=== PATIENT | female | born 1930 | race African-American/Black ===

== ENCOUNTER 2017-07-07 10:29 | Outpatient (RCR) | payer MEDICARE, BC ==
[~2017-07-07] VITALS: Ht 170.2 cm; Wt 70.3 kg
[2017-07-25] MEDS ORDERED: TOUJEO SOL300 UNIT/1 SQ (15:28)
[2017-07-25] MEDS ORDERED: FUROSEMIDE40 MG/5 ML ORAL (15:28)
[2017-07-25] MEDS ORDERED: TRADJENTA5 MG PO (15:28)
[2017-07-25] MEDS ORDERED: AMLODIPINE-BEN1 EACH ORAL (15:28)
[2017-07-25] MEDS ORDERED: MONTELUKAST SODI4 M1 ORAL (15:28)
[2017-07-25] MEDS ORDERED: ZESTRIL30 MG ORAL (15:28)
[2017-07-25] MEDS ORDERED: KLOR-CON20 MEQ ORAL (15:28)
[2017-07-25] MEDS ORDERED: LIPITOR80 MG ORAL (15:28)
[2017-07-25] MEDS ORDERED: LETROZOLE2.5 MG ORAL (15:28)
== END 2017-07-28 | disposition home or self-care (01) ==
LOC: WCC 10:29
DX: L89.154 Pressure ulcer of sacral region, stage 4 (principal); L97.412 Non-pressure chronic ulcer of right heel and midfoot with fat layer exposed; E11.621 Type 2 diabetes mellitus with foot ulcer; I10 Essential (primary) hypertension; Z90.710 Acquired absence of both cervix and uterus
CPT/HCPCS: 11042; 11043; 87070; 87181; 87205

== ENCOUNTER 2017-07-07 12:03 | Outpatient (CLI) | payer MEDICARE, BC | END 2017-07-07 14:03 | disposition home or self-care (01) | LOC: LAB 12:03 | DX: E11.9 Type 2 diabetes mellitus without complications (principal); E46 Unspecified protein-calorie malnutrition; M86.9 Osteomyelitis, unspecified; L98.499 Non-pressure chronic ulcer of skin of other sites with unspecified severity | CPT/HCPCS: 36415; 83036; 84134; 87070; 87181; 87205 ==

== ENCOUNTER 2017-07-10 08:40 | Outpatient (CLI) | payer MEDICARE, BC ==
--- NOTE | 2017-07-10 10:38 | Diagnostic Imaging Report ---
Indication: Sacrococcygeal region pain Technique: MRI examination of the sacrum was performed in a 1.5 Darling magnet. Sequences obtained include multiplanar T1 and T2 fast spin echo, and STIR. Comparison: none Findings: There is a T1 hypointense/T2 hyperintense edema of the postsurgical subcutaneous fat and suggestion of the skin ulceration consistent with a decubitus ulcer. Image 8 of series 5 probably best demonstrates presence of ulceration and fluid signal extending to the lower sacrum at about S5. This likely indicates a stage IV ulceration. Bone marrow signal is reasonably well maintained on both T1 and T2-weighted images. There is no compelling evidence here for acute osteoarthritis. In addition, there is evidence of fecal impaction at the distended rectum and stool. There is suggestion of thickening of the wall the rectum. There is presacral edema present. Degenerative changes of the lower lumbar spine are noted characterized by desiccation and narrowing of intervertebral disc, mild anterolisthesis at L4-5 and hypertrophied facets at L4-5 and L5-S1. 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 IMPRESSION: Stage IV decubitus ulcer posterior to the lower sacrum. Bone marrow signal is preserved with no evidence of acute osteomyelitis by this examination. Fecal impaction with evidence of proctocolitis and moderate perirectal/presacral inflammation. Moderate degenerative disease at L4-5 and L5-S1 as described above
== END 2017-07-10 10:40 | disposition home or self-care (01) ==
LOC: MRI 08:40
DX: M86.9 Osteomyelitis, unspecified (principal); L98.499 Non-pressure chronic ulcer of skin of other sites with unspecified severity; L89.154 Pressure ulcer of sacral region, stage 4; K52.9 Noninfective gastroenteritis and colitis, unspecified; M51.37 Other intervertebral disc degeneration, lumbosacral region
CPT/HCPCS: 72195; 93922; 93925

== ENCOUNTER 2017-07-25 12:59 | Inpatient (IN) | payer MEDICARE, BC ==
[~2017-07-25] VITALS: Ht 170.2 cm; Wt 51.3 kg
[2017-07-25] MEDS ORDERED: Vancomycin 1 GM in NS 275 ML IV ONE (13:45)
[2017-07-25 13:49] VITALS: BP 135/35
[2017-07-25 14:40] LABS: BASOPHILS % (AUTO) 1.8 % (0.0-2.0); EOSINOPHILS % (AUTO) 3.1 % (0.0-3.0); HEMATOCRIT 29.5 % (37.0-47.0); HEMOGLOBIN 9.3 G/DL (12.0-16.0); LYMPHOCYTES % (AUTO) 10.2 % (20.0-45.0); MEAN CORPUSCULAR VOLUME 84 FL (80-99); MONOCYTES % (AUTO) 11.2 % (1.0-10.0); NEUTROPHILS % (AUTO) 73.7 % (45.0-75.0); PLATELET COUNT 379 K/UL (150-450); RED BLOOD COUNT 3.52 M/UL (4.20-5.40); RED CELL DISTRIBUTION WIDTH 13.6 % (11.6-14.8); WHITE BLOOD COUNT 7.4 K/UL (4.8-10.8)
--- NOTE | 2017-07-25 14:42 | Emergency Room Report ---
History of Present Illness General Chief Complaint: Wound Recheck/Suture Removal Source: Patient, Caregiver Present Illness HPI 87-year-old female presents ED for evaluation. Patient brought in by niece and gripper attacher. Patient complaining of an ulcer to her lower back. Has been there for many months. Currently being treated with home wound care but is not getting better. Niece says wound is getting worse. Patient denies any pain. Denies any fevers chills. Physical Plant Manager states that patient is scheduled to start at wound care clinic here at [facility] next week. Has currently not received any treatment yet from the wound care clinic. No other aggravating or relieving factors. Denies any other associated symptoms Allergies: Coded Allergies: NO KNOWN DRUG ALLERGIES (Verified Allergy, Unknown, 07/10/17) Patient History Past Medical History: HTN Past Surgical History: other - lumpectomy Pertinent Family History: none Social History: Denies: smoking, alcohol use, drug use Now: No Immunizations: UTD Reviewed Nursing Documentation: PMH: Agreed; PSxH: Agreed Nursing Documentation-PMH Hx Hypertension: Yes Hx Diabetes: Yes Hx Cancer: Yes - breast 2014 lumpectomy Review of Systems All Other Systems: negative except mentioned in HPI Physical Exam Vital Signs Date Time Temp Pulse Resp B/P (MAP) Pulse Ox O2 Delivery O2 Flow Rate FiO2 07/25/17 13:15 97.8 70 17 135/35 100 Room Air 97.9 Sp02 EP Interpretation: reviewed, normal General Appearance: no apparent distress, alert, GCS 15, non-toxic Head: normocephalic, atraumatic Eyes: bilateral eye normal inspection, bilateral eye PERRL ENT: hearing grossly normal, normal pharynx, no angioedema, normal voice Neck: full range of motion, supple/symm/no masses Respiratory: chest non-tender, lungs clear, normal breath sounds, speaking full sentences Cardiovascular #1: regular rate, rhythm, no edema Cardiovascular #2: 2+ carotid (R), 2+ carotid (L), 2+ radial (R), 2+ radial (L) , 2+ dorsalis pedis (R), 2+ dorsalis pedis (L) Gastrointestinal: normal bowel sounds, non tender, soft, non-distended, no guarding, no rebound Rectal: deferred Genitourinary: normal inspection, no CVA tenderness Musculoskeletal: back normal, gait/station normal, normal range of motion, non- tender Neurologic: alert, oriented x3, responsive, motor strength/tone normal, sensory intact, speech normal Psychiatric: judgement/insight normal, memory normal, mood/affect normal, no suicidal/homicidal ideation Reflexes: 3+ bicep (R), 3+ bicep (L), 3+ tricep (R), 3+ tricep (L), 3+ knee (R) , 3+ knee (L) Skin: other - 3x3cm sacral decutibus ulcer noted Lymphatic: no adenopathy Medical Decision Making Diagnostic Impression: Primary Impression: Sacral ulcer Qualified Codes: L98.429 - Non-pressure chronic ulcer of back with unspecified severity ER Course Hospital Course 87-year-old female presents to ED with wound to lower back Differential diagnoses include: Cellulitis, abscess, rash. Clinical course Patient placed on stretcher. After initial history, physical exam reveals an elderly female in no acute distress. On exam there is a large sacral decubitus ulcer which is fairly deep I spoke to gripper attacher and family. The ulcer has been there for many months now and has received home treatment without relief or improvement. I believe patient will require inpatient admission at this time and further evaluation labs reviewed - no leukocytosis, Hb/Hct stable, no electrolyte abnormalities. Wound culture obtained antibiotics given. Case discussed with Dr Pimentel and he agreed to accept the patient to his service for further care and support Diagnosis - sacral ulcer Patient admitted to floor in serious condition Labs Test 07/25/17 14:15 07/25/17 14:20 07/26/17 05:00 White Blood Count 7.4 K/UL (4.8-10.8) 7.2 K/UL (4.8-10.8) Red Blood Count 3.52 M/UL (4.20-5.40) 3.08 M/UL (4.20-5.40) Hemoglobin 9.3 G/DL (12.0-16.0) 8.5 G/DL (12.0-16.0) Hematocrit 29.5 % (37.0-47.0) 25.5 % (37.0-47.0) Mean Corpuscular Volume 84 FL (80-99) 83 FL (80-99) Mean Corpuscular Hemoglobin 26.4 PG (27.0-31.0) 27.8 PG (27.0-31.0) Mean Corpuscular Hemoglobin Concent 31.6 G/DL (32.0-36.0) 33.5 G/DL (32.0-36.0) Red Cell Distribution Width 13.6 % (11.6-14.8) 13.7 % (11.6-14.8) Platelet Count 379 K/UL (150-450) 382 K/UL (150-450) Mean Platelet Volume 6.2 FL (6.5-10.1) 6.3 FL (6.5-10.1) Neutrophils (%) (Auto) 73.7 % (45.0-75.0) 66.3 % (45.0-75.0) Lymphocytes (%) (Auto) 10.2 % (20.0-45.0) 14.1 % (20.0-45.0) Monocytes (%) (Auto) 11.2 % (1.0-10.0) 12.8 % (1.0-10.0) Eosinophils (%) (Auto) 3.1 % (0.0-3.0) 5.3 % (0.0-3.0) Basophils (%) (Auto) 1.8 % (0.0-2.0) 1.5 % (0.0-2.0) Erythrocyte Sedimentation Rate 101 MM/HR (0-30) Sodium Level 132 MMOL/L (136-145) 138 MMOL/L (136-145) Potassium Level 4.3 MMOL/L (3.5-5.1) 4.2 MMOL/L (3.5-5.1) Chloride Level 99 MMOL/L (98-107) 103 MMOL/L (98-107) Carbon Dioxide Level 27 MMOL/L (21-32) 26 MMOL/L (21-32) Anion Gap 6 mmol/L (5-15) 9 mmol/L (5-15) Blood Urea Nitrogen 26 mg/dL (7-18) 20 mg/dL (7-18) Creatinine 1.4 MG/DL (0.55-1.30) 0.9 MG/DL (0.55-1.30) Estimat Glomerular Filtration Rate mL/min (>60) mL/min (>60) Glucose Level 359 MG/DL (74-106) 156 MG/DL (74-106) Hemoglobin A1c 10.2 % (4.3-6.0) Lactic Acid Level 1.30 mmol/L (0.66-2.22) Calcium Level 9.1 MG/DL (8.5-10.1) 8.7 MG/DL (8.5-10.1) Total Bilirubin 0.4 MG/DL (0.2-1.0) 0.5 MG/DL (0.2-1.0) Aspartate Amino Transf (AST/SGOT) 14 U/L (15-37) 14 U/L (15-37) Alanine Aminotransferase (ALT/SGPT) 15 U/L (12-78) 20 U/L (12-78) Alkaline Phosphatase 75 U/L (46-116) 58 U/L (46-116) Pro-B-Type Natriuretic Peptide 1037 pg/mL (0-125) Total Protein 7.5 G/DL (6.4-8.2) 6.2 G/DL (6.4-8.2) Albumin 2.3 G/DL (3.4-5.0) 2.0 G/DL (3.4-5.0) Globulin 5.2 g/dL 4.2 g/dL Albumin/Globulin Ratio 0.4 (1.0-2.7) 0.5 (1.0-2.7) Thyroid Stimulating Hormone (TSH) 2.602 uiU/mL (0.358-3.740) Free Thyroxine 1.56 NG/DL (0.76-1.46) Urine Color Pale yellow Urine Appearance Clear Urine pH 5 (4.5-8.0) Urine Specific [place] 1.010 (1.005-1.035) Urine Protein Negative (NEGATIVE) Urine Glucose (UA) 2+ (NEGATIVE) Urine Ketones Negative (NEGATIVE) Urine Occult Blood Negative (NEGATIVE) Urine Nitrite Negative (NEGATIVE) Urine Bilirubin Negative (NEGATIVE) Urine Urobilinogen Normal MG/DL (0.0-1.0) Urine Leukocyte Esterase Negative (NEGATIVE) Last Vital Signs Date Time Temp Pulse Resp B/P (MAP) Pulse Ox O2 Delivery O2 Flow Rate FiO2 07/25/17 13:49 97.9 17 135/35 100 Room Air 97.9 07/25/17 13:15 70 Status: improved Disposition: ADMITTED INPATIENT Condition: Serious Referrals: NON PHYSICIAN (PCP) Antonio Osorio MD Jul 25, 2017 14:42
[2017-07-25 14:50] LABS: ANION GAP 6 mmol/L (5-15); BLOOD UREA NITROGEN 26 mg/dL (7-18); CALCIUM 9.1 MG/DL (8.5-10.1); CARBON DIOXIDE 27 MMOL/L (21-32); CHLORIDE 99 MMOL/L (98-107); CREATININE 1.4 MG/DL (0.55-1.30); POTASSIUM 4.3 MMOL/L (3.5-5.1); SODIUM 132 MMOL/L (136-145)
[2017-07-25 15:02] LABS: ALANINE AMINOTRANSFERASE 15 U/L (12-78); ALBUMIN 2.3 G/DL (3.4-5.0); ALBUMIN/GLOBULIN RATIO 0.4 (1.0-2.7); ALKALINE PHOSPHATASE 75 U/L (46-116); ASPARTATE AMINO TRANSFERASE 14 U/L (15-37); BILIRUBIN,TOTAL 0.4 MG/DL (0.2-1.0)
[2017-07-25 15:11] VITALS: BP 132/65
[2017-07-25] MEDS ORDERED: TRADJENTA5 MG PO (15:28)
[2017-07-25] MEDS ORDERED: MONTELUKAST SODI4 M1 ORAL (15:28)
[2017-07-25] MEDS ORDERED: AMLODIPINE-BEN1 EACH ORAL (15:28)
[2017-07-25] MEDS ORDERED: LIPITOR80 MG ORAL (15:28)
[2017-07-25] MEDS ORDERED: FUROSEMIDE40 MG/5 ML ORAL (15:28)
[2017-07-25] MEDS ORDERED: KLOR-CON20 MEQ ORAL (15:28)
[2017-07-25] MEDS ORDERED: LETROZOLE2.5 MG ORAL (15:28)
[2017-07-25] MEDS ORDERED: TOUJEO SOL300 UNIT/1 SQ (15:28)
[2017-07-25] MEDS ORDERED: ZESTRIL30 MG ORAL (15:28)
--- NOTE | 2017-07-25 15:37 | History & Physical ---
History and Physical History & Physicial seen and examined. HP Dilatated Erin Pimentel MD Jul 25, 2017 15:37
[2017-07-25 16:00] LABS: APPEARANCE,URINE CLEAR; BILIRUBIN, URINE NEGATIVE (NEGATIVE); COLOR,URINE PALE YELLOW; GLUCOSE, URINE (UA) 2+ (NEGATIVE); KETONES,URINE NEGATIVE (NEGATIVE); LEUKOCYTE ESTERASE ,URINE NEGATIVE (NEGATIVE); NITRITE,URINE NEGATIVE (NEGATIVE); PH,URINE 5 (4.5-8.0); PROTEIN,URINE NEGATIVE (NEGATIVE); UROBILINOGEN,URINE NORMAL MG/DL (0.0-1.0)
--- NOTE | 2017-07-25 16:53 | Diagnostic Imaging Report ---
. Indication: Chest pain Technique: One view of the chest Comparison: none Findings: The lungs and pleural spaces are clear. The heart is borderline enlarged. There are left axillary surgical clips. The patient is slightly rotated to the left. Impression: No acute process
[2017-07-25 17:41] VITALS: BP 135/65
[2017-07-25 19:16] VITALS: BP 143/62
[2017-07-25] MEDS: NovoLOG Insulin Flexpen SUBQ SCH (19:24)
--- NOTE | 2017-07-25 19:45 | History and Physical Report ---
DATE OF ADMISSION: 07/25/2017 SOURCE OF INFORMATION: The patient and EMR. HISTORY OF PRESENT ILLNESS: The patient is a pleasant 87-year-old, female, recently post hospitalization Hospital, presented with increasing amount of pain, bloating in the abdomen. The patient was visited in the emergency room and I used a variety lathe operator for communication with this patient. The patient denies any chest pain or shortness of breath. The patient reported because of diarrhea has been transferred to the hospital. Initial evaluation in the emergency room shows the temperature of 97.8 degrees, respiratory rate of 17, and pulse oximetry 100% on room air. The patient is following the commands. The patient is on nasal oxygen. The patient denies any fever or chills. The patient denies any abnormal bleeding. PAST MEDICAL HISTORY: Sacral ulcer, anemia, deconditioning, and diabetes. MEDICATIONS: Current hospital medications, not available, unobtainable. ALLERGIES: NKDA. SOCIAL HISTORY: The patient reported that she lives in an apartment with her daughter. Denies history of illicit drug abuse, smoking or alcohol abuse. FAMILY HISTORY: Reviewed, noncontributory. REVIEW OF SYSTEMS: All 12 elements of review of systems reviewed with the patient. Pertinent positive and negative as above. PHYSICAL EXAMINATION: VITAL SIGNS: Blood pressure 130/80, temperature 98.2 degrees, pulse oximetry 98% on room air and respiratory rate 18. HEAD AND NECK: Atraumatic and normocephalic. CHEST: Clear to auscultation. No wheezing. No crackles. HEART: S1 and S2. Regular rate and rhythm. No S3. No S4. ABDOMEN: Soft, mild tenderness on deep palpation. Bowel sounds are noted. MUSCULOSKELETAL: Atrophied musculature, positive for decubitus ulcer in the sacral region. NEUROLOGY: The patient is awake, alert and oriented x3. PSYCHIATRIC: Mood and affect is appropriate and normal. LABORATORY AND DIAGNOSTIC DATA: Labs dated 07/25/2017 shows sodium 132, potassium 4.3, BUN 26, and creatinine 1.4. AST 14. Albumin 2.3. WBC 7.4, hemoglobin 9.3, and platelet of 375,000. Imaging pending. ASSESSMENT AND PLAN: 1. Gastroenteritis. 2. Chronic decubitus sacral ulcer. 3. Renal failure - age indeterminate. 4. Diabetes type 2, uncontrolled. 5. Hyponatremia. 6. Abnormal BNP, possibility of heart failure cannot be excluded. 7. Hypotension. 8. Differential diagnosis are shock versus hypovolemia. 9. Gastrointestinal and deep venous thrombosis prophylaxis. PLAN OF CARE: We will initiate empiric antibiotic regimen. Crystalloid with volume expanders. I agree with ICU admission. Gastrointestinal, Cardiology and Nephrology services have been consulted. Erin Pimentel M.D. DR: WALE JOB#: [id number] CC:
[2017-07-25] MEDS: D5NS 1,000 ML IV SCH (20:37)
[2017-07-26 00:13] VITALS: BP 129/46
[2017-07-26 04:00] VITALS: BP 144/52
[2017-07-26] MEDS: NovoLOG Insulin Flexpen SUBQ SCH ×3 (05:50→17:07)
[2017-07-26 07:36] LABS: BASOPHILS % (AUTO) 1.5 % (0.0-2.0); EOSINOPHILS % (AUTO) 5.3 % (0.0-3.0); HEMATOCRIT 25.5 % (37.0-47.0); HEMOGLOBIN 8.5 G/DL (12.0-16.0); LYMPHOCYTES % (AUTO) 14.1 % (20.0-45.0); MEAN CORPUSCULAR VOLUME 83 FL (80-99); MONOCYTES % (AUTO) 12.8 % (1.0-10.0); NEUTROPHILS % (AUTO) 66.3 % (45.0-75.0); PLATELET COUNT 382 K/UL (150-450); RED BLOOD COUNT 3.08 M/UL (4.20-5.40); RED CELL DISTRIBUTION WIDTH 13.7 % (11.6-14.8); WHITE BLOOD COUNT 7.2 K/UL (4.8-10.8)
[2017-07-26 07:44] LABS: ALANINE AMINOTRANSFERASE 20 U/L (12-78); ALBUMIN/GLOBULIN RATIO 0.5 (1.0-2.7); ALKALINE PHOSPHATASE 58 U/L (46-116); ANION GAP 9 mmol/L (5-15); ASPARTATE AMINO TRANSFERASE 14 U/L (15-37); BILIRUBIN,TOTAL 0.5 MG/DL (0.2-1.0); BLOOD UREA NITROGEN 20 mg/dL (7-18); CALCIUM 8.7 MG/DL (8.5-10.1); CARBON DIOXIDE 26 MMOL/L (21-32); CHLORIDE 103 MMOL/L (98-107); CREATININE 0.9 MG/DL (0.55-1.30); POTASSIUM 4.2 MMOL/L (3.5-5.1); SODIUM 138 MMOL/L (136-145)
[2017-07-26 08:00] VITALS: BP 148/70
--- NOTE | 2017-07-26 09:23 | History & Physical ---
History and Physical History & Physicial NEW HP Dictated today. Please Disregard the Prior HP Erin Pimentel MD Jul 26, 2017 09:23
--- NOTE | 2017-07-26 09:25 | General Progress Note ---
Assessment/Plan Status: stable Assessment/Plan 1- Deconditioning/ malnuritionment 2- Sacral Decubitus wound, multiple 3- DM 4- HTN 5- HLP Plan: Will optimise DM medications PT /OT consult Subjective Allergies: Coded Allergies: NO KNOWN DRUG ALLERGIES (Verified Allergy, Unknown, 07/10/17) Objective Last 24 Hour Vital Signs Date Time Temp Pulse Resp B/P (MAP) Pulse Ox O2 Delivery O2 Flow Rate FiO2 07/26/17 08:00 97.9 63 19 148/70 99 97.9 07/26/17 04:00 99.1 67 20 144/52 100 Room Air 99.1 07/26/17 00:13 98.4 69 20 129/46 97 Room Air 98.4 07/25/17 19:16 99.0 69 20 143/62 99 Room Air 99.0 07/25/17 17:41 97.9 68 16 135/65 100 Room Air 97.9 07/25/17 15:11 97.9 69 16 132/65 100 Room Air 97.9 07/25/17 13:49 97.9 17 135/35 100 Room Air 97.9 07/25/17 13:15 97.8 70 17 135/35 100 Room Air 97.9 Intake and Output 07/25/17 07/26/17 19:00 07:00 Intake Total 675 ml Balance 675 ml Intake IV Total 675 ml # Voids 4 # Bowel Movements 2 Laboratory Tests 07/25/17 14:15: White Blood Count 7.4, Red Blood Count 3.52L, Hemoglobin 9.3L, Hematocrit 29.5L , Mean Corpuscular Volume 84, Mean Corpuscular Hemoglobin 26.4L, Mean Corpuscular Hemoglobin Concent 31.6L, Red Cell Distribution Width 13.6, Platelet Count 379, Mean Platelet Volume 6.2L, Neutrophils (%) (Auto) 73.7, Lymphocytes (%) (Auto) 10.2L, Monocytes (%) (Auto) 11.2H, Eosinophils (%) (Auto ) 3.1H, Basophils (%) (Auto) 1.8, Erythrocyte Sedimentation Rate 101H, Sodium Level 132L, Potassium Level 4.3, Chloride Level 99, Carbon Dioxide Level 27, Anion Gap 6, Blood Urea Nitrogen 26H, Creatinine 1.4H, Estimat Glomerular Filtration Rate , Glucose Level 359H, Hemoglobin A1c 10.2H, Lactic Acid Level 1.30, Calcium Level 9.1, Total Bilirubin 0.4, Aspartate Amino Transf (AST/SGOT) 14L, Alanine Aminotransferase (ALT/SGPT) 15, Alkaline Phosphatase 75, Pro-B- Type Natriuretic Peptide 1037H, Total Protein 7.5, Albumin 2.3L, Globulin 5.2, Albumin/Globulin Ratio 0.4L, Thyroid Stimulating Hormone (TSH) 2.602, Free Thyroxine 1.56H 07/25/17 14:20: Urine Color Pale yellow, Urine Appearance Clear, Urine pH 5, Urine Specific [place] 1.010, Urine Protein Negative, Urine Glucose (UA) 2+H, Urine Ketones Negative, Urine Occult Blood Negative, Urine Nitrite Negative, Urine Bilirubin Negative, Urine Urobilinogen Normal, Urine Leukocyte Esterase Negative 07/26/17 05:00: White Blood Count 7.2, Red Blood Count 3.08L, Hemoglobin 8.5L, Hematocrit 25.5L , Mean Corpuscular Volume 83, Mean Corpuscular Hemoglobin 27.8, Mean Corpuscular Hemoglobin Concent 33.5, Red Cell Distribution Width 13.7, Platelet Count 382, Mean Platelet Volume 6.3L, Neutrophils (%) (Auto) 66.3, Lymphocytes ( %) (Auto) 14.1L, Monocytes (%) (Auto) 12.8H, Eosinophils (%) (Auto) 5.3H, Basophils (%) (Auto) 1.5, Sodium Level 138, Potassium Level 4.2, Chloride Level 103, Carbon Dioxide Level 26, Anion Gap 9, Blood Urea Nitrogen 20H, Creatinine 0.9, Estimat Glomerular Filtration Rate , Glucose Level 156#H, Calcium Level 8.7 , Total Bilirubin 0.5, Aspartate Amino Transf (AST/SGOT) 14L, Alanine Aminotransferase (ALT/SGPT) 20, Alkaline Phosphatase 58, Total Protein 6.2L, Albumin 2.0L, Globulin 4.2, Albumin/Globulin Ratio 0.5L Height (Feet): 5 Height (Inches): 7.00 Weight (Pounds): 113 Erin Pimentel MD Jul 26, 2017 09:25
[2017-07-26] MEDS: D5NS 1,000 ML IV SCH ×2 (09:44→16:09)
[2017-07-26] MEDS: Heparin 5000 units/ml inj SUBQ SCH ×2 (09:44→20:13)
[2017-07-26] MEDS ORDERED: Levemir Flexpen SUBQ SCH (11:00)
[2017-07-26 11:56] VITALS: BP 150/63
--- NOTE | 2017-07-26 12:15 | Consultation ---
Consult Note Consult Note ID DIC # [id number] Yong Kennedy MD Jul 26, 2017 12:15
[2017-07-26 16:02] VITALS: BP 148/55
[2017-07-26] MEDS: AMPICILLIN IVPB SCH ×2 (16:08→23:30)
[2017-07-26] MEDS: D5W IVPB SCH ×2 (16:08→23:30)
[2017-07-26] MEDS: SULBACTAM SOD IVPB SCH ×2 (16:08→23:30)
--- NOTE | 2017-07-26 17:12 | Consultation ---
History of Present Illness General Date patient seen: Jul 26, 2017 Time patient seen: 17:04 Chief Complaint: Sacral pressure ulcer Present Illness HPI Patient is an 87 yof who presents for evaluation of sacral and right heel ulcers. She has had the sacral ulcer since 03/16 which occurred during an inpatient hospitalization. She is ambulatory. 2 months ago she developed a right heel ulcer which began as a blister. She is diabetic as well. 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 Allergies: Coded Allergies: NO KNOWN DRUG ALLERGIES (Verified Allergy, Unknown, 07/10/17) Medication History Scheduled Amlodipine Besylate/Benazepril* (Amlodipine-Benazepril 10-20 Mg*), 1 CAP ORAL DAILY, (Reported) Atorvastatin (Lipitor), 80 MG ORAL BEDTIME, (Reported) Furosemide (Furosemide), 20 MG ORAL DAILY, (Reported) Letrozole (Letrozole), 2.5 MG ORAL DAILY, (Reported) Lisinopril (Zestril), 30 MG ORAL DAILY, (Reported) Montelukast Sodium (Montelukast Sodium), 4 MG ORAL DAILY, (Reported) Potassium Chloride (Klor-Con), 20 MEQ ORAL DAILY, (Reported) Miscellaneous Medications Insulin Glargine,Hum.rec.anlog (Toujeo Solostar), 300 UNIT SQ, (Reported) Linagliptin (Tradjenta), 5 MG PO, (Reported) Patient History History Provided By: Patient Healthcare decision maker BRYON GOMEZ Resuscitation status Full Code Advanced Directive on File No Review of Systems Constitutional: Reports: no symptoms Eye: Reports: no symptoms ENT: Reports: no symptoms Cardiovascular: Reports: no symptoms Genitourinary: Reports: incontinence Skin: Reports: see HPI Psychiatric: Reports: no symptoms Neurological: Reports: no symptoms Endocrine: Reports: no symptoms Hematologic/Lymphatic: Reports: anemia Physical Exam General Appearance: WD/WN, no apparent distress, alert Lines, tubes and drains: peripheral Respiratory/Chest: no respiratory distress Abdomen: non tender, soft Extremities: no edema Skin Exam: other - Sacrum: Stage 4 pressure ulcer with areas of slough and loose eschar. Positive odor. No purulent drainage and no fluctuance. Right heel ulcer with some fibrotic debris but granular base is present. No erythema or warmth. No swelling in foot. Left lateral foot with skin bruise but skin is intact. Musculoskeletal: normal muscle bulk Last 24 Hour Vital Signs Date Time Temp Pulse Resp B/P (MAP) Pulse Ox O2 Delivery O2 Flow Rate FiO2 07/26/17 16:02 Room Air 07/26/17 16:02 97.9 62 18 148/55 99 97.9 07/26/17 11:56 98.5 65 20 150/63 97 Room Air 98.5 07/26/17 08:00 97.9 63 19 148/70 99 97.9 07/26/17 08:00 Room Air 07/26/17 04:00 99.1 67 20 144/52 100 Room Air 99.1 07/26/17 00:13 98.4 69 20 129/46 97 Room Air 98.4 07/25/17 19:16 99.0 69 20 143/62 99 Room Air 99.0 07/25/17 17:41 97.9 68 16 135/65 100 Room Air 97.9 Intake and Output 07/25/17 07/26/17 19:00 07:00 Intake Total 750 ml Balance 750 ml Intake IV Total 750 ml # Voids 4 # Bowel Movements 2 Laboratory Tests Test 07/26/17 05:00 White Blood Count 7.2 K/UL (4.8-10.8) Red Blood Count 3.08 M/UL (4.20-5.40) L Hemoglobin 8.5 G/DL (12.0-16.0) L Hematocrit 25.5 % (37.0-47.0) L Mean Corpuscular Volume 83 FL (80-99) Mean Corpuscular Hemoglobin 27.8 PG (27.0-31.0) Mean Corpuscular Hemoglobin Concent 33.5 G/DL (32.0-36.0) Red Cell Distribution Width 13.7 % (11.6-14.8) Platelet Count 382 K/UL (150-450) Mean Platelet Volume 6.3 FL (6.5-10.1) L Neutrophils (%) (Auto) 66.3 % (45.0-75.0) Lymphocytes (%) (Auto) 14.1 % (20.0-45.0) L Monocytes (%) (Auto) 12.8 % (1.0-10.0) H Eosinophils (%) (Auto) 5.3 % (0.0-3.0) H Basophils (%) (Auto) 1.5 % (0.0-2.0) Sodium Level 138 MMOL/L (136-145) Potassium Level 4.2 MMOL/L (3.5-5.1) Chloride Level 103 MMOL/L (98-107) Carbon Dioxide Level 26 MMOL/L (21-32) Anion Gap 9 mmol/L (5-15) Blood Urea Nitrogen 20 mg/dL (7-18) H Creatinine 0.9 MG/DL (0.55-1.30) Estimat Glomerular Filtration Rate mL/min (>60) Glucose Level 156 MG/DL (74-106) #H Calcium Level 8.7 MG/DL (8.5-10.1) Total Bilirubin 0.5 MG/DL (0.2-1.0) Aspartate Amino Transf (AST/SGOT) 14 U/L (15-37) L Alanine Aminotransferase (ALT/SGPT) 20 U/L (12-78) Alkaline Phosphatase 58 U/L (46-116) Total Protein 6.2 G/DL (6.4-8.2) L Albumin 2.0 G/DL (3.4-5.0) L Globulin 4.2 g/dL Albumin/Globulin Ratio 0.5 (1.0-2.7) L Height (Feet): 5 Height (Inches): 7.00 Weight (Pounds): 113 Medications Current Medications Medications (Trade) Dose Ordered Sig/Julius Route PRN Reason Start Time Stop Time Status Last Admin Dose Admin Acetaminophen (Tylenol) 650 mg Q6H PRN ORAL Mild Pain/Temp > 100.5 07/25/17 23:45 08/24/17 23:44 Ampicillin Sodium/ Sulbactam Sodium 1.5 gm/Dextrose 55 ml @ 110 mls/hr Q12HR IVPB 07/26/17 14:00 08/02/17 13:59 07/26/17 16:08 Dextrose/Sodium Chloride 1,000 ml @ 75 mls/hr [id number] IV 07/25/17 20:00 08/24/17 19:59 07/26/17 16:09 Heparin Sodium (Porcine) (Heparin 5000 units/ml) 5,000 units EVERY 12 HOURS SUBQ 07/26/17 09:00 08/25/17 08:59 07/26/17 09:44 Insulin Aspart (NovoLOG) 2 units NOVOTIAC SUBQ 07/25/17 16:50 08/24/17 16:49 07/26/17 12:23 Insulin Detemir (Levemir) 5 units DAILY SUBQ 07/26/17 11:00 08/25/17 10:59 07/26/17 12:23 Morphine Sulfate (Morphine Sulfate) 2 mg Q4H PRN IVP Severe Pain (Pain Scale 7-10) 07/25/17 23:45 08/01/17 23:44 Pantoprazole (Protonix) 40 mg DAILY ORAL 07/26/17 09:00 08/25/17 08:59 07/26/17 09:43 Assessment/Plan Status: stable Assessment/Plan Patient with stage 4 sacral pressure ulcer and stage 3 right heel ulcer. She will need surgical debridement of the ulcers, particularly the sacral ulcer as there is an odor and loose eschar. This cannot be done at the bedside given the inability to obtain proper anesthesia and control of bleeding. Discussed this with the patient and R/B/A explained. Will obtain informed consent. For now will start wet to dry with half strength .25% Dakins solution to the sacrum and hydrogel to the right heel ulcer. Thank you. MANA LINARES Jul 26, 2017 17:12
[2017-07-26 20:00] VITALS: BP 135/51
[2017-07-26] MEDS: Morphine Sulfate 4mg/ml Inj IVP PRN (20:11)
--- NOTE | 2017-07-26 20:15 | History and Physical Report ---
DATE OF ADMISSION: 07/25/2017 SOURCE OF INFORMATION: The patient and EMR. HISTORY OF PRESENT ILLNESS: The patient is a pleasant 87-year-old, female. She is living in her home with home health care. She is fully dependent for both basic and advanced like settings. She presented secondary to abdominal pain, diffuse weakness, tiredness, and worsening of the painful lesions on her back. The patient was transferred by the niece and hospitalist medical director regarding these concerns. At the time of evaluation, the patient denies any severe pain. However, complains of lacking the capacity for moving around and activity. Most of the time is bedbound. PAST MEDICAL HISTORY: Including, but not limited to diabetes, hypertension, and hyperlipidemia. PAST SURGICAL HISTORY: Hysterectomy. ALLERGIES: NKDA. SOCIAL HISTORY: The patient denies history of illicit drug abuse, smoking, or alcohol abuse. The patient is living by herself in her home being helped by caregiver. FAMILY HISTORY: Reviewed. Noncontributory. REVIEW OF SYSTEMS: All 12 elements of review of systems reviewed with the patient. Pertinent positive and negative as above. PHYSICAL EXAMINATION: VITAL SIGNS: Blood pressure 130/40, temperature 98.2 degrees, pulse oximetry 98% on room air, respiratory rate 18, temperature 98.2 degrees, and pulse rate is 69. HEAD AND NECK: Atraumatic and normocephalic. CHEST: Clear to auscultation. No wheezing. No crackles. HEART: S1 and S2. Regular rate and rhythm. Negative for S3. Negative for S4. ABDOMEN: Soft, obese. Bowel sounds are normal. MUSCULOSKELETAL: Positive for multiple skin lesions and wounds in the sacral areas in various stages. There is positive for intact spontaneous movements of all four extremities. NEUROLOGIC: The patient is awake, alert, and oriented x3. LABORATORY AND DIAGNOSTIC DATA: Labs dated 07/25/2017 shows leukocytes 7.4, hemoglobin 9.3, and platelets of 379,000. Sodium 132, potassium 4.3, BUN 26, and creatinine 1.4. A1c 10.2. TSH of 2.6. UA unremarkable. ASSESSMENT: 1. Acute on chronic debility/deconditioning manifested by appearing of new decubitus wound ulcers in sacral regions. 2. Anemia. 3. Hyponatremia. 4. Acute renal failure. 5. Diabetes type 2, uncontrolled. 6. Hypertension. 7. Gastrointestinal and deep vein thrombosis prophylaxis. PLAN OF CARE: Consult the wound management. We will continue and resume the home medications. We will check the A1c lipid panel. We will check the iron panels. We will optimize the diabetic antiglycemic medications. Erin Pimentel M.D. DR: Devora JOB#: [id number] CC:
--- NOTE | 2017-07-26 23:00 | Consultation ---
DATE OF CONSULTATION: 07/26/2017 INFECTIOUS DISEASES CONSULTATION CONSULTING PHYSICIAN: Yong Kennedy M.D. REFERRING PHYSICIAN: Erin Pimentel M.D. REASON FOR CONSULTATION: Evaluation of the patient for wound infection, possible osteomyelitis, and antibiotic management. HISTORY OF PRESENT ILLNESS: The patient is an 87-year-old female with multiple medical problems as listed below, who was admitted from home to this medical center for worsening of sacral decubitus. Infectious Diseases consultation has been requested for further evaluation of the patient and antibiotic management. PAST MEDICAL HISTORY: Significant for: 1. Chronic sacral ulcer. 2. History of anemia. 3. History of bedridden/deconditioning. 4. Hypertension. 5. Hyperlipidemia. 6. History of breast cancer. MEDICATIONS: Currently off of antibiotics. She received one dose of vancomycin in the emergency room. ALLERGIES: No known drug allergies. SOCIAL HISTORY: The patient lives at home. FAMILY HISTORY: Unavailable. REVIEW OF SYSTEMS: A 10-point review was done except what was mentioned above has been negative. PHYSICAL EXAMINATION: VITAL SIGNS: Temperature 98.5 degrees, pulse 65, respiratory rate 18, and blood pressure 150/63. HEENT: No pale conjunctivae. No icterus. NECK: No lymphadenopathy. CHEST: Coarse breathing sounds. HEART: S1 and S2. ABDOMEN: Soft and nontender. EXTREMITIES: No cyanosis at this time. SKIN: The patient has unstageable sacral decubitus. LABORATORY AND DIAGNOSTIC DATA: Laboratory data, white blood cells 7, hemoglobin 8, and platelets 380,000. UA unremarkable. BUN 20 and creatinine 0.9. ALT, AST, and alkaline phosphatase unremarkable. Wound culture from 07/07/2017 is growing cortes susceptible E. coli, Proteus, and Enterococcus faecalis. workup, 1. Chest x-ray, no acute process. 2. MRI of sacral coccygeal, no evidence of osteomyelitis (07/10/2017). ASSESSMENT: The patient is an 87-year-old female with multiple medical problems as listed below, who has: 1. Infected sacral decubitus requiring debridement. 2. No evidence of osteomyelitis based on MRI on (07/10/2017). 3. Normal white blood cells. 4. Afebrile. PLAN: 1. We will start the patient on IV Unasyn day #1 (no need for MRSA coverage at this point in view of positive wound culture for this organism). 2. Monitor CBC. 3. Monitor BMP. 4. Surgical evaluation for possible debridement of the wound. 5. Recommend deep tissue wound cultures for further better identification of bacterial etiology. 6. Based on the patient's clinical course and labs, we will do further recommendations. Thank you, Dr. Pimentel, for allowing me to participate in the care of this patient. I will follow the patient with you during this hospitalization. Yong Kennedy M.D. DR: Krystal JOB#: [id number] CC:
[2017-07-27] VITALS: BP 138/55
[2017-07-27 04:00] VITALS: BP 148/59
[2017-07-27] MEDS: Morphine Sulfate 4mg/ml Inj IVP PRN ×3 (05:00→21:33)
[2017-07-27 05:38] LABS: BASOPHILS % (AUTO) 1.4 % (0.0-2.0); EOSINOPHILS % (AUTO) 4.4 % (0.0-3.0); HEMATOCRIT 32.2 % (37.0-47.0); HEMOGLOBIN 10.5 G/DL (12.0-16.0); LYMPHOCYTES % (AUTO) 16.7 % (20.0-45.0); MEAN CORPUSCULAR VOLUME 83 FL (80-99); MONOCYTES % (AUTO) 7.2 % (1.0-10.0); NEUTROPHILS % (AUTO) 70.3 % (45.0-75.0); PLATELET COUNT 468 K/UL (150-450); RED BLOOD COUNT 3.87 M/UL (4.20-5.40); RED CELL DISTRIBUTION WIDTH 13.8 % (11.6-14.8); WHITE BLOOD COUNT 8.3 K/UL (4.8-10.8)
[2017-07-27 05:56] LABS: ALANINE AMINOTRANSFERASE 15 U/L (12-78); ALBUMIN/GLOBULIN RATIO 0.4 (1.0-2.7); ALKALINE PHOSPHATASE 59 U/L (46-116); ANION GAP 7 mmol/L (5-15); ASPARTATE AMINO TRANSFERASE 32 U/L (15-37); BILIRUBIN,TOTAL 0.7 MG/DL (0.2-1.0); BLOOD UREA NITROGEN 14 mg/dL (7-18); CALCIUM 8.6 MG/DL (8.5-10.1); CARBON DIOXIDE 27 MMOL/L (21-32); CHLORIDE 102 MMOL/L (98-107); CREATININE 0.9 MG/DL (0.55-1.30); SODIUM 136 MMOL/L (136-145)
[2017-07-27] MEDS: NovoLOG Insulin Flexpen SUBQ SCH ×3 (06:26→16:52)
--- NOTE | 2017-07-27 07:59 | General Progress Note ---
Assessment/Plan Status: stable Assessment/Plan 1. Acute on chronic debility/deconditioning manifested by appearing/ progression of decubitus wound ulcers in sacral and heel regions. 2. Anemia. 3. Hyponatremia. 4. Acute renal failure. 5. Diabetes type 2, uncontrolled. 6. Hypertension. 7. Gastrointestinal and deep vein thrombosis prophylaxis. Plan: Will optimise DM medications PT /OT consult Discussed and agreed the care with Dr Connell will proceed with Surgical debridment Current ABX regiment per Dr Kennedy will increase Levemir Subjective ROS Limited/Unobtainable: No Constitutional: Reports: malaise HEENT: Reports: no symptoms Cardiovascular: Reports: no symptoms Respiratory: Reports: no symptoms Allergies: Coded Allergies: NO KNOWN DRUG ALLERGIES (Verified Allergy, Unknown, 07/10/17) Objective Last 24 Hour Vital Signs Date Time Temp Pulse Resp B/P (MAP) Pulse Ox O2 Delivery O2 Flow Rate FiO2 07/27/17 04:00 98.2 72 20 148/59 97 Room Air 98.2 07/27/17 00:00 99.0 71 19 138/55 96 Room Air 99.0 07/26/17 20:00 98.4 60 18 135/51 96 Room Air 98.4 07/26/17 16:02 Room Air 07/26/17 16:02 97.9 62 18 148/55 99 97.9 07/26/17 11:56 98.5 65 20 150/63 97 Room Air 98.5 07/26/17 08:00 97.9 63 19 148/70 99 97.9 07/26/17 08:00 Room Air Intake and Output 07/26/17 07/27/17 19:00 07:00 Intake Total 935 ml 880 ml Balance 935 ml 880 ml Intake IV Total 935 ml 880 ml # Voids 4 2 # Bowel Movements 1 Laboratory Tests 07/27/17 04:30: White Blood Count 8.3, Red Blood Count 3.87L, Hemoglobin 10.5L, Hematocrit 32.2L , Mean Corpuscular Volume 83, Mean Corpuscular Hemoglobin 27.1, Mean Corpuscular Hemoglobin Concent 32.5, Red Cell Distribution Width 13.8, Platelet Count 468H, Mean Platelet Volume 5.8L, Neutrophils (%) (Auto) 70.3, Lymphocytes (%) (Auto) 16.7L, Monocytes (%) (Auto) 7.2, Eosinophils (%) (Auto) 4.4H, Basophils (%) (Auto) 1.4, Sodium Level 136, Potassium Level 5.0, Chloride Level 102, Carbon Dioxide Level 27, Anion Gap 7, Blood Urea Nitrogen 14, Creatinine 0.9, Estimat Glomerular Filtration Rate , Glucose Level 207H, Calcium Level 8.6 , Total Bilirubin 0.7, Aspartate Amino Transf (AST/SGOT) 32, Alanine Aminotransferase (ALT/SGPT) 15, Alkaline Phosphatase 59, Total Protein 7.4, Albumin 2.0L, Globulin 5.4, Albumin/Globulin Ratio 0.4L Height (Feet): 5 Height (Inches): 7.00 Weight (Pounds): 113 General Appearance: no apparent distress EENT: PERRL/EOMI Neck: supple Cardiovascular: normal rate Respiratory/Chest: lungs clear Abdomen: soft Extremities: non-tender, other - stage 4 decubitus in sacral, and another in right heel Neurologic: bobbin handler II-XII grossly normal Erin Pimentel MD Jul 27, 2017 07:59
[2017-07-27 08:00] VITALS: BP 150/64
[2017-07-27] MEDS: AMPICILLIN IVPB SCH ×2 (08:32→20:19)
[2017-07-27] MEDS: SULBACTAM SOD IVPB SCH ×2 (08:32→20:19)
[2017-07-27] MEDS: D5W IVPB SCH ×2 (08:32→20:19)
[2017-07-27] MEDS: Heparin 5000 units/ml inj SUBQ SCH ×2 (08:33→20:23)
[2017-07-27] MEDS ORDERED: D5NS 1000ml IV ONE (09:33)
[2017-07-27] MEDS ORDERED: Tubing IV Secondary IV ONE (09:33)
[2017-07-27] MEDS: D5NS 1,000 ML IV SCH (10:37)
[2017-07-27] MEDS: Levemir Flexpen SUBQ SCH (10:39)
--- NOTE | 2017-07-27 10:41 | Diagnostic Imaging Report ---
Indication:Abdominal pain Technique: Grayscale and duplex Doppler imaging of the abdomen performed. Comparison: None Findings: There are multiple cysts of varying size within the left kidney. There is also a 1.8 cm cyst in the hilum of the spleen. Spleen is normal in size. Aorta is moderately calcified. The liver is unremarkable. There is no biliary ductal dilatation or gallstones identified. Main portal vein is patent by Doppler examination. There is no hydronephrosis or ascites. CBD measures approximately 4 mm. Pancreas is not well seen. IMPRESSION: No acute findings appreciated. Splenic hilar cyst. Multiple cysts within the left kidney.
[2017-07-27 12:00] VITALS: BP 141/61
[2017-07-27 16:00] VITALS: BP 144/58
[2017-07-27 20:00] VITALS: BP 137/51
[2017-07-27] MEDS: Dakin's 0.25% (Half Strength) 16oz TOPIC SCH (21:21)
[2017-07-28] VITALS (11 sets, daily range): BP systolic 134–158; BP diastolic 51–76
[2017-07-28] MEDS: D5NS 1,000 ML IV SCH ×2 (01:19→14:40)
[2017-07-28] MEDS: NovoLOG Insulin Flexpen SUBQ SCH ×3 (05:44→16:50)
[2017-07-28 07:17] LABS: BASOPHILS % (AUTO) 1.1 % (0.0-2.0); EOSINOPHILS % (AUTO) 4.7 % (0.0-3.0); HEMATOCRIT 28.6 % (37.0-47.0); HEMOGLOBIN 9.4 G/DL (12.0-16.0); LYMPHOCYTES % (AUTO) 11.5 % (20.0-45.0); MEAN CORPUSCULAR VOLUME 83 FL (80-99); NEUTROPHILS % (AUTO) 73.7 % (45.0-75.0); PLATELET COUNT 422 K/UL (150-450); RED BLOOD COUNT 3.43 M/UL (4.20-5.40); RED CELL DISTRIBUTION WIDTH 13.8 % (11.6-14.8)
[2017-07-28 07:24] LABS: ALANINE AMINOTRANSFERASE 18 U/L (12-78); ALBUMIN 1.8 G/DL (3.4-5.0); ALBUMIN/GLOBULIN RATIO 0.4 (1.0-2.7); ALKALINE PHOSPHATASE 57 U/L (46-116); ANION GAP 8 mmol/L (5-15); ASPARTATE AMINO TRANSFERASE 12 U/L (15-37); BILIRUBIN,TOTAL 0.4 MG/DL (0.2-1.0); BLOOD UREA NITROGEN 9 mg/dL (7-18); CALCIUM 8.3 MG/DL (8.5-10.1); CARBON DIOXIDE 27 MMOL/L (21-32); CHLORIDE 105 MMOL/L (98-107); CREATININE 0.9 MG/DL (0.55-1.30); POTASSIUM 3.3 MMOL/L (3.5-5.1); SODIUM 140 MMOL/L (136-145)
[2017-07-28] MEDS: D5W IVPB SCH ×2 (08:05→20:53)
[2017-07-28] MEDS: SULBACTAM SOD IVPB SCH ×2 (08:05→20:53)
[2017-07-28] MEDS: AMPICILLIN IVPB SCH ×2 (08:05→20:53)
[2017-07-28] MEDS: Morphine Sulfate 4mg/ml Inj IVP PRN ×2 (08:06→20:23)
[2017-07-28] MEDS: Heparin 5000 units/ml inj SUBQ SCH ×2 (08:07→20:24)
[2017-07-28] MEDS: Levemir Flexpen SUBQ SCH (08:07)
[2017-07-28 10:24] LABS: INR 1.1 (0.9-1.1)
[2017-07-28] MEDS ORDERED: Potassium Chloride 40 MEQ in Sodium Chloride 500ML 550 ML IVPB SCH (10:30)
--- NOTE | 2017-07-28 10:58 | Cardiology Report ---
APPROVED REPORT EXAM: Two-dimensional and M-mode echocardiogram with Doppler and color Doppler. INDICATION BRADYCARDIA M-Mode DIMENSIONS IVSd1.9 (0.7-1.1cm)Left Atrium (MM)4.2 (1.6-4.0cm) LVDd4.1 (3.5-5.6cm)Aortic Root3.5 (2.0-3.7cm) PWd1.8 (0.7-1.1cm)Aortic Cusp Exc.1.3 (1.5-2.0cm) IVSs2.8 cm LVDs1.8 (2.5-4.0cm) PWs2.2 cm Normal left ventricular chamber size, systolic function and wall motion . Left ventricular ejection fraction estimated to be 65%. Moderate left ventricular hypertrophy by 2-D. Trace posterior pericardial effusion. All other cardiac chamber sizes are within normal limits. Moderately Focal aortic valve sclerosis with reduced cusp excursion. moderatly Thickened mitral valve leaflets with normal excursion. Mitral annulus and aortic root calcification. pulmonic valve not well visualized . Normal tricuspid valve structure. IVC at normal size with physiologic collapse . A color flow and spectral Doppler study was performed and revealed: No aortic regurgitation. Peak aortic valve gradient of 8 mm Hg and a mean of 4 mmHg. Aortic valve area 1.3 cm2 calculated by continuity equation. Trace mitral regurgitation. Mitral diastolic velocities suggest reduced left ventricular relaxation c/w mild LV diastolic dysfunction (Grade I ). Mild tricuspid regurgitation. Tricuspid systolic velocities suggests peak right ventricular systolic pressure of 30mmHg. No pulmonic regurgitation present .
[2017-07-28] MEDS ORDERED: Loperamide 2mg cap ORAL PRN (11:15)
[2017-07-28] MEDS ORDERED: Lidocaine 1% MPF 10mg/ml 5ml ONE ×2 (13:28→14:00)
[2017-07-28] MEDS ORDERED: Midazolam 2mg/2ml Inj ONE (13:28)
[2017-07-28] MEDS ORDERED: Sodium Chloride 10ml vial INJ ONE (13:28)
[2017-07-28] MEDS ORDERED: LR 1000ml 1,000 ML IVLG SCH (13:37)
--- NOTE | 2017-07-28 13:37 | Anethesia Preoperative Eval ---
Anesthesia Pre-op PMH/ROS General Date of Evaluation: Jul 28, 2017 Time of Evaluation: 14:01 Anesthesiologist: Anmol ASA Score: ASA 3 Mallampati Score Class I : Soft palate, uvula, fauces, pillars visible Class II: Soft palate, uvula, fauces visible Class III: Soft palate, base of uvula visible Class IV: Only hard plate visible Mallampati Classification: Class II Surgeon: Ko Diagnosis: Sacral Pressure Ulcer and Right Heal Pressure Ulcer Surgical Procedure: Excise Sacral Pressure Ulcer and Right Heal Pressure Ulcer Anesthesia History: none Family History: no anesthesia problems Allergies: Coded Allergies: NO KNOWN DRUG ALLERGIES (Verified Allergy, Unknown, 07/10/17) Medications: see eMAR Past Medical History Cardiovascular: Reports: HTN, other - HL Endocrine: Reports: DM Hematology/Immune: Reports: anemia, other - Left Breast Cancer PSxH Narrative: DAVIE, Left Breast Lumpectomy Anesthesia Pre-op Phys. Exam Physician Exam Last Vital Signs Date Time Temp Pulse Resp B/P (MAP) Pulse Ox O2 Delivery O2 Flow Rate FiO2 07/28/17 11:50 97.7 63 18 146/51 98 97.7 07/28/17 00:00 Room Air Constitutional: NAD Neurologic: CN 2-12 intact Cardiovascular: RRR Respiratory: CTA Gastrointestinal: S/NT/ND Airway Exam Mallampati Score: Class II MO: limited ROM: limited Teeth: missing, intact Anesthesia Pre-op A/P Labs Hematology Test 07/28/17 05:20 White Blood Count 8.0 K/UL (4.8-10.8) Red Blood Count 3.43 M/UL (4.20-5.40) L Hemoglobin 9.4 G/DL (12.0-16.0) L Hematocrit 28.6 % (37.0-47.0) L Mean Corpuscular Volume 83 FL (80-99) Mean Corpuscular Hemoglobin 27.5 PG (27.0-31.0) Mean Corpuscular Hemoglobin Concent 32.9 G/DL (32.0-36.0) Red Cell Distribution Width 13.8 % (11.6-14.8) Platelet Count 422 K/UL (150-450) Mean Platelet Volume 6.3 FL (6.5-10.1) L Neutrophils (%) (Auto) 73.7 % (45.0-75.0) Lymphocytes (%) (Auto) 11.5 % (20.0-45.0) L Monocytes (%) (Auto) 9.0 % (1.0-10.0) Eosinophils (%) (Auto) 4.7 % (0.0-3.0) H Basophils (%) (Auto) 1.1 % (0.0-2.0) Coagulation Test 07/28/17 09:25 Prothrombin Time 11.1 SEC (9.30-11.50) Prothromb Time International Ratio 1.1 (0.9-1.1) Activated Partial Thromboplast Time 30 SEC (23-33) Chemistry Test 07/28/17 05:20 Sodium Level 140 MMOL/L (136-145) Potassium Level 3.3 MMOL/L (3.5-5.1) L Chloride Level 105 MMOL/L (98-107) Carbon Dioxide Level 27 MMOL/L (21-32) Anion Gap 8 mmol/L (5-15) Blood Urea Nitrogen 9 mg/dL (7-18) Creatinine 0.9 MG/DL (0.55-1.30) Estimat Glomerular Filtration Rate mL/min (>60) Glucose Level 276 MG/DL (74-106) H Calcium Level 8.3 MG/DL (8.5-10.1) L Total Bilirubin 0.4 MG/DL (0.2-1.0) Aspartate Amino Transf (AST/SGOT) 12 U/L (15-37) L Alanine Aminotransferase (ALT/SGPT) 18 U/L (12-78) Alkaline Phosphatase 57 U/L (46-116) Total Protein 6.6 G/DL (6.4-8.2) Albumin 1.8 G/DL (3.4-5.0) L Globulin 4.8 g/dL Albumin/Globulin Ratio 0.4 (1.0-2.7) L Risk Assessment & Plan Assessment: ASA 3 Plan: GA, BIS Status Change Before Surgery: No Pre-Antibiotics DruGram Ancef IV Given Within 1 Hr of Incision: Yes Time Given: 14:21 [place] Corea MD Jul 28, 2017 13:37
--- NOTE | 2017-07-28 13:39 | Immediate Post-Op Evaluation ---
Immediate Post-Op Evalulation Immediate Post-Op Evalulation Procedure: Excise Sacral Pressure Ulcer and Right Heal Pressure Ulcer Date of Evaluation: Jul 28, 2017 Time of Evaluation: 15:44 IV Fluids: 500 LR Blood Products: 0 Estimated Blood Loss: 25 Urinary Output: 0 Blood Pressure Systolic: 149 Blood Pressure Diastolic: 63 Pulse Rate: 74 Respiratory Rate: 16 O2 Sat by Pulse Oximetry: 100 Temperature (Fahrenheit): 98.8 Pain Score (1-10): 2 Nausea: No Vomiting: No Complications 0 Patient Status: awake, reacts, patent, extubated, none Hydration Status: adequate Dru Gram Ancef IV Given Within 1 Hr of Incision: Yes Time Given: 14:21 [place] Corea MD Jul 28, 2017 13:39
[2017-07-28] MEDS ORDERED: Ketamine 500mg Inj ONE (13:43)
[2017-07-28] MEDS ORDERED: LORazepam Inj 2mg/ml 1ml IV PRN (13:45)
[2017-07-28] MEDS ORDERED: Midazolam 2mg/2ml Inj IVP PRN (13:45)
[2017-07-28] MEDS ORDERED: Norco 5mg/325mg tab ORAL PRN (13:45)
[2017-07-28] MEDS ORDERED: Atropine Inj 1mg/10ml Syr IV PRN (13:45)
[2017-07-28] MEDS ORDERED: Metoclopramide 10mg/2ml Inj IVP PRN (13:45)
[2017-07-28] MEDS ORDERED: Ketorolac 30mg Inj IV PRN ×2 (13:45)
[2017-07-28] MEDS ORDERED: Labetalol 5mg/ml 20ml vial IV PRN (13:45)
[2017-07-28] MEDS ORDERED: HYDROcodone/Acetamin 7.5/325 tab ORAL PRN (13:45)
[2017-07-28] MEDS ORDERED: oxyCODONE HCL/Acetaminophen 5/325mg ORAL PRN (13:45)
[2017-07-28] MEDS ORDERED: fentaNYL 100 mcg/2 mL IV PRN (13:45)
[2017-07-28] MEDS ORDERED: DiphenhydrAMINE 50mg/ml Inj IVP PRN (13:45)
[2017-07-28] MEDS ORDERED: Hydromorphone 0.5mg/0.5ml inj IVP PRN (13:45)
[2017-07-28] MEDS ORDERED: Bacitracin 50000 Units Vial ONE (13:53)
[2017-07-28] MEDS ORDERED: NeoSporin Gu Irrig 1ml Amp IRRIG ONE ×2 (13:54→15:48)
[2017-07-28] MEDS ORDERED: Sterile Water Irrig 1000ml IRRIG ONE (14:00)
[2017-07-28] MEDS ORDERED: Propofol 200mg/20ml IV ONE (14:00)
[2017-07-28] MEDS ORDERED: LR 1000ml ONE (14:00)
[2017-07-28] MEDS ORDERED: NS Irrig 1000ml ONE (14:00)
--- NOTE | 2017-07-28 14:00 | Pre-Procedure Note/Attestation ---
Pre-Procedure Note/Attestation Complete Prior to Procedure Planned Procedure: not applicable Procedure Narrative: Excsional debridement of necrotic tissue, possible bone biopsy of sacrum. Right heel ulcer debridement. Indications for Procedure Pre-Operative Diagnosis: sacral ulcer and right heel ulcer Attestation I attest that I discussed the nature of the procedure; its benefits; risks and complications; and alternatives (and the risks and benefits of such alternatives ), prior to the procedure, with the patient (or the patient's legal airport representative). I attest that, if there was a reasonable possibility of needing a blood transfusion, the patient (or the patient's legal airport representative) was given the [place] [employer] standardized written summary, pursuant to the [place] Blood Safety Act ([place] Health and Safety Code # 1645, as amended). I attest that I re-evaluated the patient just prior to the surgery and that there has been no change in the patient's H&P, except as documented below: MANA LINARES Jul 28, 2017 14:00
[2017-07-28] MEDS ORDERED: Lidocaine 1% 10mg/ml/Epi 0.005mg/ml 30ml vial INJ ONE (14:52)
--- NOTE | 2017-07-28 15:31 | Infectious Diseases Prog Note ---
Assessment/Plan Assessment/Plan ASSESSMENT: The patient is an 87-year-old female with multiple medical problems as listed below, who has: 1. Infected sacral decubitus requiring debridement. 2. No evidence of osteomyelitis based on MRI on (07/10/2017). 3. Normal white blood cells. 4. Afebrile. Chest x-ray, no acute process. -. Chronic sacral ulcer. -. History of anemia. -. History of bedridden/deconditioning. -. Hypertension. -. Hyperlipidemia. -. History of breast cancer. PLAN: 1. Continue IV Unasyn day #3-14 (no need for MRSA coverage at this point in view of absent positive wound culture for this organism). 2. Monitor CBC. 3. Monitor BMP. 4. Surgical evaluation for possible debridement of the wound. 5. Recommend deep tissue wound cultures for further better identification of bacterial etiology. 6. Based on the patient's clinical course and labs, we will do further recommendations. Thank you, Dr. Pimentel, for allowing me to participate in the care of this patient. I will follow the patient with you during this hospitalization. Subjective Allergies: Coded Allergies: NO KNOWN DRUG ALLERGIES (Verified Allergy, Unknown, 07/10/17) Subjective afebrile bcx NTD no leukocytosis Objective Vital Signs Last 24 Hour Vital Signs Date Time Temp Pulse Resp B/P (MAP) Pulse Ox O2 Delivery O2 Flow Rate FiO2 07/28/17 11:50 97.7 63 18 146/51 98 97.7 07/28/17 09:02 98.2 07/28/17 08:31 98.2 65 18 153/59 100 98.2 07/28/17 08:06 97.9 07/28/17 04:05 97.9 80 16 148/76 98 97.9 07/28/17 00:00 Room Air 07/28/17 00:00 98.0 68 15 141/67 96 98.0 07/27/17 20:00 98.2 61 15 137/51 97 98.2 07/27/17 20:00 Room Air 07/27/17 16:00 97.3 62 18 144/58 97 97.3 Height (Feet): 5 Height (Inches): 7.00 Weight (Pounds): 113 Objective HEENT: No pale conjunctivae. No icterus. NECK: No lymphadenopathy. CHEST: Coarse breathing sounds. HEART: S1 and S2. ABDOMEN: Soft and nontender. EXTREMITIES: No cyanosis at this time. SKIN: The patient has unstageable sacral decubitus. Microbiology Date/Time Source Procedure Growth Status 07/25/17 22:00 Sacral Wound Gram Stain Pending Resulted 07/25/17 22:00 Wound Culture - Preliminary Gram Negative Bacillus 1 Resulted Laboratory Tests Test 07/28/17 05:20 07/28/17 09:25 White Blood Count 8.0 K/UL (4.8-10.8) Red Blood Count 3.43 M/UL (4.20-5.40) L Hemoglobin 9.4 G/DL (12.0-16.0) L Hematocrit 28.6 % (37.0-47.0) L Mean Corpuscular Volume 83 FL (80-99) Mean Corpuscular Hemoglobin 27.5 PG (27.0-31.0) Mean Corpuscular Hemoglobin Concent 32.9 G/DL (32.0-36.0) Red Cell Distribution Width 13.8 % (11.6-14.8) Platelet Count 422 K/UL (150-450) Mean Platelet Volume 6.3 FL (6.5-10.1) L Neutrophils (%) (Auto) 73.7 % (45.0-75.0) Lymphocytes (%) (Auto) 11.5 % (20.0-45.0) L Monocytes (%) (Auto) 9.0 % (1.0-10.0) Eosinophils (%) (Auto) 4.7 % (0.0-3.0) H Basophils (%) (Auto) 1.1 % (0.0-2.0) Sodium Level 140 MMOL/L (136-145) Potassium Level 3.3 MMOL/L (3.5-5.1) L Chloride Level 105 MMOL/L (98-107) Carbon Dioxide Level 27 MMOL/L (21-32) Anion Gap 8 mmol/L (5-15) Blood Urea Nitrogen 9 mg/dL (7-18) Creatinine 0.9 MG/DL (0.55-1.30) Estimat Glomerular Filtration Rate mL/min (>60) Glucose Level 276 MG/DL (74-106) H Calcium Level 8.3 MG/DL (8.5-10.1) L Total Bilirubin 0.4 MG/DL (0.2-1.0) Aspartate Amino Transf (AST/SGOT) 12 U/L (15-37) L Alanine Aminotransferase (ALT/SGPT) 18 U/L (12-78) Alkaline Phosphatase 57 U/L (46-116) Total Protein 6.6 G/DL (6.4-8.2) Albumin 1.8 G/DL (3.4-5.0) L Globulin 4.8 g/dL Albumin/Globulin Ratio 0.4 (1.0-2.7) L Prothrombin Time 11.1 SEC (9.30-11.50) Prothromb Time International Ratio 1.1 (0.9-1.1) Activated Partial Thromboplast Time 30 SEC (23-33) Current Medications Medications (Trade) Dose Ordered Sig/Julius Route PRN Reason Start Time Stop Time Status Last Admin Dose Admin Acetaminophen (Tylenol) 650 mg Q6H PRN ORAL Mild Pain/Temp > 100.5 07/25/17 23:45 08/24/17 23:44 Acetaminophen/ Hydrocodone Bitart ([place]assell 5/325) 1 tab Q1H PRN ORAL Mild Pain (Pain Scale 1-3) 07/28/17 13:45 07/28/17 20:00 Acetaminophen/ Hydrocodone Bitart ([place]assell 7.5/325) 1 tab Q1H PRN ORAL Moderate Pain (Pain Scale 4-6) 07/28/17 13:45 07/28/17 20:00 Al Hydroxide/Mg Hydroxide (Mylanta) 15 ml Q1H PRN ORAL gi upset 07/28/17 13:45 07/28/17 20:00 Ampicillin Sodium/ Sulbactam Sodium 1.5 gm/Dextrose 55 ml @ 110 mls/hr Q12HR IVPB 07/26/17 14:00 08/02/17 13:59 07/28/17 08:05 Atropine Sulfate (Atropine) 0.5 mg Q5M PRN IV HR <40 07/28/17 13:45 07/28/17 20:00 Dextrose/Sodium Chloride 1,000 ml @ 75 mls/hr [id number] IV 07/25/17 20:00 08/24/17 19:59 07/28/17 01:19 Diphenhydramine HCl (Benadryl) 25 mg Q15M PRN IVP Itching 07/28/17 13:45 07/28/17 20:00 Fentanyl Citrate (Sublimaze 100 mcg/2 mL) 25 mcg Q10M PRN IV Moderate Pain (Pain Scale 4-6) 07/28/17 13:45 07/28/17 20:00 Heparin Sodium (Porcine) (Heparin 5000 units/ml) 5,000 units EVERY 12 HOURS SUBQ 07/26/17 09:00 08/25/17 08:59 07/27/17 20:23 Hydralazine HCl (Apresoline) 5 mg Q30M PRN IV SBP>160 / DBP>90 07/28/17 13:45 07/28/17 20:00 Hydromorphone HCl (Dilaudid) 0.5 mg Q15M PRN IVP Severe Pain (Pain Scale 7-10) 07/28/17 13:45 07/28/17 20:00 Insulin Aspart (NovoLOG) 2 units NOVOTIAC SUBQ 07/25/17 16:50 08/24/17 16:49 07/28/17 11:35 Insulin Detemir (Levemir) 10 units DAILY SUBQ 07/27/17 09:00 08/25/17 10:59 07/28/17 08:07 Ketorolac Tromethamine (Toradol 30mg) 15 mg Q1H PRN IV Moderate Breakthru Pain (5-7) 07/28/17 13:45 07/28/17 20:00 Ketorolac Tromethamine (Toradol 30mg) 30 mg Q1H PRN IV Severe Breakthru Pain (>7) 07/28/17 13:45 07/28/17 20:00 Labetalol HCl (Normodyne) 5 mg Q10M PRN IV SBP>160 / DBP>90 07/28/17 13:45 07/28/17 20:00 Lactated Ringer's 1,000 ml @ 10 mls/hr Q24H IVLG 07/28/17 13:37 07/28/17 15:36 Loperamide HCl (Imodium) 2 mg Q4H PRN ORAL Diarrhea 07/28/17 11:15 08/27/17 11:14 07/28/17 11:27 Lorazepam (Ativan 2mg/ml 1ml) 1 mg Q15M PRN IV For Anxiety 07/28/17 13:45 07/28/17 20:00 Metoclopramide HCl (Reglan) 10 mg Q1H PRN IVP Nausea & Vomiting 07/28/17 13:45 07/28/17 20:00 Midazolam HCl (Versed 2mg/2ml vial) 1 mg Q15M PRN IVP For Anxiety 07/28/17 13:45 07/28/17 20:00 Morphine Sulfate (Morphine Sulfate) 2 mg Q4H PRN IVP Severe Pain (Pain Scale 7-10) 07/25/17 23:45 08/01/17 23:44 07/28/17 08:06 Ondansetron HCl (Zofran) 4 mg Q1H PRN IVP Nausea & Vomiting 07/28/17 13:45 07/28/17 20:00 Oxycodone/ Acetaminophen (Percocet 5-325) 1 tab Q1H PRN ORAL Severe Pain (Pain Scale 7-10) 07/28/17 13:45 07/28/17 20:00 Pantoprazole (Protonix) 40 mg DAILY ORAL 07/26/17 09:00 08/25/17 08:59 07/28/17 08:04 Sodium Hypochlorite (Dakin's Half Strength) 1 applic Q24H TOPIC 07/28/17 20:00 08/27/17 19:59 07/27/17 21:21 Katina Torrez M.D. Jul 28, 2017 15:31
[2017-07-28] MEDS ORDERED: Bacitracin 50000 Units Vial IRRIG ONE (15:46)
[2017-07-28] MEDS ORDERED: NS Irrig 2000ml IRRIG ONE (15:48)
--- NOTE | 2017-07-28 16:00 | Progress Note ---
DATE: 07/28/2017 SUBJECTIVE: The patient is presenting with failure to thrive and complaining of decreased appetite. In hospital, she eating, has anxiety which is mild, also episodes of forgetfulness, compliant with medication, pleasant. MENTAL STATUS EXAMINATION: The patient is alert and oriented times self, place, and situation she is in. Mood is neutral. Affect is constricted. Congruent with mood. Thought process is concrete. Thought content, no suicidal or homicidal ideations. ASSESSMENT: 1. Anxiety disorder. 2. Cognitive impairment. PLAN: We will continue current medication. Provide the patient with supportive therapy and reality orientation. Sandy Blunt M.D. DR: Devi JOB#: [id number] CC:
--- NOTE | 2017-07-28 16:00 | Consultation ---
DATE OF CONSULTATION: 07/27/2017 HISTORY OF PRESENT ILLNESS: This is a 87-year-old female with a history of anxiety disorder, diabetes, hypertension, hyperlipidemia who has been admitted to the hospital. The patient has been calm and pleasant since she has been on the unit, has not been any episodes of agitation. The patient is uncooperative and has episodes of forgetfulness PAST PSYCHIATRIC HISTORY: Has a history of anxiety disorder. PAST MEDICAL HISTORY: Significant for sacral ulcer, gastroenteritis, anxiety disorder. ALLERGIES: No known drug allergies. SUBSTANCE ABUSE HISTORY: No known history of illicit drug use or alcohol. MENTAL STATUS EXAMINATION: The patient is alert and oriented times self, place, and situation. Mood is anxious. Affect is constricted. Congruent with mood. Thought process is concrete. Thought content, no suicidal or homicidal ideations. ASSESSMENT: AXIS I: 1. Anxiety disorder. 2. Cognitive impairment, mild. AXIS II: Deferred. AXIS III: As above. AXIS IV: Low. AXIS V: 50. PLAN: 1. The patient will be continued on lorazepam for anxiety and agitation. 2. Provide her with reality orientation and supportive therapy. Sandy Blunt M.D. DR: Devi JOB#: [id number] CC:
--- NOTE | 2017-07-28 16:18 | Brief Operative Note ---
Immediate Post Operative Note Operative Note Pre-op Diagnosis: sacral ulcer and right heel ulcer Procedure: Excisional debridement of sacral pressure ulcer down through muscle, deep open bone biopsy of sacrum, excisional debridement of right heel ulcer through subcutaneous tissue. Post-op Diagnosis: same as pre-op Surgeon: Ko Anesthesiologist: Anmol Anesthesia: general Specimen: yes Complications: none Condition: stable Fluids: IVF Estimated Blood Loss: minimal Drains: none Implant(s) used?: No MANA LINARES Jul 28, 2017 16:18
[2017-07-28] MEDS: Dakin's 0.25% (Half Strength) 16oz TOPIC SCH (20:22)
--- NOTE | 2017-07-28 21:30 | Operative Note - Dictated ---
DATE OF OPERATION: 07/28/2017 SURGEON: Albert Connell M.D. ANESTHESIOLOGIST: Chico Corea M.D. PREOPERATIVE DIAGNOSES: 1. Right heel ulcer. 2. Necrotic sacrococcyx ulcer. POSTOPERATIVE DIAGNOSES: 1. Right heel ulcer. 2. Necrotic sacrococcyx ulcer. OPERATION: 1. Excisional debridement of right heel ulcer down through subcutaneous tissue. 2. Excisional debridement of sacrococcyx ulcer down through muscle, deep open bone biopsy of the sacrum. ANESTHESIA: General anesthesia. OPERATIVE INDICATIONS: This is an 87-year-old female who was admitted to the hospital with worsening of the sacral pressure ulcer. She was evaluated and noted to have foul odor as well as some loose, softened eschar and necrotic tissue. Decision was made to take to the operating room for excision and possible bone biopsy to rule out osteomyelitis. At the same time, she would have debridement of her right heel ulcer, which was not clinically infected, but had fibrotic debris at the base. An operative plan was devised and agreed upon and photographs and informed consent were obtained and once she was cleared, she was scheduled for the surgery. OPERATIVE PROCEDURE: The patient was brought to the operating room and placed on the operating table in supine position. Once general anesthesia was induced, she was placed in the left lateral decubitus position and all pressure points were padded and a beanbag was filled to keep her in that position. Dressings were taken down and the right heel was debrided sharply with a #15 scalpel blade down through the level of subcutaneous tissue. Final measurements were 1.2 x 1.6 x 0.3 cm. A dressing was applied consisting of Adaptic, gauze, and Kerlix. Attention was turned to the sacral coccyx ulcer and this was injected with 15 mL of 1% lidocaine with 1:200,000 epinephrine. The area to be excised was marked with a marking pen and then a #10 blade was used to incise the markings down to the left. Dissection proceeded down through the level of muscle and the specimen was removed on block. The sacral bone was identified in the superior aspect of the ulcer and the rongeur was used to remove several segments of this for both pathology for osteomyelitis as well as culture. In addition to this, deep wound cultures, aerobic and anaerobic were obtained at the wound bed. Following this, triple antibiotic pulse lavage was used with Ancef, gentamicin, and bacitracin 2 liters total and then hemostasis obtained and the dressings were applied, which was consisted of wet-to-dry to the sacrum and followed by gauze, ABD, and a foam tape. The patient was then placed supine and awoken and taken to the recovery room in stable condition. There were no complications. EBL was minimal. Total wound dimensions of the sacral coccyx ulcer was Albert Connell M.D. DR: Chandana JOB#: [id number] CC:
--- NOTE | 2017-07-28 21:41 | Wound Care Consultation ---
Wound Assessment Wound Assessment #1: Wound Number: 1 Wound Present on Admission: Yes New Wound: No Status Change of Wound: No Wound Location Body Site Modif: right Wound Location Body Site: heel Wound Type: pressure ulcer Valarie Test: Does not Valarie Pressure Ulcer Stage: Deep Tissue Injury Wound Thickness: Full Thickness Wound Length: 3.0 Wound Width: 3.0 Wound Depth: utd Percent of Wound Bed Yellow/Wh: 100 Wound Drainage Description: Foul Purulent Wound Drainage Amount: None Wound Drainage Odor: None/Absent Tissue Surrounding Wound: Intact Wound General Appearance: Reddened - yellow dry Wound Assessment #2: Wound Number: 2 Wound Present on Admission: Yes New Wound: No Status Change of Wound: No Wound Location Body Site Modif: left, mid, lateral Wound Location Body Site: foot Wound Type: pressure ulcer Valarie Test: Does not Valarie Pressure Ulcer Stage: Deep Tissue Injury Wound Thickness: Full Thickness Wound Length: 1.5 Wound Width: 1.8 Wound Depth: utd Percent of Wound Bed Yellow/Wh: 100 - yellow dry Wound Drainage Amount: None Wound Drainage Odor: None/Absent Tissue Surrounding Wound: Intact Wound General Appearance: Reddened - yellow dry Wound Assessment #3: Wound Number: 3 Wound Present on Admission: Yes New Wound: No Status Change of Wound: No Wound Location Body Site Modif: mid Wound Location Body Site: other - sacrococcygeal Wound Type: pressure ulcer Valarie Test: Does not Valarie Pressure Ulcer Stage: Unstageable Wound Thickness: Full Thickness Wound Length: 6.5 Wound Width: 6.5 Wound Depth: utd Percent of Wound Black/Brown: 100 Wound Drainage Description: Serosanguineous Wound Drainage Amount: Scant Wound Drainage Odor: None/Absent Tissue Surrounding Wound: Macerated Wound General Appearance: Blackened - yellow, Draining, Necrotic Wound Comment #1 Right heel resolving DTI pressure ulcer #2 Left mid foot DTI pressure ulcer #3 Sacrococcygeal unstageable pressure ulcer Recommendation -Local wound care per protocol -Keep clean and dry -Optimize nutrition -Turn and reposition -Low air loss mattress -Heel protector on both heels -Offload both heels -Assess and f/u accordingly for any changes SOSA PULIDO RN Jul 28, 2017 21:41
[2017-07-29 04:35] VITALS: BP 148/65
[2017-07-29] MEDS: NovoLOG Insulin Flexpen SUBQ SCH ×3 (07:09→16:42)
[2017-07-29] MEDS: Levemir Flexpen SUBQ SCH (09:11)
[2017-07-29] MEDS: Heparin 5000 units/ml inj SUBQ SCH ×2 (09:11→20:53)
[2017-07-29] MEDS: SULBACTAM SOD IVPB SCH ×2 (09:12→20:52)
[2017-07-29] MEDS: D5W IVPB SCH ×2 (09:12→20:52)
[2017-07-29] MEDS: AMPICILLIN IVPB SCH ×2 (09:12→20:52)
--- NOTE | 2017-07-29 09:37 | 48 Hour Post Anesthesia Eval ---
Post Anesthesia Evaluation Procedure: Excise Sacral Pressure Ulcer and Right Heal Pressure Ulcer Date of Evaluation: July 29, 2017 Time of Evaluation: 10:55 Blood Pressure Systolic: 148 0: 65 Pulse Rate: 73 Respiratory Rate: 20 Temperature (Fahrenheit): 98.4 O2 Sat by Pulse Oximetry: 94 Airway: patent Nausea: No Vomiting: No If pain is > 6 Comment: 2 Hydration Status: adequate Cardiopulmonary Status: Stable Mental Status/LOC: patient returned to baseline Follow-up Care/Observations: As per surgery Post-Anesthesia Complications: No anesthetic complication Follow-up care needed: N/A Pedro Luis Bobby MD July 29, 2017 09:37
[2017-07-29] MEDS: Morphine Sulfate 4mg/ml Inj IVP PRN ×3 (09:40→18:36)
[2017-07-29] MEDS ORDERED: D5NS 1000ml IV ONE (10:57)
--- NOTE | 2017-07-29 12:23 | Infectious Diseases Prog Note ---
Assessment/Plan Assessment/Plan ASSESSMENT: The patient is an 87-year-old female with multiple medical problems as listed below, who has: 1. Infected sacral decubitus -s/p Excisional debridement of right heel ulcer down through subcutaneous tissue an Excisional debridement of sacrococcyx ulcer down through muscle, deep open bone biopsy of the sacrum 07/28 -OR findings: skin defect 1.2 x 1.6 x 0.3 cm.; cx and path pending -superficial wound cx 07/25 polymicrobial: strep sp, GNR #1,2,3,4 2. No evidence of osteomyelitis based on MRI on (07/10/2017). 3. Normal white blood cells. 4. Afebrile. Chest x-ray, no acute process. -. Chronic sacral ulcer. -. History of anemia. -. History of bedridden/deconditioning. -. Hypertension. -. Hyperlipidemia. -. History of breast cancer. PLAN: 1. Continue IV Unasyn day #4 (no need for MRSA coverage at this point in view of absent positive wound culture for this organism). -f/u OR Cultures and path - many need OM duration if path consistent with OM -final duration and abx regimen pending 2. Monitor CBC. 3. Monitor BMP. 4. Surgery follow up 5. woundc are 6. Based on the patient's clinical course and labs, we will do further recommendations. Thank you, Dr. Pimentel, for allowing me to participate in the care of this patient. I will follow the patient with you during this hospitalization. Subjective Allergies: Coded Allergies: NO KNOWN DRUG ALLERGIES (Verified Allergy, Unknown, 07/10/17) Subjective afebrile bcx NTD no leukocytosis s/p I+D sacral wound yesterday Objective Vital Signs Last 24 Hour Vital Signs Date Time Temp Pulse Resp B/P (MAP) Pulse Ox O2 Delivery O2 Flow Rate FiO2 07/29/17 09:37 209.1 73 20 94 07/29/17 04:35 98.4 75 20 148/65 94 Room Air 98.4 73 07/28/17 20:53 98.1 07/28/17 20:23 98.1 07/28/17 19:13 98.1 70 20 134/63 96 Room Air 98.1 70 07/28/17 17:42 98.2 18 141/68 98 Nasal Cannula 2.0 98.2 07/28/17 16:20 98.8 71 19 154/64 98 Nasal Cannula 2.0 98.8 07/28/17 16:05 71 19 158/65 98 Nasal Cannula 2.0 07/28/17 15:43 71 19 155/64 95 Nasal Cannula 2.0 07/28/17 15:38 72 19 158/61 95 Nasal Cannula 2.0 07/28/17 15:33 98.8 74 19 148/64 95 Nasal Cannula 2.0 98.8 07/28/17 15:32 209.8 74 16 100 Height (Feet): 5 Height (Inches): 7.00 Weight (Pounds): 113 Objective HEENT: No pale conjunctivae. No icterus. NECK: No lymphadenopathy. CHEST: Coarse breathing sounds. HEART: S1 and S2. ABDOMEN: Soft and nontender. EXTREMITIES: No cyanosis at this time. SKIN: The patient has unstageable sacral decubitus. Laboratory Tests Test 07/29/17 05:15 C-Reactive Protein, Quantitative 5.9 mg/dL (0.00-0.90) H Current Medications Medications (Trade) Dose Ordered Sig/Julius Route PRN Reason Start Time Stop Time Status Last Admin Dose Admin Acetaminophen (Tylenol) 650 mg Q6H PRN ORAL Mild Pain/Temp > 100.5 07/25/17 23:45 08/24/17 23:44 Ampicillin Sodium/ Sulbactam Sodium 1.5 gm/Dextrose 55 ml @ 110 mls/hr Q12HR IVPB 07/26/17 14:00 08/02/17 13:59 07/29/17 09:12 Heparin Sodium (Porcine) (Heparin 5000 units/ml) 5,000 units EVERY 12 HOURS SUBQ 07/26/17 09:00 08/25/17 08:59 07/29/17 09:11 Insulin Aspart (NovoLOG) 2 units NOVOTIAC SUBQ 07/25/17 16:50 08/24/17 16:49 07/29/17 11:56 Insulin Detemir (Levemir) 10 units DAILY SUBQ 07/27/17 09:00 08/25/17 10:59 07/29/17 09:11 Loperamide HCl (Imodium) 2 mg Q4H PRN ORAL Diarrhea 07/28/17 11:15 08/27/17 11:14 07/28/17 11:27 Morphine Sulfate (Morphine Sulfate) 2 mg Q4H PRN IVP Severe Pain (Pain Scale 7-10) 07/25/17 23:45 08/01/17 23:44 07/29/17 09:40 Pantoprazole (Protonix) 40 mg DAILY ORAL 07/26/17 09:00 08/25/17 08:59 07/29/17 09:10 Sodium Hypochlorite (Dakin's Half Strength) 1 applic Q24H TOPIC 07/28/17 20:00 08/27/17 19:59 07/28/17 20:22 Katina Torrez M.D. July 29, 2017 12:23
[2017-07-29 15:52] VITALS: BP 144/56
[2017-07-29 17:05] LABS: EOSINOPHILS % (AUTO) 4.9 % (0.0-3.0); HEMATOCRIT 28.4 % (37.0-47.0); HEMOGLOBIN 9.2 G/DL (12.0-16.0); LYMPHOCYTES % (AUTO) 11.9 % (20.0-45.0); MEAN CORPUSCULAR VOLUME 83 FL (80-99); MONOCYTES % (AUTO) 8.8 % (1.0-10.0); NEUTROPHILS % (AUTO) 73.3 % (45.0-75.0); PLATELET COUNT 408 K/UL (150-450); RED BLOOD COUNT 3.42 M/UL (4.20-5.40); RED CELL DISTRIBUTION WIDTH 13.7 % (11.6-14.8); WHITE BLOOD COUNT 8.2 K/UL (4.8-10.8)
[2017-07-29 17:16] LABS: ALANINE AMINOTRANSFERASE 15 U/L (12-78); ALBUMIN 1.8 G/DL (3.4-5.0); ALBUMIN/GLOBULIN RATIO 0.4 (1.0-2.7); ALKALINE PHOSPHATASE 55 U/L (46-116); ANION GAP 6 mmol/L (5-15); ASPARTATE AMINO TRANSFERASE 19 U/L (15-37); BILIRUBIN,TOTAL 0.3 MG/DL (0.2-1.0); BLOOD UREA NITROGEN 8 mg/dL (7-18); CALCIUM 8.3 MG/DL (8.5-10.1); CARBON DIOXIDE 28 MMOL/L (21-32); CHLORIDE 105 MMOL/L (98-107); CREATININE 0.9 MG/DL (0.55-1.30); POTASSIUM 4.4 MMOL/L (3.5-5.1); SODIUM 139 MMOL/L (136-145)
--- NOTE | 2017-07-29 17:49 | General Progress Note ---
Assessment/Plan Status: stable Assessment/Plan 1. Acute on chronic debility/deconditioning manifested by appearing/ progression of decubitus wound ulcers in sacral and heel regions. 2. Anemia. 3. Hyponatremia. 4. Acute renal failure. 5. Diabetes type 2, uncontrolled. 6. Hypertension. 7. Gastrointestinal and deep vein thrombosis prophylaxis. Plan: Will optimise DM medications PT /OT consult Discussed and agreed the care with Dr Connell Status post Surgical debridment Current ABX regiment per ID SNIF placement Subjective ROS Limited/Unobtainable: No Constitutional: Reports: malaise HEENT: Reports: no symptoms Cardiovascular: Reports: no symptoms Allergies: Coded Allergies: NO KNOWN DRUG ALLERGIES (Verified Allergy, Unknown, 07/10/17) Objective Last 24 Hour Vital Signs Date Time Temp Pulse Resp B/P (MAP) Pulse Ox O2 Delivery O2 Flow Rate FiO2 07/29/17 15:52 97.5 66 20 144/56 96 97.5 07/29/17 09:37 209.1 73 20 94 07/29/17 04:35 98.4 75 20 148/65 94 Room Air 98.4 73 07/28/17 20:53 98.1 07/28/17 20:23 98.1 07/28/17 19:13 98.1 70 20 134/63 96 Room Air 98.1 70 Intake and Output 07/28/17 07/29/17 19:00 07:00 Intake Total 500 ml Output Total 25 ml Balance 475 ml IV Total 500 ml Output Estimated Blood Loss 25 ml # Voids 1 3 # Bowel Movements 3 3 Laboratory Tests 07/29/17 05:15: C-Reactive Protein, Quantitative 5.9H 07/29/17 16:00: White Blood Count 8.2, Red Blood Count 3.42L, Hemoglobin 9.2L, Hematocrit 28.4L , Mean Corpuscular Volume 83, Mean Corpuscular Hemoglobin 27.0, Mean Corpuscular Hemoglobin Concent 32.5, Red Cell Distribution Width 13.7, Platelet Count 408, Mean Platelet Volume 5.4L, Neutrophils (%) (Auto) 73.3, Lymphocytes ( %) (Auto) 11.9L, Monocytes (%) (Auto) 8.8, Eosinophils (%) (Auto) 4.9H, Basophils (%) (Auto) 1.0, Sodium Level 139, Potassium Level 4.4, Chloride Level 105, Carbon Dioxide Level 28, Anion Gap 6, Blood Urea Nitrogen 8, Creatinine 0.9 , Estimat Glomerular Filtration Rate , Glucose Level 123#H, Calcium Level 8.3L, Total Bilirubin 0.3, Aspartate Amino Transf (AST/SGOT) 19, Alanine Aminotransferase (ALT/SGPT) 15, Alkaline Phosphatase 55, Total Protein 6.0L, Albumin 1.8L, Globulin 4.2, Albumin/Globulin Ratio 0.4L Height (Feet): 5 Height (Inches): 7.00 Weight (Pounds): 113 General Appearance: no apparent distress EENT: PERRL/EOMI Neck: supple Cardiovascular: normal rate Respiratory/Chest: lungs clear Abdomen: soft Extremities: non-tender, other - sacral wound , appropraitedly dressed. atrophied muscles. 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
[2017-07-29 20:00] VITALS: BP 139/68
[2017-07-29] MEDS: Dakin's 0.25% (Half Strength) 16oz TOPIC SCH (20:52)
--- NOTE | 2017-07-29 22:50 | General Progress Note ---
Assessment/Plan Status: stable, progressing Subjective Date patient seen: July 29, 2017 Neurologic/Psychiatric: Reports: anxiety, emotional problems Allergies: Coded Allergies: NO KNOWN DRUG ALLERGIES (Verified Allergy, Unknown, 07/10/17) Objective Last 24 Hour Vital Signs Date Time Temp Pulse Resp B/P (MAP) Pulse Ox O2 Delivery O2 Flow Rate FiO2 07/29/17 20:00 98.4 69 17 139/68 95 98.4 07/29/17 19:06 97.5 07/29/17 15:52 97.5 66 20 144/56 96 97.5 07/29/17 09:37 209.1 73 20 94 07/29/17 04:35 98.4 75 20 148/65 94 Room Air 98.4 73 Intake and Output 07/28/17 07/29/17 19:00 07:00 Intake Total 500 ml Output Total 25 ml Balance 475 ml IV Total 500 ml Output Estimated Blood Loss 25 ml # Voids 1 3 # Bowel Movements 3 3 Laboratory Tests 07/29/17 05:15: C-Reactive Protein, Quantitative 5.9H 07/29/17 16:00: White Blood Count 8.2, Red Blood Count 3.42L, Hemoglobin 9.2L, Hematocrit 28.4L , Mean Corpuscular Volume 83, Mean Corpuscular Hemoglobin 27.0, Mean Corpuscular Hemoglobin Concent 32.5, Red Cell Distribution Width 13.7, Platelet Count 408, Mean Platelet Volume 5.4L, Neutrophils (%) (Auto) 73.3, Lymphocytes ( %) (Auto) 11.9L, Monocytes (%) (Auto) 8.8, Eosinophils (%) (Auto) 4.9H, Basophils (%) (Auto) 1.0, Sodium Level 139, Potassium Level 4.4, Chloride Level 105, Carbon Dioxide Level 28, Anion Gap 6, Blood Urea Nitrogen 8, Creatinine 0.9 , Estimat Glomerular Filtration Rate , Glucose Level 123#H, Calcium Level 8.3L, Total Bilirubin 0.3, Aspartate Amino Transf (AST/SGOT) 19, Alanine Aminotransferase (ALT/SGPT) 15, Alkaline Phosphatase 55, Total Protein 6.0L, Albumin 1.8L, Globulin 4.2, Albumin/Globulin Ratio 0.4L Height (Feet): 5 Height (Inches): 7.00 Weight (Pounds): 113 General Appearance: no apparent distress, alert Neurologic: oriented x 3, responsive, depressed affect Sandy Blunt M.D. July 29, 2017 22:50
[2017-07-30] VITALS (7 sets, daily range): BP systolic 124–149; BP diastolic 57–67
[2017-07-30] MEDS: Morphine Sulfate 4mg/ml Inj IVP PRN ×2 (00:56→17:09)
[2017-07-30 05:36] LABS: BASOPHILS % (AUTO) 0.7 % (0.0-2.0); EOSINOPHILS % (AUTO) 4.2 % (0.0-3.0); HEMATOCRIT 25.2 % (37.0-47.0); HEMOGLOBIN 8.6 G/DL (12.0-16.0); LYMPHOCYTES % (AUTO) 12.7 % (20.0-45.0); MEAN CORPUSCULAR VOLUME 82 FL (80-99); MONOCYTES % (AUTO) 8.3 % (1.0-10.0); NEUTROPHILS % (AUTO) 74.1 % (45.0-75.0); PLATELET COUNT 394 K/UL (150-450); RED BLOOD COUNT 3.08 M/UL (4.20-5.40); RED CELL DISTRIBUTION WIDTH 13.2 % (11.6-14.8); WHITE BLOOD COUNT 8.8 K/UL (4.8-10.8)
[2017-07-30 05:54] LABS: ALANINE AMINOTRANSFERASE 13 U/L (12-78); ALBUMIN 1.6 G/DL (3.4-5.0); ALBUMIN/GLOBULIN RATIO 0.4 (1.0-2.7); ALKALINE PHOSPHATASE 52 U/L (46-116); ANION GAP 5 mmol/L (5-15); ASPARTATE AMINO TRANSFERASE 15 U/L (15-37); BILIRUBIN,TOTAL 0.4 MG/DL (0.2-1.0); BLOOD UREA NITROGEN 16 mg/dL (7-18); CALCIUM 8.3 MG/DL (8.5-10.1); CARBON DIOXIDE 28 MMOL/L (21-32); CHLORIDE 104 MMOL/L (98-107); POTASSIUM 3.5 MMOL/L (3.5-5.1); SODIUM 137 MMOL/L (136-145)
[2017-07-30] MEDS: NovoLOG Insulin Flexpen SUBQ SCH ×3 (06:01→16:57)
[2017-07-30] MEDS: SULBACTAM SOD IVPB SCH ×2 (08:59→21:10)
[2017-07-30] MEDS: D5W IVPB SCH ×2 (08:59→21:10)
[2017-07-30] MEDS: AMPICILLIN IVPB SCH ×2 (08:59→21:10)
[2017-07-30] MEDS: Heparin 5000 units/ml inj SUBQ SCH ×2 (09:28→21:11)
[2017-07-30] MEDS: Levemir Flexpen SUBQ SCH (09:29)
--- NOTE | 2017-07-30 12:09 | General Progress Note ---
Assessment/Plan Status: stable, progressing Assessment/Plan 1. Anxiety disorder. 2. Cognitive impairment. PLAN: We will continue current medication. Provide the patient with supportive therapy and reality orientation. Subjective Date patient seen: July 30, 2017 Neurologic/Psychiatric: Reports: anxiety, depressed, emotional problems Allergies: Coded Allergies: NO KNOWN DRUG ALLERGIES (Verified Allergy, Unknown, 07/10/17) Objective Last 24 Hour Vital Signs Date Time Temp Pulse Resp B/P (MAP) Pulse Ox O2 Delivery O2 Flow Rate FiO2 07/30/17 08:00 98 Room Air 07/30/17 08:00 98.2 84 18 149/66 98.2 07/30/17 04:00 97.9 68 18 124/57 94 97.9 07/30/17 01:26 98.2 07/30/17 00:56 98.2 07/30/17 00:22 98.2 66 18 133/67 95 98.2 07/29/17 20:00 98.4 69 17 139/68 95 98.4 07/29/17 15:52 97.5 66 20 144/56 96 97.5 Intake and Output 07/29/17 07/30/17 19:00 07:00 Intake Total 240 ml 240 ml Balance 240 ml 240 ml Intake Oral 240 ml 240 ml # Voids 4 # Bowel Movements 2 4 Laboratory Tests 07/29/17 16:00: White Blood Count 8.2, Red Blood Count 3.42L, Hemoglobin 9.2L, Hematocrit 28.4L , Mean Corpuscular Volume 83, Mean Corpuscular Hemoglobin 27.0, Mean Corpuscular Hemoglobin Concent 32.5, Red Cell Distribution Width 13.7, Platelet Count 408, Mean Platelet Volume 5.4L, Neutrophils (%) (Auto) 73.3, Lymphocytes ( %) (Auto) 11.9L, Monocytes (%) (Auto) 8.8, Eosinophils (%) (Auto) 4.9H, Basophils (%) (Auto) 1.0, Sodium Level 139, Potassium Level 4.4, Chloride Level 105, Carbon Dioxide Level 28, Anion Gap 6, Blood Urea Nitrogen 8, Creatinine 0.9 , Estimat Glomerular Filtration Rate , Glucose Level 123#H, Calcium Level 8.3L, Total Bilirubin 0.3, Aspartate Amino Transf (AST/SGOT) 19, Alanine Aminotransferase (ALT/SGPT) 15, Alkaline Phosphatase 55, Total Protein 6.0L, Albumin 1.8L, Globulin 4.2, Albumin/Globulin Ratio 0.4L 07/30/17 05:05: White Blood Count 8.8, Red Blood Count 3.08L, Hemoglobin 8.6L, Hematocrit 25.2L , Mean Corpuscular Volume 82, Mean Corpuscular Hemoglobin 27.8, Mean Corpuscular Hemoglobin Concent 34.0, Red Cell Distribution Width 13.2, Platelet Count 394, Mean Platelet Volume 5.8L, Neutrophils (%) (Auto) 74.1, Lymphocytes ( %) (Auto) 12.7L, Monocytes (%) (Auto) 8.3, Eosinophils (%) (Auto) 4.2H, Basophils (%) (Auto) 0.7, Sodium Level 137, Potassium Level 3.5, Chloride Level 104, Carbon Dioxide Level 28, Anion Gap 5, Blood Urea Nitrogen 16, Creatinine 1.0, Estimat Glomerular Filtration Rate , Glucose Level 117H, Calcium Level 8.3L , Total Bilirubin 0.4, Aspartate Amino Transf (AST/SGOT) 15, Alanine Aminotransferase (ALT/SGPT) 13, Alkaline Phosphatase 52, Total Protein 5.9L, Albumin 1.6L, Globulin 4.3, Albumin/Globulin Ratio 0.4L Height (Feet): 5 Height (Inches): 7.00 Weight (Pounds): 113 General Appearance: WD/WN, no apparent distress, alert Neurologic: alert, oriented x 3, responsive, depressed affect Sandy Blunt M.D. July 30, 2017 12:09
[2017-07-30] MEDS: Vancomycin oral 125mg/2.5ml ORAL SCH ×4 (12:38→21:10)
[2017-07-30] MEDS ORDERED: Lidocaine 1% Plain 30 ml INJ PRN (15:15)
--- NOTE | 2017-07-30 15:16 | Infectious Diseases Prog Note ---
Assessment/Plan Assessment/Plan ASSESSMENT: The patient is an 87-year-old female with multiple medical problems as listed below, who has: -. Infected sacral decubitus w/ acute sacrum OM per pathology findings -s/p Excisional debridement of right heel ulcer down through subcutaneous tissue an Excisional debridement of sacrococcyx ulcer down through muscle, deep open bone biopsy of the sacrum 07/28 -OR findings: skin defect 1.2 x 1.6 x 0.3 cm.; OR cx (Tissue and bone) NTD path acute sacrum OM. Necrotic tissue with Missed inflammation -superficial wound cx 07/25 polymicrobial: E. fecalis (cortes S), E.coli (cortes S ), P. mirabilis (cortes S), S/ aureus (sensi pending) -No evidence of osteomyelitis based on MRI on (07/10/2017). -Diarrhea- 2ry to Cdiff colitis -. Normal white blood cells. -. Afebrile. Chest x-ray, no acute process. -. Chronic sacral ulcer. -. History of anemia. -. History of bedridden/deconditioning. -. Hypertension. -. Hyperlipidemia. -. History of breast cancer. PLAN: -. Continue IV Unasyn day # for acute sacrum OM and add IV Vancomycin pending S. aureus sensi --upon discharge can transition to IV Ceftriaxone 2g daily for easier regimen -f/u final OR Cultures -Start PO Vancomycin 125mg PO qid #1 for Cdiff; after 14 days will switch to PO vancomycin 125mg qd while on duration of IV abx -. Monitor CBC. -. Monitor BMP. -. Surgery follow up -. woundc are -. Based on the patient's clinical course and labs, we will do further recommendations. Thank you, Dr. Pimentel, for allowing me to participate in the care of this patient. I will follow the patient with you during this hospitalization. Subjective Allergies: Coded Allergies: NO KNOWN DRUG ALLERGIES (Verified Allergy, Unknown, 07/10/17) Subjective afebrile no leukocytosis Cdiff+, +diarrhea Objective Vital Signs Last 24 Hour Vital Signs Date Time Temp Pulse Resp B/P (MAP) Pulse Ox O2 Delivery O2 Flow Rate FiO2 07/30/17 12:09 97.9 72 18 149/59 97.9 07/30/17 12:00 97.9 72 18 149/59 96 Room Air 97.9 07/30/17 08:00 98 Room Air 07/30/17 08:00 98.2 84 18 149/66 98.2 07/30/17 04:00 97.9 68 18 124/57 94 97.9 07/30/17 01:26 98.2 07/30/17 00:56 98.2 07/30/17 00:22 98.2 66 18 133/67 95 98.2 07/29/17 20:00 98.4 69 17 139/68 95 98.4 07/29/17 15:52 97.5 66 20 144/56 96 97.5 Height (Feet): 5 Height (Inches): 7.00 Weight (Pounds): 113 Objective HEENT: No pale conjunctivae. No icterus. NECK: No lymphadenopathy. CHEST: Coarse breathing sounds. HEART: S1 and S2. ABDOMEN: Soft and nontender. EXTREMITIES: No cyanosis at this time. SKIN: The patient has unstageable sacral decubitus. Microbiology Date/Time Source Procedure Growth Status 07/29/17 10:30 Stool Clostridium difficile Toxin Assay - Final Complete 07/28/17 16:00 Sacral Other Gram Stain - Final Resulted 07/28/17 16:00 Sacral Other Aerobic Culture - Preliminary NO GROWTH AFTER 24 HOURS Resulted 07/28/17 16:00 Sacral Wound Gram Stain - Final Resulted 07/28/17 16:00 Sacral Wound Aerobic Culture Pending Resulted 07/28/17 16:00 Sacral Wound Anaerobic Culture Pending Resulted Laboratory Tests Test 07/29/17 16:00 07/30/17 05:05 White Blood Count 8.2 K/UL (4.8-10.8) 8.8 K/UL (4.8-10.8) Red Blood Count 3.42 M/UL (4.20-5.40) L 3.08 M/UL (4.20-5.40) L Hemoglobin 9.2 G/DL (12.0-16.0) L 8.6 G/DL (12.0-16.0) L Hematocrit 28.4 % (37.0-47.0) L 25.2 % (37.0-47.0) L Mean Corpuscular Volume 83 FL (80-99) 82 FL (80-99) Mean Corpuscular Hemoglobin 27.0 PG (27.0-31.0) 27.8 PG (27.0-31.0) Mean Corpuscular Hemoglobin Concent 32.5 G/DL (32.0-36.0) 34.0 G/DL (32.0-36.0) Red Cell Distribution Width 13.7 % (11.6-14.8) 13.2 % (11.6-14.8) Platelet Count 408 K/UL (150-450) 394 K/UL (150-450) Mean Platelet Volume 5.4 FL (6.5-10.1) L 5.8 FL (6.5-10.1) L Neutrophils (%) (Auto) 73.3 % (45.0-75.0) 74.1 % (45.0-75.0) Lymphocytes (%) (Auto) 11.9 % (20.0-45.0) L 12.7 % (20.0-45.0) L Monocytes (%) (Auto) 8.8 % (1.0-10.0) 8.3 % (1.0-10.0) Eosinophils (%) (Auto) 4.9 % (0.0-3.0) H 4.2 % (0.0-3.0) H Basophils (%) (Auto) 1.0 % (0.0-2.0) 0.7 % (0.0-2.0) Sodium Level 139 MMOL/L (136-145) 137 MMOL/L (136-145) Potassium Level 4.4 MMOL/L (3.5-5.1) 3.5 MMOL/L (3.5-5.1) Chloride Level 105 MMOL/L (98-107) 104 MMOL/L (98-107) Carbon Dioxide Level 28 MMOL/L (21-32) 28 MMOL/L (21-32) Anion Gap 6 mmol/L (5-15) 5 mmol/L (5-15) Blood Urea Nitrogen 8 mg/dL (7-18) 16 mg/dL (7-18) Creatinine 0.9 MG/DL (0.55-1.30) 1.0 MG/DL (0.55-1.30) Estimat Glomerular Filtration Rate mL/min (>60) mL/min (>60) Glucose Level 123 MG/DL (74-106) #H 117 MG/DL (74-106) H Calcium Level 8.3 MG/DL (8.5-10.1) L 8.3 MG/DL (8.5-10.1) L Total Bilirubin 0.3 MG/DL (0.2-1.0) 0.4 MG/DL (0.2-1.0) Aspartate Amino Transf (AST/SGOT) 19 U/L (15-37) 15 U/L (15-37) Alanine Aminotransferase (ALT/SGPT) 15 U/L (12-78) 13 U/L (12-78) Alkaline Phosphatase 55 U/L (46-116) 52 U/L (46-116) Total Protein 6.0 G/DL (6.4-8.2) L 5.9 G/DL (6.4-8.2) L Albumin 1.8 G/DL (3.4-5.0) L 1.6 G/DL (3.4-5.0) L Globulin 4.2 g/dL 4.3 g/dL Albumin/Globulin Ratio 0.4 (1.0-2.7) L 0.4 (1.0-2.7) L Current Medications Medications (Trade) Dose Ordered Sig/Julius Route PRN Reason Start Time Stop Time Status Last Admin Dose Admin Acetaminophen (Tylenol) 650 mg Q6H PRN ORAL Mild Pain/Temp > 100.5 07/25/17 23:45 08/24/17 23:44 Ampicillin Sodium/ Sulbactam Sodium 1.5 gm/Dextrose 55 ml @ 110 mls/hr Q12HR IVPB 07/26/17 14:00 08/02/17 13:59 07/30/17 08:59 Heparin Sodium (Porcine) (Heparin 5000 units/ml) 5,000 units EVERY 12 HOURS SUBQ 07/26/17 09:00 08/25/17 08:59 07/30/17 09:28 Insulin Aspart (NovoLOG) 2 units NOVOTIAC SUBQ 07/25/17 16:50 08/24/17 16:49 07/30/17 11:23 Insulin Detemir (Levemir) 10 units DAILY SUBQ 07/27/17 09:00 08/25/17 10:59 5/2/18 09:29 Loperamide HCl (Imodium) 2 mg Q4H PRN ORAL Diarrhea 07/28/17 11:15 08/27/17 11:14 07/28/17 11:27 Morphine Sulfate (Morphine Sulfate) 2 mg Q4H PRN IVP Severe Pain (Pain Scale 7-10) 07/25/17 23:45 08/01/17 23:44 07/30/17 00:56 Pantoprazole (Protonix) 40 mg DAILY ORAL 07/26/17 09:00 08/25/17 08:59 07/30/17 09:26 Sodium Hypochlorite (Dakin's Half Strength) 1 applic Q24H TOPIC 07/28/17 20:00 08/27/17 19:59 07/29/17 20:52 Vancomycin HCl (Vancomycin) 125 mg FOUR TIMES A DAY ORAL 07/30/17 10:00 08/06/17 09:59 07/30/17 12:38 Katina Torrez M.D. July 30, 2017 15:16
--- NOTE | 2017-07-30 16:34 | General Progress Note ---
Assessment/Plan Status: stable Assessment/Plan 1. Acute on chronic debility/deconditioning manifested by appearing/ progression of decubitus wound ulcers in sacral and heel regions. 2. Anemia. 3. Hyponatremia. 4. Acute renal failure. 5. Diabetes type 2, uncontrolled. 6. Hypertension. 7. Gastrointestinal and deep vein thrombosis prophylaxis. 8 C-Diff colitis Plan: Will optimize DM medications PT /OT consult Discussed and agreed the care with Dr Connell Status post Surgical debridment Current ABX regiment per ID SNIF placement Subjective ROS Limited/Unobtainable: No Constitutional: Reports: no symptoms HEENT: Reports: no symptoms Allergies: Coded Allergies: NO KNOWN DRUG ALLERGIES (Verified Allergy, Unknown, 07/10/17) Objective Last 24 Hour Vital Signs Date Time Temp Pulse Resp B/P (MAP) Pulse Ox O2 Delivery O2 Flow Rate FiO2 07/30/17 15:54 98 Room Air 07/30/17 15:39 98.4 65 18 146/64 98.4 07/30/17 12:09 97.9 72 18 149/59 97.9 07/30/17 12:00 97.9 72 18 149/59 96 Room Air 97.9 07/30/17 08:00 98 Room Air 07/30/17 08:00 98.2 84 18 149/66 98.2 07/30/17 04:00 97.9 68 18 124/57 94 97.9 07/30/17 01:26 98.2 07/30/17 00:56 98.2 07/30/17 00:22 98.2 66 18 133/67 95 98.2 07/29/17 20:00 98.4 69 17 139/68 95 98.4 Intake and Output 07/29/17 07/30/17 19:00 07:00 Intake Total 240 ml 240 ml Balance 240 ml 240 ml Intake Oral 240 ml 240 ml # Voids 4 # Bowel Movements 2 4 Laboratory Tests 07/30/17 05:05: White Blood Count 8.8, Red Blood Count 3.08L, Hemoglobin 8.6L, Hematocrit 25.2L , Mean Corpuscular Volume 82, Mean Corpuscular Hemoglobin 27.8, Mean Corpuscular Hemoglobin Concent 34.0, Red Cell Distribution Width 13.2, Platelet Count 394, Mean Platelet Volume 5.8L, Neutrophils (%) (Auto) 74.1, Lymphocytes ( %) (Auto) 12.7L, Monocytes (%) (Auto) 8.3, Eosinophils (%) (Auto) 4.2H, Basophils (%) (Auto) 0.7, Sodium Level 137, Potassium Level 3.5, Chloride Level 104, Carbon Dioxide Level 28, Anion Gap 5, Blood Urea Nitrogen 16, Creatinine 1.0, Estimat Glomerular Filtration Rate , Glucose Level 117H, Calcium Level 8.3L , Total Bilirubin 0.4, Aspartate Amino Transf (AST/SGOT) 15, Alanine Aminotransferase (ALT/SGPT) 13, Alkaline Phosphatase 52, Total Protein 5.9L, Albumin 1.6L, Globulin 4.3, Albumin/Globulin Ratio 0.4L Height (Feet): 5 Height (Inches): 7.00 Weight (Pounds): 113 General Appearance: no apparent distress EENT: PERRL/EOMI Neck: supple Cardiovascular: normal rate Respiratory/Chest: lungs clear Abdomen: soft Extremities: non-tender, other - sacral wound dressed Neurologic: oracle analyst II-XII grossly normal Erin Pimentel MD July 30, 2017 16:34
[2017-07-30] MEDS ORDERED: Vancomycin 1gm/D5W 275ml IVPB ONE ×2 (17:00)
[2017-07-30] MEDS: Dyna-Hex 2% Top Sol 2oz TOPIC SCH (20:00)
[2017-07-30] MEDS: Dakin's 0.25% (Half Strength) 16oz TOPIC SCH (21:10)
[2017-07-31] MEDS: Morphine Sulfate 4mg/ml Inj IVP PRN ×2 (00:05→15:46)
[2017-07-31 00:31] VITALS: BP 151/58
[2017-07-31 04:00] VITALS: BP 150/58
[2017-07-31] MEDS: NovoLOG Insulin Flexpen SUBQ SCH ×3 (06:28→17:12)
[2017-07-31 08:00] VITALS: BP 139/51
[2017-07-31] MEDS: AMPICILLIN IVPB SCH (08:55)
[2017-07-31] MEDS: D5W IVPB SCH (08:55)
[2017-07-31] MEDS: SULBACTAM SOD IVPB SCH (08:55)
[2017-07-31] MEDS: Heparin 5000 units/ml inj SUBQ SCH ×2 (08:57→21:20)
[2017-07-31] MEDS: Levemir Flexpen SUBQ SCH (08:58)
[2017-07-31] MEDS: Vancomycin oral 125mg/2.5ml ORAL SCH ×4 (09:00→21:19)
--- NOTE | 2017-07-31 10:23 | General Progress Note ---
Assessment/Plan Status: stable Assessment/Plan 1. Acute on chronic debility/deconditioning manifested by appearing/ progression of decubitus wound ulcers in sacral and heel regions. 2. Anemia. 3. Hyponatremia. 4. Acute renal failure. 5. Diabetes type 2, uncontrolled. 6. Hypertension. 7. Gastrointestinal and deep vein thrombosis prophylaxis. 8 C-Diff colitis Plan: Will optimize DM medications PT /OT consult Discussed and agreed the care with Dr Connell Status post Surgical debridment Current ABX regiment per ID SNIF placement Subjective Allergies: Coded Allergies: NO KNOWN DRUG ALLERGIES (Verified Allergy, Unknown, 07/10/17) Objective Last 24 Hour Vital Signs Date Time Temp Pulse Resp B/P (MAP) Pulse Ox O2 Delivery O2 Flow Rate FiO2 07/31/17 08:00 98.1 71 19 139/51 97 98.1 07/31/17 04:00 97.6 60 18 150/58 98 Room Air 97.6 07/31/17 00:35 98.4 07/31/17 00:31 98.4 63 18 151/58 95 Room Air 98.4 07/31/17 00:05 97.4 07/30/17 20:00 97.4 68 18 148/63 97 Room Air 97.4 07/30/17 17:09 98.4 07/30/17 15:54 98 Room Air 07/30/17 15:39 98.4 65 18 146/64 98.4 07/30/17 12:09 97.9 72 18 149/59 97.9 07/30/17 12:00 97.9 72 18 149/59 96 Room Air 97.9 Intake and Output 07/30/17 07/31/17 19:00 07:00 Intake Total 830 ml 55 ml Balance 830 ml 55 ml Intake Oral 720 ml IV Total 110 ml 55 ml # Voids 5 2 # Bowel Movements 5 4 Laboratory Tests 07/31/17 04:50: Erythrocyte Sedimentation Rate 67H, C-Reactive Protein, Quantitative 3.3H Height (Feet): 5 Height (Inches): 7.00 Weight (Pounds): 113 Erin Pimentel MD July 31, 2017 10:23
[2017-07-31 12:00] VITALS: BP 113/69
--- NOTE | 2017-07-31 12:05 | General Progress Note ---
Assessment/Plan Assessment/Plan 1. Anxiety disorder. 2. Cognitive impairment. PLAN: We will continue current medication. Provide the patient with supportive therapy and reality orientation. Subjective Date patient seen: July 31, 2017 Neurologic/Psychiatric: Reports: anxiety, depressed, emotional problems Allergies: Coded Allergies: NO KNOWN DRUG ALLERGIES (Verified Allergy, Unknown, 07/10/17) Objective Last 24 Hour Vital Signs Date Time Temp Pulse Resp B/P (MAP) Pulse Ox O2 Delivery O2 Flow Rate FiO2 07/31/17 08:00 98.1 71 19 139/51 97 98.1 07/31/17 04:00 97.6 60 18 150/58 98 Room Air 97.6 07/31/17 00:35 98.4 07/31/17 00:31 98.4 63 18 151/58 95 Room Air 98.4 07/31/17 00:05 97.4 07/30/17 20:00 97.4 68 18 148/63 97 Room Air 97.4 07/30/17 17:09 98.4 07/30/17 15:54 98 Room Air 07/30/17 15:39 98.4 65 18 146/64 98.4 07/30/17 12:09 97.9 72 18 149/59 97.9 Intake and Output 07/30/17 07/31/17 19:00 07:00 Intake Total 830 ml 55 ml Balance 830 ml 55 ml Intake Oral 720 ml IV Total 110 ml 55 ml # Voids 5 2 # Bowel Movements 5 4 Laboratory Tests 07/31/17 04:50: Erythrocyte Sedimentation Rate 67H, C-Reactive Protein, Quantitative 3.3H Height (Feet): 5 Height (Inches): 7.00 Weight (Pounds): 113 General Appearance: WD/WN, no apparent distress, alert, confused Sandy Blunt M.D. July 31, 2017 12:05
[2017-07-31] MEDS ORDERED: Heparin 2000 units/Ns 1000ml INJ PRN (14:45)
--- NOTE | 2017-07-31 15:42 | Infectious Diseases Prog Note ---
Assessment/Plan Assessment/Plan ASSESSMENT: The patient is an 87-year-old female with multiple medical problems as listed below, who has: -. Infected sacral decubitus w/ acute sacrum OM per pathology findings -s/p Excisional debridement of right heel ulcer down through subcutaneous tissue an Excisional debridement of sacrococcyx ulcer down through muscle, deep open bone biopsy of the sacrum 07/28 -OR findings: skin defect 1.2 x 1.6 x 0.3 cm.; OR cx Tissue GNR ;bone NTD path acute sacrum OM. Necrotic tissue with Missed inflammation -superficial wound cx 07/25 polymicrobial: E. fecalis (cortes S), E.coli (cortes S ), P. mirabilis (cortes S), MSSA, K. pna (R amp, otherwise S) -No evidence of osteomyelitis based on MRI on (07/10/2017). -ESR 107>67 5/3; CRP 5.9>3.3 5/ -Diarrhea- 2ry to Cdiff colitis -. Normal white blood cells. -. Afebrile. Chest x-ray, no acute process. -. Chronic sacral ulcer. -. History of anemia. -. History of bedridden/deconditioning. -. Hypertension. -. Hyperlipidemia. -. History of breast cancer. PLAN: -. Switch IV Unasyn day # to IV Ceftriaxone 2g daily for acute sacrum OM and d/c IV Vancomycin #2 --upon discharge can transition to IV Ceftriaxone 2g daily to complete regimen --weekly CBC, CMP -f/u final OR Cultures -Continue PO Vancomycin 125mg PO qid #/ for Cdiff; after 14 days will switch to PO vancomycin 125mg qd while on duration of IV abx -. Monitor CBC. -. Monitor BMP. -. Surgery follow up -. wound care/prevention per hosp protocol -. PICC line Thank you, Dr. Pimentel, for allowing me to participate in the care of this patient. I will follow the patient with you during this hospitalization. Discussed with Dr Pimentel. Subjective Allergies: Coded Allergies: NO KNOWN DRUG ALLERGIES (Verified Allergy, Unknown, 07/10/17) Subjective afebrile no leukocytosis Objective Vital Signs Last 24 Hour Vital Signs Date Time Temp Pulse Resp B/P (MAP) Pulse Ox O2 Delivery O2 Flow Rate FiO2 07/31/17 12:00 98.2 92 20 113/69 99 98.2 07/31/17 08:00 98.1 71 19 139/51 97 98.1 07/31/17 04:00 97.6 60 18 150/58 98 Room Air 97.6 07/31/17 00:35 98.4 07/31/17 00:31 98.4 63 18 151/58 95 Room Air 98.4 07/31/17 00:05 97.4 07/30/17 20:00 97.4 68 18 148/63 97 Room Air 97.4 07/30/17 17:09 98.4 07/30/17 15:54 98 Room Air 07/30/17 15:39 98.4 65 18 146/64 98.4 Height (Feet): 5 Height (Inches): 7.00 Weight (Pounds): 113 Objective HEENT: No pale conjunctivae. No icterus. NECK: No lymphadenopathy. CHEST: Coarse breathing sounds. HEART: S1 and S2. ABDOMEN: Soft and nontender. EXTREMITIES: No cyanosis at this time. SKIN: The patient has unstageable sacral decubitus. Microbiology Date/Time Source Procedure Growth Status 07/29/17 10:30 Stool Clostridium difficile Toxin Assay - Final Complete 07/28/17 16:00 Sacral Other Gram Stain - Final Resulted 07/28/17 16:00 Sacral Other Aerobic Culture - Preliminary NO GROWTH AFTER 48 HOURS Resulted 07/28/17 16:00 Sacral Wound Gram Stain - Final Resulted 07/28/17 16:00 Aerobic Culture - Preliminary Gram Negative Bacillus 1 Resulted 07/28/17 16:00 Sacral Wound Anaerobic Culture Pending Resulted Laboratory Tests Test 07/31/17 04:50 Erythrocyte Sedimentation Rate 67 MM/HR (0-30) H C-Reactive Protein, Quantitative 3.3 mg/dL (0.00-0.90) H Current Medications Medications (Trade) Dose Ordered Sig/Julius Route PRN Reason Start Time Stop Time Status Last Admin Dose Admin Acetaminophen (Tylenol) 650 mg Q6H PRN ORAL Mild Pain/Temp > 100.5 07/25/17 23:45 08/24/17 23:44 Ampicillin Sodium/ Sulbactam Sodium 1.5 gm/Dextrose 55 ml @ 110 mls/hr Q12HR IVPB 07/26/17 14:00 08/02/17 13:59 07/31/17 08:55 Chlorhexidine Gluconate (Cesia-Hex 2%) 1 applic DAILY@2000 TOPIC 07/30/17 20:00 08/29/17 19:59 Heparin Sodium (Porcine) (Heparin 5000 units/ml) 5,000 units EVERY 12 HOURS SUBQ 07/26/17 09:00 08/25/17 08:59 07/31/17 08:57 Heparin Sodium/ Sodium Chloride (Heparin 2000 units/Ns 1000ml premix) 2,000 unit ONCE PRN INJ for radiology use only 07/31/17 14:45 07/31/17 23:59 Insulin Aspart (NovoLOG) 2 units NOVOTIAC SUBQ 07/25/17 16:50 08/24/17 16:49 07/31/17 12:17 Insulin Detemir (Levemir) 10 units DAILY SUBQ 07/27/17 09:00 08/25/17 10:59 07/31/17 08:58 Lidocaine HCl (Xylocaine 1% 30ml) 30 ml ONCE PRN INJ PICC PLACEMENT 07/30/17 15:15 07/31/17 23:59 Loperamide HCl (Imodium) 2 mg Q4H PRN ORAL Diarrhea 07/28/17 11:15 08/27/17 11:14 07/28/17 11:27 Morphine Sulfate (Morphine Sulfate) 2 mg Q4H PRN IVP Severe Pain (Pain Scale 7-10) 07/25/17 23:45 08/01/17 23:44 07/31/17 00:05 Pantoprazole (Protonix) 40 mg DAILY ORAL 07/26/17 09:00 08/25/17 08:59 07/31/17 08:55 Sodium Hypochlorite (Dakin's Half Strength) 1 applic Q24H TOPIC 07/28/17 20:00 08/27/17 19:59 07/30/17 21:10 Vancomycin HCl (Vanco rx to dose) 1 ea DAILY PRN MISC Per rx protocol 07/30/17 15:15 08/29/17 15:14 Vancomycin HCl (Vancomycin) 125 mg FOUR TIMES A DAY ORAL 07/30/17 10:00 08/06/17 09:59 07/31/17 12:14 Vancomycin/Sodium Chloride 250 ml @ 166.667 mls/hr Q24H IVPB 07/31/17 17:00 08/05/17 16:59 Katina Torrez M.D. July 31, 2017 15:42
[2017-07-31 16:00] VITALS: BP 138/65
--- NOTE | 2017-07-31 16:35 | Diagnostic Imaging Report ---
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 The right upper extremity was prepped with alcohol. All elements of maximal sterile barrier technique were followed including usage of a cap, mask, sterile gown, sterile gloves, hand hygiene and a large sterile sheet. Sonographic evaluation of the upper extremity was performed demonstrating a patent and compressible brachial vein. Access was obtained under real-time ultrasound guidance (with utilization of sterile gel and sterile probe cover) and digital image was saved and archived. An .018 wire was introduced. Needle exchanged for a 5 Czech peel-away sheath. Measurements were obtained. A 5 Czech dual-lumen Power PICC line catheter was cut to 40 cm and introduced over the wire. Peel-away sheath and wire were removed.Catheter was secured to the skin using 2-0 Prolene suture. Both ports aspirate and flush easily. Fluoroscopic images show distal tip in the superior vena cava. Total fluoroscopic time 0.2 minutes. Impression: Successful placement of an upper extremity PICC line catheter
[2017-07-31] MEDS ORDERED: D5NS 1000ml IV ONE (16:43)
[2017-07-31] MEDS ORDERED: Vancomycin 750mg/NS 250ml IVPB SCH (17:00)
[2017-07-31] MEDS ORDERED: cefTRIAXone 2 GM in D5W 110 ML IVPB SCH (18:00)
[2017-07-31 20:00] VITALS: BP 143/64
[2017-07-31] MEDS: Dyna-Hex 2% Top Sol 2oz TOPIC SCH (21:18)
[2017-07-31] MEDS: Dakin's 0.25% (Half Strength) 16oz TOPIC SCH (21:21)
[2017-08-01] VITALS: BP 143/59
[2017-08-01 04:00] VITALS: BP 142/64
[2017-08-01] MEDS: NovoLOG Insulin Flexpen SUBQ SCH ×2 (06:24→11:34)
[2017-08-01 08:38] VITALS: BP 153/66
[2017-08-01] MEDS: Vancomycin oral 125mg/2.5ml ORAL SCH ×2 (08:47→13:00)
[2017-08-01] MEDS: Heparin 5000 units/ml inj SUBQ SCH (08:51)
[2017-08-01] MEDS: Levemir Flexpen SUBQ SCH (08:52)
[2017-08-01] MEDS: Morphine Sulfate 4mg/ml Inj IVP PRN (09:19)
--- NOTE | 2017-08-01 11:15 | General Progress Note ---
Assessment/Plan Status: stable, progressing Assessment/Plan 1. Anxiety disorder. 2. Cognitive impairment. PLAN: We will continue current medication. Provide the patient with supportive therapy and reality orientation. Subjective Date patient seen: August 01, 2017 Neurologic/Psychiatric: Reports: anxiety, emotional problems Allergies: Coded Allergies: NO KNOWN DRUG ALLERGIES (Verified Allergy, Unknown, 07/10/17) Subjective the pt was interactive and was able to answer the questions Objective Last 24 Hour Vital Signs Date Time Temp Pulse Resp B/P (MAP) Pulse Ox O2 Delivery O2 Flow Rate FiO2 08/01/17 09:49 98.2 08/01/17 09:19 98.2 08/01/17 08:38 98.2 88 20 153/66 95 98.2 08/01/17 04:00 98.1 64 18 142/64 97 98.1 08/01/17 00:00 98.3 64 18 143/59 96 98.3 07/31/17 20:00 98.8 69 18 143/64 98 98.8 07/31/17 16:00 99.1 67 20 138/65 98 99.1 07/31/17 15:46 98.2 07/31/17 12:00 98.2 92 20 113/69 99 98.2 Intake and Output 07/31/17 08/01/17 19:00 07:00 Intake Total 450 ml Balance 450 ml Intake Oral 450 ml # Voids 4 4 # Bowel Movements 4 4 Height (Feet): 5 Height (Inches): 7.00 Weight (Pounds): 113 General Appearance: WD/WN, no apparent distress, alert Neurologic: oriented x 3, responsive, depressed affect Sandy Blunt M.D. August 01, 2017 11:15
[2017-08-01 11:53] VITALS: BP 138/74
--- NOTE | 2017-08-01 12:29 | General Progress Note ---
Assessment/Plan Status: stable Assessment/Plan 1. Acute on chronic debility/deconditioning manifested by appearing/ progression of decubitus wound ulcers in sacral and heel regions. 2. Anemia. 3. Hyponatremia. 4. Acute renal failure. 5. Diabetes type 2, uncontrolled. 6. Hypertension. 7. Gastrointestinal and deep vein thrombosis prophylaxis. 8 C-Diff colitis Plan: Will optimize DM medications PT /OT consult Discussed and agreed the care with Dr Connell Status post Surgical debridment Current ABX regiment per ID SNIF placement Subjective ROS Limited/Unobtainable: No Constitutional: Reports: weakness HEENT: Reports: no symptoms Cardiovascular: Reports: no symptoms Allergies: Coded Allergies: NO KNOWN DRUG ALLERGIES (Verified Allergy, Unknown, 07/10/17) Objective Last 24 Hour Vital Signs Date Time Temp Pulse Resp B/P (MAP) Pulse Ox O2 Delivery O2 Flow Rate FiO2 08/01/17 11:53 97.9 90 20 138/74 96 97.9 08/01/17 09:49 98.2 08/01/17 09:19 98.2 08/01/17 08:38 98.2 88 20 153/66 95 98.2 08/01/17 04:00 98.1 64 18 142/64 97 98.1 08/01/17 00:00 98.3 64 18 143/59 96 98.3 07/31/17 20:00 98.8 69 18 143/64 98 98.8 07/31/17 16:00 99.1 67 20 138/65 98 99.1 07/31/17 15:46 98.2 Intake and Output 07/31/17 08/01/17 19:00 07:00 Intake Total 450 ml Balance 450 ml Intake Oral 450 ml # Voids 4 4 # Bowel Movements 4 4 Height (Feet): 5 Height (Inches): 7.00 Weight (Pounds): 113 General Appearance: no apparent distress EENT: PERRL/EOMI Neck: supple Cardiovascular: normal rate Respiratory/Chest: lungs clear Abdomen: soft Extremities: other - weakness in lower extremities, wounds appropriatedly dressed Neurologic: pediatric anesthesiologist II-XII grossly normal Erin Pimentel MD August 01, 2017 12:29
[2017-08-01] MEDS ORDERED: ACETAMINOPHEN325 M1 ORAL (13:02)
[2017-08-01] MEDS ORDERED: DAKIN'S1 APPLI1 TOPIC (13:03)
[2017-08-01] MEDS ORDERED: HEPARIN SO5000 UNIT2 SUBQ (13:04)
[2017-08-01] MEDS ORDERED: NOVOLOG100 UNITS1 SUBQ (13:06)
[2017-08-01] MEDS ORDERED: LEVEMIR FL100 UNIT/1 SUBQ (13:08)
[2017-08-01] MEDS ORDERED: PANTOPRAZOLE SO40 MG ORAL (13:09)
[2017-08-01] MEDS ORDERED: LOPERAMIDE2 MG PO (13:09)
[2017-08-01] MEDS ORDERED: VANCOMYCIN HCL125 MG PO (13:10)
[2017-08-01] MEDS ORDERED: CEFTRIAXONE2 G2 IV (14:31)
--- NOTE | 2017-08-01 14:32 | Infectious Diseases Prog Note ---
Assessment/Plan Assessment/Plan ASSESSMENT: The patient is an 87-year-old female with multiple medical problems as listed below, who has: -. Infected sacral decubitus w/ acute sacrum OM per pathology findings -s/p Excisional debridement of right heel ulcer down through subcutaneous tissue an Excisional debridement of sacrococcyx ulcer down through muscle, deep open bone biopsy of the sacrum 07/28 -OR findings: skin defect 1.2 x 1.6 x 0.3 cm.; OR cx Tissue P. mirabilis ( cortes S) ;bone NTD path acute sacrum OM. Necrotic tissue with Missed inflammation -superficial wound cx 07/25 polymicrobial: E. fecalis (cortes S), E.coli (cortes S ), P. mirabilis (cortes S), MSSA, K. pna (R amp, otherwise S). MRSA (S tetracycline ,b actrim) -No evidence of osteomyelitis based on MRI on (07/10/2017). -ESR 107>67 5/3; CRP 5.9>3.3 / -Diarrhea- 2ry to Cdiff colitis -. Normal white blood cells. -. Afebrile. Chest x-ray, no acute process. -. Chronic sacral ulcer. -. History of anemia. -. History of bedridden/deconditioning. -. Hypertension. -. Hyperlipidemia. -. History of breast cancer. PLAN: -. Continue IV Ceftriaxone 2g daily abx d # for acute sacrum OM --weekly CBC, CMP -f/u final OR Cultures -will not treat MRSA in superficial wound cx as was not isolated on deep cultures (Tissue/OR cultures) -Continue PO Vancomycin 125mg PO qid #06/11 for Cdiff; after 14 days will switch to PO vancomycin 125mg qd while on duration of IV abx -/ SP IV Unasyn #6, IV Vancomycin #2 -. Monitor CBC. -. Monitor BMP. -. Surgery follow up -. wound care/prevention per hosp protocol -. PICC line care Thank you, Dr. Pimentel, for allowing me to participate in the care of this patient. I will follow the patient with you during this hospitalization. Discussed with Dr Pimentel. Subjective Allergies: Coded Allergies: NO KNOWN DRUG ALLERGIES (Verified Allergy, Unknown, 07/10/17) Subjective afebrile no leukocytosis for dsicahrge Objective Vital Signs Last 24 Hour Vital Signs Date Time Temp Pulse Resp B/P (MAP) Pulse Ox O2 Delivery O2 Flow Rate FiO2 08/01/17 11:53 97.9 90 20 138/74 96 97.9 08/01/17 09:49 98.2 08/01/17 09:19 98.2 08/01/17 08:38 98.2 88 20 153/66 95 98.2 08/01/17 04:00 98.1 64 18 142/64 97 98.1 08/01/17 00:00 98.3 64 18 143/59 96 98.3 07/31/17 20:00 98.8 69 18 143/64 98 98.8 07/31/17 16:00 99.1 67 20 138/65 98 99.1 07/31/17 15:46 98.2 Height (Feet): 5 Height (Inches): 7.00 Weight (Pounds): 113 Objective HEENT: No pale conjunctivae. No icterus. NECK: No lymphadenopathy. CHEST: Coarse breathing sounds. HEART: S1 and S2. ABDOMEN: Soft and nontender. EXTREMITIES: No cyanosis at this time. SKIN: The patient has unstageable sacral decubitus. Current Medications Medications (Trade) Dose Ordered Sig/Julius Route PRN Reason Start Time Stop Time Status Last Admin Dose Admin Acetaminophen (Tylenol) 650 mg Q6H PRN ORAL Mild Pain/Temp > 100.5 07/25/17 23:45 08/24/17 23:44 Ceftriaxone Sodium 2 gm/ Dextrose 110 ml @ 220 mls/hr Q24H IVPB 07/31/17 18:00 08/07/17 17:59 07/31/17 17:13 Chlorhexidine Gluconate (Cesia-Hex 2%) 1 applic DAILY@2000 TOPIC 07/30/17 20:00 08/29/17 19:59 07/31/17 21:18 Heparin Sodium (Porcine) (Heparin 5000 units/ml) 5,000 units EVERY 12 HOURS SUBQ 07/26/17 09:00 08/25/17 08:59 08/01/17 08:51 Insulin Aspart (NovoLOG) 2 units NOVOTIAC SUBQ 07/25/17 16:50 08/24/17 16:49 08/01/17 11:34 Insulin Detemir (Levemir) 10 units DAILY SUBQ 07/27/17 09:00 08/25/17 10:59 08/01/17 08:52 Loperamide HCl (Imodium) 2 mg Q4H PRN ORAL Diarrhea 07/28/17 11:15 08/27/17 11:14 07/28/17 11:27 Morphine Sulfate (Morphine Sulfate) 2 mg Q4H PRN IVP Severe Pain (Pain Scale 7-10) 07/25/17 23:45 08/01/17 23:44 08/01/17 09:19 Pantoprazole (Protonix) 40 mg DAILY ORAL 07/26/17 09:00 08/25/17 08:59 08/01/17 08:47 Sodium Hypochlorite (Dakin's Half Strength) 1 applic Q24H TOPIC 07/28/17 20:00 08/27/17 19:59 07/31/17 21:21 Vancomycin HCl (Vancomycin) 125 mg FOUR TIMES A DAY ORAL 07/30/17 10:00 08/06/17 09:59 08/01/17 08:47 Katina Torrez M.D. August 01, 2017 14:32
--- NOTE | 2017-08-04 13:47 | Discharge Summary ---
Discharge Summary Discharge Summary Discharge Summary DATE OF ADMISSION: 07/25/2017 DATE OF DISCHARGE: 08/01/2017 REASON FOR ADMISSION: 87 years old female with past medical history significant for hypertension, hyperlipidemia, anemia, diabetes, breast CA, was brought to emergency department for evaluation by jared and act english tutor. Patient had lower back pressure ulcer for many months. Patient was treated with home wound care , but according to jared wound was getting worse. There was no fever or chills; patient denied any pain. Framing Mill Operator Helper stated that the patient was scheduled to start treatment in wound care clinic at [facility] next week. Patient did not receive any treatment prior in the wound care clinic. Upon evaluation vital signs were stable. No leukocytosis, hemoglobin 9.3 hematocrit 29.5. ESR 101. BUN 26 creatinine 1.4, glucose 359. [id number]. Chest x-ray revealed no acute cardiopulmonary pathology. Patient was admitted with diagnosis of infected sacral decub, acute renal failure, anemia, diabetes mellitus type 2 out of control, hypertension. CONSULTANTS: ID specialist Dr. Kennedy psychiatrist Dr Blunt Plastic surgeon Dr. Connell [facility] COURSE: Patient was admitted and started on empiric antibiotic. Wound care nurse seen and evaluated the patient. Wound care provided as per wound nurse recommendations for sacral decubitus ulcer ,. right heel decubitus ulcer and left midfoot decubitus ulcer, all present on admission. Plastic surgery was consulted. Infectious disease specialist followed patient closely and directed antibiotic regimen. Patient subsequently undergone on July 28 excisional debridement of the sacrococcyx ulcer down to muscle, deep open bone biopsy of the sacrum and excisional debridement of right heel ulcer down to subcutaneous tissue. Sacral bone pathology revealed acute osteomyelitis and sacral debridement tissue revealed necrotic tissue with the mixed inflammation. Per infectious disease specialist , patient will need total of 6 weeks of antibiotics. PICC line was placed prior to discharge. No fever, no leukocytosis. Chest x-ray negative. Urinalysis negative. Stool was positive for C. difficile . Patient was on oral vancomycin. As per ID specialist, patient needs total 14 days of treatment. ESR trending down from initial 101 down to 67 ,CRP from initial 5.9 down to 3.3. Abdominal ultrasound revealed no evidence of acute findings. Echocardiogram revealed preserved ejection fraction 65%, moderate left ventricular hypertrophy and trace pericardial effusion. Dietary recommendations implemented in plan of care regarding nutritional supplements to improve nutritional status. In and therefore improvement of wound healing. On ESF. Acute renal failure resolved with the IV hydration. Renal parameters and electrolytes were closely monitored, electrolytes were corrected as needed nephrotoxins were avoided. Hemoglobin A1c -10.2, clearly not at goal. Blood sugar was managed with long-acting Levemir and short-acting pre-meal insulin. Blood sugar was stabilized while in the hospital, continue current regimen as outpatient. Blood pressure was closely monitored and remained stable, continue current treatment. Dietary recommendations implemented in plan of care to improve nutritional status and therefore aid in wound healing. Hemoglobin and hematocrit were closely monitored and remain at the baseline, no need for transfusion, with goal to keep hemoglobin above 8. DVT and GI prophylaxis provided. Pain management was addressed. Psychiatrist seen and evaluated the patient and diagnosed patient with anxiety disorder and cognitive impairment. Reality orientation and supportive therapy was provided ; psychiatric medication regimen was optimized. Patient clinically improved and was stable for discharge to residential facility for wound care and IV antibiotics. Patient and family agree with SNF placement for continuation of care. FINAL DIAGNOSES: Infected sacrococcygeal pressure ulcer ( -present on admission) with necrotic tissue with acute sacral osteomyelitis ( per pathology) Right heel deep tissue injury pressure ulcer, present on admission Status post excisional debridement of right heel ulcer down through subcutaneous tissue on 07/28/2017 Status post excisional debridement of sacrococcygeal ulcer down through muscle, deep open wound biopsy of the sacrum on 07/28/2017 C. difficile colitis Acute renal failure, present on admission, resolved Hypertension Hyperlipidemia Diabetes mellitus out of control Anemia Anxiety disorder Cognitive impairment Protein calorie malnutrition DISCHARGE MEDICATIONS: See Medication Reconciliation list. DISCHARGE INSTRUCTIONS: Patient was discharge to residential facility, follow-up with medical doctor at the facility I have been assigned to dictate discharge summary for this account. I was not involved in the patient's management. Catherine Ross NP ([place]) August 04, 2017 13:47
== END 2017-08-01 15:57 | DRG 570 ==
LOC: EMR 13:44 → 4W 13:55 → EDBEDREQ 14:09 → 4W 07-27 08:28
PROC: 0JBQ0ZZ Excision of Right Foot Subcutaneous Tissue and Fascia, Open Approach (ICD-10-PCS; principal; 2017-07-28 13:30)
PROC: 0KBN0ZZ Excision of Right Hip Muscle, Open Approach (ICD-10-PCS; principal; 2017-07-28 13:30)
PROC: 0KBP0ZZ Excision of Left Hip Muscle, Open Approach (ICD-10-PCS; principal; 2017-07-28 13:30)
PROC: 0QBS0ZX Excision of Coccyx, Open Approach, Diagnostic (ICD-10-PCS; principal; 2017-07-28 13:30)
PROC: 02HV33Z Insertion of Infusion Device into Superior Vena Cava, Percutaneous Approach (ICD-10-PCS; 2017-07-31)
DX: L89.154 Pressure ulcer of sacral region, stage 4 (principal); M46.28 Osteomyelitis of vertebra, sacral and sacrococcygeal region; A04.72 Enterocolitis due to Clostridium difficile, not specified as recurrent; N17.9 Acute kidney failure, unspecified; E46 Unspecified protein-calorie malnutrition; I96 Gangrene, not elsewhere classified; Z68.1 Body mass index [BMI] 19.9 or less, adult; L89.610 Pressure ulcer of right heel, unstageable; I10 Essential (primary) hypertension; E78.5 Hyperlipidemia, unspecified; E11.65 Type 2 diabetes mellitus with hyperglycemia; D64.9 Anemia, unspecified; G31.84 Mild cognitive impairment of uncertain or unknown etiology; L89.899 Pressure ulcer of other site, unspecified stage; F41.9 Anxiety disorder, unspecified; Z85.3 Personal history of malignant neoplasm of breast; R53.81 Other malaise; R62.7 Adult failure to thrive; B95.61 Methicillin susceptible Staphylococcus aureus infection as the cause of diseases classified elsewhere
CPT/HCPCS: 36415; 36569; 71045; 76700; 76937; 80053; 81003; 82962; 83036; 83605; 83880; 84439; 84443; 85025; 85610; 85651; 85730; 86140; 87040; 87070; 87075; 87181; 87205; 87324; 93306; 94003; 94150; 99285; J1815; J2250; J2405; S5561

== ENCOUNTER 2017-08-20 13:05 | Inpatient (IN) | payer MEDICARE, BC ==
[~2017-08-20] VITALS: Ht 167.6 cm; Wt 54.5 kg
[~2017-08-20 13:05] MED LIST: ACETAMINOPHEN325 M1 ORAL; AMLODIPINE-BEN1 EACH ORAL; CEFTRIAXONE2 G2 IV; DAKIN'S1 APPLI1 TOPIC; FUROSEMIDE40 MG/5 ML ORAL; HEPARIN SO5000 UNIT2 SUBQ; KLOR-CON20 MEQ ORAL; LETROZOLE2.5 MG ORAL; LEVEMIR FL100 UNIT/1 SUBQ; LIPITOR80 MG ORAL; LOPERAMIDE2 MG PO; MONTELUKAST SODI4 M1 ORAL; NOVOLOG100 UNITS1 SUBQ; PANTOPRAZOLE SO40 MG ORAL; TOUJEO SOL300 UNIT/1 SQ; TRADJENTA5 MG PO; VANCOMYCIN HCL125 MG PO; ZESTRIL30 MG ORAL
[2017-08-20] MEDS ORDERED: ZINC SULFATE220 M1 ORAL (13:16)
[2017-08-20] MEDS ORDERED: MULTIVITAMINS1 EAC8 ORAL (13:16)
[2017-08-20] MEDS ORDERED: VITAMIN C500 M1 ORAL (13:16)
[2017-08-20 13:51] LABS: BASOPHILS % (AUTO) 1.5 % (0.0-2.0); EOSINOPHILS % (AUTO) 3.2 % (0.0-3.0); HEMATOCRIT 29.5 % (37.0-47.0); HEMOGLOBIN 9.3 G/DL (12.0-16.0); LYMPHOCYTES % (AUTO) 16.6 % (20.0-45.0); MEAN CORPUSCULAR VOLUME 86 FL (80-99); NEUTROPHILS % (AUTO) 70.7 % (45.0-75.0); PLATELET COUNT 385 K/UL (150-450); RED BLOOD COUNT 3.43 M/UL (4.20-5.40); RED CELL DISTRIBUTION WIDTH 17.3 % (11.6-14.8); WHITE BLOOD COUNT 5.9 K/UL (4.8-10.8)
[2017-08-20 14:00] VITALS: BP 177/76
[2017-08-20 14:03] LABS: ANION GAP 4 mmol/L (5-15); BLOOD UREA NITROGEN 6 mg/dL (7-18); CALCIUM 8.6 MG/DL (8.5-10.1); CARBON DIOXIDE 31 MMOL/L (21-32); CHLORIDE 105 MMOL/L (98-107); CREATININE 0.7 MG/DL (0.55-1.30); SODIUM 139 MMOL/L (136-145)
[2017-08-20 14:10] LABS: APPEARANCE,URINE CLEAR; BILIRUBIN, URINE NEGATIVE (NEGATIVE); GLUCOSE, URINE (UA) NEGATIVE (NEGATIVE); KETONES,URINE NEGATIVE (NEGATIVE); LEUKOCYTE ESTERASE ,URINE NEGATIVE (NEGATIVE); NITRITE,URINE NEGATIVE (NEGATIVE); PH,URINE 6 (4.5-8.0); PROTEIN,URINE 2+ (NEGATIVE); UROBILINOGEN,URINE NORMAL MG/DL (0.0-1.0)
[2017-08-20 14:16] LABS: ALANINE AMINOTRANSFERASE 8 U/L (12-78); ALBUMIN/GLOBULIN RATIO 0.5 (1.0-2.7); ALKALINE PHOSPHATASE 63 U/L (46-116); ASPARTATE AMINO TRANSFERASE 12 U/L (15-37); BILIRUBIN,TOTAL 0.2 MG/DL (0.2-1.0); CKMB 0.7 NG/ML (0.0-3.6); CREATINE KINASE 21 U/L (26-308)
[2017-08-20 14:23] LABS: COLOR,URINE YELLOW
--- NOTE | 2017-08-20 15:34 | Emergency Room Report ---
History of Present Illness General Chief Complaint: Abnormal Labs Source: Patient, EMS, PMD Present Illness HPI Patient presents with alleged of low potassium. The patient denies any symptoms at this time. She has severe deformity of arthritis and is minimal exertion. She is taking Lasix. There is no evidence of any replacement potassium ordered. She's not on digoxin at this time. The patient denies any fevers, chills, nausea, vomiting, diarrhea, dysuria. She does complain about decreased appetite and doesn't eat well. She denies depression. Patient denies pain at this time. She has a history of anemia, diabetes, hypertension and deforming arthritis. Allergies: Coded Allergies: NO KNOWN DRUG ALLERGIES (Verified Allergy, Unknown, 07/10/17) Patient History Past Medical History: see triage record Past Surgical History: hysterectomy, other - L lumpectomy Social History: Denies: smoking Social History Narrative SNF - born [place] - to [place] age 16 Reviewed Nursing Documentation: PMH: Agreed; PSxH: Agreed Nursing Documentation-PMH Hx Hypertension: Yes Hx Diabetes: Yes Hx Cancer: Yes - breast 2014 lumpectomy Hx Neurological Problems: No Review of Systems All Other Systems: negative except mentioned in HPI Physical Exam Vital Signs Date Time Temp Pulse Resp B/P (MAP) Pulse Ox O2 Delivery O2 Flow Rate FiO2 08/20/17 12:51 98.5 70 16 174/70 94 Room Air 98.4 Sp02 EP Interpretation: reviewed, normal General Appearance: GCS 15, thin, Chronically Ill Head: normocephalic Eyes: bilateral eye PERRL, bilateral eye conjunctivae pale ENT: moist mucus membranes Neck: supple Respiratory: lungs clear, normal breath sounds Cardiovascular #1: regular rate, rhythm Cardiovascular #2: 2+ radial (R) Gastrointestinal: normal inspection, normal bowel sounds, non tender, no mass, non-distended Genitourinary: no CVA tenderness Musculoskeletal: no calf tenderness, decreased range of motion, other - 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 Neurologic: alert, sensory intact, motor weakness - LE -- UE with good strength , oriented - X2 Psychiatric: mood/affect normal Skin: pallor, other - stage 4 sacral decubitus, stage 2 R heel decub Medical Decision Making Diagnostic Impression: Primary Impression: Hypoglycemia Additional Impressions: Hypokalemia Hypertension Qualified Codes: I10 - Essential (primary) hypertension Stage 4 skin ulcer of sacral region Stage II pressure ulcer of right heel Osteoarthritis deformans ER Course Patient presents with alleged hypokalemia. She has chronic debility. Differential includes Lasix use, contraction alkalosis amongst others. Clinically she appears stable. She states her appetite spelled poor. Evaluation will will be with EKG and labs. Labs are significant for potassium 3.0. Renal function is normal. 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 The patient was given by mouth potassium here. She needs to have a potassium replacement if she is on Lasix. In discussion with Dr. Pimentel. He gives additional history that the patient was hypoglycemic in the correction facility and wants her admitted to the hospital. He states glucose control has been difficult at the SNF. The patient is admitted to medical floor. Laboratory Tests Test 08/20/17 13:30 White Blood Count 5.9 K/UL (4.8-10.8) Red Blood Count 3.43 M/UL (4.20-5.40) L Hemoglobin 9.3 G/DL (12.0-16.0) L Hematocrit 29.5 % (37.0-47.0) L Mean Corpuscular Volume 86 FL (80-99) Mean Corpuscular Hemoglobin 27.2 PG (27.0-31.0) Mean Corpuscular Hemoglobin Concent 31.6 G/DL (32.0-36.0) L Red Cell Distribution Width 17.3 % (11.6-14.8) H Platelet Count 385 K/UL (150-450) Mean Platelet Volume 6.4 FL (6.5-10.1) L Neutrophils (%) (Auto) 70.7 % (45.0-75.0) Lymphocytes (%) (Auto) 16.6 % (20.0-45.0) L Monocytes (%) (Auto) 8.0 % (1.0-10.0) Eosinophils (%) (Auto) 3.2 % (0.0-3.0) H Basophils (%) (Auto) 1.5 % (0.0-2.0) Prothrombin Time 10.6 SEC (9.30-11.50) Prothrombin Time INR 1.0 (0.9-1.1) PTT 32 SEC (23-33) Urine Color Yellow Urine Appearance Clear Urine pH 6 (4.5-8.0) Urine Specific [place] 1.020 (1.005-1.035) Urine Protein 2+ (NEGATIVE) H Urine Glucose (UA) Negative (NEGATIVE) Urine Ketones Negative (NEGATIVE) Urine Occult Blood 1+ (NEGATIVE) H Urine Nitrite Negative (NEGATIVE) Urine Bilirubin Negative (NEGATIVE) Urine Urobilinogen Normal MG/DL (0.0-1.0) Urine Leukocyte Esterase Negative (NEGATIVE) Urine RBC 2-4 /HPF (0 - 2) H Urine WBC 0-2 /HPF (0 - 2) Urine Squamous Epithelial Cells Few /LPF (NONE/OCC) Urine Bacteria Occasional /HPF (NONE) Sodium Level 139 MMOL/L (136-145) Potassium Level 3.0 MMOL/L (3.5-5.1) L Chloride Level 105 MMOL/L (98-107) Carbon Dioxide Level 31 MMOL/L (21-32) Anion Gap 4 mmol/L (5-15) L Blood Urea Nitrogen 6 mg/dL (7-18) L Creatinine 0.7 MG/DL (0.55-1.30) Estimate Glomerular Filtration Rate mL/min (>60) Glucose Level 192 MG/DL (74-106) H Calcium Level 8.6 MG/DL (8.5-10.1) Total Bilirubin 0.2 MG/DL (0.2-1.0) Aspartate Amino Transferase (AST) 12 U/L (15-37) L Alanine Aminotransferase (ALT) 8 U/L (12-78) L Alkaline Phosphatase 63 U/L (46-116) Total Creatine Kinase 21 U/L (26-308) L Creatine Kinase MB 0.7 NG/ML (0.0-3.6) Creatine Kinase MB Relative Index 3.3 Troponin I 0.018 ng/mL (0.000-0.056) Pro-B-Type Natriuretic Peptide 1441 pg/mL (0-125) H Total Protein 6.3 G/DL (6.4-8.2) L Albumin 2.0 G/DL (3.4-5.0) L Globulin 4.3 g/dL Albumin/Globulin Ratio 0.5 (1.0-2.7) L EKG Diagnostic Results Rate: normal Rhythm: NSR ST Segments: no acute changes Rhythm Strip Diag. Results EP Interpretation: yes Rhythm: NSR, no PVC's, no ectopy Chest X-Ray Diagnostic Results Chest X-Ray Diagnostic Results : Chest X-Ray Ordered: Yes # of Views/Limited/Complete: 1 View Indication: Other EP Interpretation: Yes Interpretation: no consolidation, no effusion, no pneumothorax, other - rotation Impression: Other Electronically Signed by: Manolo Avalos MD HTN treated with hydralazine in ED with good response. Status: improved Disposition: ADMITTED INPATIENT Condition: Serious Referrals: Erin Pimentel MD (PCP) Manolo Avalos M.D. August 20, 2017 15:34
[2017-08-20] MEDS ORDERED: POTASSIUM 25 M25 ME1 PO (15:36)
[2017-08-20 16:00] VITALS: BP 185/78
[2017-08-20 17:00] VITALS: BP 156/64
--- NOTE | 2017-08-20 17:00 | Diagnostic Imaging Report ---
Indication: Dyspnea Comparison: 07/25/2017 A single view chest radiograph was obtained. Findings: There is a right-sided PICC line present. The tip projects over the SVC. Evaluation limited by rotation. Heart is probably enlarged slightly. There may be small bilateral pleural effusions. Bones are slightly osteopenic. IMPRESSION: Suspected small bilateral pleural effusions. Limited evaluation due to rotation
[2017-08-20 20:00] VITALS: BP 125/63
[2017-08-20] MEDS ORDERED: Loperamide 2mg cap ORAL PRN (20:30)
[2017-08-20] MEDS: Atorvastatin 80mg tab ORAL SCH (21:36)
[2017-08-20] MEDS: Dyna-Hex 2% Top Sol 2oz TOPIC SCH (21:36)
[2017-08-20] MEDS: Heparin 5000 units/ml inj SUBQ SCH (21:37)
[2017-08-20] MEDS: NovoLOG Insulin Flexpen SUBQ SCH (21:40)
[2017-08-21] VITALS: BP 158/70
[2017-08-21 04:00] VITALS: BP 167/73
[2017-08-21] MEDS: NovoLOG Insulin Flexpen SUBQ SCH ×4 (06:37→21:43)
[2017-08-21 06:54] LABS: BASOPHILS % (AUTO) 1.2 % (0.0-2.0); EOSINOPHILS % (AUTO) 3.3 % (0.0-3.0); HEMATOCRIT 29.4 % (37.0-47.0); HEMOGLOBIN 9.4 G/DL (12.0-16.0); LYMPHOCYTES % (AUTO) 14.3 % (20.0-45.0); MEAN CORPUSCULAR VOLUME 86 FL (80-99); MONOCYTES % (AUTO) 8.1 % (1.0-10.0); NEUTROPHILS % (AUTO) 73.1 % (45.0-75.0); PLATELET COUNT 369 K/UL (150-450); RED BLOOD COUNT 3.41 M/UL (4.20-5.40); RED CELL DISTRIBUTION WIDTH 17.5 % (11.6-14.8); WHITE BLOOD COUNT 5.8 K/UL (4.8-10.8)
[2017-08-21 07:14] LABS: ANION GAP 7 mmol/L (5-15); BLOOD UREA NITROGEN 7 mg/dL (7-18); CALCIUM 8.7 MG/DL (8.5-10.1); CARBON DIOXIDE 30 MMOL/L (21-32); CHLORIDE 104 MMOL/L (98-107); CREATININE 0.8 MG/DL (0.55-1.30); POTASSIUM 3.3 MMOL/L (3.5-5.1); SODIUM 141 MMOL/L (136-145)
[2017-08-21 08:43] VITALS: BP 176/78
[2017-08-21] MEDS: Multivitamin w/Minerals tab ORAL SCH (08:47)
[2017-08-21] MEDS: Lisinopril 10mg tab ORAL SCH (08:47)
[2017-08-21] MEDS: Zinc Sulfate 220mg cap ORAL SCH (08:47)
[2017-08-21] MEDS: Ascorbic Acid 500mg tab ORAL SCH (08:48)
[2017-08-21] MEDS: Heparin 5000 units/ml inj SUBQ SCH ×2 (08:49→21:41)
[2017-08-21] MEDS: cefTRIAXone 2 GM in D5W 110 ML IVPB SCH (11:50)
[2017-08-21 12:00] VITALS: BP 157/72
--- NOTE | 2017-08-21 14:45 | History and Physical Report ---
DATE OF ADMISSION: 08/20/2017 SOURCE OF INFORMATION: The patient and EMR. HISTORY OF PRESENT ILLNESS: The patient is a pleasant 87-year-old female with a history of decubitus wounds and osteomyelitis, status post currently on IV antibiotics. The patient has been on insulin in the outpatient and was reported to have challenges with the blood sugar including 2018, around 49. The patient has symptoms of feeling nausea in the upper abdomen. Otherwise, the patient does not complain of chest pain and shortness of breath. No nausea. No vomiting. No diarrhea. No constipation. ALLERGIES: NKDA. FAMILY HISTORY: Reviewed and noncontributory. SOCIAL HISTORY: The patient is currently residing in a [place] [facility] facility. Her son is visiting on a regular basis. Denies history of illicit drug abuse, smoking, or alcohol abuse. PAST MEDICAL HISTORY: Including, but not limited to, osteomyelitis of the sacral bone, hypertension, hyperlipidemia, diabetes, and hypokalemia. MEDICATIONS: Current hospital medications including, but not limited to atorvastatin, lisinopril, potassium chloride, and K-Dur. PAST SURGICAL HISTORY: Status post I and D and debridement of the sacral decubitus wounds, stage IV. PHYSICAL EXAMINATION: VITAL SIGNS: Blood pressure 180/70, temperature 98.2, pulse oximetry 98% on room air, pulse 60, and respiratory rate 18. HEAD AND NECK: Atraumatic and normocephalic. CHEST: Clear to auscultation. No wheezing. No crackles. HEART: S1 and S2. Regular rate and rhythm. Negative S3. Negative S4. ABDOMEN: Soft. No organomegaly. Bowel sounds are normal. MUSCULOSKELETAL: Atrophied musculatures. Positive for decubitus sores on the S3, S4 on the sacral area NEUROLOGIC: Awake, alert, and oriented x3. LABORATORY AND DIAGNOSTIC DATA: Labs dated August 20, 2017, show WBC 5.9, hemoglobin of 9.3, and platelets of 385. Sodium 135, potassium 3, BUN 6, creatinine 0.7. AST 12 and ALT 8. BNP 1400. Urine is unremarkable. Blood sugar of 192. Chest x-ray, dated August 20, 2017, shows small tiny bilateral pleural effusion, otherwise unremarkable. ASSESSMENT AND PLAN: 1. Diabetes type 2, uncontrolled. 2. Hypoglycemia - multiple incidents - needs adjustment/optimizations of various medications. 3. Sacral osteomyelitis. Continue with the IV antibiotic. We will continue ceftriaxone 2 g. We will consult the wound management and Dr. Connell for the re-assessment of the wound. We will continue with the potassium supplementation. Apparatus Lineman, Dr. Wang, is consulted. Erin Pimentel M.D. DR: JEAN JOB#: [id number] CC:
[2017-08-21 16:00] VITALS: BP 145/73
--- NOTE | 2017-08-21 16:16 | Consultation ---
History of Present Illness General Date patient seen: August 21, 2017 Time patient seen: 16:09 Chief Complaint: Abnormal Labs Referring physician: Dr. Pimentel Reason for Consultation: Sacral pressure ulcer Present Illness HPI Asked to evaluate this 87 yof with a sacral pressure ulcer. Patient is known to me through prior admission where she underwent debridement of necrotic sacral ulcer by me. She has a stage 4 ulcer with osteomyelitis dx'd by bone culture. She is currently on IV antibiotics. She was found to have low blood glucose and altered mentation. She has been at a SNF since her discharge. She has a h/o DM. Allergies: Coded Allergies: NO KNOWN DRUG ALLERGIES (Verified Allergy, Unknown, 07/10/17) Medication History Scheduled Amlodipine Besylate/Benazepril* (Amlodipine-Benazepril 10-20 Mg*), 1 CAP ORAL DAILY, (Reported) Ascorbic Acid* (Vitamin C*), 500 MG ORAL DAILY, (Reported) Atorvastatin (Lipitor), 80 MG ORAL BEDTIME, (Reported) Ceftriaxone Sodium (Ceftriaxone), 2 GM IV DAILY, (Reported) Furosemide (Furosemide), 20 MG ORAL DAILY, (Reported) Heparin Sod (Porcine) (Heparin Sodium*), 5,000 UNITS SUBQ EVERY 12 HOURS, ( Reported) Insulin Aspart (Novolog Flexpen), 2 UNITS SUBQ BEFORE MEALS, (Reported) Insulin Detemir (Levemir Flexpen), 10 UNITS SUBQ DAILY, (Reported) Letrozole (Letrozole), 2.5 MG ORAL DAILY, (Reported) Lisinopril (Zestril), 30 MG ORAL DAILY, (Reported) Montelukast Sodium (Montelukast Sodium), 4 MG ORAL DAILY, (Reported) Multivitamin With Minerals (Multivitamins With Minerals*), 1 TAB ORAL DAILY, ( Reported) Pantoprazole* (Pantoprazole*), 40 MG ORAL DAILY, (Reported) Potassium Bicarbonate/Cit Ac (Potassium 25 Meq Tablet Eff), 25 MEQ PO DAILY Potassium Chloride (Klor-Con), 20 MEQ ORAL DAILY, (Reported) Sodium Hypochlorite (Dakin's), 1 APPLIC TOPIC DAILY, (Reported) Vancomycin Hcl (Vancomycin Hcl), 125 MG PO FOUR TIMES A DAY, (Reported) Zinc Sulfate (Zinc Sulfate*), 220 MG ORAL DAILY, (Reported) Scheduled PRN Acetaminophen* (Acetaminophen 325MG Tablet*), 650 MG ORAL Q6H PRN for Prn Headache/Temp > 101, (Reported) Loperamide Hcl (Loperamide), 2 MG PO Q4HR PRN for Diarrhea, (Reported) Miscellaneous Medications Insulin Glargine,Hum.rec.anlog (Nichole Solomonostar), 300 UNIT SQ, (Reported) Linagliptin (Tradjenta), 5 MG PO, (Reported) Patient History History Provided By: Patient, Medical Record Healthcare decision maker SUSAN KIM Resuscitation status Full Code Advanced Directive on File Yes Review of Systems Constitutional: Reports: no symptoms Eye: Reports: no symptoms ENT: Reports: no symptoms Respiratory: Reports: no symptoms Gastrointestinal: Reports: diarrhea Genitourinary: Reports: incontinence Skin: Reports: see HPI Psychiatric: Reports: no symptoms Physical Exam General Appearance: no apparent distress, alert Respiratory/Chest: no respiratory distress Abdomen: soft Skin Exam: other - Stage 4 sacral pressure ulcer with clean granular base. No bone exposed. Minimal undermining at 5 oclock. Periskin is in good condition. No erythema or warmth. Neurologic: alert, oriented x 3 Musculoskeletal: atrophy Last 24 Hour Vital Signs Date Time Temp Pulse Resp B/P (MAP) Pulse Ox O2 Delivery O2 Flow Rate FiO2 08/21/17 12:00 98.1 62 18 157/72 98 98.1 08/21/17 08:47 176/78 08/21/17 08:43 97.6 75 18 176/78 98 97.6 08/21/17 04:00 98.1 57 18 167/73 98 98.1 08/21/17 00:00 99.2 61 18 158/70 98 99.2 08/20/17 20:00 99.3 85 18 125/63 95 99.3 08/20/17 18:20 98.5 89 18 156/64 98 Room Air 98.4 08/20/17 17:00 89 18 156/64 98 Room Air Intake and Output 08/20/17 08/21/17 19:00 07:00 Output Total 200 ml Balance -200 ml Output Urine Total 200 ml # Voids 2 # Bowel Movements 1 Laboratory Tests Test 08/21/17 06:20 White Blood Count 5.8 K/UL (4.8-10.8) Red Blood Count 3.41 M/UL (4.20-5.40) L Hemoglobin 9.4 G/DL (12.0-16.0) L Hematocrit 29.4 % (37.0-47.0) L Mean Corpuscular Volume 86 FL (80-99) Mean Corpuscular Hemoglobin 27.7 PG (27.0-31.0) Mean Corpuscular Hemoglobin Concent 32.1 G/DL (32.0-36.0) Red Cell Distribution Width 17.5 % (11.6-14.8) H Platelet Count 369 K/UL (150-450) Mean Platelet Volume 6.1 FL (6.5-10.1) L Neutrophils (%) (Auto) 73.1 % (45.0-75.0) Lymphocytes (%) (Auto) 14.3 % (20.0-45.0) L Monocytes (%) (Auto) 8.1 % (1.0-10.0) Eosinophils (%) (Auto) 3.3 % (0.0-3.0) H Basophils (%) (Auto) 1.2 % (0.0-2.0) Sodium Level 141 MMOL/L (136-145) Potassium Level 3.3 MMOL/L (3.5-5.1) L Chloride Level 104 MMOL/L (98-107) Carbon Dioxide Level 30 MMOL/L (21-32) Anion Gap 7 mmol/L (5-15) Blood Urea Nitrogen 7 mg/dL (7-18) Creatinine 0.8 MG/DL (0.55-1.30) Estimat Glomerular Filtration Rate mL/min (>60) Glucose Level 195 MG/DL (74-106) H Hemoglobin A1c 8.4 % (4.3-6.0) H Calcium Level 8.7 MG/DL (8.5-10.1) Height (Feet): 5 Height (Inches): 6.00 Weight (Pounds): 110 Medications Current Medications Medications (Trade) Dose Ordered Sig/Julius Route PRN Reason Start Time Stop Time Status Last Admin Dose Admin Acetaminophen (Tylenol) 650 mg Q6H PRN ORAL Prn Headache/Temp > 101 08/20/17 20:30 09/19/17 20:29 08/21/17 00:27 Ascorbic Acid (Vitamin C) 500 mg DAILY ORAL 08/21/17 09:00 09/20/17 08:59 08/21/17 08:48 Atorvastatin Calcium (Lipitor) 80 mg BEDTIME ORAL 08/20/17 21:00 09/19/17 20:59 08/20/17 21:36 Ceftriaxone Sodium 2 gm/ Dextrose 110 ml @ 220 mls/hr Q24H IVPB 08/21/17 11:00 08/28/17 10:59 08/21/17 11:50 Chlorhexidine Gluconate (Cesia-Hex 2%) 1 applic DAILY@2100 TOPIC 08/20/17 21:00 09/19/17 20:59 08/20/17 21:36 Dextrose (Dextrose 50%) 25 ml STAT PRN IV Hypoglycemia 08/20/17 20:30 09/19/17 20:29 Dextrose (Dextrose 50%) 50 ml STAT PRN IV Hypoglycemia 08/20/17 20:30 09/19/17 20:29 Heparin Sodium (Porcine) (Heparin 5000 units/ml) 5,000 units EVERY 12 HOURS SUBQ 08/20/17 21:00 09/19/17 20:59 08/21/17 08:49 Insulin Aspart (NovoLOG) BEFORE MEALS AND HS SUBQ 08/20/17 21:00 09/19/17 20:59 08/21/17 11:52 Lisinopril (Zestril) 30 mg DAILY ORAL 08/21/17 09:00 09/20/17 08:59 08/21/17 08:47 Loperamide HCl (Imodium) 2 mg Q4H PRN ORAL Diarrhea 08/20/17 20:30 09/19/17 20:29 Multivitamins Therapeutic (Therapeutic Multivitamin) 1 ea DAILY ORAL 08/21/17 09:00 09/20/17 08:59 08/21/17 08:47 Pantoprazole (Protonix) 40 mg DAILY ORAL 08/21/17 09:00 09/20/17 08:59 08/21/17 08:47 Zinc Sulfate (Zinc Sulfate) 220 mg DAILY ORAL 08/21/17 09:00 09/20/17 08:59 08/21/17 08:47 Assessment/Plan Status: stable Assessment/Plan Patient's ulcer is in good condition. She continues iv abx for the osteomyelitis. Recommend that negative pressure therapy be started on the wound given that she has been on iv abx for weeks for the osteomyelitis and the wound bed is clean but still deep. This can also be continued in the SNF. Need to continue offloading and po intake. All questions answered. Thank you for allowing me to participate in her care. Albert Connell MD August 21, 2017 16:16
[2017-08-21 20:00] VITALS: BP 168/72
[2017-08-21] MEDS: Atorvastatin 80mg tab ORAL SCH (21:40)
[2017-08-21] MEDS: Dyna-Hex 2% Top Sol 2oz TOPIC SCH (21:40)
[2017-08-21] MEDS: Levemir Flexpen SUBQ SCH (21:42)
--- NOTE | 2017-08-21 23:30 | Consultation ---
DATE OF CONSULTATION: 08/21/2017 ENDOCRINOLOGY CONSULTATION CONSULTING PHYSICIAN: Nick Wang M.D. REFERRING PHYSICIAN: Erin Pimentel M.D. REASON FOR CONSULTATION: Diabetes management. HISTORY OF PRESENT ILLNESS: The patient is an 87-year-old female, with long standing history of diabetes insulin-dependent, who presented to [facility]. She has history of decubitus ulcer and osteomyelitis, who had an episode of hyperglycemia and had hypoglycemia, presented to the emergency room, and admitted for observation and treatment. I was called to manage diabetes. PAST MEDICAL HISTORY: 1. Diabetes. 2. Hyperlipidemia. 3. Hypertension. 4. Osteomyelitis of the sacral bone. 5. Hypokalemia. PAST SURGICAL HISTORY: I and D of the sacral decubitus stage IV. MEDICATIONS: 1. Levemir 10 units daily. 2. NovoLog sliding scale. 3. Tradjenta. 4. Atorvastatin. 5. Lisinopril. 6. Potassium chloride. ALLERGIES TO MEDICATION: None. FAMILY HISTORY: Noncontributory. SOCIAL HISTORY: No smoking, alcohol, or drug use. PHYSICAL EXAMINATION: GENERAL: The patient's blood pressure is 170/70, pulse of 80, temperature 98.2, and respiratory rate 18. HEENT: Pupils are reactive to light and accommodation. Sclerae anicteric. NECK: No JVD. No thyromegaly. LUNGS: Clear. HEART: Regular rate and rhythm. ABDOMEN: Positive bowel sounds. Soft. EXTREMITIES: No clubbing, cyanosis, or edema. LABORATORY DATA: WBC 5.8, hemoglobin 9.4, hematocrit 29.4, and platelets of 369,000. Sodium 141, potassium 3.3, chloride 104, bicarbonate 30, BUN 7, creatinine 0.8, and glucose of 195. Hemoglobin A1C of 8.4. DIAGNOSES: 1. Sacral decubitus ulcer. 2. Diabetes, out of control. 3. Hypoglycemia. PLAN: 1. Start Levemir 5 units nightly. 2. Novolog sliding-scale insulin at bedtime. 3. Further adjustment according to Dr. Pimentel. Thank you, Dr. iPmentel, for the courtesy of this consultation. Nick Wang M.D. DR: ARTURO JOB#: [id number] CC: J CARLOS
[2017-08-22] VITALS (7 sets, daily range): BP systolic 136–182; BP diastolic 62–82
[2017-08-22] MEDS: NovoLOG Insulin Flexpen SUBQ SCH ×4 (06:20→20:22)
--- NOTE | 2017-08-22 06:41 | General Progress Note ---
Assessment/Plan Problem List: (1) Diabetes mellitus out of control ICD Codes: E11.65 - Type 2 diabetes mellitus with hyperglycemia SNOMED: 24783618, 551614861 (2) Hypoglycemia ICD Codes: E16.2 - Hypoglycemia, unspecified SNOMED: 219205610 (3) Sacral ulcer ICD Codes: L98.429 - Non-pressure chronic ulcer of back with unspecified severity SNOMED: 72015414, 140317041 (4) Hypertension ICD Codes: I10 - Essential (primary) hypertension SNOMED: 58760743 Assessment/Plan continue Levemir 5 units qhs continue NISS ac / hs Subjective Allergies: Coded Allergies: NO KNOWN DRUG ALLERGIES (Verified Allergy, Unknown, 07/10/17) All Systems: reviewed and negative except above Subjective events noted Objective Last 24 Hour Vital Signs Date Time Temp Pulse Resp B/P (MAP) Pulse Ox O2 Delivery O2 Flow Rate FiO2 08/22/17 04:00 98.7 64 19 136/62 96 Room Air 98.7 08/22/17 00:00 98.3 67 19 170/70 98 Room Air 98.3 08/21/17 20:00 98.6 65 19 168/72 99 Room Air 98.6 08/21/17 16:00 98.3 67 18 145/73 98 98.3 08/21/17 12:00 98.1 62 18 157/72 98 98.1 08/21/17 08:47 176/78 08/21/17 08:43 97.6 75 18 176/78 98 97.6 Intake and Output 08/21/17 08/22/17 19:00 07:00 Intake Total 720 ml Balance 720 ml Intake Oral 720 ml # Voids 3 # Bowel Movements 1 1 Height (Feet): 5 Height (Inches): 6.00 Weight (Pounds): 110 General Appearance: no apparent distress Neck: normal alignment Cardiovascular: normal rate Respiratory/Chest: decreased breath sounds Abdomen: normal bowel sounds Pelvis: normal external exam Objective Current Medications Medications (Trade) Dose Ordered Sig/Julius Route PRN Reason Start Time Stop Time Status Last Admin Dose Admin Acetaminophen (Tylenol) 650 mg Q6H PRN ORAL Prn Headache/Temp > 101 08/20/17 20:30 09/19/17 20:29 08/21/17 00:27 Ascorbic Acid (Vitamin C) 500 mg DAILY ORAL 08/21/17 09:00 09/20/17 08:59 08/21/17 08:48 Atorvastatin Calcium (Lipitor) 80 mg BEDTIME ORAL 08/20/17 21:00 09/19/17 20:59 08/21/17 21:40 Ceftriaxone Sodium 2 gm/ Dextrose 110 ml @ 220 mls/hr Q24H IVPB 08/21/17 11:00 08/28/17 10:59 08/21/17 11:50 Chlorhexidine Gluconate (Cesia-Hex 2%) 1 applic DAILY@2100 TOPIC 08/20/17 21:00 09/19/17 20:59 08/21/17 21:40 Dextrose (Dextrose 50%) 25 ml STAT PRN IV Hypoglycemia 08/20/17 20:30 09/19/17 20:29 Dextrose (Dextrose 50%) 25 ml STAT PRN IV Hypoglycemia 08/21/17 18:30 09/20/17 18:29 Dextrose (Dextrose 50%) 50 ml STAT PRN IV Hypoglycemia 08/20/17 20:30 09/19/17 20:29 Dextrose (Dextrose 50%) 50 ml STAT PRN IV Hypoglycemia 08/21/17 18:30 09/20/17 18:29 Heparin Sodium (Porcine) (Heparin 5000 units/ml) 5,000 units EVERY 12 HOURS SUBQ 08/20/17 21:00 09/19/17 20:59 08/21/17 21:41 Insulin Aspart (NovoLOG) BEFORE MEALS AND HS SUBQ 08/20/17 21:00 09/19/17 20:59 08/21/17 21:43 Insulin Detemir (Levemir) 5 units BEDTIME SUBQ 08/21/17 21:00 09/20/17 20:59 08/21/17 21:42 Lisinopril (Zestril) 30 mg DAILY ORAL 08/21/17 09:00 09/20/17 08:59 08/21/17 08:47 Loperamide HCl (Imodium) 2 mg Q4H PRN ORAL Diarrhea 08/20/17 20:30 09/19/17 20:29 Multivitamins Therapeutic (Therapeutic Multivitamin) 1 ea DAILY ORAL 08/21/17 09:00 09/20/17 08:59 08/21/17 08:47 Pantoprazole (Protonix) 40 mg DAILY ORAL 08/21/17 09:00 09/20/17 08:59 08/21/17 08:47 Zinc Sulfate (Zinc Sulfate) 220 mg DAILY ORAL 08/21/17 09:00 09/20/17 08:59 08/21/17 08:47 Item Value Date Time Bedside Blood Glucose 78 mg/dl 08/22/17 0630 Bedside Blood Glucose 207 mg/dl H 08/21/17 2143 Bedside Blood Glucose 241 mg/dl H 08/21/17 1659 Bedside Blood Glucose 274 mg/dl H 08/21/17 1152 Bedside Blood Glucose 207 mg/dl H 08/21/17 0637 JOHN ANGEL August 22, 2017 06:41
[2017-08-22] MEDS: Ascorbic Acid 500mg tab ORAL SCH (08:26)
[2017-08-22] MEDS: Zinc Sulfate 220mg cap ORAL SCH (08:27)
[2017-08-22] MEDS: Multivitamin w/Minerals tab ORAL SCH (08:27)
[2017-08-22] MEDS: Lisinopril 10mg tab ORAL SCH (08:29)
[2017-08-22] MEDS: Heparin 5000 units/ml inj SUBQ SCH ×2 (08:32→20:20)
[2017-08-22 09:05] LABS: BASOPHILS % (AUTO) 0.6 % (0.0-2.0); EOSINOPHILS % (AUTO) 4.4 % (0.0-3.0); HEMATOCRIT 28.9 % (37.0-47.0); HEMOGLOBIN 8.9 G/DL (12.0-16.0); LYMPHOCYTES % (AUTO) 16.1 % (20.0-45.0); MEAN CORPUSCULAR VOLUME 87 FL (80-99); MONOCYTES % (AUTO) 9.3 % (1.0-10.0); NEUTROPHILS % (AUTO) 69.6 % (45.0-75.0); PLATELET COUNT 364 K/UL (150-450); RED BLOOD COUNT 3.33 M/UL (4.20-5.40); RED CELL DISTRIBUTION WIDTH 17.5 % (11.6-14.8); WHITE BLOOD COUNT 6.6 K/UL (4.8-10.8)
[2017-08-22 09:27] LABS: ANION GAP 6 mmol/L (5-15); BLOOD UREA NITROGEN 11 mg/dL (7-18); CALCIUM 8.2 MG/DL (8.5-10.1); CARBON DIOXIDE 29 MMOL/L (21-32); CHLORIDE 109 MMOL/L (98-107); CREATININE 0.7 MG/DL (0.55-1.30); SODIUM 143 MMOL/L (136-145)
--- NOTE | 2017-08-22 10:55 | General Progress Note ---
Assessment/Plan Status: stable Assessment/Plan S: I am doing ok O: appears comfortable. denies any pain. HYSICAL EXAMINATION: VITAL SIGNS: HEAD AND NECK: Atraumatic and normocephalic. CHEST: Clear to auscultation. No wheezing. No crackles. HEART: S1 and S2. Regular rate and rhythm. Negative S3. Negative S4. ABDOMEN: Soft. No organomegaly. Bowel sounds are normal. MUSCULOSKELETAL: Atrophied musculatures. Positive for decubitus sores on the S3, S4 on the sacral area , NEUROLOGIC: Awake, alert, and oriented x3. Meds: reviewed and reconciled including Ceftriaxon Chest x-ray, dated August 20, 2017, shows small tiny bilateral pleural effusion, otherwise unremarkable. ASSESSMENT AND PLAN: 1. Diabetes type 2, uncontrolled. 2. Hypoglycemia - multiple incidents - needs adjustment/optimizations of various medications. 3. Sacral osteomyelitis. Continue with the IV antibiotic. We will continue ceftriaxone 2 g. Plan: Optimse and monitor Blood sugar notes from Endo and surgeon reviewed Subjective Allergies: Coded Allergies: NO KNOWN DRUG ALLERGIES (Verified Allergy, Unknown, 07/10/17) Objective Last 24 Hour Vital Signs Date Time Temp Pulse Resp B/P (MAP) Pulse Ox O2 Delivery O2 Flow Rate FiO2 08/22/17 08:29 145/82 08/22/17 08:00 97.7 76 22 145/82 98 Room Air 97.7 08/22/17 04:00 98.7 64 19 136/62 96 Room Air 98.7 08/22/17 00:00 98.3 67 19 170/70 98 Room Air 98.3 08/21/17 20:00 98.6 65 19 168/72 99 Room Air 98.6 08/21/17 16:00 98.3 67 18 145/73 98 98.3 08/21/17 12:00 98.1 62 18 157/72 98 98.1 Intake and Output 08/21/17 08/22/17 19:00 07:00 Intake Total 720 ml 60 ml Balance 720 ml 60 ml Intake Oral 720 ml 60 ml # Voids 3 3 # Bowel Movements 1 4 Laboratory Tests 08/22/17 06:00: White Blood Count 6.6, Red Blood Count 3.33L, Hemoglobin 8.9L, Hematocrit 28.9L , Mean Corpuscular Volume 87, Mean Corpuscular Hemoglobin 26.8L, Mean Corpuscular Hemoglobin Concent 30.8L, Red Cell Distribution Width 17.5H, Platelet Count 364, Mean Platelet Volume 5.8L, Neutrophils (%) (Auto) 69.6, Lymphocytes (%) (Auto) 16.1L, Monocytes (%) (Auto) 9.3, Eosinophils (%) (Auto) 4.4H, Basophils (%) (Auto) 0.6, Sodium Level 143, Potassium Level 3.0L, Chloride Level 109H, Carbon Dioxide Level 29, Anion Gap 6, Blood Urea Nitrogen 11, Creatinine 0.7, Estimat Glomerular Filtration Rate , Glucose Level 68#L, Calcium Level 8.2L Height (Feet): 5 Height (Inches): 6.00 Weight (Pounds): 110 Erin Pimentel MD August 22, 2017 10:55
[2017-08-22] MEDS: cefTRIAXone 2 GM in D5W 110 ML IVPB SCH (11:11)
[2017-08-22] MEDS ORDERED: LORazepam 1mg tab ORAL PRN (13:30)
[2017-08-22] MEDS ORDERED: Tubing IV Secondary IV ONE (17:43)
[2017-08-22] MEDS: Atorvastatin 80mg tab ORAL SCH (20:19)
[2017-08-22] MEDS: Levemir Flexpen SUBQ SCH (20:23)
[2017-08-22] MEDS: Dyna-Hex 2% Top Sol 2oz TOPIC SCH (20:23)
--- NOTE | 2017-08-22 21:45 | Consultation ---
DATE OF CONSULTATION: 08/22/2017 HISTORY OF PRESENT ILLNESS: This is an 87-year-old female with a history of multiple medical problems including osteomyelitis, the patient is currently on antibiotics, decubitus wound, history of hypertension, diabetes, and anxiety disorder, who has been admitted for medical stabilization. The patient presents with anxiety, low energy, and mild cognitive impairment. No suicidal or homicidal ideation. No psychotic symptoms. PAST PSYCHIATRIC HISTORY: History of anxiety disorder. PAST MEDICAL HISTORY: As above. ALLERGIES: No known drug allergies. SUBSTANCE ABUSE HISTORY: No known history of illicit drug use or alcohol. SOCIAL HISTORY: The patient resides in a senior care. She has a family member, who are involved. MENTAL STATUS EXAMINATION: The patient is alert and oriented times self, place, and situation. Mood is neutral during the evaluation, however, she has been having episodes of anxiety. Affect is full range. Thought process is concrete. Thought content, no suicidal or homicidal ideation. ASSESSMENT: Anxiety disorder. Cognitive impairment. PLAN: 1. We will start the patient on Ativan p.r.n. 2. Provide supportive therapy and reality orientation. Sandy Blunt M.D. DR: LAMBERT JOB#: [id number] CC:
--- NOTE | 2017-08-22 22:30 | Cardiology Report ---
APPROVED REPORT EKG Measurement Heart [id number] Normal sinus rhythm Right bundle branch block Left anterior fascicular block Bifascicular block Abnormal ECG
[2017-08-23] VITALS (7 sets, daily range): BP systolic 148–183; BP diastolic 61–81
[2017-08-23] MEDS: NovoLOG Insulin Flexpen SUBQ SCH ×4 (06:04→21:05)
[2017-08-23] MEDS: Lisinopril 10mg tab ORAL SCH (08:08)
[2017-08-23] MEDS: Multivitamin w/Minerals tab ORAL SCH (08:09)
[2017-08-23] MEDS: Zinc Sulfate 220mg cap ORAL SCH (08:09)
[2017-08-23] MEDS: Ascorbic Acid 500mg tab ORAL SCH (08:09)
[2017-08-23] MEDS: Heparin 5000 units/ml inj SUBQ SCH ×2 (08:12→21:03)
--- NOTE | 2017-08-23 08:24 | General Progress Note ---
Assessment/Plan Status: stable Assessment/Plan Patient with stage 4 sacral pressure ulcer now on the wound vac. Recommend continuing wound vac dressing changes qMWF and prn soilage. Continue nutritional support as well as offloading. Thank you. Subjective Date patient seen: August 23, 2017 Time patient seen: 08:21 Constitutional: Reports: no symptoms HEENT: Reports: no symptoms Gastrointestinal/Abdominal: Reports: diarrhea Allergies: Coded Allergies: NO KNOWN DRUG ALLERGIES (Verified Allergy, Unknown, 07/10/17) All Systems: reviewed and negative except above Subjective F/u evaluation on patient with stage 4 sacral pressure ulcer. She had the negative pressure wound vac dressing applied yesterday. She has no new complaints. Objective Last 24 Hour Vital Signs Date Time Temp Pulse Resp B/P (MAP) Pulse Ox O2 Delivery O2 Flow Rate FiO2 08/23/17 08:08 183/81 08/23/17 04:00 98.6 75 20 155/67 96 Room Air 98.6 08/23/17 00:00 98.2 66 18 159/61 99 Room Air 98.2 08/22/17 20:00 98.4 65 18 172/68 97 Room Air 98.4 08/22/17 16:00 98.4 69 21 145/80 98 Room Air 98.4 08/22/17 14:07 165/72 08/22/17 12:00 98.2 76 18 182/81 98 Room Air 98.2 08/22/17 08:29 145/82 Intake and Output 08/22/17 08/23/17 19:00 07:00 Intake Total 700 ml 120 ml Balance 700 ml 120 ml Intake Oral 700 ml 120 ml # Voids 4 3 # Bowel Movements 4 2 Height (Feet): 5 Height (Inches): 6.00 Weight (Pounds): 110 General Appearance: no apparent distress, alert Abdomen: soft Skin: other - Wound vac dressing in place and seal check with no leaks. Albert Connell MD August 23, 2017 08:24
[2017-08-23 08:30] LABS: BASOPHILS % (AUTO) 1.2 % (0.0-2.0); HEMATOCRIT 30.4 % (37.0-47.0); HEMOGLOBIN 9.5 G/DL (12.0-16.0); LYMPHOCYTES % (AUTO) 13.6 % (20.0-45.0); MEAN CORPUSCULAR VOLUME 86 FL (80-99); MONOCYTES % (AUTO) 8.8 % (1.0-10.0); NEUTROPHILS % (AUTO) 70.4 % (45.0-75.0); PLATELET COUNT 366 K/UL (150-450); RED BLOOD COUNT 3.53 M/UL (4.20-5.40); RED CELL DISTRIBUTION WIDTH 17.2 % (11.6-14.8); WHITE BLOOD COUNT 6.7 K/UL (4.8-10.8)
[2017-08-23 09:02] LABS: ANION GAP 6 mmol/L (5-15); BLOOD UREA NITROGEN 11 mg/dL (7-18); CALCIUM 8.7 MG/DL (8.5-10.1); CARBON DIOXIDE 27 MMOL/L (21-32); CHLORIDE 106 MMOL/L (98-107); CREATININE 0.8 MG/DL (0.55-1.30); POTASSIUM 4.2 MMOL/L (3.5-5.1); SODIUM 139 MMOL/L (136-145)
--- NOTE | 2017-08-23 09:16 | General Progress Note ---
Assessment/Plan Assessment/Plan S: I am doing ok O: appears comfortable. denies any pain. HYSICAL EXAMINATION: HEAD AND NECK: Atraumatic and normocephalic. CHEST: Clear to auscultation. No wheezing. No crackles. HEART: S1 and S2. Regular rate and rhythm. Negative S3. Negative S4. ABDOMEN: Soft. No organomegaly. Bowel sounds are normal. MUSCULOSKELETAL: Atrophied musculatures. Positive for decubitus sores on the S3, S4 on the sacral area , NEUROLOGIC: Awake, alert, and oriented x3. Meds: reviewed and reconciled including Ceftriaxon Chest x-ray, dated August 20, 2017, shows small tiny bilateral pleural effusion, otherwise unremarkable. ASSESSMENT AND PLAN: 1. Diabetes type 2, uncontrolled. 2. Hypoglycemia - multiple incidents - needs adjustment/optimizations of various medications. 3. Sacral osteomyelitis. Continue with the IV antibiotic. We will continue ceftriaxone 2 g. 4. Hypokalemia 5. HTN 6. GI-DVT prophylaxia Plan: Optimse and monitor Blood sugar notes from Endo and surgeon reviewed Medicaly clear to followup op, with Wound Vac Add Metoprolol Subjective Allergies: Coded Allergies: NO KNOWN DRUG ALLERGIES (Verified Allergy, Unknown, 07/10/17) Objective Last 24 Hour Vital Signs Date Time Temp Pulse Resp B/P (MAP) Pulse Ox O2 Delivery O2 Flow Rate FiO2 08/23/17 09:11 161/74 08/23/17 08:08 183/81 08/23/17 08:00 98.6 80 17 183/81 98 Room Air 98.6 08/23/17 04:00 98.6 75 20 155/67 96 Room Air 98.6 08/23/17 00:00 98.2 66 18 159/61 99 Room Air 98.2 08/22/17 20:00 98.4 65 18 172/68 97 Room Air 98.4 08/22/17 16:00 98.4 69 21 145/80 98 Room Air 98.4 08/22/17 14:07 165/72 08/22/17 12:00 98.2 76 18 182/81 98 Room Air 98.2 Intake and Output 08/22/17 08/23/17 19:00 07:00 Intake Total 700 ml 120 ml Balance 700 ml 120 ml Intake Oral 700 ml 120 ml # Voids 4 3 # Bowel Movements 4 2 Laboratory Tests 08/23/17 06:10: White Blood Count 6.7, Red Blood Count 3.53L, Hemoglobin 9.5L, Hematocrit 30.4L , Mean Corpuscular Volume 86, Mean Corpuscular Hemoglobin 26.9L, Mean Corpuscular Hemoglobin Concent 31.3L, Red Cell Distribution Width 17.2H, Platelet Count 366, Mean Platelet Volume 5.7L, Neutrophils (%) (Auto) 70.4, Lymphocytes (%) (Auto) 13.6L, Monocytes (%) (Auto) 8.8, Eosinophils (%) (Auto) 6.0H, Basophils (%) (Auto) 1.2, Sodium Level 139, Potassium Level 4.2, Chloride Level 106, Carbon Dioxide Level 27, Anion Gap 6, Blood Urea Nitrogen 11, Creatinine 0.8, Estimat Glomerular Filtration Rate , Glucose Level 134H, Calcium Level 8.7 Height (Feet): 5 Height (Inches): 6.00 Weight (Pounds): 110 Erin Pimenetl MD August 23, 2017 09:16
[2017-08-23] MEDS: Metoprolol 25mg tab ORAL SCH ×2 (10:31→21:01)
[2017-08-23] MEDS: cefTRIAXone 2 GM in D5W 110 ML IVPB SCH (10:58)
[2017-08-23] MEDS: Dyna-Hex 2% Top Sol 2oz TOPIC SCH (21:01)
[2017-08-23] MEDS: Atorvastatin 80mg tab ORAL SCH (21:01)
[2017-08-23] MEDS: Levemir Flexpen SUBQ SCH (21:04)
[2017-08-24] VITALS: BP 165/70
[2017-08-24 04:00] VITALS: BP 163/55
[2017-08-24] MEDS: NovoLOG Insulin Flexpen SUBQ SCH ×4 (06:06→20:45)
[2017-08-24 08:00] VITALS: BP 151/62
[2017-08-24] MEDS: Metoprolol 25mg tab ORAL SCH ×3 (09:00→20:42)
[2017-08-24] MEDS: Lisinopril 10mg tab ORAL SCH (09:29)
[2017-08-24] MEDS: Multivitamin w/Minerals tab ORAL SCH (09:29)
[2017-08-24] MEDS: Zinc Sulfate 220mg cap ORAL SCH (09:29)
[2017-08-24] MEDS: Ascorbic Acid 500mg tab ORAL SCH (09:29)
[2017-08-24] MEDS: Heparin 5000 units/ml inj SUBQ SCH ×2 (09:32→20:44)
[2017-08-24] MEDS: cefTRIAXone 2 GM in D5W 110 ML IVPB SCH (11:54)
[2017-08-24 12:00] VITALS: BP 171/68
[2017-08-24 16:00] VITALS: BP 168/70
[2017-08-24 20:00] VITALS: BP 154/64
[2017-08-24] MEDS: Dyna-Hex 2% Top Sol 2oz TOPIC SCH (20:40)
[2017-08-24] MEDS: Atorvastatin 80mg tab ORAL SCH (20:40)
[2017-08-24] MEDS: Levemir Flexpen SUBQ SCH (20:45)
[2017-08-25] VITALS (8 sets, daily range): BP systolic 144–170; BP diastolic 60–83
[2017-08-25] MEDS: NovoLOG Insulin Flexpen SUBQ SCH ×6 (06:03→21:57)
--- NOTE | 2017-08-25 07:43 | General Progress Note ---
Assessment/Plan Problem List: (1) Diabetes mellitus out of control ICD Codes: E11.65 - Type 2 diabetes mellitus with hyperglycemia SNOMED: 53633952, 584835709 (2) Hypoglycemia ICD Codes: E16.2 - Hypoglycemia, unspecified SNOMED: 579408778 (3) Sacral ulcer ICD Codes: L98.429 - Non-pressure chronic ulcer of back with unspecified severity SNOMED: 22979176, 777284730 (4) Hypertension ICD Codes: I10 - Essential (primary) hypertension SNOMED: 70577707 Qualifiers: Qualified Codes: I10 - Essential (primary) hypertension Assessment/Plan continue Levemir 5 units bid add Novolog 3 units ac tid continue NISS ac / hs Subjective Allergies: Coded Allergies: NO KNOWN DRUG ALLERGIES (Verified Allergy, Unknown, 07/10/17) All Systems: reviewed and negative except above Subjective events noted doing fine having breakfast BG 103 Objective Last 24 Hour Vital Signs Date Time Temp Pulse Resp B/P (MAP) Pulse Ox O2 Delivery O2 Flow Rate FiO2 08/25/17 04:00 98.4 60 20 153/71 98 98.4 08/25/17 00:00 98.5 61 20 150/60 96 98.5 08/24/17 20:42 65 159/64 08/24/17 20:00 98.8 65 20 154/64 97 98.8 08/24/17 16:00 97.6 58 18 168/70 100 Room Air 97.6 08/24/17 12:15 66 171/68 08/24/17 12:00 98.1 66 18 171/68 98 Room Air 98.1 08/24/17 10:29 98.6 08/24/17 09:30 98.6 08/24/17 09:29 151/62 08/24/17 08:00 98.6 58 18 151/62 98 Room Air 98.6 Intake and Output 08/24/17 08/25/17 19:00 07:00 Intake Total 950 ml 200 ml Balance 950 ml 200 ml Intake Oral 840 ml 200 ml IV Total 110 ml # Voids 5 3 # Bowel Movements 2 2 Height (Feet): 5 Height (Inches): 6.00 Weight (Pounds): 110 General Appearance: no apparent distress Neck: normal alignment Cardiovascular: normal rate Respiratory/Chest: lungs clear Abdomen: normal bowel sounds Objective Current Medications Medications (Trade) Dose Ordered Sig/Julius Route PRN Reason Start Time Stop Time Status Last Admin Dose Admin Acetaminophen (Tylenol) 650 mg Q6H PRN ORAL Prn Headache/Temp > 101 08/20/17 20:30 09/19/17 20:29 08/24/17 20:43 Ascorbic Acid (Vitamin C) 500 mg DAILY ORAL 08/21/17 09:00 09/20/17 08:59 08/24/17 09:29 Atorvastatin Calcium (Lipitor) 80 mg BEDTIME ORAL 08/20/17 21:00 09/19/17 20:59 08/24/17 20:40 Ceftriaxone Sodium 2 gm/ Dextrose 110 ml @ 220 mls/hr Q24H IVPB 08/21/17 11:00 08/28/17 10:59 08/24/17 11:54 Chlorhexidine Gluconate (Cesia-Hex 2%) 1 applic DAILY@2100 TOPIC 08/20/17 21:00 09/19/17 20:59 08/24/17 20:40 Dextrose (Dextrose 50%) 25 ml STAT PRN IV Hypoglycemia 08/21/17 18:30 09/20/17 18:29 Dextrose (Dextrose 50%) 50 ml STAT PRN IV Hypoglycemia 08/21/17 18:30 09/20/17 18:29 Heparin Sodium (Porcine) (Heparin 5000 units/ml) 5,000 units EVERY 12 HOURS SUBQ 08/20/17 21:00 09/19/17 20:59 08/24/17 20:44 Insulin Aspart (NovoLOG) BEFORE MEALS AND HS SUBQ 08/20/17 21:00 09/19/17 20:59 08/24/17 20:45 Insulin Detemir (Levemir) 5 units Q12HR SUBQ 08/25/17 09:00 09/24/17 08:59 Lisinopril (Zestril) 30 mg DAILY ORAL 08/21/17 09:00 09/20/17 08:59 08/24/17 09:29 Loperamide HCl (Imodium) 2 mg Q4H PRN ORAL Diarrhea 08/20/17 20:30 09/19/17 20:29 Lorazepam (Ativan) 1 mg Q6H PRN ORAL For Anxiety 08/22/17 13:30 08/29/17 13:29 Metoprolol Tartrate (Lopressor) 25 mg Q12HR ORAL 08/23/17 10:00 09/22/17 09:59 08/24/17 20:42 Multivitamins Therapeutic (Therapeutic Multivitamin) 1 ea DAILY ORAL 08/21/17 09:00 09/20/17 08:59 08/24/17 09:29 Pantoprazole (Protonix) 40 mg DAILY ORAL 08/21/17 09:00 09/20/17 08:59 08/24/17 09:29 Zinc Sulfate (Zinc Sulfate) 220 mg DAILY ORAL 08/21/17 09:00 09/20/17 08:59 08/24/17 09:29 Item Value Date Time Bedside Blood Glucose 102 mg/dl 08/25/17 0630 Bedside Blood Glucose 264 mg/dl H 08/24/17 2100 Bedside Blood Glucose 243 mg/dl H 08/24/17 1746 Bedside Blood Glucose 237 mg/dl H 08/24/17 1212 JOHN ANGEL August 25, 2017 07:43
[2017-08-25] MEDS: Heparin 5000 units/ml inj SUBQ SCH ×2 (08:38→21:55)
[2017-08-25] MEDS: Ascorbic Acid 500mg tab ORAL SCH (08:39)
[2017-08-25] MEDS: Multivitamin w/Minerals tab ORAL SCH (08:39)
[2017-08-25] MEDS: Zinc Sulfate 220mg cap ORAL SCH (08:39)
[2017-08-25] MEDS: Lisinopril 10mg tab ORAL SCH (08:40)
[2017-08-25] MEDS: Metoprolol 25mg tab ORAL SCH (08:40)
[2017-08-25] MEDS ORDERED: Levemir Flexpen SUBQ SCH (09:00)
[2017-08-25] MEDS: Levemir Flexpen SUBQ SCH ×2 (09:42→21:56)
--- NOTE | 2017-08-25 09:42 | General Progress Note ---
Assessment/Plan Assessment/Plan S: I am doing ok O: appears comfortable. denies any pain. HYSICAL EXAMINATION: HEAD AND NECK: Atraumatic and normocephalic. CHEST: Clear to auscultation. No wheezing. No crackles. HEART: S1 and S2. Regular rate and rhythm. Negative S3. Negative S4. ABDOMEN: Soft. No organomegaly. Bowel sounds are normal. MUSCULOSKELETAL: Atrophied musculatures. Positive for decubitus sores on the S3, S4 on the sacral area , NEUROLOGIC: Awake, alert, and oriented x3. Meds: reviewed and reconciled including Ceftriaxon Chest x-ray, dated August 20, 2017, shows small tiny bilateral pleural effusion, otherwise unremarkable. ASSESSMENT AND PLAN: 1. Diabetes type 2, uncontrolled. 2. Hypoglycemia - multiple incidents - needs adjustment/optimizations of various medications. 3. Sacral osteomyelitis. Continue with the IV antibiotic. We will continue ceftriaxone 2 g. 4. Hypokalemia 5. HTN 6. GI-DVT prophylaxia Plan: Optimse and monitor Blood sugar notes from Endo and surgeon reviewed Medicaly clear to followup op, with Wound Vac continue Metoprolol comment: time of this dictation, doesn't reflect actual time of the encounter on August 24 Subjective Allergies: Coded Allergies: NO KNOWN DRUG ALLERGIES (Verified Allergy, Unknown, 07/10/17) Objective Last 24 Hour Vital Signs Date Time Temp Pulse Resp B/P (MAP) Pulse Ox O2 Delivery O2 Flow Rate FiO2 08/25/17 08:40 84 170/83 08/25/17 08:40 170/83 08/25/17 08:00 97.7 84 20 170/83 95 Room Air 97.7 08/25/17 04:00 98.4 60 20 153/71 98 98.4 08/25/17 00:00 98.5 61 20 150/60 96 98.5 08/24/17 20:42 65 159/64 08/24/17 20:00 98.8 65 20 154/64 97 98.8 08/24/17 16:00 97.6 58 18 168/70 100 Room Air 97.6 08/24/17 12:15 66 171/68 08/24/17 12:00 98.1 66 18 171/68 98 Room Air 98.1 08/24/17 10:29 98.6 Intake and Output 08/24/17 08/25/17 19:00 07:00 Intake Total 950 ml 200 ml Balance 950 ml 200 ml Intake Oral 840 ml 200 ml IV Total 110 ml # Voids 5 3 # Bowel Movements 2 2 Height (Feet): 5 Height (Inches): 6.00 Weight (Pounds): 110 Erin Pimentel MD August 25, 2017 09:42
--- NOTE | 2017-08-25 09:43 | General Progress Note ---
Assessment/Plan Assessment/Plan S: I am doing ok O: appears comfortable. denies any pain. son at the bed side HYSICAL EXAMINATION: HEAD AND NECK: Atraumatic and normocephalic. CHEST: Clear to auscultation. No wheezing. No crackles. HEART: S1 and S2. Regular rate and rhythm. Negative S3. Negative S4. ABDOMEN: Soft. No organomegaly. Bowel sounds are normal. MUSCULOSKELETAL: Atrophied musculatures. Positive for decubitus sores on the S3, S4 on the sacral area , NEUROLOGIC: Awake, alert, and oriented x3. Meds: reviewed and reconciled including Ceftriaxone Chest x-ray, dated August 20, 2017, shows small tiny bilateral pleural effusion, otherwise unremarkable. ASSESSMENT AND PLAN: 1. Diabetes type 2, uncontrolled. 2. Hypoglycemia - multiple incidents - needs adjustment/optimizations of various medications. 3. Sacral osteomyelitis. Continue with the IV antibiotic. We will continue ceftriaxone 2 g. 4. Hypokalemia 5. HTN 6. GI-DVT prophylaxia Plan: Optimse and monitor Blood sugar notes from Endo and surgeon reviewed Medicaly clear to followup op, with Wound Vac Increase Metoprolol from 25 to 50 mg Bid will order labs Subjective Allergies: Coded Allergies: NO KNOWN DRUG ALLERGIES (Verified Allergy, Unknown, 07/10/17) Objective Last 24 Hour Vital Signs Date Time Temp Pulse Resp B/P (MAP) Pulse Ox O2 Delivery O2 Flow Rate FiO2 08/25/17 08:40 84 170/83 08/25/17 08:40 170/83 08/25/17 08:00 97.7 84 20 170/83 95 Room Air 97.7 08/25/17 04:00 98.4 60 20 153/71 98 98.4 08/25/17 00:00 98.5 61 20 150/60 96 98.5 08/24/17 20:42 65 159/64 08/24/17 20:00 98.8 65 20 154/64 97 98.8 08/24/17 16:00 97.6 58 18 168/70 100 Room Air 97.6 08/24/17 12:15 66 171/68 08/24/17 12:00 98.1 66 18 171/68 98 Room Air 98.1 08/24/17 10:29 98.6 Intake and Output 08/24/17 08/25/17 19:00 07:00 Intake Total 950 ml 200 ml Balance 950 ml 200 ml Intake Oral 840 ml 200 ml IV Total 110 ml # Voids 5 3 # Bowel Movements 2 2 Height (Feet): 5 Height (Inches): 6.00 Weight (Pounds): 110 Erin Pimentel MD August 25, 2017 09:43
[2017-08-25] MEDS: cefTRIAXone 2 GM in D5W 110 ML IVPB SCH (10:38)
[2017-08-25] MEDS: Metoprolol Tartrate 50mg tab ORAL SCH ×2 (21:00→21:54)
[2017-08-25] MEDS: Atorvastatin 80mg tab ORAL SCH (21:54)
[2017-08-25] MEDS: Dyna-Hex 2% Top Sol 2oz TOPIC SCH (21:55)
[2017-08-26 00:15] VITALS: BP 138/61
[2017-08-26 04:11] VITALS: BP 155/65
[2017-08-26] MEDS: NovoLOG Insulin Flexpen SUBQ SCH ×7 (05:57→21:00)
[2017-08-26 06:00] LABS: BASOPHILS % (AUTO) 1.8 % (0.0-2.0); EOSINOPHILS % (AUTO) 3.8 % (0.0-3.0); HEMATOCRIT 30.1 % (37.0-47.0); HEMOGLOBIN 9.4 G/DL (12.0-16.0); LYMPHOCYTES % (AUTO) 13.5 % (20.0-45.0); MEAN CORPUSCULAR VOLUME 86 FL (80-99); MONOCYTES % (AUTO) 8.7 % (1.0-10.0); NEUTROPHILS % (AUTO) 72.2 % (45.0-75.0); PLATELET COUNT 339 K/UL (150-450); RED CELL DISTRIBUTION WIDTH 17.3 % (11.6-14.8); WHITE BLOOD COUNT 7.9 K/UL (4.8-10.8)
[2017-08-26 06:07] LABS: ALANINE AMINOTRANSFERASE 9 U/L (12-78); ALBUMIN 1.9 G/DL (3.4-5.0); ALBUMIN/GLOBULIN RATIO 0.5 (1.0-2.7); ALKALINE PHOSPHATASE 60 U/L (46-116); ANION GAP 6 mmol/L (5-15); ASPARTATE AMINO TRANSFERASE 10 U/L (15-37); BILIRUBIN,TOTAL 0.3 MG/DL (0.2-1.0); BLOOD UREA NITROGEN 19 mg/dL (7-18); CALCIUM 8.7 MG/DL (8.5-10.1); CARBON DIOXIDE 27 MMOL/L (21-32); CHLORIDE 107 MMOL/L (98-107); CREATININE 0.9 MG/DL (0.55-1.30); POTASSIUM 3.5 MMOL/L (3.5-5.1); SODIUM 140 MMOL/L (136-145)
--- NOTE | 2017-08-26 07:34 | General Progress Note ---
Assessment/Plan Problem List: (1) Diabetes mellitus out of control ICD Codes: E11.65 - Type 2 diabetes mellitus with hyperglycemia SNOMED: 16291972, 726618972 (2) Hypoglycemia ICD Codes: E16.2 - Hypoglycemia, unspecified SNOMED: 855265080 (3) Sacral ulcer ICD Codes: L98.429 - Non-pressure chronic ulcer of back with unspecified severity SNOMED: 62309465, 552529871 (4) Hypertension ICD Codes: I10 - Essential (primary) hypertension SNOMED: 01262304 Qualifiers: Qualified Codes: I10 - Essential (primary) hypertension Assessment/Plan change Levemir to 6 units qhs continue Novolog 3 units ac tid continue NISS ac / hs Subjective Allergies: Coded Allergies: NO KNOWN DRUG ALLERGIES (Verified Allergy, Unknown, 07/10/17) All Systems: reviewed and negative except above Subjective events noted Objective Last 24 Hour Vital Signs Date Time Temp Pulse Resp B/P (MAP) Pulse Ox O2 Delivery O2 Flow Rate FiO2 08/26/17 04:11 98.8 67 17 155/65 98 98.8 08/26/17 00:15 99.4 61 18 138/61 97 99.4 08/25/17 21:00 64 144/60 08/25/17 20:31 99.3 64 17 144/60 97 99.3 08/25/17 18:37 66 145/61 08/25/17 16:00 97.3 60 20 164/62 95 Room Air 97.3 08/25/17 12:00 97.3 67 20 152/63 99 Room Air 97.3 08/25/17 09:49 167/80 08/25/17 08:40 84 170/83 08/25/17 08:40 170/83 08/25/17 08:00 97.7 84 20 170/83 95 Room Air 97.7 Intake and Output 08/25/17 08/26/17 19:00 07:00 Intake Total 160 ml 360 ml Output Total 25 ml Balance 135 ml 360 ml Intake Oral 160 ml 360 ml Drainage Total 25 ml # Voids 4 4 # Bowel Movements 2 Laboratory Tests 08/26/17 05:25: White Blood Count 7.9, Red Blood Count 3.50L, Hemoglobin 9.4L, Hematocrit 30.1L , Mean Corpuscular Volume 86, Mean Corpuscular Hemoglobin 26.9L, Mean Corpuscular Hemoglobin Concent 31.3L, Red Cell Distribution Width 17.3H, Platelet Count 339, Mean Platelet Volume 5.8L, Neutrophils (%) (Auto) 72.2, Lymphocytes (%) (Auto) 13.5L, Monocytes (%) (Auto) 8.7, Eosinophils (%) (Auto) 3.8H, Basophils (%) (Auto) 1.8, Sodium Level 140, Potassium Level 3.5, Chloride Level 107, Carbon Dioxide Level 27, Anion Gap 6, Blood Urea Nitrogen 19H, Creatinine 0.9, Estimat Glomerular Filtration Rate , Glucose Level 62L, Calcium Level 8.7, Total Bilirubin 0.3, Aspartate Amino Transf (AST/SGOT) 10L, Alanine Aminotransferase (ALT/SGPT) 9L, Alkaline Phosphatase 60, Total Protein 6.1L, Albumin 1.9L, Globulin 4.2, Albumin/Globulin Ratio 0.5L Height (Feet): 5 Height (Inches): 6.00 Weight (Pounds): 110 Neck: normal alignment Cardiovascular: normal rate Respiratory/Chest: lungs clear Abdomen: normal bowel sounds Pelvis: normal external exam Objective Current Medications Medications (Trade) Dose Ordered Sig/Julius Route PRN Reason Start Time Stop Time Status Last Admin Dose Admin Acetaminophen (Tylenol) 650 mg Q6H PRN ORAL Prn Headache/Temp > 101 08/20/17 20:30 09/19/17 20:29 08/25/17 15:30 Ascorbic Acid (Vitamin C) 500 mg DAILY ORAL 08/21/17 09:00 09/20/17 08:59 08/25/17 08:39 Atorvastatin Calcium (Lipitor) 80 mg BEDTIME ORAL 08/20/17 21:00 09/19/17 20:59 08/25/17 21:54 Ceftriaxone Sodium 2 gm/ Dextrose 110 ml @ 220 mls/hr Q24H IVPB 08/21/17 11:00 08/28/17 10:59 08/25/17 10:38 Chlorhexidine Gluconate (Cesia-Hex 2%) 1 applic DAILY@2100 TOPIC 08/20/17 21:00 09/19/17 20:59 08/25/17 21:55 Dextrose (Dextrose 50%) 25 ml STAT PRN IV Hypoglycemia 08/21/17 18:30 09/20/17 18:29 Dextrose (Dextrose 50%) 50 ml STAT PRN IV Hypoglycemia 08/21/17 18:30 09/20/17 18:29 Heparin Sodium (Porcine) (Heparin 5000 units/ml) 5,000 units EVERY 12 HOURS SUBQ 08/20/17 21:00 09/19/17 20:59 08/25/17 21:55 Insulin Aspart (NovoLOG) BEFORE MEALS AND HS SUBQ 08/20/17 21:00 09/19/17 20:59 08/25/17 21:57 Insulin Aspart (NovoLOG) 3 units NOVOTIAC SUBQ 08/25/17 11:50 09/24/17 11:49 08/25/17 17:12 Insulin Detemir (Levemir) 5 units Q12HR SUBQ 08/25/17 09:00 09/24/17 08:59 08/25/17 21:56 Lisinopril (Zestril) 30 mg DAILY ORAL 08/21/17 09:00 09/20/17 08:59 08/25/17 08:40 Loperamide HCl (Imodium) 2 mg Q4H PRN ORAL Diarrhea 08/20/17 20:30 09/19/17 20:29 Lorazepam (Ativan) 1 mg Q6H PRN ORAL For Anxiety 08/22/17 13:30 08/29/17 13:29 Metoprolol Tartrate (Lopressor) 50 mg Q12HR ORAL 08/25/17 21:00 09/22/17 09:59 Multivitamins Therapeutic (Therapeutic Multivitamin) 1 ea DAILY ORAL 08/21/17 09:00 09/20/17 08:59 08/25/17 08:39 Pantoprazole (Protonix) 40 mg DAILY ORAL 08/21/17 09:00 09/20/17 08:59 08/25/17 08:39 Zinc Sulfate (Zinc Sulfate) 220 mg DAILY ORAL 08/21/17 09:00 09/20/17 08:59 08/25/17 08:39 Item Value Date Time Bedside Blood Glucose 64 mg/dl L 08/26/17 0558 Bedside Blood Glucose 169 mg/dl H 08/25/17 2157 Bedside Blood Glucose 151 mg/dl H 08/25/17 1713 Bedside Blood Glucose 252 mg/dl H 08/25/17 1229 Bedside Blood Glucose 102 mg/dl 08/25/17 0942 Bedside Blood Glucose 102 mg/dl 08/25/17 0630 JOHN ANGEL August 26, 2017 07:34
[2017-08-26 08:00] VITALS: BP 165/60
[2017-08-26] MEDS: Heparin 5000 units/ml inj SUBQ SCH ×2 (08:26→20:58)
[2017-08-26] MEDS: Metoprolol Tartrate 50mg tab ORAL SCH ×2 (08:27→20:56)
[2017-08-26] MEDS: Zinc Sulfate 220mg cap ORAL SCH (08:27)
[2017-08-26] MEDS: Multivitamin w/Minerals tab ORAL SCH (08:27)
[2017-08-26] MEDS: Ascorbic Acid 500mg tab ORAL SCH (08:28)
[2017-08-26] MEDS: Lisinopril 10mg tab ORAL SCH (08:28)
--- NOTE | 2017-08-26 09:02 | General Progress Note ---
Assessment/Plan Assessment/Plan S: I am doing ok O: appears comfortable. denies any pain. HYSICAL EXAMINATION: HEAD AND NECK: Atraumatic and normocephalic. CHEST: Clear to auscultation. No wheezing. No crackles. HEART: S1 and S2. Regular rate and rhythm. Negative S3. Negative S4. ABDOMEN: Soft. No organomegaly. Bowel sounds are normal. MUSCULOSKELETAL: Atrophied musculatures. Positive for decubitus sores on the sacral area , Wound Vac off the Sarcarl wound NEUROLOGIC: , Awake, alert, and oriented x3. Meds: reviewed and reconciled including Ceftriaxone Chest x-ray, dated August 20, 2017, shows small tiny bilateral pleural effusion, otherwise unremarkable. ASSESSMENT AND PLAN: 1. Diabetes type 2, uncontrolled. 2. Hypoglycemia - multiple incidents - needs adjustment/optimizations of various medications. 3. Sacral osteomyelitis. Continue with the IV antibiotic. We will continue ceftriaxone 2 g. 4. Hypokalemia 5. HTN 6. GI-DVT prophylaxia Plan: Optimse and monitor Blood sugar notes from Endo reviewed Medicaly clear to followup op, with Wound Vac Increase Metoprolol from 25 to 50 mg Bid will decrease of Lantus from 6 to 4 u. daily Subjective Allergies: Coded Allergies: NO KNOWN DRUG ALLERGIES (Verified Allergy, Unknown, 07/10/17) Objective Last 24 Hour Vital Signs Date Time Temp Pulse Resp B/P (MAP) Pulse Ox O2 Delivery O2 Flow Rate FiO2 08/26/17 08:28 165/60 08/26/17 08:27 68 165/60 08/26/17 04:11 98.8 67 17 155/65 98 98.8 08/26/17 00:15 99.4 61 18 138/61 97 99.4 08/25/17 21:00 64 144/60 08/25/17 20:31 99.3 64 17 144/60 97 99.3 08/25/17 18:37 66 145/61 08/25/17 16:00 97.3 60 20 164/62 95 Room Air 97.3 08/25/17 12:00 97.3 67 20 152/63 99 Room Air 97.3 08/25/17 09:49 167/80 Intake and Output 08/25/17 08/26/17 19:00 07:00 Intake Total 160 ml 360 ml Output Total 25 ml Balance 135 ml 360 ml Intake Oral 160 ml 360 ml Drainage Total 25 ml # Voids 4 4 # Bowel Movements 2 Laboratory Tests 08/26/17 05:25: White Blood Count 7.9, Red Blood Count 3.50L, Hemoglobin 9.4L, Hematocrit 30.1L , Mean Corpuscular Volume 86, Mean Corpuscular Hemoglobin 26.9L, Mean Corpuscular Hemoglobin Concent 31.3L, Red Cell Distribution Width 17.3H, Platelet Count 339, Mean Platelet Volume 5.8L, Neutrophils (%) (Auto) 72.2, Lymphocytes (%) (Auto) 13.5L, Monocytes (%) (Auto) 8.7, Eosinophils (%) (Auto) 3.8H, Basophils (%) (Auto) 1.8, Sodium Level 140, Potassium Level 3.5, Chloride Level 107, Carbon Dioxide Level 27, Anion Gap 6, Blood Urea Nitrogen 19H, Creatinine 0.9, Estimat Glomerular Filtration Rate , Glucose Level 62L, Calcium Level 8.7, Total Bilirubin 0.3, Aspartate Amino Transf (AST/SGOT) 10L, Alanine Aminotransferase (ALT/SGPT) 9L, Alkaline Phosphatase 60, Total Protein 6.1L, Albumin 1.9L, Globulin 4.2, Albumin/Globulin Ratio 0.5L Height (Feet): 5 Height (Inches): 6.00 Weight (Pounds): 110 Erin Pimentel MD August 26, 2017 09:02
--- NOTE | 2017-08-26 09:15 | Geriatric Medicine Prog Note ---
DATE: 08/24/2017 SUBJECTIVE: The patient's diabetes is controlled, is more comfortable. OBJECTIVE: VITAL SIGNS: Blood pressure 150/60, pulse 61, respirations 20, and temperature 98.5 degrees. RESPIRATORY: Clear. CVS: Regular. LABORATORY DATA: Glucose 264 00:33 PLAN: 00:35 NovoLog q.i.d. before meals and at bedtime. Mohamud Ceron M.D. DR: SIA JOB#: [id number] CC:
[2017-08-26] MEDS: cefTRIAXone 2 GM in D5W 110 ML IVPB SCH (10:51)
[2017-08-26 12:00] VITALS: BP 161/66
[2017-08-26 16:00] VITALS: BP 150/58
--- NOTE | 2017-08-26 16:00 | General Progress Note ---
Assessment/Plan Assessment/Plan Anxiety disorder. Cognitive impairment. PLAN: 1. We will start the patient on Ativan p.r.n. 2. Provide supportive therapy and reality orientation. Subjective Date patient seen: August 26, 2017 Neurologic/Psychiatric: Reports: anxiety, depressed, emotional problems Allergies: Coded Allergies: NO KNOWN DRUG ALLERGIES (Verified Allergy, Unknown, 07/10/17) Objective Last 24 Hour Vital Signs Date Time Temp Pulse Resp B/P (MAP) Pulse Ox O2 Delivery O2 Flow Rate FiO2 08/26/17 12:00 97.7 58 20 161/66 98 Room Air 97.7 08/26/17 08:28 165/60 08/26/17 08:27 68 165/60 08/26/17 08:00 98.7 68 20 165/60 97 Room Air 98.7 08/26/17 04:11 98.8 67 17 155/65 98 98.8 08/26/17 00:15 99.4 61 18 138/61 97 99.4 08/25/17 21:00 64 144/60 08/25/17 20:31 99.3 64 17 144/60 97 99.3 08/25/17 18:37 66 145/61 Intake and Output 08/25/17 08/26/17 19:00 07:00 Intake Total 160 ml 360 ml Output Total 25 ml Balance 135 ml 360 ml Intake Oral 160 ml 360 ml Drainage Total 25 ml # Voids 4 4 # Bowel Movements 2 Laboratory Tests 08/26/17 05:25: White Blood Count 7.9, Red Blood Count 3.50L, Hemoglobin 9.4L, Hematocrit 30.1L , Mean Corpuscular Volume 86, Mean Corpuscular Hemoglobin 26.9L, Mean Corpuscular Hemoglobin Concent 31.3L, Red Cell Distribution Width 17.3H, Platelet Count 339, Mean Platelet Volume 5.8L, Neutrophils (%) (Auto) 72.2, Lymphocytes (%) (Auto) 13.5L, Monocytes (%) (Auto) 8.7, Eosinophils (%) (Auto) 3.8H, Basophils (%) (Auto) 1.8, Sodium Level 140, Potassium Level 3.5, Chloride Level 107, Carbon Dioxide Level 27, Anion Gap 6, Blood Urea Nitrogen 19H, Creatinine 0.9, Estimat Glomerular Filtration Rate , Glucose Level 62L, Calcium Level 8.7, Total Bilirubin 0.3, Aspartate Amino Transf (AST/SGOT) 10L, Alanine Aminotransferase (ALT/SGPT) 9L, Alkaline Phosphatase 60, Total Protein 6.1L, Albumin 1.9L, Globulin 4.2, Albumin/Globulin Ratio 0.5L Height (Feet): 5 Height (Inches): 6.00 Weight (Pounds): 110 General Appearance: no apparent distress, alert Neurologic: oriented x 3, responsive, depressed affect Sandy Blunt M.D. August 26, 2017 16:00
[2017-08-26 20:00] VITALS: BP 156/63
[2017-08-26] MEDS: Atorvastatin 80mg tab ORAL SCH (20:56)
[2017-08-26] MEDS: Dyna-Hex 2% Top Sol 2oz TOPIC SCH (20:56)
[2017-08-26] MEDS ORDERED: Levemir Flexpen SUBQ SCH ×2 (21:00)
[2017-08-27] VITALS: BP_SYST 100; BP_SYST 145; BP_DIAS 58; BP_DIAS 69
[2017-08-27 04:00] VITALS: BP 157/63
[2017-08-27] MEDS: NovoLOG Insulin Flexpen SUBQ SCH ×4 (06:18→12:33)
[2017-08-27 07:17] LABS: BASOPHILS % (AUTO) 1.7 % (0.0-2.0); EOSINOPHILS % (AUTO) 4.8 % (0.0-3.0); HEMATOCRIT 29.3 % (37.0-47.0); HEMOGLOBIN 9.1 G/DL (12.0-16.0); LYMPHOCYTES % (AUTO) 16.2 % (20.0-45.0); MEAN CORPUSCULAR VOLUME 87 FL (80-99); MONOCYTES % (AUTO) 8.9 % (1.0-10.0); NEUTROPHILS % (AUTO) 68.5 % (45.0-75.0); PLATELET COUNT 339 K/UL (150-450); RED BLOOD COUNT 3.38 M/UL (4.20-5.40); RED CELL DISTRIBUTION WIDTH 17.2 % (11.6-14.8); WHITE BLOOD COUNT 7.4 K/UL (4.8-10.8)
[2017-08-27 08:00] VITALS: BP 149/60
[2017-08-27] MEDS: Zinc Sulfate 220mg cap ORAL SCH (08:52)
[2017-08-27] MEDS: Lisinopril 10mg tab ORAL SCH (08:52)
[2017-08-27] MEDS: Multivitamin w/Minerals tab ORAL SCH (08:52)
[2017-08-27] MEDS: Ascorbic Acid 500mg tab ORAL SCH (08:52)
[2017-08-27] MEDS: Metoprolol Tartrate 50mg tab ORAL SCH (08:53)
[2017-08-27] MEDS: Heparin 5000 units/ml inj SUBQ SCH (08:53)
--- NOTE | 2017-08-27 10:00 | General Progress Note ---
Assessment/Plan Status: stable Assessment/Plan S: I am doing ok O: appears comfortable. denies any pain. no new incidence for hypoglycemia reported HYSICAL EXAMINATION: HEAD AND NECK: Atraumatic and normocephalic. CHEST: Clear to auscultation. No wheezing. No crackles. HEART: S1 and S2. Regular rate and rhythm. Negative S3. Negative S4. ABDOMEN: Soft. No organomegaly. Bowel sounds are normal. MUSCULOSKELETAL: Atrophied musculatures. Positive for decubitus sores on the sacral area , Wound Vac off the Sarcarl wound NEUROLOGIC: , Awake, alert, and oriented x3. Meds: reviewed and reconciled including Ceftriaxone Chest x-ray, dated August 20, 2017, shows small tiny bilateral pleural effusion, otherwise unremarkable. ASSESSMENT AND PLAN: 1. Diabetes type 2, uncontrolled. 2. Hypoglycemia - multiple incidents - needs adjustment/optimizations of various medications. 3. Sacral osteomyelitis. Continue with the IV antibiotic. We will continue ceftriaxone 2 g. 4. Hypokalemia 5. HTN 6. GI-DVT prophylaxia Plan: Optimse and monitor Blood sugar notes from Endo reviewed Medicaly clear to followup op, with Wound Vac Increase Metoprolol from 25 to 50 mg Bid will decrease of Lantus from 6 to 4 u. daily Subjective Allergies: Coded Allergies: NO KNOWN DRUG ALLERGIES (Verified Allergy, Unknown, 07/10/17) Objective Last 24 Hour Vital Signs Date Time Temp Pulse Resp B/P (MAP) Pulse Ox O2 Delivery O2 Flow Rate FiO2 08/27/17 08:53 63 149/60 08/27/17 08:52 149/60 08/27/17 08:00 98.7 63 18 149/60 99 98.7 08/27/17 04:00 98.9 60 18 157/63 100 98.9 08/27/17 00:00 99.1 52 18 145/58 98 99.1 08/26/17 20:56 67 156/63 08/26/17 20:00 99.2 67 18 156/63 100 99.2 08/26/17 16:00 97.3 59 20 150/58 98 Room Air 97.3 08/26/17 12:00 97.7 58 20 161/66 98 Room Air 97.7 Intake and Output 08/26/17 08/27/17 19:00 07:00 Intake Total 240 ml Output Total 20 ml Balance 240 ml -20 ml Intake Oral 240 ml Drainage Total 20 ml # Voids 4 3 # Bowel Movements 4 2 Laboratory Tests 08/27/17 06:20: White Blood Count 7.4, Red Blood Count 3.38L, Hemoglobin 9.1L, Hematocrit 29.3L , Mean Corpuscular Volume 87, Mean Corpuscular Hemoglobin 26.8L, Mean Corpuscular Hemoglobin Concent 30.9L, Red Cell Distribution Width 17.2H, Platelet Count 339, Mean Platelet Volume 6.3L, Neutrophils (%) (Auto) 68.5, Lymphocytes (%) (Auto) 16.2L, Monocytes (%) (Auto) 8.9, Eosinophils (%) (Auto) 4.8H, Basophils (%) (Auto) 1.7 Height (Feet): 5 Height (Inches): 6.00 Weight (Pounds): 120 Erin Pimentel MD August 27, 2017 10:00
[2017-08-27] MEDS: cefTRIAXone 2 GM in D5W 110 ML IVPB SCH (11:28)
[2017-08-27] MEDS ORDERED: NOVOLOG100 UNIT/3 SUBQ ×2 (11:47→11:48)
[2017-08-27] MEDS ORDERED: LEVEMIR FL100 UNIT/1 SUBQ (11:49)
[2017-08-27] MEDS ORDERED: LORAZEPAM1 MG ORAL (11:54)
[2017-08-27] MEDS ORDERED: METOPROLOL TART50 M1 ORAL (11:55)
[2017-08-27 12:00] VITALS: BP 153/70
[2017-08-27 12:59] VITALS: BP 189/78
--- NOTE | 2017-08-27 22:34 | General Progress Note ---
Assessment/Plan Status: stable, progressing Assessment/Plan Anxiety disorder. Cognitive impairment. PLAN: 1. We will start the patient on Ativan p.r.n. 2. Provide supportive therapy and reality orientation. Subjective Date patient seen: August 27, 2017 Neurologic/Psychiatric: Reports: anxiety, emotional problems Allergies: Coded Allergies: NO KNOWN DRUG ALLERGIES (Verified Allergy, Unknown, 07/10/17) Objective Last 24 Hour Vital Signs Date Time Temp Pulse Resp B/P (MAP) Pulse Ox O2 Delivery O2 Flow Rate FiO2 08/27/17 12:59 189/78 08/27/17 12:00 98.3 60 18 153/70 98 98.3 08/27/17 08:53 63 149/60 08/27/17 08:52 149/60 08/27/17 08:00 98.7 63 18 149/60 99 98.7 08/27/17 04:00 98.9 60 18 157/63 100 98.9 08/27/17 00:00 99.1 52 18 145/58 98 99.1 Intake and Output 08/26/17 08/27/17 19:00 07:00 Intake Total 240 ml Output Total 20 ml Balance 240 ml -20 ml Intake Oral 240 ml Drainage Total 20 ml # Voids 4 3 # Bowel Movements 4 2 Laboratory Tests 08/27/17 06:20: White Blood Count 7.4, Red Blood Count 3.38L, Hemoglobin 9.1L, Hematocrit 29.3L , Mean Corpuscular Volume 87, Mean Corpuscular Hemoglobin 26.8L, Mean Corpuscular Hemoglobin Concent 30.9L, Red Cell Distribution Width 17.2H, Platelet Count 339, Mean Platelet Volume 6.3L, Neutrophils (%) (Auto) 68.5, Lymphocytes (%) (Auto) 16.2L, Monocytes (%) (Auto) 8.9, Eosinophils (%) (Auto) 4.8H, Basophils (%) (Auto) 1.7 Height (Feet): 5 Height (Inches): 6.00 Weight (Pounds): 120 General Appearance: no apparent distress, alert Neurologic: depressed affect Sandy Blunt M.D. August 27, 2017 22:34
--- NOTE | 2017-08-28 14:19 | Discharge Summary ---
Discharge Summary Discharge Summary _ DATE OF ADMISSION: 08/20/2017 DATE OF DISCHARGE: 08/27/2017 CONSULTANTS: Dr. Nick Blunt BRIEF HOSPITAL COURSE: Patient is an 87-year-old female, with history of decubitus ulcer and osteomyelitis, currently on IV antibiotics at the skilled nursing. She had been on insulin and was reportedly having challenges with blood sugar control, with episodes of hyperglycemia and hypoglycemia. She has medical history including, but not limited to, osteomyelitis of the sacral bone, hypertension, hyperlipidemia, diabetes and hypokalemia. She was then taken to ED, where she was noted to have hypokalemia, potassium level of 3.0, glucose was 192. She was given potassium replacement. EKG showed normal sinus rhythm with no acute changes. Chest x-ray showed no consolidation, no effusion, no pneumothorax. Her blood pressure was elevated to 174/70. She was given IV hydralazine. She was then admitted for further evaluation. She was seen by boat person and was started on NovoLog insulin sliding scale and Levemir 5 mg daily at bedtime. Blood glucose was monitored. Hemoglobin A1c was 8.4. Insulin was titrated. She was also seen by plastic surgeon. She came in with a stage IV sacral ulcer with osteomyelitis and was continued on IV ceftriaxone. She was given wound care and was continued on offloading. Wound VAC was placed; dressing changes q MWF and prn soilage. She had episodes of anxiety with low energy and mild cognitive impairment. She was diagnosed with anxiety disorder and was given Ativan prn. Blood pressure was monitored, she was given metoprolol, dosage was increased to 50 mg twice a day. She was given Lantus and at time of discharge was on 4 units daily. She appeared comfortable, denied any pain, there was no new incidence of hypoglycemia reported. She was eventually discharged to skilled nursing. FINAL DIAGNOSES: Diabetes mellitus type 2, out of control Hypoglycemia Sacral stage IV pressure ulcer with osteomyelitis, present on admission Hypokalemia Hypertension Anxiety disorder DISPOSITION: Patient was discharged to [facility]. DISCHARGE MEDICATIONS: Refer to Discharge Medication List. I have been assigned to dictate discharge summary on this account, and I was not involved in the patient's management. Darleen Dior NP August 28, 2017 14:19
== END 2017-08-27 13:30 | DRG 637 ==
LOC: EDBD 13:05 → EMR 13:20 → 4E 16:00 → EDBEDREQ 16:14
DX: E11.649 Type 2 diabetes mellitus with hypoglycemia without coma (principal); L89.154 Pressure ulcer of sacral region, stage 4; M46.28 Osteomyelitis of vertebra, sacral and sacrococcygeal region; Z79.4 Long term (current) use of insulin; I10 Essential (primary) hypertension; E78.5 Hyperlipidemia, unspecified; E87.6 Hypokalemia; F41.9 Anxiety disorder, unspecified; M19.90 Unspecified osteoarthritis, unspecified site; G31.84 Mild cognitive impairment of uncertain or unknown etiology
CPT/HCPCS: 36415; 71045; 80048; 80053; 81003; 82550; 82553; 82962; 83036; 83880; 84484; 85025; 85610; 85730; 87040; 87081; 87324; 93005; 99285; J1815; J8499; S5561

== ENCOUNTER 2017-10-20 17:29 | Inpatient (IN) | payer MEDICARE, BC ==
[~2017-10-20] VITALS: Ht 170.2 cm; Wt 59.0 kg
[~2017-10-20 17:29] MED LIST changes: +LORAZEPAM1 MG ORAL; +METOPROLOL TART50 M1 ORAL; +MULTIVITAMINS1 EAC8 ORAL; +NOVOLOG100 UNIT/3 SUBQ; +POTASSIUM 25 M25 ME1 PO; +VITAMIN C500 M1 ORAL; +ZINC SULFATE220 M1 ORAL
--- NOTE | 2017-10-20 18:13 | Emergency Room Report ---
History of Present Illness General Chief Complaint: General Complaint Source: Patient, Medical Record Present Illness HPI Patient is an 87-year-old female who presents from her care center secondary to left lower extremity discomfort per her half-way the patient's been complaining of bilateral lower extremity discomfort and left lower external swelling. She was being sent over to rule out a venous thrombus. Allergies: Coded Allergies: NO KNOWN DRUG ALLERGIES (Verified Allergy, Unknown, 07/10/17) Patient History Past Medical History: see triage record Past Surgical History: none Pertinent Family History: none Social History: Denies: smoking, alcohol use, drug use Last Menstrual Period: na Nursing Documentation-PMH Past Medical History: No History, Except For Hx Hypertension: Yes Hx Diabetes: Yes Hx Cancer: Yes - breast 2014 lumpectomy Hx Gastrointestinal Problems: Yes - GASTROENTERITIS, COLITIS, GERD Hx Neurological Problems: No Review of Systems Constitutional: Denies: no symptoms, see HPI, chills, sweats, fever, malaise, weakness, other Eye: Denies: no symptoms, see HPI, eye pain, blurred vision, tearing, double vision, nose pain, nose congestion, acuity changes, discharge, other ENT: Denies: no symptoms, see HPI, ear pain, ear discharge, nose pain, nose congestion, throat pain, throat swelling, mouth pain, hearing loss, nasal discharge, other Respiratory: Denies: no symptoms, see HPI, cough, orthopnea, shortness of breath, stridor, wheezing, HALLMAN, sputum, other Cardiovascular: Denies: no symptoms, see HPI, chest pain, edema, palpitations, syncope, PND, other Gastrointestinal: Denies: no symptoms, see HPI, abdominal pain, constipation, diarrhea, nausea, vomiting, melena, hematemesis, other Genitourinary: Denies: no symptoms, see HPI, discharge, dysuria, frequency, hematuria, pain, retention, incontinence, urgency, vag bleed/dc, other Musculoskeletal: Reports: joint pain, muscle pain Skin: Denies: no symptoms, see HPI, rash, change in color, change in hair/nails , dryness, lesions, other Neurological: Denies: no symptoms, see HPI, headache, numbness, paresthesia, seizure, tingling, tremors, focal weakness, syncope, dizziness, other Endocrine: Denies: no symptoms, see HPI, excessive sweating, flushing, intolerance to temperature, increased thirst, increased urine, unexplained weight loss, other Physical Exam Vital Signs Date Time Temp Pulse Resp B/P (MAP) Pulse Ox O2 Delivery O2 Flow Rate FiO2 10/20/17 17:23 98.3 59 18 212/72 93 Room Air 98.2 Sp02 EP Interpretation: reviewed, normal General Appearance: no apparent distress, alert, GCS 15, non-toxic Head: normocephalic, atraumatic Eyes: bilateral eye normal inspection, bilateral eye PERRL ENT: hearing grossly normal, normal pharynx, no angioedema, normal voice Neck: full range of motion, supple/symm/no masses Respiratory: chest non-tender, lungs clear, normal breath sounds, speaking full sentences Cardiovascular #1: regular rate, rhythm, no edema Cardiovascular #2: 2+ carotid (R), 2+ carotid (L), 2+ radial (R), 2+ radial (L) , 2+ dorsalis pedis (R), 2+ dorsalis pedis (L) Gastrointestinal: normal bowel sounds, non tender, soft, non-distended, no guarding, no rebound Rectal: deferred Genitourinary: normal inspection, no CVA tenderness Musculoskeletal: back normal, gait/station normal, normal range of motion, tender - Patient with tenderness to the left lateral area of the left calf where there is evidence of a small hematoma. Neurologic: alert, oriented x3, responsive, motor strength/tone normal, sensory intact, speech normal Psychiatric: judgement/insight normal, memory normal, mood/affect normal, no suicidal/homicidal ideation Reflexes: 3+ bicep (R), 3+ bicep (L), 3+ tricep (R), 3+ tricep (L), 3+ knee (R) , 3+ knee (L) Skin: normal color, no rash, warm/dry, well hydrated Lymphatic: no adenopathy Medical Decision Making Diagnostic Impression: Primary Impression: DVT (deep venous thrombosis) Qualified Codes: I82.4Y2 - Acute embolism and thrombosis of unspecified deep veins of left proximal lower extremity ER Course Patient is an 87-year-old female presenting from her care center with left lower extremity swelling and pain. Vascular ultrasound shows evidence of an acute non-occlusive thrombus in the proximal thigh. Patient will require admission to the hospital for evaluation and management. Per the patient's PCP , the patient's hemoglobin was noted to be 7.5 however repeat testing here shows a hemoglobin of 9.5. Therefore Lovenox has been written for. Patient will likely receive an IVC filter in the morning. Laboratory Tests Test 10/20/17 18:40 White Blood Count 8.9 K/UL (4.8-10.8) Red Blood Count 3.55 M/UL (4.20-5.40) L Hemoglobin 9.2 G/DL (12.0-16.0) L Hematocrit 29.5 % (37.0-47.0) L Mean Corpuscular Volume 83 FL (80-99) Mean Corpuscular Hemoglobin 26.0 PG (27.0-31.0) L Mean Corpuscular Hemoglobin Concent 31.3 G/DL (32.0-36.0) L Red Cell Distribution Width 14.8 % (11.6-14.8) Platelet Count 329 K/UL (150-450) Mean Platelet Volume 6.1 FL (6.5-10.1) L Neutrophils (%) (Auto) 75.3 % (45.0-75.0) H Lymphocytes (%) (Auto) 13.0 % (20.0-45.0) L Monocytes (%) (Auto) 8.8 % (1.0-10.0) Eosinophils (%) (Auto) 1.9 % (0.0-3.0) Basophils (%) (Auto) 1.1 % (0.0-2.0) Prothrombin Time 11.3 SEC (9.30-11.50) Prothrombin Time INR 1.1 (0.9-1.1) PTT 28 SEC (23-33) Sodium Level 137 MMOL/L (136-145) Potassium Level 3.4 MMOL/L (3.5-5.1) L Chloride Level 102 MMOL/L (98-107) Carbon Dioxide Level 29 MMOL/L (21-32) Anion Gap 6 mmol/L (5-15) Blood Urea Nitrogen 11 mg/dL (7-18) Creatinine 0.8 MG/DL (0.55-1.30) Estimate Glomerular Filtration Rate mL/min (>60) Glucose Level 208 MG/DL (74-106) H Calcium Level 8.2 MG/DL (8.5-10.1) L Total Bilirubin 0.3 MG/DL (0.2-1.0) Aspartate Amino Transferase (AST) 23 U/L (15-37) Alanine Aminotransferase (ALT) 23 U/L (12-78) Alkaline Phosphatase 111 U/L (46-116) Total Protein 6.6 G/DL (6.4-8.2) Albumin 2.0 G/DL (3.4-5.0) L Globulin 4.6 g/dL Albumin/Globulin Ratio 0.4 (1.0-2.7) L Last Vital Signs Date Time Temp Pulse Resp B/P (MAP) Pulse Ox O2 Delivery O2 Flow Rate FiO2 10/20/17 17:23 98.3 59 18 212/72 93 Room Air 98.2 Disposition: ADMITTED INPATIENT Condition: Stable Nigel Grier MD Oct 20, 2017 18:13
[2017-10-20 19:03] LABS: BASOPHILS % (AUTO) 1.1 % (0.0-2.0); EOSINOPHILS % (AUTO) 1.9 % (0.0-3.0); HEMATOCRIT 29.5 % (37.0-47.0); HEMOGLOBIN 9.2 G/DL (12.0-16.0); MEAN CORPUSCULAR VOLUME 83 FL (80-99); MONOCYTES % (AUTO) 8.8 % (1.0-10.0); NEUTROPHILS % (AUTO) 75.3 % (45.0-75.0); PLATELET COUNT 329 K/UL (150-450); RED BLOOD COUNT 3.55 M/UL (4.20-5.40); RED CELL DISTRIBUTION WIDTH 14.8 % (11.6-14.8); WHITE BLOOD COUNT 8.9 K/UL (4.8-10.8)
[2017-10-20 19:05] VITALS: BP 170/72
[2017-10-20 19:07] LABS: ANION GAP 6 mmol/L (5-15); BLOOD UREA NITROGEN 11 mg/dL (7-18); CALCIUM 8.2 MG/DL (8.5-10.1); CARBON DIOXIDE 29 MMOL/L (21-32); CHLORIDE 102 MMOL/L (98-107); CREATININE 0.8 MG/DL (0.55-1.30); POTASSIUM 3.4 MMOL/L (3.5-5.1); SODIUM 137 MMOL/L (136-145)
[2017-10-20 19:10] LABS: INR 1.1 (0.9-1.1)
[2017-10-20 19:12] LABS: ALANINE AMINOTRANSFERASE 23 U/L (12-78); ALBUMIN/GLOBULIN RATIO 0.4 (1.0-2.7); ALKALINE PHOSPHATASE 111 U/L (46-116); ASPARTATE AMINO TRANSFERASE 23 U/L (15-37); BILIRUBIN,TOTAL 0.3 MG/DL (0.2-1.0)
[2017-10-20] MEDS ORDERED: Enoxaparin 60mg Inj SUBQ ONE (19:30)
[2017-10-20] MEDS ORDERED: NORCO 5-325 TA1 EACH ORAL (19:50)
[2017-10-20] MEDS ORDERED: ACIDOPHILUS1 EAC6 PO (19:50)
[2017-10-20] MEDS ORDERED: COLLAGENASE1 EACH MC (19:51)
[2017-10-20] MEDS: Enoxaparin 60mg Inj SUBQ SCH (21:08)
[2017-10-20 21:28] VITALS: BP 163/77
--- NOTE | 2017-10-20 21:41 | Infectious Diseases Prog Note ---
Assessment/Plan Problems: (1) Cellulitis of left lower extremity Assessment & Plan: suspect due to DVT, will start cefazolin empirically (2) DVT of lower extremity (deep venous thrombosis) Assessment & Plan: continue anticoagulation as per hematology (3) Diabetes mellitus out of control Assessment & Plan: recommend tight glycemic control to keep blood glucose between 100-140 (4) Sacral ulcer Assessment & Plan: recommend local wound care as per hospital protocol , keep off loading Subjective Allergies: Coded Allergies: NO KNOWN DRUG ALLERGIES (Verified Allergy, Unknown, 07/10/17) Objective Vital Signs Last 24 Hour Vital Signs Date Time Temp Pulse Resp B/P (MAP) Pulse Ox O2 Delivery O2 Flow Rate FiO2 10/20/17 21:28 98.2 58 19 163/77 97 Room Air 98.2 10/20/17 19:05 58 19 170/72 97 Room Air 10/20/17 17:23 98.3 59 18 212/72 93 Room Air 98.2 Height (Feet): 5 Height (Inches): 7.00 Weight (Pounds): 114 Laboratory Tests Test 10/20/17 18:40 White Blood Count 8.9 K/UL (4.8-10.8) Red Blood Count 3.55 M/UL (4.20-5.40) L Hemoglobin 9.2 G/DL (12.0-16.0) L Hematocrit 29.5 % (37.0-47.0) L Mean Corpuscular Volume 83 FL (80-99) Mean Corpuscular Hemoglobin 26.0 PG (27.0-31.0) L Mean Corpuscular Hemoglobin Concent 31.3 G/DL (32.0-36.0) L Red Cell Distribution Width 14.8 % (11.6-14.8) Platelet Count 329 K/UL (150-450) Mean Platelet Volume 6.1 FL (6.5-10.1) L Neutrophils (%) (Auto) 75.3 % (45.0-75.0) H Lymphocytes (%) (Auto) 13.0 % (20.0-45.0) L Monocytes (%) (Auto) 8.8 % (1.0-10.0) Eosinophils (%) (Auto) 1.9 % (0.0-3.0) Basophils (%) (Auto) 1.1 % (0.0-2.0) Prothrombin Time 11.3 SEC (9.30-11.50) Prothromb Time International Ratio 1.1 (0.9-1.1) Activated Partial Thromboplast Time 28 SEC (23-33) Sodium Level 137 MMOL/L (136-145) Potassium Level 3.4 MMOL/L (3.5-5.1) L Chloride Level 102 MMOL/L (98-107) Carbon Dioxide Level 29 MMOL/L (21-32) Anion Gap 6 mmol/L (5-15) Blood Urea Nitrogen 11 mg/dL (7-18) Creatinine 0.8 MG/DL (0.55-1.30) Estimat Glomerular Filtration Rate mL/min (>60) Glucose Level 208 MG/DL (74-106) H Calcium Level 8.2 MG/DL (8.5-10.1) L Total Bilirubin 0.3 MG/DL (0.2-1.0) Aspartate Amino Transf (AST/SGOT) 23 U/L (15-37) Alanine Aminotransferase (ALT/SGPT) 23 U/L (12-78) Alkaline Phosphatase 111 U/L (46-116) Total Protein 6.6 G/DL (6.4-8.2) Albumin 2.0 G/DL (3.4-5.0) L Globulin 4.6 g/dL Albumin/Globulin Ratio 0.4 (1.0-2.7) L Current Medications Medications (Trade) Dose Ordered Sig/Julius Route PRN Reason Start Time Stop Time Status Last Admin Dose Admin Enoxaparin Sodium (Lovenox) 50 mg EVERY 12 HOURS SUBQ 10/20/17 21:00 11/19/17 20:59 10/20/17 21:08 Estefani Bruce M.D. Oct 20, 2017 21:41
[2017-10-20] MEDS ORDERED: ceFAZolin 2gm/50ml Premix 50 ML IVPB SCH (22:00)
[2017-10-20] MEDS ORDERED: Metoprolol Succinate XL 50mg tab ORAL SCH (22:45)
[2017-10-20 22:49] LABS: FERRITIN 252 NG/ML (8-388); LACTATE DEHYDROGENASE 339 U/L (81-234)
[2017-10-20] MEDS ORDERED: Lidocaine 1% Plain 30 ml INJ PRN (23:00)
[2017-10-20 23:06] LABS: % IRON SATURATION 17 % (15-50); IRON 30 ug/dL (50-175); TOTAL IRON BINDING CAPACITY 179 ug/dL (250-450)
[2017-10-20] MEDS: ceFAZolin sod 2 GM in D5W 110 ML IVP SCH (23:27)
[2017-10-20] MEDS: Norco 5mg/325mg tab ORAL PRN (23:42)
[2017-10-21] VITALS (16 sets, daily range): BP systolic 98–183; BP diastolic 3–75
[2017-10-21] MEDS ORDERED: ceFAZolin sod 2 GM in D5W 110 ML IVP SCH ×2
[2017-10-21] MEDS: NovoLOG Insulin Flexpen SUBQ SCH ×6 (05:58→21:17)
[2017-10-21 07:26] LABS: BASOPHILS % (AUTO) 1.6 % (0.0-2.0); EOSINOPHILS % (AUTO) 2.5 % (0.0-3.0); HEMATOCRIT 25.5 % (37.0-47.0); HEMOGLOBIN 8.1 G/DL (12.0-16.0); LYMPHOCYTES % (AUTO) 17.8 % (20.0-45.0); MEAN CORPUSCULAR VOLUME 82 FL (80-99); MONOCYTES % (AUTO) 9.1 % (1.0-10.0); PLATELET COUNT 315 K/UL (150-450); RED CELL DISTRIBUTION WIDTH 15.2 % (11.6-14.8); WHITE BLOOD COUNT 8.1 K/UL (4.8-10.8)
--- NOTE | 2017-10-21 07:31 | General Progress Note ---
Assessment/Plan Problem List: (1) DVT of lower extremity (deep venous thrombosis) ICD Codes: I82.409 - Acute embolism and thrombosis of unspecified deep veins of unspecified lower extremity SNOMED: 619879737 (2) Diabetes mellitus out of control ICD Codes: E11.65 - Type 2 diabetes mellitus with hyperglycemia SNOMED: 68234597, 418932132 Assessment/Plan change Levemir to 3 units bid add Novolog 3 units ac tid + NISS Subjective Allergies: Coded Allergies: NO KNOWN DRUG ALLERGIES (Verified Allergy, Unknown, 07/10/17) All Systems: reviewed and negative except above Subjective events noted Objective Last 24 Hour Vital Signs Date Time Temp Pulse Resp B/P (MAP) Pulse Ox O2 Delivery O2 Flow Rate FiO2 10/21/17 04:00 98.7 75 20 113/59 (77) 94 98.7 10/21/17 04:00 53 10/21/17 01:05 Room Air 10/21/17 00:00 68 10/21/17 00:00 98.9 73 18 108/62 (77) 93 98.9 10/20/17 21:54 77 10/20/17 21:50 98.9 22 164/77 Room Air 10/20/17 21:28 98.2 58 19 163/77 97 Room Air 98.2 10/20/17 19:05 58 19 170/72 97 Room Air 10/20/17 17:23 98.3 59 18 212/72 93 Room Air 98.2 Intake and Output 10/20/17 10/21/17 19:00 07:00 Intake Total 60 ml Output Total 400 ml Balance -340 ml Intake Oral 60 ml Output Urine Total 400 ml # Bowel Movements 3 Laboratory Tests 10/20/17 18:40: White Blood Count 8.9, Red Blood Count 3.55L, Hemoglobin 9.2L, Hematocrit 29.5L , Mean Corpuscular Volume 83, Mean Corpuscular Hemoglobin 26.0L, Mean Corpuscular Hemoglobin Concent 31.3L, Red Cell Distribution Width 14.8, Platelet Count 329, Mean Platelet Volume 6.1L, Neutrophils (%) (Auto) 75.3H, Lymphocytes (%) (Auto) 13.0L, Monocytes (%) (Auto) 8.8, Eosinophils (%) (Auto) 1.9, Basophils (%) (Auto) 1.1, Reticulocyte Count 2.0, Prothrombin Time 11.3, Prothromb Time International Ratio 1.1, Activated Partial Thromboplast Time 28, Sodium Level 137, Potassium Level 3.4L, Chloride Level 102, Carbon Dioxide Level 29, Anion Gap 6, Blood Urea Nitrogen 11, Creatinine 0.8, Estimat Glomerular Filtration Rate , Glucose Level 208H, Hemoglobin A1c 9.9H, Calcium Level 8.2L, Iron Level 30L, Total Iron Binding Capacity 179L, Percent Iron Saturation 17, Unsaturated Iron Binding 149, Ferritin 252, Total Bilirubin 0.3, Aspartate Amino Transf (AST/SGOT) 23, Alanine Aminotransferase (ALT/SGPT) 23, Alkaline Phosphatase 111, Lactate Dehydrogenase 339H, Total Protein 6.6, Albumin 2.0L, Globulin 4.6, Albumin/Globulin Ratio 0.4L, Vitamin B12 Level 306, Folate 15.5 10/21/17 00:02: Stool Occult Blood [Pending] 10/21/17 07:06: White Blood Count 8.1, Red Blood Count 3.10L, Hemoglobin 8.1L, Hematocrit 25.5L , Mean Corpuscular Volume 82, Mean Corpuscular Hemoglobin 26.3L, Mean Corpuscular Hemoglobin Concent 31.9L, Red Cell Distribution Width 15.2H, Platelet Count 315, Mean Platelet Volume 6.1L, Neutrophils (%) (Auto) 69.0, Lymphocytes (%) (Auto) 17.8L, Monocytes (%) (Auto) 9.1, Eosinophils (%) (Auto) 2.5, Basophils (%) (Auto) 1.6, Sodium Level [Pending], Potassium Level [Pending] , Chloride Level [Pending], Carbon Dioxide Level [Pending], Blood Urea Nitrogen [Pending], Creatinine [Pending], Estimat Glomerular Filtration Rate [Pending], Glucose Level [Pending], Calcium Level [Pending], Total Bilirubin [Pending], Aspartate Amino Transf (AST/SGOT) [Pending], Alanine Aminotransferase (ALT/SGPT ) [Pending], Alkaline Phosphatase [Pending], Total Protein [Pending], Albumin [ Pending], Globulin [Pending] Height (Feet): 5 Height (Inches): 7.00 Weight (Pounds): 114 General Appearance: no apparent distress Neck: normal alignment Cardiovascular: normal rate Respiratory/Chest: lungs clear Abdomen: normal bowel sounds Objective Current Medications Medications (Trade) Dose Ordered Sig/Julius Route PRN Reason Start Time Stop Time Status Last Admin Dose Admin Acetaminophen/ Hydrocodone Bitart ([place] 5/325) 1 tab Q6H PRN ORAL For Pain 10/20/17 22:15 10/27/17 22:14 10/20/17 23:42 Cefazolin Sodium 2 gm/Dextrose 110 ml @ 110 mls/hr Q12H IVP 10/20/17 23:00 10/27/17 22:59 10/20/17 23:27 Clonidine HCl (Catapres Tab) 0.1 mg Q8H PRN ORAL SBP > 175 10/20/17 22:15 11/19/17 22:14 Dextrose (Dextrose 50%) 25 ml STAT PRN IV Hypoglycemia 10/20/17 22:15 11/19/17 22:14 Dextrose (Dextrose 50%) 50 ml STAT PRN IV Hypoglycemia 10/20/17 22:15 11/19/17 22:14 Enoxaparin Sodium (Lovenox) 50 mg EVERY 12 HOURS SUBQ 10/20/17 21:00 11/19/17 20:59 10/20/17 21:08 Insulin Aspart (NovoLOG) BEFORE MEALS AND HS SUBQ 10/21/17 06:30 11/20/17 06:29 10/21/17 05:58 Insulin Detemir (Levemir) 4 units BID SUBQ 10/21/17 09:00 11/20/17 08:59 Lidocaine HCl (Xylocaine 1% 30ml) 30 ml NOW PRN INJ Radiology Procedure 10/20/17 23:00 10/23/17 22:47 Lisinopril (Prinivil) 30 mg DAILY ORAL 10/21/17 09:00 11/20/17 08:59 Metoprolol Succinate (Toprol XL) 50 mg Q12HR ORAL 10/21/17 09:00 11/20/17 08:59 Pantoprazole (Protonix) 40 mg DAILY ORAL 10/21/17 09:00 11/20/17 08:59 Item Value Date Time Bedside Blood Glucose 197 mg/dl H 10/21/17 0558 Nick Wang MD Oct 21, 2017 07:30
[2017-10-21 07:56] LABS: ALANINE AMINOTRANSFERASE 20 U/L (12-78); ALBUMIN 1.6 G/DL (3.4-5.0); ALBUMIN/GLOBULIN RATIO 0.4 (1.0-2.7); ALKALINE PHOSPHATASE 82 U/L (46-116); ANION GAP 6 mmol/L (5-15); ASPARTATE AMINO TRANSFERASE 17 U/L (15-37); BILIRUBIN,TOTAL 0.3 MG/DL (0.2-1.0); BLOOD UREA NITROGEN 12 mg/dL (7-18); CALCIUM 7.7 MG/DL (8.5-10.1); CARBON DIOXIDE 30 MMOL/L (21-32); CHLORIDE 103 MMOL/L (98-107); CREATININE 0.8 MG/DL (0.55-1.30); POTASSIUM 3.4 MMOL/L (3.5-5.1); SODIUM 139 MMOL/L (136-145)
[2017-10-21] MEDS: Lisinopril 20mg tab ORAL SCH (09:00)
[2017-10-21] MEDS: Levemir Flexpen SUBQ SCH ×2 (09:00→17:11)
[2017-10-21] MEDS: Metoprolol Succinate XL 50mg tab ORAL SCH ×2 (09:00→21:15)
[2017-10-21] MEDS: Enoxaparin 60mg Inj SUBQ SCH ×2 (09:00→21:17)
[2017-10-21] MEDS ORDERED: Levemir Flexpen SUBQ SCH (09:00)
--- NOTE | 2017-10-21 10:08 | Pre-Procedure Note/Attestation ---
Pre-Procedure Note/Attestation Complete Prior to Procedure Planned Procedure: not applicable Procedure Narrative: Inferior vena cava filter Indications for Procedure Pre-Operative Diagnosis: DVT, anemia contraindicating anticoagulation Attestation I attest that I discussed the nature of the procedure; its benefits; risks and complications; and alternatives (and the risks and benefits of such alternatives ), prior to the procedure, with the patient (or the patient's legal bottling equipment sales representative). I attest that, if there was a reasonable possibility of needing a blood transfusion, the patient (or the patient's legal bottling equipment sales representative) was given the [facility] standardized written summary, pursuant to the [place] Blood Safety Act ([place] Health and Safety Code # 1645, as amended). I attest that I re-evaluated the patient just prior to the surgery and that there has been no change in the patient's H&P, except as documented below: Pritesh Corea MD Oct 21, 2017 10:08
--- NOTE | 2017-10-21 10:45 | Consultation ---
Consult Note Assessment/Plan [id number] Job ID Rob Wiseman MD Oct 21, 2017 10:45
[2017-10-21] MEDS: ceFAZolin sod 2 GM in D5W 110 ML IVP SCH ×2 (11:00→22:57)
[2017-10-21] MEDS: Heparin 2000 units/Ns 1000ml INJ SCH (11:00)
[2017-10-21] MEDS: Lidocaine 1% Plain 30 ml INJ SCH (11:00)
--- NOTE | 2017-10-21 11:20 | Brief Operative Note ---
Immediate Post Operative Note Operative Note Pre-op Diagnosis: DVT, anemia contraindicating anticoagulation Procedure: IVC filter, permanent Post-op Diagnosis: same as pre-op Findings: consistent w/pre-op dx studies - nl IVC Surgeon: Hazel COREA Anesthesia: local Specimen: none Complications: none Condition: stable Fluids: none Implant(s) used?: Yes - Venatech IVC filter Pritesh Corea MD Oct 21, 2017 11:20
--- NOTE | 2017-10-21 11:45 | Consultation ---
DATE OF CONSULTATION: 10/20/2017 ENDOCRINOLOGY CONSULTATION CONSULTING PHYSICIAN: Nick Wang M.D. REFERRING PHYSICIAN: Erin Pimentel M.D. REASON FOR CONSULTATION: Diabetes management. HISTORY OF PRESENT ILLNESS: The patient is an 87-year-old female with a history of insulin-dependent diabetes and the patient is known to me from her previous admission to the hospital with hypoglycemia, which was in July. At that time, I treated her with Levemir 6 units daily and NovoLog 3 units before each meal. At this time, she presented to hospital from her care center due to left lower extremity discomfort and was found to have left lower extremity DVT. We did see the patient in the emergency room and she is going to be admitted to the floor. PAST MEDICAL HISTORY: 1. Colitis. 2. Diabetes insulin dependent. 3. Hypertension. PAST SURGICAL HISTORY: Unknown. ALLERGIES TO MEDICATION: None. MEDICATIONS: Reviewed and reconciled. REVIEW OF SYSTEMS: As per HPI. PHYSICAL EXAMINATION: VITAL SIGNS: Blood pressure is 212/72, respiratory rate 18, pulse 59, and temperature 98. LABORATORY VALUES: At the time of the visit, the laboratories are drawn, that are still pending. The patient is still in the emergency room. IMPRESSION: 1. DVT. 2. Hypertension, out of control. 3. Diabetes, out of control. PLAN: 1. Start Levemir 3 units b.i.d. 2. NovoLog 3 units before meals t.i.d. 3. NovoLog sliding scale before meals and at bedtime. 4. Further adjustment according to her glucose values. Thank you, Dr. Pimentel, for the courtesy of this consultation. Nick Wang M.D. DR: MICHELLE/ROBIN JOB#: [id number] CC: J CARLOS
--- NOTE | 2017-10-21 12:43 | Diagnostic Imaging Report ---
Indications: Deep venous thrombosis, contraindication to anticoagulation Technique: Case discussed with Dr. Wiseman, who indicated preference for permanent inferior vena cava filter. Informed consent obtained prior to commencement of the procedure. Total sterile technique, including sterile probe cover and sterile gel, sterile gloves, hand hygiene, hat, mask,, sterile gown, large sterile drape, and preparation with 2% chlorhexidine utilized. Local anesthesia with 1% lidocaine. Ultrasound reveals patent compressible right internal jugular vein. Under real-time ultrasound guidance, puncture right internal jugular vein, passage of a guidewire, into the inferior vena cava, , over which was passed a pigtail marker catheter. This was directed into the left common iliac vein, and a limited iliac venogram performed using hand injection of contrast. Catheter was then withdrawn to the level of the iliac venous confluence. An inferior venacavogram performed, using machine injection of contrast. The images were reviewed. The position of the renal veins was determined. The catheter was then exchanged for the introducer assembly of the Vena Tech LGM filter The introducer assembly was advanced further into the inferior vena cava over a guidewire, and the guidewire and dilator were removed. The filter was passed into the into the sheath. It was then positioned into the appropriate position. The filter was then deployed by unsheathing it. The filter introducer was removed, and a followup inferior venacavogram was performed using hand injection of contrast through the sheath. The filter position was deemed acceptable. The sheath was removed. Pressure held on the right neck until hemostasis was achieved. The patient tolerated procedure well, without immediate complication. Total fluoroscopy time 2.2 minutes Total dose area product 455 dGycm2 Total number of exposures 46 Comparison: none. Findings:Left iliac venogram demonstrates no evidence of caval anomaly. Inferior venacavogram demonstrates normal caliber inferior vena cava. Single left and dual right renal veins. No intracaval thrombus. Completion inferior venacavogram demonstrates satisfactory filter position, with no significant tilt. Impression: Successful placement of permanent infrarenal inferior vena cava filter, as above.
--- NOTE | 2017-10-21 14:36 | Infectious Diseases Prog Note ---
Assessment/Plan Problems: (1) Cellulitis of left lower extremity Assessment & Plan: suspect due to DVT, continue cefazolin empirically (2) DVT of lower extremity (deep venous thrombosis) Assessment & Plan: S/P IVC filter , continue anticoagulation as per hematology (3) Diabetes mellitus out of control Assessment & Plan: recommend tight glycemic control to keep blood glucose between 100-140 (4) Sacral ulcer Assessment & Plan: continue local wound care as per hospital protocol , keep off loading Subjective Constitutional: Reports: no symptoms HEENT: Reports: no symptoms Respiratory: Reports: no symptoms Breasts: Reports: no symptoms Cardiovascular: Reports: no symptoms Gastrointestinal/Abdominal: Reports: no symptoms Genitourinary: Reports: no symptoms Neurologic: Reports: no symptoms Psychiatric: Reports: no symptoms Skin: Reports: ulcer Endocrine: Reports: no symptoms Hematologic: Reports: no symptoms Musculoskeletal: Reports: pain, swelling Allergies: Coded Allergies: NO KNOWN DRUG ALLERGIES (Verified Allergy, Unknown, 07/10/17) Subjective she was up in bed comfortable, just had IVC filter placed Objective Vital Signs Last 24 Hour Vital Signs Date Time Temp Pulse Resp B/P (MAP) Pulse Ox O2 Delivery O2 Flow Rate FiO2 10/21/17 12:15 72 18 145/64 (91) 96 10/21/17 12:00 63 10/21/17 12:00 71 18 159/67 (97) 95 10/21/17 11:45 75 18 147/65 (92) 98 10/21/17 11:30 71 18 145/63 (90) 95 10/21/17 11:05 68 18 173/71 (105) 94 10/21/17 11:00 66 18 175/75 (108) 95 10/21/17 10:55 68 18 173/72 (105) 94 10/21/17 10:50 69 18 170/74 (106) 95 10/21/17 10:45 68 18 176/74 (108) 96 10/21/17 10:00 67 16 10/21/17 09:00 73 98/65 10/21/17 09:00 98/63 10/21/17 09:00 Room Air 10/21/17 08:01 98.9 73 18 98/63 (75) 93 98.9 10/21/17 08:00 53 10/21/17 08:00 98.9 73 18 98/3 (34) 93 98.9 7/24/18 04:00 98.7 75 20 113/59 (77) 94 98.7 10/21/17 04:00 53 10/21/17 01:05 Room Air 10/21/17 00:00 68 10/21/17 00:00 98.9 73 18 108/62 (77) 93 98.9 10/20/17 21:54 77 10/20/17 21:50 98.9 22 164/77 Room Air 10/20/17 21:28 98.2 58 19 163/77 97 Room Air 98.2 10/20/17 19:05 58 19 170/72 97 Room Air 10/20/17 17:23 98.3 59 18 212/72 93 Room Air 98.2 Height (Feet): 5 Height (Inches): 7.00 Weight (Pounds): 114 General Appearance: WD/WN, no acute distress HEENT: normocephalic, atraumatic, anicteric, mucous membranes moist, PERRL Respiratory/Chest: chest wall non-tender, lungs clear, normal breath sounds, no respiratory distress, no accessory muscle use Cardiovascular: normal peripheral pulses, normal rate, regular rhythm, no gallop/murmur, no JVD Abdomen: normal bowel sounds, soft, non tender, no organomegaly, non distended , no mass, no scars Genitourinary: normal external genitalia Extremities: no cyanosis, no clubbing Skin: no rash, no lesions, ulcers - sacral pressure wound with granulation tissue , no discharge or foul smell Neurologic/Psychiatric: alert, oriented x 3, responsive Lymphatic: no neck adenopathy, no groin adenopathy Musculoskeletal: normal muscle bulk, no effusion Microbiology Date/Time Source Procedure Growth Status 10/20/17 22:00 Rectum Received Laboratory Tests Test 10/20/17 18:40 10/21/17 00:02 10/21/17 07:06 White Blood Count 8.9 K/UL (4.8-10.8) 8.1 K/UL (4.8-10.8) Red Blood Count 3.55 M/UL (4.20-5.40) L 3.10 M/UL (4.20-5.40) L Hemoglobin 9.2 G/DL (12.0-16.0) L 8.1 G/DL (12.0-16.0) L Hematocrit 29.5 % (37.0-47.0) L 25.5 % (37.0-47.0) L Mean Corpuscular Volume 83 FL (80-99) 82 FL (80-99) Mean Corpuscular Hemoglobin 26.0 PG (27.0-31.0) L 26.3 PG (27.0-31.0) L Mean Corpuscular Hemoglobin Concent 31.3 G/DL (32.0-36.0) L 31.9 G/DL (32.0-36.0) L Red Cell Distribution Width 14.8 % (11.6-14.8) 15.2 % (11.6-14.8) H Platelet Count 329 K/UL (150-450) 315 K/UL (150-450) Mean Platelet Volume 6.1 FL (6.5-10.1) L 6.1 FL (6.5-10.1) L Neutrophils (%) (Auto) 75.3 % (45.0-75.0) H 69.0 % (45.0-75.0) Lymphocytes (%) (Auto) 13.0 % (20.0-45.0) L 17.8 % (20.0-45.0) L Monocytes (%) (Auto) 8.8 % (1.0-10.0) 9.1 % (1.0-10.0) Eosinophils (%) (Auto) 1.9 % (0.0-3.0) 2.5 % (0.0-3.0) Basophils (%) (Auto) 1.1 % (0.0-2.0) 1.6 % (0.0-2.0) Reticulocyte Count 2.0 % (0.0-2.0) Prothrombin Time 11.3 SEC (9.30-11.50) Prothromb Time International Ratio 1.1 (0.9-1.1) Activated Partial Thromboplast Time 28 SEC (23-33) Sodium Level 137 MMOL/L (136-145) 139 MMOL/L (136-145) Potassium Level 3.4 MMOL/L (3.5-5.1) L 3.4 MMOL/L (3.5-5.1) L Chloride Level 102 MMOL/L (98-107) 103 MMOL/L (98-107) Carbon Dioxide Level 29 MMOL/L (21-32) 30 MMOL/L (21-32) Anion Gap 6 mmol/L (5-15) 6 mmol/L (5-15) Blood Urea Nitrogen 11 mg/dL (7-18) 12 mg/dL (7-18) Creatinine 0.8 MG/DL (0.55-1.30) 0.8 MG/DL (0.55-1.30) Estimat Glomerular Filtration Rate mL/min (>60) mL/min (>60) Glucose Level 208 MG/DL (74-106) H 155 MG/DL (74-106) H Hemoglobin A1c 9.9 % (4.3-6.0) H Calcium Level 8.2 MG/DL (8.5-10.1) L 7.7 MG/DL (8.5-10.1) L Iron Level 30 ug/dL (50-175) L Total Iron Binding Capacity 179 ug/dL (250-450) L Percent Iron Saturation 17 % (15-50) Unsaturated Iron Binding 149 ug/dL (112-346) Ferritin 252 NG/ML (8-388) Total Bilirubin 0.3 MG/DL (0.2-1.0) 0.3 MG/DL (0.2-1.0) Aspartate Amino Transf (AST/SGOT) 23 U/L (15-37) 17 U/L (15-37) Alanine Aminotransferase (ALT/SGPT) 23 U/L (12-78) 20 U/L (12-78) Alkaline Phosphatase 111 U/L (46-116) 82 U/L (46-116) Lactate Dehydrogenase 339 U/L (81-234) H Total Protein 6.6 G/DL (6.4-8.2) 5.3 G/DL (6.4-8.2) L Albumin 2.0 G/DL (3.4-5.0) L 1.6 G/DL (3.4-5.0) L Globulin 4.6 g/dL 3.7 g/dL Albumin/Globulin Ratio 0.4 (1.0-2.7) L 0.4 (1.0-2.7) L Vitamin B12 Level 306 PG/ML (193-986) Folate 15.5 NG/ML (8.6-58.9) Stool Occult Blood Positive (NEGATIVE) Current Medications Medications (Trade) Dose Ordered Sig/Julius Route PRN Reason Start Time Stop Time Status Last Admin Dose Admin Acetaminophen/ Hydrocodone Bitart ([place] 5/325) 1 tab Q6H PRN ORAL For Pain 10/20/17 22:15 10/27/17 22:14 10/20/17 23:42 Cefazolin Sodium 2 gm/Dextrose 110 ml @ 110 mls/hr Q12H IVP 10/20/17 23:00 10/27/17 22:59 10/21/17 11:00 Clonidine HCl (Catapres Tab) 0.1 mg Q8H PRN ORAL SBP > 175 10/20/17 22:15 11/19/17 22:14 Dextrose (Dextrose 50%) 25 ml STAT PRN IV Hypoglycemia 10/21/17 08:00 11/20/17 07:59 Dextrose (Dextrose 50%) 50 ml STAT PRN IV Hypoglycemia 10/21/17 08:00 11/20/17 07:59 Enoxaparin Sodium (Lovenox) 50 mg EVERY 12 HOURS SUBQ 10/20/17 21:00 11/19/17 20:59 10/20/17 21:08 Heparin Sodium/ Sodium Chloride (Heparin 2000 units/Ns 1000ml premix) 2,000 unit ONCE INJ 10/21/17 11:00 10/23/17 10:59 Insulin Aspart (NovoLOG) BEFORE MEALS AND HS SUBQ 10/21/17 06:30 11/20/17 06:29 10/21/17 12:14 Insulin Aspart (NovoLOG) 3 units NOVOTIAC SUBQ 10/21/17 11:50 11/20/17 11:49 10/21/17 12:15 Insulin Detemir (Levemir) 3 units BID SUBQ 10/21/17 09:00 11/20/17 08:59 Lidocaine HCl (Xylocaine 1% 30ml) 30 ml NOW PRN INJ Radiology Procedure 10/20/17 23:00 10/23/17 22:47 Lidocaine HCl (Xylocaine 1% 30ml) 30 ml ONCE INJ 10/21/17 11:00 10/23/17 10:59 Lisinopril (Prinivil) 30 mg DAILY ORAL 10/21/17 09:00 11/20/17 08:59 Metoprolol Succinate (Toprol XL) 50 mg Q12HR ORAL 10/21/17 09:00 11/20/17 08:59 Pantoprazole (Protonix) 40 mg DAILY ORAL 10/21/17 09:00 11/20/17 08:59 10/21/17 09:44 Estefani Bruce M.D. Oct 21, 2017 14:36
--- NOTE | 2017-10-21 14:49 | History & Physical ---
History and Physical History & Physicial SOURCE OF INFORMATION: The patient and EMR. HISTORY OF PRESENT ILLNESS: The patient is a pleasant 87-year-old female with a history of decubitus wounds and osteomyelitis, status post incidence of hypoglycemia and hospital evaluation . The patient has been on insulin in the outpatient and was reported to have challenges with the blood sugar including 2018, around 49. The patient has symptoms of feeling pain and warmness in LE. LE Dupplex in facility was abnormal for Acute DVT. patient is transferred for treatment. Otherwise, the patient does not complain of chest pain and shortness of breath. No nausea. No vomiting. No diarrhea. No constipation. ALLERGIES: NKDA. FAMILY HISTORY: Reviewed and noncontributory. SOCIAL HISTORY: The patient is currently residing in a fpc facility. Her son is visiting on a regular basis. Denies history of illicit drug abuse, smoking, or alcohol abuse. PAST MEDICAL HISTORY: Including, but not limited to, osteomyelitis of the sacral bone, hypertension, hyperlipidemia, diabetes, and hypokalemia.Acute episodes of anemia MEDICATIONS: Current hospital medications including, but not limited to atorvastatin, lisinopril, potassium chloride, and K-Dur. PAST SURGICAL HISTORY: Status post I and D and debridement of the sacral decubitus wounds, stage IV. PHYSICAL EXAMINATION: VITAL SIGNS: Blood pressure 150/70, temperature 98.2, pulse oximetry 98% on room air, pulse 60, and respiratory rate 18. HEAD AND NECK: Atraumatic and normocephalic. CHEST: Clear to auscultation. No wheezing. No crackles. HEART: S1 and S2. Regular rate and rhythm. Negative S3. Negative S4. ABDOMEN: Soft. No organomegaly. Bowel sounds are normal. MUSCULOSKELETAL: Atrophied musculatures. Positive for decubitus sores on the Sacral regeion on the sacral area, NEUROLOGIC: Awake, alert, and oriented x3. LABORATORY AND DIAGNOSTIC DATA: revewied in chart , including HGB of 9.4 ASSESSMENT AND PLAN: 1. Acute Extensive LLE- DVT 2. Diabetes type 2, uncontrolled. 2. Hypoglycemia - multiple incidents - needs adjustment/optimizations of various medications. 4. Acute Anemia: History of multiple episodes 3. Sacral osteomyelitis. Stable 6. GI-DVT prophylaxia Plan: ID, Hemhay and Endo consulted Start ATC, per Hemhay, will monitor the HH We will consult the wound management and Erin Ni MD Oct 21, 2017 14:49
--- NOTE | 2017-10-21 14:51 | General Progress Note ---
Assessment/Plan Assessment/Plan S: I am ok O: appears comfortable, denies any sob or chest pain . Very weak PHYSICAL EXAMINATION:HEAD AND NECK: Atraumatic and normocephalic. CHEST: Clear to auscultation. No wheezing. No crackles. HEART: S1 and S2. Regular rate and rhythm. Negative S3. Negative S4. ABDOMEN: Soft. No organomegaly. Bowel sounds are normal. MUSCULOSKELETAL: Atrophied musculatures. Positive for decubitus sores on the Sacral regeion on the sacral area, diffuse erythma in LLENEUROLOGIC: Awake , alert, and oriented x3. LABORATORY AND DIAGNOSTIC DATA: revewied in chart , including HGB of 9.4 ASSESSMENT AND PLAN: 1. Acute Extensive LLE- DVT 2. Diabetes type 2, uncontrolled. 2. Hypoglycemia - multiple incidents - needs adjustment/optimizations of various medications. 4. Acute Anemia: History of multiple episodes 3. Sacral osteomyelitis. Stable 6. GI-DVT prophylaxia Plan: ID, Hemonch and Endo consulted Start ATC, per Hemonch, will monitor the HH Anticipating worsening Anemia, in light of current ATC, will proceed with IVC- filter, in case we need to stop ATC. Subjective Allergies: Coded Allergies: NO KNOWN DRUG ALLERGIES (Verified Allergy, Unknown, 07/10/17) Objective Last 24 Hour Vital Signs Date Time Temp Pulse Resp B/P (MAP) Pulse Ox O2 Delivery O2 Flow Rate FiO2 10/21/17 12:15 72 18 145/64 (91) 96 10/21/17 12:00 63 10/21/17 12:00 71 18 159/67 (97) 95 10/21/17 11:45 75 18 147/65 (92) 98 10/21/17 11:30 71 18 145/63 (90) 95 10/21/17 11:05 68 18 173/71 (105) 94 10/21/17 11:00 66 18 175/75 (108) 95 10/21/17 10:55 68 18 173/72 (105) 94 10/21/17 10:50 69 18 170/74 (106) 95 10/21/17 10:45 68 18 176/74 (108) 96 10/21/17 10:00 67 16 10/21/17 09:00 73 98/65 10/21/17 09:00 98/63 10/21/17 09:00 Room Air 10/21/17 08:01 98.9 73 18 98/63 (75) 93 98.9 10/21/17 08:00 53 10/21/17 08:00 98.9 73 18 98/3 (34) 93 98.9 10/21/17 04:00 98.7 75 20 113/59 (77) 94 98.7 10/21/17 04:00 53 10/21/17 01:05 Room Air 10/21/17 00:00 68 10/21/17 00:00 98.9 73 18 108/62 (77) 93 98.9 10/20/17 21:54 77 10/20/17 21:50 98.9 22 164/77 Room Air 10/20/17 21:28 98.2 58 19 163/77 97 Room Air 98.2 10/20/17 19:05 58 19 170/72 97 Room Air 10/20/17 17:23 98.3 59 18 212/72 93 Room Air 98.2 Intake and Output 10/20/17 10/21/17 19:00 07:00 Intake Total 60 ml Output Total 400 ml Balance -340 ml Intake Oral 60 ml Output Urine Total 400 ml # Bowel Movements 3 Laboratory Tests 10/20/17 18:40: White Blood Count 8.9, Red Blood Count 3.55L, Hemoglobin 9.2L, Hematocrit 29.5L , Mean Corpuscular Volume 83, Mean Corpuscular Hemoglobin 26.0L, Mean Corpuscular Hemoglobin Concent 31.3L, Red Cell Distribution Width 14.8, Platelet Count 329, Mean Platelet Volume 6.1L, Neutrophils (%) (Auto) 75.3H, Lymphocytes (%) (Auto) 13.0L, Monocytes (%) (Auto) 8.8, Eosinophils (%) (Auto) 1.9, Basophils (%) (Auto) 1.1, Reticulocyte Count 2.0, Prothrombin Time 11.3, Prothromb Time International Ratio 1.1, Activated Partial Thromboplast Time 28, Sodium Level 137, Potassium Level 3.4L, Chloride Level 102, Carbon Dioxide Level 29, Anion Gap 6, Blood Urea Nitrogen 11, Creatinine 0.8, Estimat Glomerular Filtration Rate , Glucose Level 208H, Hemoglobin A1c 9.9H, Calcium Level 8.2L, Iron Level 30L, Total Iron Binding Capacity 179L, Percent Iron Saturation 17, Unsaturated Iron Binding 149, Ferritin 252, Total Bilirubin 0.3, Aspartate Amino Transf (AST/SGOT) 23, Alanine Aminotransferase (ALT/SGPT) 23, Alkaline Phosphatase 111, Lactate Dehydrogenase 339H, Total Protein 6.6, Albumin 2.0L, Globulin 4.6, Albumin/Globulin Ratio 0.4L, Vitamin B12 Level 306, Folate 15.5 10/21/17 00:02: Stool Occult Blood Positive 10/21/17 07:06: White Blood Count 8.1, Red Blood Count 3.10L, Hemoglobin 8.1L, Hematocrit 25.5L , Mean Corpuscular Volume 82, Mean Corpuscular Hemoglobin 26.3L, Mean Corpuscular Hemoglobin Concent 31.9L, Red Cell Distribution Width 15.2H, Platelet Count 315, Mean Platelet Volume 6.1L, Neutrophils (%) (Auto) 69.0, Lymphocytes (%) (Auto) 17.8L, Monocytes (%) (Auto) 9.1, Eosinophils (%) (Auto) 2.5, Basophils (%) (Auto) 1.6, Sodium Level 139, Potassium Level 3.4L, Chloride Level 103, Carbon Dioxide Level 30, Anion Gap 6, Blood Urea Nitrogen 12, Creatinine 0.8, Estimat Glomerular Filtration Rate , Glucose Level 155H, Calcium Level 7.7L, Total Bilirubin 0.3, Aspartate Amino Transf (AST/SGOT) 17, Alanine Aminotransferase (ALT/SGPT) 20, Alkaline Phosphatase 82, Total Protein 5.3L, Albumin 1.6L, Globulin 3.7, Albumin/Globulin Ratio 0.4L Height (Feet): 5 Height (Inches): 7.00 Weight (Pounds): 114 Erin Pimentel MD Oct 21, 2017 14:51
--- NOTE | 2017-10-21 15:00 | Consultation ---
History of Present Illness General Date patient seen: Oct 21, 2017 Chief Complaint: General Complaint Present Illness HPI The patient is 87-year-old female with a history of decubitus wounds and osteomyelitis, status post incidence of hypoglycemia. The pt is cooperative however is forgetful and c/o insomnia due to anxiety. the pt stated that she has been up all night and she has no sleeping aid. In addition she has low appetite. Allergies: Coded Allergies: NO KNOWN DRUG ALLERGIES (Verified Allergy, Unknown, 07/10/17) Medication History Scheduled Ascorbic Acid* (Vitamin C*), 500 MG ORAL DAILY, (Reported) Atorvastatin (Lipitor), 80 MG ORAL BEDTIME, (Reported) Insulin Aspart (Novolog Flexpen), 5 UNITS SUBQ BEFORE MEALS, (Reported) Insulin Aspart* (Novolog*), 0 SUBQ AC+HS, (Reported) Insulin Detemir (Levemir Flexpen), 4 SUBQ BID, (Reported) Lisinopril (Zestril), 30 MG ORAL DAILY, (Reported) Metoprolol Tartrate* (Metoprolol Tartrate*), 50 MG ORAL EVERY 12 HOURS, ( Reported) Multivitamin With Minerals (Multivitamins With Minerals*), 1 TAB ORAL DAILY, ( Reported) Pantoprazole* (Pantoprazole*), 40 MG ORAL DAILY, (Reported) Scheduled PRN Acetaminophen* (Acetaminophen 325MG Tablet*), 650 MG ORAL Q6H PRN for Prn Headache/Temp > 101, (Reported) Hydrocodone Bit/Acetaminophen 5-325* (Toston 5-325*), 1 TAB ORAL Q6H PRN for For Pain, (Reported) Loperamide Hcl (Loperamide), 2 MG PO Q4HR PRN for Diarrhea, (Reported) Miscellaneous Medications Collagenase Clostridium Hist. (Collagenase), 1 EACH MC, (Reported) Lactobacillus Acidophilus (Acidophilus), 1 EACH PO, (Reported) Discontinued Medications Amlodipine Besylate/Benazepril* (Amlodipine-Benazepril 10-20 Mg*), 1 CAP ORAL DAILY, (Reported) Discontinued Reason: Pt stopped taking med Ceftriaxone Sodium (Ceftriaxone), 2 GM IV DAILY, (Reported) Discontinued Reason: Pt stopped taking med Furosemide (Furosemide), 20 MG ORAL DAILY, (Reported) Discontinued Reason: Pt stopped taking med Heparin Sod (Porcine) (Heparin Sodium*), 5,000 UNITS SUBQ EVERY 12 HOURS, ( Reported) Discontinued Reason: Pt stopped taking med Insulin Aspart* (Novolog*), 3 SUBQ AC, (Reported) Discontinued Reason: Pt stopped taking med Insulin Detemir (Levemir Flexpen), 10 UNITS SUBQ DAILY, (Reported) Discontinued Reason: Pt stopped taking med Insulin Glargine,Hum.rec.anlog (Toujeo Solostar), 300 UNIT SQ, (Reported) Discontinued Reason: Pt stopped taking med Letrozole (Letrozole), 2.5 MG ORAL DAILY, (Reported) Discontinued Reason: Pt stopped taking med Linagliptin (Tradjenta), 5 MG PO, (Reported) Discontinued Reason: Pt stopped taking med Lorazepam* (Lorazepam*), 1 MG ORAL Q6HR, (Reported) Discontinued Reason: Pt stopped taking med Montelukast Sodium (Montelukast Sodium), 4 MG ORAL DAILY, (Reported) Discontinued Reason: Pt stopped taking med Potassium Chloride (Klor-Con), 20 MEQ ORAL DAILY, (Reported) Discontinued Reason: Pt stopped taking med Sodium Hypochlorite (Dakin's), 1 APPLIC TOPIC DAILY, (Reported) Discontinued Reason: Pt stopped taking med Vancomycin Hcl (Vancomycin Hcl), 125 MG PO FOUR TIMES A DAY, (Reported) Discontinued Reason: Pt stopped taking med Zinc Sulfate (Zinc Sulfate*), 220 MG ORAL DAILY, (Reported) Discontinued Reason: Pt stopped taking med Patient History Limited by: medical condition History Provided By: Patient, Medical Record, PMD Healthcare decision maker SUSAN KIM Resuscitation status Full Code Advanced Directive on File Yes Past Medical/Surgical History Past Medical/Surgical History: (1) Gastroenteritis (2) DVT of lower extremity (deep venous thrombosis) (3) Diabetes mellitus out of control (4) Sacral ulcer (5) Cellulitis of left lower extremity (6) DVT (deep venous thrombosis) Review of Systems Psychiatric: Reports: prior hx, anxiety, depressed feelings, emotional problems Physical Exam General Appearance: WD/WN, no apparent distress, alert Neurologic: oriented x 3, responsive, depressed affect Last 24 Hour Vital Signs Date Time Temp Pulse Resp B/P (MAP) Pulse Ox O2 Delivery O2 Flow Rate FiO2 10/21/17 12:15 72 18 145/64 (91) 96 10/21/17 12:00 63 10/21/17 12:00 71 18 159/67 (97) 95 10/21/17 11:45 75 18 147/65 (92) 98 10/21/17 11:30 71 18 145/63 (90) 95 10/21/17 11:05 68 18 173/71 (105) 94 10/21/17 11:00 66 18 175/75 (108) 95 10/21/17 10:55 68 18 173/72 (105) 94 10/21/17 10:50 69 18 170/74 (106) 95 10/21/17 10:45 68 18 176/74 (108) 96 10/21/17 10:00 67 16 10/21/17 09:00 73 98/65 10/21/17 09:00 98/63 10/21/17 09:00 Room Air 10/21/17 08:01 98.9 73 18 98/63 (75) 93 98.9 10/21/17 08:00 53 10/21/17 08:00 98.9 73 18 98/3 (34) 93 98.9 10/21/17 04:00 98.7 75 20 113/59 (77) 94 98.7 10/21/17 04:00 53 10/21/17 01:05 Room Air 10/21/17 00:00 68 10/21/17 00:00 98.9 73 18 108/62 (77) 93 98.9 10/20/17 21:54 77 10/20/17 21:50 98.9 22 164/77 Room Air 10/20/17 21:28 98.2 58 19 163/77 97 Room Air 98.2 10/20/17 19:05 58 19 170/72 97 Room Air 10/20/17 17:23 98.3 59 18 212/72 93 Room Air 98.2 Intake and Output 10/20/17 10/21/17 19:00 07:00 Intake Total 60 ml Output Total 400 ml Balance -340 ml Intake Oral 60 ml Output Urine Total 400 ml # Bowel Movements 3 Laboratory Tests Test 10/20/17 18:40 10/21/17 00:02 10/21/17 07:06 White Blood Count 8.9 K/UL (4.8-10.8) 8.1 K/UL (4.8-10.8) Red Blood Count 3.55 M/UL (4.20-5.40) L 3.10 M/UL (4.20-5.40) L Hemoglobin 9.2 G/DL (12.0-16.0) L 8.1 G/DL (12.0-16.0) L Hematocrit 29.5 % (37.0-47.0) L 25.5 % (37.0-47.0) L Mean Corpuscular Volume 83 FL (80-99) 82 FL (80-99) Mean Corpuscular Hemoglobin 26.0 PG (27.0-31.0) L 26.3 PG (27.0-31.0) L Mean Corpuscular Hemoglobin Concent 31.3 G/DL (32.0-36.0) L 31.9 G/DL (32.0-36.0) L Red Cell Distribution Width 14.8 % (11.6-14.8) 15.2 % (11.6-14.8) H Platelet Count 329 K/UL (150-450) 315 K/UL (150-450) Mean Platelet Volume 6.1 FL (6.5-10.1) L 6.1 FL (6.5-10.1) L Neutrophils (%) (Auto) 75.3 % (45.0-75.0) H 69.0 % (45.0-75.0) Lymphocytes (%) (Auto) 13.0 % (20.0-45.0) L 17.8 % (20.0-45.0) L Monocytes (%) (Auto) 8.8 % (1.0-10.0) 9.1 % (1.0-10.0) Eosinophils (%) (Auto) 1.9 % (0.0-3.0) 2.5 % (0.0-3.0) Basophils (%) (Auto) 1.1 % (0.0-2.0) 1.6 % (0.0-2.0) Reticulocyte Count 2.0 % (0.0-2.0) Prothrombin Time 11.3 SEC (9.30-11.50) Prothromb Time International Ratio 1.1 (0.9-1.1) Activated Partial Thromboplast Time 28 SEC (23-33) Sodium Level 137 MMOL/L (136-145) 139 MMOL/L (136-145) Potassium Level 3.4 MMOL/L (3.5-5.1) L 3.4 MMOL/L (3.5-5.1) L Chloride Level 102 MMOL/L (98-107) 103 MMOL/L (98-107) Carbon Dioxide Level 29 MMOL/L (21-32) 30 MMOL/L (21-32) Anion Gap 6 mmol/L (5-15) 6 mmol/L (5-15) Blood Urea Nitrogen 11 mg/dL (7-18) 12 mg/dL (7-18) Creatinine 0.8 MG/DL (0.55-1.30) 0.8 MG/DL (0.55-1.30) Estimat Glomerular Filtration Rate mL/min (>60) mL/min (>60) Glucose Level 208 MG/DL (74-106) H 155 MG/DL (74-106) H Hemoglobin A1c 9.9 % (4.3-6.0) H Calcium Level 8.2 MG/DL (8.5-10.1) L 7.7 MG/DL (8.5-10.1) L Iron Level 30 ug/dL (50-175) L Total Iron Binding Capacity 179 ug/dL (250-450) L Percent Iron Saturation 17 % (15-50) Unsaturated Iron Binding 149 ug/dL (112-346) Ferritin 252 NG/ML (8-388) Total Bilirubin 0.3 MG/DL (0.2-1.0) 0.3 MG/DL (0.2-1.0) Aspartate Amino Transf (AST/SGOT) 23 U/L (15-37) 17 U/L (15-37) Alanine Aminotransferase (ALT/SGPT) 23 U/L (12-78) 20 U/L (12-78) Alkaline Phosphatase 111 U/L (46-116) 82 U/L (46-116) Lactate Dehydrogenase 339 U/L (81-234) H Total Protein 6.6 G/DL (6.4-8.2) 5.3 G/DL (6.4-8.2) L Albumin 2.0 G/DL (3.4-5.0) L 1.6 G/DL (3.4-5.0) L Globulin 4.6 g/dL 3.7 g/dL Albumin/Globulin Ratio 0.4 (1.0-2.7) L 0.4 (1.0-2.7) L Vitamin B12 Level 306 PG/ML (193-986) Folate 15.5 NG/ML (8.6-58.9) Stool Occult Blood Positive (NEGATIVE) Microbiology Date/Time Source Procedure Growth Status 10/20/17 22:00 Rectum Received Height (Feet): 5 Height (Inches): 7.00 Weight (Pounds): 114 Medications Current Medications Medications (Trade) Dose Ordered Sig/Julius Route PRN Reason Start Time Stop Time Status Last Admin Dose Admin Acetaminophen/ Hydrocodone Bitart (Toston 5/325) 1 tab Q6H PRN ORAL For Pain 10/20/17 22:15 10/27/17 22:14 10/20/17 23:42 Cefazolin Sodium 2 gm/Dextrose 110 ml @ 110 mls/hr Q12H IVP 10/20/17 23:00 10/27/17 22:59 10/21/17 11:00 Clonidine HCl (Catapres Tab) 0.1 mg Q8H PRN ORAL SBP > 175 10/20/17 22:15 11/19/17 22:14 Dextrose (Dextrose 50%) 25 ml STAT PRN IV Hypoglycemia 10/21/17 08:00 11/20/17 07:59 Dextrose (Dextrose 50%) 50 ml STAT PRN IV Hypoglycemia 10/21/17 08:00 11/20/17 07:59 Enoxaparin Sodium (Lovenox) 50 mg EVERY 12 HOURS SUBQ 10/20/17 21:00 11/19/17 20:59 10/20/17 21:08 Heparin Sodium/ Sodium Chloride (Heparin 2000 units/Ns 1000ml premix) 2,000 unit ONCE INJ 10/21/17 11:00 10/23/17 10:59 Insulin Aspart (NovoLOG) BEFORE MEALS AND HS SUBQ 10/21/17 06:30 11/20/17 06:29 10/21/17 12:14 Insulin Aspart (NovoLOG) 3 units NOVOTIAC SUBQ 10/21/17 11:50 11/20/17 11:49 10/21/17 12:15 Insulin Detemir (Levemir) 3 units BID SUBQ 10/21/17 09:00 11/20/17 08:59 Lidocaine HCl (Xylocaine 1% 30ml) 30 ml NOW PRN INJ Radiology Procedure 10/20/17 23:00 10/23/17 22:47 Lidocaine HCl (Xylocaine 1% 30ml) 30 ml ONCE INJ 10/21/17 11:00 10/23/17 10:59 Lisinopril (Prinivil) 30 mg DAILY ORAL 10/21/17 09:00 11/20/17 08:59 Metoprolol Succinate (Toprol XL) 50 mg Q12HR ORAL 10/21/17 09:00 11/20/17 08:59 Pantoprazole (Protonix) 40 mg DAILY ORAL 10/21/17 09:00 11/20/17 08:59 10/21/17 09:44 Assessment/Plan Status: stable Assessment/Plan Anxiety d/o Insomnia Remeron 7.5mg qhs provided dedrick/Sandy Lopez MD Oct 21, 2017 15:00
[2017-10-21] MEDS: Norco 5mg/325mg tab ORAL PRN (16:12)
--- NOTE | 2017-10-21 20:45 | Consultation ---
DATE OF CONSULTATION: 10/21/2017 INFECTIOUS DISEASE CONSULTATION CONSULTING PHYSICIAN: Estefani Bruce M.D. REQUESTING PHYSICIAN: Erin Pimentel M.D. REASON FOR CONSULTATION: Sacral wound and left leg cellulitis, recommendation for antibiotics treatment. HISTORY OF PRESENT ILLNESS: The patient is an 87-year-old female with past medical history significant for hypertension, diabetes, breast cancer, status post lobectomy, GERD, colitis, and chronic sacral pressure wound, presented to [facility] with swelling of both lower extremity, worse on the left and discomfort from her [facility]. The patient has been complaining of leg pain and swelling for the last couple of days. So, she was sent out to [facility] emergency room to be evaluated for clot. The patient had venous Doppler, which confirmed the presence of deep vein thrombosis in the left leg vein system. She also was found to have sacral pressure wound at least stage III and left leg redness and pain suspect due to cellulitis superimposed on the DVT and so Infectious Disease consultation was requested for further evaluation and treatment. PAST MEDICAL HISTORY: Significant for hypertension, diabetes, breast cancer in 2012, status post lobectomy, gastroenteritis, colitis, and GERD. PAST SURGICAL HISTORY: She had lobectomy of the left breast due to malignancy. ALLERGIES: She has no known drug allergy. MEDICATIONS: She is on insulin, lidocaine, heparin, Protonix, lisinopril, metoprolol, Levemir, clonidine, hydrocodone, and Lovenox. SOCIAL HISTORY: The patient lives at [facility]. No recent drugs, tobacco, or alcohol. FAMILY HISTORY: Not contributory. REVIEW OF SYSTEMS: A 14-point of system reviewed were all negative apart from the one I mentioned above in my History and Physical. PHYSICAL EXAMINATION: GENERAL: Elderly female, lying in bed, awake, alert, and oriented, not in acute distress. Hard of hearing. VITAL SIGNS: Temperature 98.2 degrees, pulse 58, respirations 19, blood pressure 163/77, and saturation 97% on room air. HEENT: Normocephalic and atraumatic. Pupils are reactive to light. Moist oral mucosa. No exudate. NECK: Supple. No lymphadenopathy. CARDIOVASCULAR: Regular rate and rhythm. No murmur or gallop. LUNGS: Clear bilaterally. Diminished breathing sounds at the bases. No wheezing or rhonchi. ABDOMEN: Soft, nontender, and nondistended. Normal bowel sounds. No hepatosplenomegaly. No ascites. EXTREMITIES: She had swelling in both lower extremity, worse on the left with redness and warmth. SKIN: She had sacral pressure wound at least stage III with color and mild exudate and good granulation tissues, does not look infected. LABORATORY AND DIAGNOSTIC DATA: White count 8.9, hemoglobin 9.2 and platelet count 329. BUN of 11 and creatinine of 0.8. AST of 23, ALT of 23, and alkaline phosphatase of 111. Imaging, left lower extremity venous Doppler positive for DVT. ASSESSMENT AND RECOMMENDATION: 1. Cellulitis of the left lower extremity, suspect due to DVT. We will start cefazolin empiric treatment. Keep leg elevated all the time. 2. DVT of the lower extremity. Continue anticoagulation as per Hematology. Keep leg elevated all the time while in bed. 3. Diabetes mellitus, poorly controlled. Recommend tight glycemic control to keep blood glucose between 100 to 140. 4. Sacral pressure wound, not infected. Continue local wound care as per hospital protocol and keep offloading. Thank you for the consult. ID will continue to follow. Estefani Bruce M.D. DR: KATARINA JOB#: [id number] CC:
[2017-10-21 22:09] LABS: BASOPHILS % (AUTO) 0.9 % (0.0-2.0); EOSINOPHILS % (AUTO) 3.5 % (0.0-3.0); HEMATOCRIT 25.1 % (37.0-47.0); LYMPHOCYTES % (AUTO) 15.3 % (20.0-45.0); MEAN CORPUSCULAR VOLUME 82 FL (80-99); MONOCYTES % (AUTO) 10.1 % (1.0-10.0); NEUTROPHILS % (AUTO) 70.1 % (45.0-75.0); PLATELET COUNT 287 K/UL (150-450); RED BLOOD COUNT 3.07 M/UL (4.20-5.40); RED CELL DISTRIBUTION WIDTH 15.2 % (11.6-14.8); WHITE BLOOD COUNT 8.4 K/UL (4.8-10.8)
[2017-10-22] VITALS: BP 146/84
[2017-10-22 04:00] VITALS: BP 122/74
--- NOTE | 2017-10-22 05:00 | History and Physical Report ---
DATE OF ADMISSION: 10/20/2017 NOTE: POOR AUDIO INTERNAL MEDICINE HISTORY AND PHYSICAL REASON FOR : Evaluation of lower extremity DVT. IDENTIFYING DATA: The patient is a pleasant 87-year-old female, admitted last night to [facility] with history of lower extremity DVT, which was noted as well as diabetes mellitus, was seen in the ER by Dr. Grier, was given a dose of Lovenox, and today will have an IVC filter placement given ongoing anemia. PAST MEDICAL HISTORY: As noted above, gastroenteritis, colitis, and breast cancer in 2013 with lumpectomy. PAST SURGICAL HISTORY: Lumpectomy in the past. ALLERGIES: No known drug allergies. SOCIAL HISTORY: No alcohol, tobacco, or illicit drug use. FAMILY HISTORY: Noncontributory. REVIEW OF SYSTEMS: CONSTITUTIONAL: No fevers, chills, or night sweats. SKIN: No rashes, bumps, or itching. HEENT: No headache, hearing or visual changes. BREASTS: . PULMONARY: No cough, sputum, or shortness of breath. GASTROINTESTINAL: No nausea, vomiting, or diarrhea. GENITOURINARY: No dysuria, frequency, or urgency. MUSCULOSKELETAL: No joint swelling, muscle pain, or trauma. PHYSICAL EXAMINATION: VITAL SIGNS: Reviewed. GENERAL: No acute distress. PULMONARY: Decreased breath sounds. Some crackles on the bases. CARDIOVASCULAR: Regular rate. No S3 or S4. ABDOMEN: Soft, nontender, and nondistended. EXTREMITIES: No cyanosis left lower extremity is somewhat swollen. There is 1-2 pitting edema. LABORATORY AND DIAGNOSTIC DATA: WBC 8.9, hemoglobin 9.3, hematocrit 29.5, and platelet count 229,000. ASSESSMENT AND RECOMMENDATIONS: 1. thrombosis of left lower extremity. The patient has received anticoagulation. At this time, consider IVC filter placement. I have consulted Dr. Corea today. The patient's hemoglobin decreased. 2. Anemia due to underlying chronic disease. Anemia workup has been reviewed. Does not require any further workup has anemia of chronic disease. 3. Anemia due to underlying gastrointestinal bleed. Occult blood is positive. Consider GI evaluation. 4. Diabetes mellitus out of control, on NovoLog and Levemir. I appreciate the consultation. Rob Wiseman M.D. DR: OTTONIEL JOB#: [id number] CC:
--- NOTE | 2017-10-22 06:49 | General Progress Note ---
Assessment/Plan Problem List: (1) DVT of lower extremity (deep venous thrombosis) ICD Codes: I82.409 - Acute embolism and thrombosis of unspecified deep veins of unspecified lower extremity SNOMED: 450714209 (2) Diabetes mellitus out of control ICD Codes: E11.65 - Type 2 diabetes mellitus with hyperglycemia SNOMED: 53708489, [id number] Assessment/Plan glucose elevated last night after he missed a dose of Levemir yesterday continue Levemir 3 units bid continue Novolog 3 units ac tid + NISS Subjective Allergies: Coded Allergies: NO KNOWN DRUG ALLERGIES (Verified Allergy, Unknown, 07/10/17) All Systems: reviewed and negative except above Subjective events noted Objective Last 24 Hour Vital Signs Date Time Temp Pulse Resp B/P (MAP) Pulse Ox O2 Delivery O2 Flow Rate FiO2 10/22/17 04:00 98.2 63 20 122/74 (90) 97 98.2 10/22/17 04:00 63 10/22/17 00:00 72 10/22/17 00:00 98.5 70 20 146/84 (104) 96 98.5 10/21/17 21:15 66 154/74 10/21/17 21:00 Room Air 10/21/17 20:00 66 10/21/17 20:00 98.3 66 20 154/74 (100) 96 98.3 10/21/17 17:11 98.4 10/21/17 16:12 98.4 10/21/17 16:00 66 10/21/17 16:00 98.4 68 18 161/68 (99) 95 98.4 10/21/17 12:15 72 18 145/64 (91) 96 10/21/17 12:00 63 10/21/17 12:00 71 18 159/67 (97) 95 10/21/17 11:45 75 18 147/65 (92) 98 10/21/17 11:30 71 18 145/63 (90) 95 10/21/17 11:05 68 18 173/71 (105) 94 10/21/17 11:00 66 18 175/75 (108) 95 10/21/17 10:55 68 18 173/72 (105) 94 10/21/17 10:50 69 18 170/74 (106) 95 10/21/17 10:45 68 18 176/74 (108) 96 10/21/17 10:00 67 16 10/21/17 09:00 73 98/65 10/21/17 09:00 98/63 10/21/17 09:00 Room Air 10/21/17 08:01 98.9 73 18 98/63 (75) 93 98.9 10/21/17 08:00 53 10/21/17 08:00 98.9 73 18 98/3 (34) 93 98.9 Intake and Output 10/21/17 10/22/17 19:00 07:00 Intake Total 200 ml Output Total 400 ml Balance -200 ml Intake Oral 200 ml Output Urine Total 400 ml # Bowel Movements 1 1 Laboratory Tests 10/21/17 07:06: White Blood Count 8.1, Red Blood Count 3.10L, Hemoglobin 8.1L, Hematocrit 25.5L , Mean Corpuscular Volume 82, Mean Corpuscular Hemoglobin 26.3L, Mean Corpuscular Hemoglobin Concent 31.9L, Red Cell Distribution Width 15.2H, Platelet Count 315, Mean Platelet Volume 6.1L, Neutrophils (%) (Auto) 69.0, Lymphocytes (%) (Auto) 17.8L, Monocytes (%) (Auto) 9.1, Eosinophils (%) (Auto) 2.5, Basophils (%) (Auto) 1.6, Sodium Level 139, Potassium Level 3.4L, Chloride Level 103, Carbon Dioxide Level 30, Anion Gap 6, Blood Urea Nitrogen 12, Creatinine 0.8, Estimat Glomerular Filtration Rate , Glucose Level 155H, Calcium Level 7.7L, Total Bilirubin 0.3, Aspartate Amino Transf (AST/SGOT) 17, Alanine Aminotransferase (ALT/SGPT) 20, Alkaline Phosphatase 82, Total Protein 5.3L, Albumin 1.6L, Globulin 3.7, Albumin/Globulin Ratio 0.4L 10/21/17 14:50: Stool Occult Blood [Pending] 10/21/17 20:00: White Blood Count 8.4, Red Blood Count 3.07L, Hemoglobin 8.0L, Hematocrit 25.1L , Mean Corpuscular Volume 82, Mean Corpuscular Hemoglobin 26.1L, Mean Corpuscular Hemoglobin Concent 32.0, Red Cell Distribution Width 15.2H, Platelet Count 287, Mean Platelet Volume 5.9L, Neutrophils (%) (Auto) 70.1, Lymphocytes (%) (Auto) 15.3L, Monocytes (%) (Auto) 10.1H, Eosinophils (%) (Auto ) 3.5H, Basophils (%) (Auto) 0.9 Height (Feet): 5 Height (Inches): 7.00 Weight (Pounds): 114 General Appearance: no apparent distress Neck: normal alignment Cardiovascular: normal rate Respiratory/Chest: lungs clear Abdomen: normal bowel sounds Pelvis: normal external exam Objective Current Medications Medications (Trade) Dose Ordered Sig/Julius Route PRN Reason Start Time Stop Time Status Last Admin Dose Admin Acetaminophen/ Hydrocodone Bitart (Bessie 5/325) 1 tab Q6H PRN ORAL For Pain 10/20/17 22:15 10/27/17 22:14 10/20/17 23:42 Cefazolin Sodium 2 gm/Dextrose 110 ml @ 110 mls/hr Q12H IVP 10/20/17 23:00 10/27/17 22:59 10/20/17 23:27 Clonidine HCl (Catapres Tab) 0.1 mg Q8H PRN ORAL SBP > 175 10/20/17 22:15 11/19/17 22:14 Dextrose (Dextrose 50%) 25 ml STAT PRN IV Hypoglycemia 10/20/17 22:15 11/19/17 22:14 Dextrose (Dextrose 50%) 50 ml STAT PRN IV Hypoglycemia 10/20/17 22:15 11/19/17 22:14 Enoxaparin Sodium (Lovenox) 50 mg EVERY 12 HOURS SUBQ 10/20/17 21:00 11/19/17 20:59 10/20/17 21:08 Insulin Aspart (NovoLOG) BEFORE MEALS AND HS SUBQ 10/21/17 06:30 11/20/17 06:29 10/21/17 05:58 Insulin Detemir (Levemir) 4 units BID SUBQ 10/21/17 09:00 11/20/17 08:59 Lidocaine HCl (Xylocaine 1% 30ml) 30 ml NOW PRN INJ Radiology Procedure 10/20/17 23:00 10/23/17 22:47 Lisinopril (Prinivil) 30 mg DAILY ORAL 10/21/17 09:00 11/20/17 08:59 Metoprolol Succinate (Toprol XL) 50 mg Q12HR ORAL 10/21/17 09:00 11/20/17 08:59 Pantoprazole (Protonix) 40 mg DAILY ORAL 10/21/17 09:00 11/20/17 08:59 Item Value Date Time Bedside Blood Glucose 197 mg/dl H 10/21/17 0558 Nick Wang MD Oct 22, 2017 06:49
[2017-10-22] MEDS: NovoLOG Insulin Flexpen SUBQ SCH ×7 (07:00→21:55)
[2017-10-22 08:00] VITALS: BP 149/48
[2017-10-22] MEDS: Enoxaparin 60mg Inj SUBQ SCH ×2 (08:47→21:56)
[2017-10-22] MEDS: Metoprolol Succinate XL 50mg tab ORAL SCH ×2 (08:58→21:54)
[2017-10-22] MEDS: Lisinopril 20mg tab ORAL SCH (08:58)
[2017-10-22] MEDS: Levemir Flexpen SUBQ SCH ×2 (08:59→17:42)
--- NOTE | 2017-10-22 09:55 | General Progress Note ---
Assessment/Plan Assessment/Plan 1. Deep thrombosis of left lower extremity. The patient has received anticoagulation with lovenox. --> given recurrent anemia, has had a ivc filter placed on 10/21/17 --> in future may consider anticoagulation if h/h stabilizes 2. Anemia due to underlying chronic disease. Anemia workup has been reviewed. --> w/u has been completed and reviewed --> hgb goal is >7 3. Anemia due to underlying gastrointestinal bleed. Occult blood is positive. --> Consider GI evaluation. 4. Diabetes mellitus out of control, on NovoLog and Levemir. 6. Hypokalemia replete with K as needed Subjective Date patient seen: Oct 22, 2017 ROS Limited/Unobtainable: Yes Hematologic/Lymphatic: Reports: anemia Allergies: Coded Allergies: NO KNOWN DRUG ALLERGIES (Verified Allergy, Unknown, 07/10/17) All Systems: reviewed and negative except above Subjective Pt awake and alert. No acute events. Objective Last 24 Hour Vital Signs Date Time Temp Pulse Resp B/P (MAP) Pulse Ox O2 Delivery O2 Flow Rate FiO2 10/22/17 08:58 61 149/48 10/22/17 08:58 149/48 10/22/17 08:00 98.2 61 20 149/48 (81) 94 98.2 10/22/17 04:00 98.2 63 20 122/74 (90) 97 98.2 10/22/17 04:00 63 10/22/17 00:00 72 10/22/17 00:00 98.5 70 20 146/84 (104) 96 98.5 10/21/17 21:15 66 154/74 10/21/17 21:00 Room Air 10/21/17 20:00 66 10/21/17 20:00 98.3 66 20 154/74 (100) 96 98.3 10/21/17 17:11 98.4 10/21/17 16:12 98.4 10/21/17 16:00 66 10/21/17 16:00 98.4 68 18 161/68 (99) 95 98.4 10/21/17 12:15 72 18 145/64 (91) 96 10/21/17 12:00 63 10/21/17 12:00 71 18 159/67 (97) 95 10/21/17 11:45 75 18 147/65 (92) 98 10/21/17 11:30 71 18 145/63 (90) 95 10/21/17 11:05 68 18 173/71 (105) 94 10/21/17 11:00 66 18 175/75 (108) 95 10/21/17 10:55 68 18 173/72 (105) 94 10/21/17 10:50 69 18 170/74 (106) 95 10/21/17 10:45 68 18 176/74 (108) 96 10/21/17 10:00 67 16 Intake and Output 10/21/17 10/22/17 19:00 07:00 Intake Total 200 ml Output Total 400 ml Balance -200 ml Intake Oral 200 ml Output Urine Total 400 ml # Bowel Movements 1 1 Laboratory Tests 10/21/17 14:50: Stool Occult Blood [Pending] 10/21/17 20:00: White Blood Count 8.4, Red Blood Count 3.07L, Hemoglobin 8.0L, Hematocrit 25.1L , Mean Corpuscular Volume 82, Mean Corpuscular Hemoglobin 26.1L, Mean Corpuscular Hemoglobin Concent 32.0, Red Cell Distribution Width 15.2H, Platelet Count 287, Mean Platelet Volume 5.9L, Neutrophils (%) (Auto) 70.1, Lymphocytes (%) (Auto) 15.3L, Monocytes (%) (Auto) 10.1H, Eosinophils (%) (Auto ) 3.5H, Basophils (%) (Auto) 0.9 Height (Feet): 5 Height (Inches): 7.00 Weight (Pounds): 130 General Appearance: alert EENT: TMs normal Neck: supple Cardiovascular: regular rhythm Respiratory/Chest: no respiratory distress Abdomen: no organomegaly Extremities: non-tender Edema: 1+ Leg (L), 1+ Leg (R) Neurologic: alert Skin: normal pigmentation Rob Wiseman MD Oct 22, 2017 09:55
--- NOTE | 2017-10-22 10:51 | General Progress Note ---
Subjective Date patient seen: Oct 22, 2017 Neurologic/Psychiatric: Reports: anxiety, depressed, emotional problems Allergies: Coded Allergies: NO KNOWN DRUG ALLERGIES (Verified Allergy, Unknown, 07/10/17) Objective Last 24 Hour Vital Signs Date Time Temp Pulse Resp B/P (MAP) Pulse Ox O2 Delivery O2 Flow Rate FiO2 10/22/17 09:00 Room Air 10/22/17 08:58 61 149/48 10/22/17 08:58 149/48 10/22/17 08:00 98.2 61 20 149/48 (81) 94 98.2 10/22/17 04:00 98.2 63 20 122/74 (90) 97 98.2 10/22/17 04:00 63 10/22/17 00:00 72 10/22/17 00:00 98.5 70 20 146/84 (104) 96 98.5 10/21/17 21:15 66 154/74 10/21/17 21:00 Room Air 10/21/17 20:00 66 10/21/17 20:00 98.3 66 20 154/74 (100) 96 98.3 10/21/17 17:11 98.4 10/21/17 16:12 98.4 10/21/17 16:00 66 10/21/17 16:00 98.4 68 18 161/68 (99) 95 98.4 10/21/17 12:15 72 18 145/64 (91) 96 10/21/17 12:00 63 10/21/17 12:00 71 18 159/67 (97) 95 10/21/17 11:45 75 18 147/65 (92) 98 10/21/17 11:30 71 18 145/63 (90) 95 10/21/17 11:05 68 18 173/71 (105) 94 10/21/17 11:00 66 18 175/75 (108) 95 10/21/17 10:55 68 18 173/72 (105) 94 Intake and Output 10/21/17 10/22/17 19:00 07:00 Intake Total 200 ml Output Total 400 ml Balance -200 ml Intake Oral 200 ml Output Urine Total 400 ml # Bowel Movements 1 1 Laboratory Tests 10/21/17 14:50: Stool Occult Blood Negative 10/21/17 20:00: White Blood Count 8.4, Red Blood Count 3.07L, Hemoglobin 8.0L, Hematocrit 25.1L , Mean Corpuscular Volume 82, Mean Corpuscular Hemoglobin 26.1L, Mean Corpuscular Hemoglobin Concent 32.0, Red Cell Distribution Width 15.2H, Platelet Count 287, Mean Platelet Volume 5.9L, Neutrophils (%) (Auto) 70.1, Lymphocytes (%) (Auto) 15.3L, Monocytes (%) (Auto) 10.1H, Eosinophils (%) (Auto ) 3.5H, Basophils (%) (Auto) 0.9 Height (Feet): 5 Height (Inches): 7.00 Weight (Pounds): 130 General Appearance: no apparent distress, alert Sandy Blunt MD Oct 22, 2017 10:51
[2017-10-22] MEDS: Lidocaine 1% Plain 30 ml INJ SCH (11:00)
[2017-10-22] MEDS: Heparin 2000 units/Ns 1000ml INJ SCH (11:00)
[2017-10-22] MEDS: ceFAZolin sod 2 GM in D5W 110 ML IVP SCH (11:28)
[2017-10-22 12:00] VITALS: BP 155/65
--- NOTE | 2017-10-22 14:15 | Infectious Diseases Prog Note ---
Assessment/Plan Problems: (1) Cellulitis of left lower extremity Assessment & Plan: suspect due to DVT, continue cefazolin empirically (2) DVT of lower extremity (deep venous thrombosis) Assessment & Plan: S/P IVC filter , continue anticoagulation as per hematology (3) Diabetes mellitus out of control Assessment & Plan: recommend tight glycemic control to keep blood glucose between 100-140 (4) Sacral ulcer Assessment & Plan: continue local wound care as per hospital protocol , keep off loading Subjective Constitutional: Reports: no symptoms HEENT: Reports: no symptoms Respiratory: Reports: no symptoms Breasts: Reports: no symptoms Cardiovascular: Reports: no symptoms Gastrointestinal/Abdominal: Reports: no symptoms Genitourinary: Reports: no symptoms Neurologic: Reports: no symptoms Psychiatric: Reports: no symptoms Skin: Reports: no symptoms Endocrine: Reports: no symptoms Hematologic: Reports: no symptoms Musculoskeletal: Reports: no symptoms Allergies: Coded Allergies: NO KNOWN DRUG ALLERGIES (Verified Allergy, Unknown, 07/10/17) Subjective she was up in bed comfortable, had IVC filter placed yesterday . Objective Vital Signs Last 24 Hour Vital Signs Date Time Temp Pulse Resp B/P (MAP) Pulse Ox O2 Delivery O2 Flow Rate FiO2 10/22/17 12:00 97.3 60 20 155/65 (95) 94 97.3 10/22/17 09:00 Room Air 10/22/17 08:58 61 149/48 10/22/17 08:58 149/48 10/22/17 08:00 98.2 61 20 149/48 (81) 94 98.2 10/22/17 04:00 98.2 63 20 122/74 (90) 97 98.2 10/22/17 04:00 63 10/22/17 00:00 72 10/22/17 00:00 98.5 70 20 146/84 (104) 96 98.5 10/21/17 21:15 66 154/74 10/21/17 21:00 Room Air 10/21/17 20:00 66 10/21/17 20:00 98.3 66 20 154/74 (100) 96 98.3 10/21/17 17:11 98.4 10/21/17 16:12 98.4 10/21/17 16:00 66 10/21/17 16:00 98.4 68 18 161/68 (99) 95 98.4 Height (Feet): 5 Height (Inches): 7.00 Weight (Pounds): 130 General Appearance: WD/WN, no acute distress HEENT: normocephalic, atraumatic, anicteric, mucous membranes moist, EOMI, pharynx normal, supple Respiratory/Chest: chest wall non-tender, lungs clear, normal breath sounds, no respiratory distress, no accessory muscle use Cardiovascular: normal peripheral pulses, normal rate, regular rhythm, no gallop/murmur, no JVD Abdomen: normal bowel sounds, soft, non tender, no organomegaly, non distended , no mass, no scars Extremities: no cyanosis, no clubbing Skin: no rash, no lesions, ulcers Neurologic/Psychiatric: alert, responsive Lymphatic: no neck adenopathy, no groin adenopathy Musculoskeletal: other - leg pain and swelling Microbiology Date/Time Source Procedure Growth Status 10/20/17 22:00 Rectum Received Laboratory Tests Test 10/21/17 14:50 10/21/17 20:00 Stool Occult Blood Negative (NEGATIVE) White Blood Count 8.4 K/UL (4.8-10.8) Red Blood Count 3.07 M/UL (4.20-5.40) L Hemoglobin 8.0 G/DL (12.0-16.0) L Hematocrit 25.1 % (37.0-47.0) L Mean Corpuscular Volume 82 FL (80-99) Mean Corpuscular Hemoglobin 26.1 PG (27.0-31.0) L Mean Corpuscular Hemoglobin Concent 32.0 G/DL (32.0-36.0) Red Cell Distribution Width 15.2 % (11.6-14.8) H Platelet Count 287 K/UL (150-450) Mean Platelet Volume 5.9 FL (6.5-10.1) L Neutrophils (%) (Auto) 70.1 % (45.0-75.0) Lymphocytes (%) (Auto) 15.3 % (20.0-45.0) L Monocytes (%) (Auto) 10.1 % (1.0-10.0) H Eosinophils (%) (Auto) 3.5 % (0.0-3.0) H Basophils (%) (Auto) 0.9 % (0.0-2.0) Current Medications Medications (Trade) Dose Ordered Sig/Julius Route PRN Reason Start Time Stop Time Status Last Admin Dose Admin Acetaminophen/ Hydrocodone Bitart ([place] 5/325) 1 tab Q6H PRN ORAL For Pain 10/20/17 22:15 10/27/17 22:14 10/21/17 16:12 Cefazolin Sodium 2 gm/Dextrose 110 ml @ 110 mls/hr Q12H IVP 10/20/17 23:00 10/27/17 22:59 10/22/17 11:28 Clonidine HCl (Catapres Tab) 0.1 mg Q8H PRN ORAL SBP > 175 10/20/17 22:15 11/19/17 22:14 Dextrose (Dextrose 50%) 25 ml STAT PRN IV Hypoglycemia 10/21/17 08:00 11/20/17 07:59 Dextrose (Dextrose 50%) 50 ml STAT PRN IV Hypoglycemia 10/21/17 08:00 11/20/17 07:59 Enoxaparin Sodium (Lovenox) 60 mg Q12HR SUBQ 10/22/17 21:00 11/21/17 20:59 Heparin Sodium/ Sodium Chloride (Heparin 2000 units/Ns 1000ml premix) 2,000 unit ONCE INJ 10/21/17 11:00 10/23/17 10:59 Insulin Aspart (NovoLOG) BEFORE MEALS AND HS SUBQ 10/21/17 06:30 11/20/17 06:29 10/22/17 07:01 Insulin Aspart (NovoLOG) 3 units NOVOTIAC SUBQ 10/21/17 11:50 11/20/17 11:49 10/22/17 07:00 Insulin Detemir (Levemir) 3 units BID SUBQ 10/21/17 09:00 11/20/17 08:59 10/22/17 08:59 Lidocaine HCl (Xylocaine 1% 30ml) 30 ml NOW PRN INJ Radiology Procedure 10/20/17 23:00 10/23/17 22:47 Lidocaine HCl (Xylocaine 1% 30ml) 30 ml ONCE INJ 10/21/17 11:00 10/23/17 10:59 Lisinopril (Prinivil) 30 mg DAILY ORAL 10/21/17 09:00 11/20/17 08:59 Metoprolol Succinate (Toprol XL) 50 mg Q12HR ORAL 10/21/17 09:00 11/20/17 08:59 10/21/17 21:15 Mirtazapine (Remeron) 7.5 mg BEDTIME ORAL 10/21/17 21:00 11/20/17 20:59 10/21/17 21:15 Pantoprazole (Protonix) 40 mg DAILY ORAL 10/21/17 09:00 11/20/17 08:59 10/22/17 08:46 Estefani Bruce M.D. Oct 22, 2017 14:14
[2017-10-22 16:00] VITALS: BP 154/61
[2017-10-22] MEDS: Norco 5mg/325mg tab ORAL PRN (17:25)
[2017-10-22 20:00] VITALS: BP 147/59
[2017-10-23] VITALS: BP 169/79
[2017-10-23] MEDS: ceFAZolin sod 2 GM in D5W 110 ML IVP SCH ×2 (00:48→11:22)
[2017-10-23] MEDS: Norco 5mg/325mg tab ORAL PRN (01:16)
[2017-10-23 01:51] VITALS: BP 168/88
[2017-10-23 04:00] VITALS: BP 148/58
[2017-10-23] MEDS: NovoLOG Insulin Flexpen SUBQ SCH ×3 (05:36→11:14)
--- NOTE | 2017-10-23 06:36 | General Progress Note ---
Assessment/Plan Problem List: (1) DVT of lower extremity (deep venous thrombosis) ICD Codes: I82.409 - Acute embolism and thrombosis of unspecified deep veins of unspecified lower extremity SNOMED: 366966311 (2) Diabetes mellitus out of control ICD Codes: E11.65 - Type 2 diabetes mellitus with hyperglycemia SNOMED: 61663971, [id number] Assessment/Plan fasting glucose on lower side brittle diabetes reduce Levemir to 2 units bid reduce Novolog to 2 units ac tid + NISS Subjective Allergies: Coded Allergies: NO KNOWN DRUG ALLERGIES (Verified Allergy, Unknown, 07/10/17) All Systems: reviewed and negative except above Subjective events noted Objective Last 24 Hour Vital Signs Date Time Temp Pulse Resp B/P (MAP) Pulse Ox O2 Delivery O2 Flow Rate FiO2 10/23/17 04:00 50 10/23/17 01:52 168/88 10/23/17 01:51 168/88 (114) 10/23/17 00:00 98.2 60 18 169/79 (109) 95 98.2 10/23/17 00:00 56 10/22/17 21:54 63 147/59 10/22/17 21:00 Room Air 10/22/17 20:00 98.6 63 18 147/59 (88) 95 98.6 10/22/17 20:00 64 10/22/17 16:00 65 10/22/17 16:00 97.3 63 20 154/61 (92) 95 97.3 10/22/17 12:00 97.3 60 20 155/65 (95) 94 97.3 10/22/17 12:00 69 10/22/17 09:00 Room Air 10/22/17 08:58 61 149/48 10/22/17 08:58 149/48 10/22/17 08:00 68 10/22/17 08:00 98.2 61 20 149/48 (81) 94 98.2 Intake and Output 10/22/17 10/23/17 19:00 07:00 Intake Total 160 ml Balance 160 ml Intake Oral 160 ml # Voids 7 # Bowel Movements 3 1 Laboratory Tests 10/22/17 21:00: Stool Occult Blood [Pending] Height (Feet): 5 Height (Inches): 7.00 Weight (Pounds): 130 General Appearance: no apparent distress Neck: normal alignment Cardiovascular: normal rate Respiratory/Chest: lungs clear Abdomen: normal bowel sounds Pelvis: normal external exam Objective Current Medications Medications (Trade) Dose Ordered Sig/Julius Route PRN Reason Start Time Stop Time Status Last Admin Dose Admin Acetaminophen/ Hydrocodone Bitart ([place] 5/325) 1 tab Q6H PRN ORAL For Pain 10/20/17 22:15 10/27/17 22:14 10/23/17 01:16 Cefazolin Sodium 2 gm/Dextrose 110 ml @ 110 mls/hr Q12H IVP 10/20/17 23:00 10/27/17 22:59 10/23/17 00:48 Clonidine HCl (Catapres Tab) 0.1 mg Q8H PRN ORAL SBP > 175 10/20/17 22:15 11/19/17 22:14 10/23/17 01:52 Dextrose (Dextrose 50%) 25 ml STAT PRN IV Hypoglycemia 10/21/17 08:00 11/20/17 07:59 Dextrose (Dextrose 50%) 50 ml STAT PRN IV Hypoglycemia 10/21/17 08:00 11/20/17 07:59 Enoxaparin Sodium (Lovenox) 60 mg Q12HR SUBQ 10/22/17 21:00 11/21/17 20:59 10/22/17 21:56 Heparin Sodium/ Sodium Chloride (Heparin 2000 units/Ns 1000ml premix) 2,000 unit ONCE INJ 10/21/17 11:00 10/23/17 10:59 Insulin Aspart (NovoLOG) BEFORE MEALS AND HS SUBQ 10/21/17 06:30 11/20/17 06:29 10/22/17 21:55 Insulin Aspart (NovoLOG) 3 units NOVOTIAC SUBQ 10/21/17 11:50 11/20/17 11:49 10/22/17 16:15 Insulin Detemir (Levemir) 3 units BID SUBQ 10/21/17 09:00 11/20/17 08:59 10/22/17 17:42 Lidocaine HCl (Xylocaine 1% 30ml) 30 ml NOW PRN INJ Radiology Procedure 10/20/17 23:00 10/23/17 22:47 Lidocaine HCl (Xylocaine 1% 30ml) 30 ml ONCE INJ 10/21/17 11:00 10/23/17 10:59 Lisinopril (Prinivil) 30 mg DAILY ORAL 10/21/17 09:00 11/20/17 08:59 Metoprolol Succinate (Toprol XL) 50 mg Q12HR ORAL 10/21/17 09:00 11/20/17 08:59 10/22/17 21:54 Mirtazapine (Remeron) 7.5 mg BEDTIME ORAL 10/21/17 21:00 11/20/17 20:59 10/22/17 21:53 Pantoprazole (Protonix) 40 mg DAILY ORAL 10/21/17 09:00 11/20/17 08:59 10/22/17 08:46 Item Value Date Time Bedside Blood Glucose 364 mg/dl H 10/21/17 2117 Bedside Blood Glucose 301 mg/dl H 10/21/17 1711 Bedside Blood Glucose 167 mg/dl H 10/21/17 1234 Bedside Blood Glucose 197 mg/dl H 10/21/17 0900 Bedside Blood Glucose 197 mg/dl H 10/21/17 0558 Bedside Blood Glucose 69 mg/dl L 10/23/17 0530 Bedside Blood Glucose 183 mg/dl H 10/22/17 2155 Bedside Blood Glucose 102 mg/dl 10/22/17 1742 Bedside Blood Glucose 82 mg/dl 10/22/17 1130 Bedside Blood Glucose 134 mg/dl H 10/22/17 0859 Bedside Blood Glucose 111 mg/dl 10/22/17 0630 Nick Wang MD Oct 23, 2017 06:36
--- NOTE | 2017-10-23 07:09 | Consultation ---
History of Present Illness General Date patient seen: Oct 23, 2017 Time patient seen: 07:04 Chief Complaint: General Complaint Referring physician: Dr. Pimentel Reason for Consultation: Sacral pressure ulcer Present Illness HPI Asked to evaluate this 87 yof known to me from previous admissions and outpatient wound center. 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 She is bedridden. She was admitted to [facility] several days ago for swelling of LLE and had an acute DVT. She underwent IVC filter. She has some mild pain ion her sacral area but no new complaints during this admission. Allergies: Coded Allergies: NO KNOWN DRUG ALLERGIES (Verified Allergy, Unknown, 07/10/17) Medication History Scheduled Ascorbic Acid* (Vitamin C*), 500 MG ORAL DAILY, (Reported) Atorvastatin (Lipitor), 80 MG ORAL BEDTIME, (Reported) Insulin Aspart (Novolog Flexpen), 5 UNITS SUBQ BEFORE MEALS, (Reported) Insulin Aspart* (Novolog*), 0 SUBQ AC+HS, (Reported) Insulin Detemir (Levemir Flexpen), 4 SUBQ BID, (Reported) Lisinopril (Zestril), 30 MG ORAL DAILY, (Reported) Metoprolol Tartrate* (Metoprolol Tartrate*), 50 MG ORAL EVERY 12 HOURS, ( Reported) Multivitamin With Minerals (Multivitamins With Minerals*), 1 TAB ORAL DAILY, ( Reported) Pantoprazole* (Pantoprazole*), 40 MG ORAL DAILY, (Reported) Scheduled PRN Acetaminophen* (Acetaminophen 325MG Tablet*), 650 MG ORAL Q6H PRN for Prn Headache/Temp > 101, (Reported) Hydrocodone Bit/Acetaminophen 5-325* ([place] 5-325*), 1 TAB ORAL Q6H PRN for For Pain, (Reported) Loperamide Hcl (Loperamide), 2 MG PO Q4HR PRN for Diarrhea, (Reported) Miscellaneous Medications Collagenase Clostridium Hist. (Collagenase), 1 EACH MC, (Reported) Lactobacillus Acidophilus (Acidophilus), 1 EACH PO, (Reported) Discontinued Medications Amlodipine Besylate/Benazepril* (Amlodipine-Benazepril 10-20 Mg*), 1 CAP ORAL DAILY, (Reported) Discontinued Reason: Pt stopped taking med Ceftriaxone Sodium (Ceftriaxone), 2 GM IV DAILY, (Reported) Discontinued Reason: Pt stopped taking med Furosemide (Furosemide), 20 MG ORAL DAILY, (Reported) Discontinued Reason: Pt stopped taking med Heparin Sod (Porcine) (Heparin Sodium*), 5,000 UNITS SUBQ EVERY 12 HOURS, ( Reported) Discontinued Reason: Pt stopped taking med Insulin Aspart* (Novolog*), 3 SUBQ AC, (Reported) Discontinued Reason: Pt stopped taking med Insulin Detemir (Levemir Flexpen), 10 UNITS SUBQ DAILY, (Reported) Discontinued Reason: Pt stopped taking med Insulin Glargine,Hum.rec.anlog (Toujeo Solostar), 300 UNIT SQ, (Reported) Discontinued Reason: Pt stopped taking med Letrozole (Letrozole), 2.5 MG ORAL DAILY, (Reported) Discontinued Reason: Pt stopped taking med Linagliptin (Tradjenta), 5 MG PO, (Reported) Discontinued Reason: Pt stopped taking med Lorazepam* (Lorazepam*), 1 MG ORAL Q6HR, (Reported) Discontinued Reason: Pt stopped taking med Montelukast Sodium (Montelukast Sodium), 4 MG ORAL DAILY, (Reported) Discontinued Reason: Pt stopped taking med Potassium Chloride (Klor-Con), 20 MEQ ORAL DAILY, (Reported) Discontinued Reason: Pt stopped taking med Sodium Hypochlorite (Dakin's), 1 APPLIC TOPIC DAILY, (Reported) Discontinued Reason: Pt stopped taking med Vancomycin Hcl (Vancomycin Hcl), 125 MG PO FOUR TIMES A DAY, (Reported) Discontinued Reason: Pt stopped taking med Zinc Sulfate (Zinc Sulfate*), 220 MG ORAL DAILY, (Reported) Discontinued Reason: Pt stopped taking med Patient History History Provided By: Patient, Medical Record Healthcare decision maker SUSAN KIM Resuscitation status Full Code Advanced Directive on File Yes Review of Systems Constitutional: Reports: no symptoms Respiratory: Reports: no symptoms Cardiovascular: Reports: no symptoms, see HPI Skin: Reports: see HPI Psychiatric: Reports: no symptoms Physical Exam General Appearance: no apparent distress, alert Lines, tubes and drains: peripheral Respiratory/Chest: no respiratory distress Abdomen: soft Skin Exam: other - Stage 4 sacral pressure ulcer with granulating base. No slough or necrotic tissue. Appears smaller than previous admission. Periskin in good condition with no maceration, erythema, warmth, or fluctuance. Last 24 Hour Vital Signs Date Time Temp Pulse Resp B/P (MAP) Pulse Ox O2 Delivery O2 Flow Rate FiO2 10/23/17 04:00 97.9 52 18 148/58 (88) 93 97.9 10/23/17 04:00 50 10/23/17 01:52 168/88 10/23/17 01:51 168/88 (114) 10/23/17 00:00 98.2 60 18 169/79 (109) 95 98.2 10/23/17 00:00 56 10/22/17 21:54 63 147/59 10/22/17 21:00 Room Air 10/22/17 20:00 98.6 63 18 147/59 (88) 95 98.6 10/22/17 20:00 64 10/22/17 16:00 65 10/22/17 16:00 97.3 63 20 154/61 (92) 95 97.3 10/22/17 12:00 97.3 60 20 155/65 (95) 94 97.3 10/22/17 12:00 69 10/22/17 09:00 Room Air 10/22/17 08:58 61 149/48 10/22/17 08:58 149/48 10/22/17 08:00 68 10/22/17 08:00 98.2 61 20 149/48 (81) 94 98.2 Intake and Output 10/22/17 10/23/17 19:00 07:00 Intake Total 160 ml Balance 160 ml Intake Oral 160 ml # Voids 7 2 # Bowel Movements 3 2 Laboratory Tests Test 10/22/17 21:00 Stool Occult Blood Pending Height (Feet): 5 Height (Inches): 7.00 Weight (Pounds): 130 Medications Current Medications Medications (Trade) Dose Ordered Sig/Julius Route PRN Reason Start Time Stop Time Status Last Admin Dose Admin Acetaminophen/ Hydrocodone Bitart ([place] 5/325) 1 tab Q6H PRN ORAL For Pain 10/20/17 22:15 10/27/17 22:14 10/23/17 01:16 Cefazolin Sodium 2 gm/Dextrose 110 ml @ 110 mls/hr Q12H IVP 10/20/17 23:00 10/27/17 22:59 10/23/17 00:48 Clonidine HCl (Catapres Tab) 0.1 mg Q8H PRN ORAL SBP > 175 10/20/17 22:15 11/19/17 22:14 10/23/17 01:52 Dextrose (Dextrose 50%) 25 ml STAT PRN IV Hypoglycemia 10/21/17 08:00 11/20/17 07:59 Dextrose (Dextrose 50%) 50 ml STAT PRN IV Hypoglycemia 10/21/17 08:00 11/20/17 07:59 Enoxaparin Sodium (Lovenox) 60 mg Q12HR SUBQ 10/22/17 21:00 11/21/17 20:59 10/22/17 21:56 Heparin Sodium/ Sodium Chloride (Heparin 2000 units/Ns 1000ml premix) 2,000 unit ONCE INJ 10/21/17 11:00 10/23/17 10:59 Insulin Aspart (NovoLOG) BEFORE MEALS AND HS SUBQ 10/21/17 06:30 11/20/17 06:29 10/22/17 21:55 Insulin Aspart (NovoLOG) 2 units NOVOTIAC SUBQ 10/23/17 11:50 11/20/17 11:49 Insulin Detemir (Levemir) 2 units BID SUBQ 10/23/17 09:00 11/20/17 08:59 Lidocaine HCl (Xylocaine 1% 30ml) 30 ml NOW PRN INJ Radiology Procedure 10/20/17 23:00 10/23/17 22:47 Lidocaine HCl (Xylocaine 1% 30ml) 30 ml ONCE INJ 10/21/17 11:00 10/23/17 10:59 Lisinopril (Prinivil) 30 mg DAILY ORAL 10/21/17 09:00 11/20/17 08:59 Metoprolol Succinate (Toprol XL) 50 mg Q12HR ORAL 10/21/17 09:00 11/20/17 08:59 10/22/17 21:54 Mirtazapine (Remeron) 7.5 mg BEDTIME ORAL 10/21/17 21:00 11/20/17 20:59 10/22/17 21:53 Pantoprazole (Protonix) 40 mg DAILY ORAL 10/21/17 09:00 11/20/17 08:59 10/22/17 08:46 Assessment/Plan Status: stable Assessment/Plan Patient with chronic stage 4 sacral pressure ulcer that is improving. Continue offloading. She needs nutritional support as her albumin is 1.6. Continue current wound care and control periwound moisture levels. No need for surgical intervention at this time. Thank you for allowing me to participate in this patient's care. Albert Connell MD Oct 23, 2017 07:09
[2017-10-23 08:00] VITALS: BP 168/69
[2017-10-23] MEDS: Lisinopril 20mg tab ORAL SCH (08:14)
[2017-10-23] MEDS: Metoprolol Succinate XL 50mg tab ORAL SCH ×2 (08:15→08:22)
[2017-10-23] MEDS: Enoxaparin 60mg Inj SUBQ SCH (08:26)
[2017-10-23] MEDS ORDERED: Levemir Flexpen SUBQ SCH (09:00)
--- NOTE | 2017-10-23 10:02 | General Progress Note ---
Assessment/Plan Assessment/Plan S: I am ok O: appears comfortable, denies any sob or chest pain . Very weak PHYSICAL EXAMINATION:HEAD AND NECK: Atraumatic and normocephalic. CHEST: Clear to auscultation. No wheezing. No crackles. HEART: S1 and S2. Regular rate and rhythm. Negative S3. Negative S4. ABDOMEN: Soft. No organomegaly. Bowel sounds are normal. MUSCULOSKELETAL: Atrophied musculatures. Positive for decubitus sores on the Sacral regeion on the sacral area, diffuse erythma in LLENEUROLOGIC: Awake , alert, and oriented x3. LABORATORY AND DIAGNOSTIC DATA: revewied in chart , including HGB of 9.4 ASSESSMENT AND PLAN: 1. Acute Extensive LLE- DVT 2. Diabetes type 2, uncontrolled. 2. Hypoglycemia - multiple incidents - needs adjustment/optimizations of various medications. 4. Acute Anemia: History of multiple episodes 3. Sacral osteomyelitis. Stable 6. GI-DVT prophylaxia Plan: ID, Hemonch and Endo consulted Start ATC, per Hemonch, will monitor the HH Anticipating worsening Anemia, in light of current ATC, will proceed with IVC- filter, in case we need to stop ATC. STAT CBC today. Change the facility per patient request. CM notified. Continuation vs Dis-continuation of ATC pending lab result from today Subjective Allergies: Coded Allergies: NO KNOWN DRUG ALLERGIES (Verified Allergy, Unknown, 07/10/17) Objective Last 24 Hour Vital Signs Date Time Temp Pulse Resp B/P (MAP) Pulse Ox O2 Delivery O2 Flow Rate FiO2 10/23/17 09:00 Room Air 10/23/17 08:22 52 168/69 10/23/17 08:14 168/69 10/23/17 08:00 98.3 52 18 168/69 (102) 95 98.3 10/23/17 04:00 97.9 52 18 148/58 (88) 93 97.9 10/23/17 04:00 50 10/23/17 01:52 168/88 10/23/17 01:51 168/88 (114) 10/23/17 00:00 98.2 60 18 169/79 (109) 95 98.2 10/23/17 00:00 56 10/22/17 21:54 63 147/59 10/22/17 21:00 Room Air 10/22/17 20:00 98.6 63 18 147/59 (88) 95 98.6 10/22/17 20:00 64 10/22/17 16:00 65 10/22/17 16:00 97.3 63 20 154/61 (92) 95 97.3 10/22/17 12:00 97.3 60 20 155/65 (95) 94 97.3 10/22/17 12:00 69 Intake and Output 10/22/17 10/23/17 19:00 07:00 Intake Total 160 ml Balance 160 ml Intake Oral 160 ml # Voids 7 2 # Bowel Movements 3 2 Laboratory Tests 10/22/17 21:00: Stool Occult Blood [Pending] Height (Feet): 5 Height (Inches): 7.00 Weight (Pounds): 130 Erin Pimentel MD Oct 23, 2017 10:02
[2017-10-23 10:47] LABS: BASOPHILS % (AUTO) 0.9 % (0.0-2.0); EOSINOPHILS % (AUTO) 4.1 % (0.0-3.0); HEMATOCRIT 26.6 % (37.0-47.0); HEMOGLOBIN 8.3 G/DL (12.0-16.0); LYMPHOCYTES % (AUTO) 15.2 % (20.0-45.0); MEAN CORPUSCULAR VOLUME 83 FL (80-99); MONOCYTES % (AUTO) 8.7 % (1.0-10.0); NEUTROPHILS % (AUTO) 71.2 % (45.0-75.0); PLATELET COUNT 316 K/UL (150-450); RED BLOOD COUNT 3.22 M/UL (4.20-5.40); RED CELL DISTRIBUTION WIDTH 15.7 % (11.6-14.8); WHITE BLOOD COUNT 8.5 K/UL (4.8-10.8)
[2017-10-23] MEDS ORDERED: NovoLOG Insulin Flexpen SUBQ SCH (11:50)
[2017-10-23 12:00] VITALS: BP 146/62
--- NOTE | 2017-10-23 12:22 | General Progress Note ---
Assessment/Plan Status: stable Assessment/Plan 1. Deep thrombosis of left lower extremity. The patient has received anticoagulation with lovenox. --> given recurrent anemia, has had a ivc filter placed on 10/21/17 --> in future may consider anticoagulation if h/h stabilizes 2. Anemia due to underlying chronic disease. Anemia workup has been reviewed. --> w/u has been completed and reviewed --> hgb goal is >7 3. Anemia due to underlying gastrointestinal bleed. Occult blood is positive. --> Consider GI evaluation. 4. Diabetes mellitus out of control, on NovoLog and Levemir. 6. Hypokalemia replete with K as needed The time the note was entered does not necessarily correspond to the time the patient was seen. Subjective Date patient seen: Oct 23, 2017 ROS Limited/Unobtainable: Yes Hematologic/Lymphatic: Reports: anemia Allergies: Coded Allergies: NO KNOWN DRUG ALLERGIES (Verified Allergy, Unknown, 07/10/17) All Systems: reviewed and negative except above Subjective Pt awake and alert. No acute events. Objective Last 24 Hour Vital Signs Date Time Temp Pulse Resp B/P (MAP) Pulse Ox O2 Delivery O2 Flow Rate FiO2 10/23/17 09:00 Room Air 10/23/17 08:22 52 168/69 10/23/17 08:14 168/69 10/23/17 08:00 98.3 52 18 168/69 (102) 95 98.3 10/23/17 04:00 97.9 52 18 148/58 (88) 93 97.9 10/23/17 04:00 50 10/23/17 01:52 168/88 10/23/17 01:51 168/88 (114) 10/23/17 00:00 98.2 60 18 169/79 (109) 95 98.2 10/23/17 00:00 56 10/22/17 21:54 63 147/59 10/22/17 21:00 Room Air 10/22/17 20:00 98.6 63 18 147/59 (88) 95 98.6 10/22/17 20:00 64 10/22/17 16:00 65 10/22/17 16:00 97.3 63 20 154/61 (92) 95 97.3 Intake and Output 10/22/17 10/23/17 19:00 07:00 Intake Total 160 ml Balance 160 ml Intake Oral 160 ml # Voids 7 2 # Bowel Movements 3 2 Laboratory Tests 10/22/17 21:00: Stool Occult Blood Negative 10/23/17 10:30: White Blood Count 8.5, Red Blood Count 3.22L, Hemoglobin 8.3L, Hematocrit 26.6L , Mean Corpuscular Volume 83, Mean Corpuscular Hemoglobin 25.9L, Mean Corpuscular Hemoglobin Concent 31.3L, Red Cell Distribution Width 15.7H, Platelet Count 316, Mean Platelet Volume 6.0L, Neutrophils (%) (Auto) 71.2, Lymphocytes (%) (Auto) 15.2L, Monocytes (%) (Auto) 8.7, Eosinophils (%) (Auto) 4.1H, Basophils (%) (Auto) 0.9 10/23/17 12:00: Sodium Level [Pending], Potassium Level [Pending], Chloride Level [Pending], Carbon Dioxide Level [Pending], Blood Urea Nitrogen [Pending], Creatinine [ Pending], Estimat Glomerular Filtration Rate [Pending], Glucose Level [Pending] , Calcium Level [Pending] Height (Feet): 5 Height (Inches): 7.00 Weight (Pounds): 130 General Appearance: no apparent distress, alert EENT: PERRL/EOMI Neck: normal alignment Cardiovascular: bradycardia Respiratory/Chest: no respiratory distress Abdomen: soft, no mass Rob Wiseman MD Oct 23, 2017 12:22
[2017-10-23 12:24] LABS: ANION GAP 2 mmol/L (5-15); BLOOD UREA NITROGEN 17 mg/dL (7-18); CALCIUM 8.1 MG/DL (8.5-10.1); CARBON DIOXIDE 32 MMOL/L (21-32); CHLORIDE 104 MMOL/L (98-107); CREATININE 0.8 MG/DL (0.55-1.30); POTASSIUM 3.8 MMOL/L (3.5-5.1); SODIUM 138 MMOL/L (136-145)
--- NOTE | 2017-10-23 12:44 | Diagnostic Imaging Report ---
APPROVED REPORT CPT Code: 68740 RIGHT LEG: Venous imaging reveals a patent deep venous system. There is no evidence of thrombus within the femoral, popliteal or tibial segments. The greater saphenous vein is also within normal limits. Doppler indicates normal spontaneous flow within these segments. LEFT LEG: Venous imaging reveals acute thrombus in the proximal superficial femoral to distal superficial femoral veins. Remainder of the deep venous system within normal limits. No evidence of thrombus in the popliteal and calf veins. RN was notified of abnormal results at 1900 hours.
--- NOTE | 2017-10-23 12:45 | General Progress Note ---
Assessment/Plan Assessment/Plan Anxiety d/o Insomnia Remeron 15mg qhs provided ro/st Subjective Date patient seen: Oct 23, 2017 Neurologic/Psychiatric: Reports: anxiety, emotional problems Allergies: Coded Allergies: NO KNOWN DRUG ALLERGIES (Verified Allergy, Unknown, 07/10/17) Subjective the pt slept and ate better last night. Objective Last 24 Hour Vital Signs Date Time Temp Pulse Resp B/P (MAP) Pulse Ox O2 Delivery O2 Flow Rate FiO2 10/23/17 12:00 98.1 58 18 146/62 (90) 94 98.1 10/23/17 09:00 Room Air 10/23/17 08:22 52 168/69 10/23/17 08:14 168/69 10/23/17 08:00 98.3 52 18 168/69 (102) 95 98.3 10/23/17 04:00 97.9 52 18 148/58 (88) 93 97.9 10/23/17 04:00 50 10/23/17 01:52 168/88 10/23/17 01:51 168/88 (114) 10/23/17 00:00 98.2 60 18 169/79 (109) 95 98.2 10/23/17 00:00 56 10/22/17 21:54 63 147/59 10/22/17 21:00 Room Air 10/22/17 20:00 98.6 63 18 147/59 (88) 95 98.6 10/22/17 20:00 64 10/22/17 16:00 65 10/22/17 16:00 97.3 63 20 154/61 (92) 95 97.3 Intake and Output 10/22/17 10/23/17 19:00 07:00 Intake Total 160 ml Balance 160 ml Intake Oral 160 ml # Voids 7 2 # Bowel Movements 3 2 Laboratory Tests 10/22/17 21:00: Stool Occult Blood Negative 10/23/17 10:30: White Blood Count 8.5, Red Blood Count 3.22L, Hemoglobin 8.3L, Hematocrit 26.6L , Mean Corpuscular Volume 83, Mean Corpuscular Hemoglobin 25.9L, Mean Corpuscular Hemoglobin Concent 31.3L, Red Cell Distribution Width 15.7H, Platelet Count 316, Mean Platelet Volume 6.0L, Neutrophils (%) (Auto) 71.2, Lymphocytes (%) (Auto) 15.2L, Monocytes (%) (Auto) 8.7, Eosinophils (%) (Auto) 4.1H, Basophils (%) (Auto) 0.9 10/23/17 12:00: Sodium Level 138, Potassium Level 3.8, Chloride Level 104, Carbon Dioxide Level 32, Anion Gap 2L, Blood Urea Nitrogen 17, Creatinine 0.8, Estimat Glomerular Filtration Rate , Glucose Level 205H, Calcium Level 8.1L Height (Feet): 5 Height (Inches): 7.00 Weight (Pounds): 130 General Appearance: no apparent distress, alert Neurologic: oriented x 3, responsive, depressed affect Sandy Blunt MD Oct 23, 2017 12:45
[2017-10-23] MEDS ORDERED: XARELTO15 MG ORAL (13:16)
--- NOTE | 2017-10-23 15:22 | Infectious Diseases Prog Note ---
Assessment/Plan Problems: (1) Cellulitis of left lower extremity Assessment & Plan: suspect due to DVT, will switch cefazolin to oral keflex to treat for 7 days total (2) DVT of lower extremity (deep venous thrombosis) Assessment & Plan: S/P IVC filter , continue anticoagulation as per hematology (3) Diabetes mellitus out of control Assessment & Plan: recommend tight glycemic control to keep blood glucose between 100-140 (4) Sacral ulcer Assessment & Plan: continue local wound care as per hospital protocol , keep off loading Subjective Constitutional: Reports: no symptoms HEENT: Reports: no symptoms Respiratory: Reports: no symptoms Breasts: Reports: no symptoms Cardiovascular: Reports: no symptoms Gastrointestinal/Abdominal: Reports: no symptoms Genitourinary: Reports: no symptoms Neurologic: Reports: no symptoms Psychiatric: Reports: no symptoms Skin: Reports: no symptoms Endocrine: Reports: no symptoms Hematologic: Reports: no symptoms Musculoskeletal: Reports: no symptoms Allergies: Coded Allergies: NO KNOWN DRUG ALLERGIES (Verified Allergy, Unknown, 07/10/17) Subjective she was up in bed comfortable, eating lunch, denied any symptoms Objective Vital Signs Last 24 Hour Vital Signs Date Time Temp Pulse Resp B/P (MAP) Pulse Ox O2 Delivery O2 Flow Rate FiO2 10/23/17 12:00 98.1 58 18 146/62 (90) 94 98.1 10/23/17 09:00 Room Air 10/23/17 08:22 52 168/69 10/23/17 08:14 168/69 10/23/17 08:00 98.3 52 18 168/69 (102) 95 98.3 10/23/17 04:00 97.9 52 18 148/58 (88) 93 97.9 10/23/17 04:00 50 10/23/17 01:52 168/88 10/23/17 01:51 168/88 (114) 10/23/17 00:00 98.2 60 18 169/79 (109) 95 98.2 10/23/17 00:00 56 10/22/17 21:54 63 147/59 10/22/17 21:00 Room Air 10/22/17 20:00 98.6 63 18 147/59 (88) 95 98.6 10/22/17 20:00 64 10/22/17 16:00 65 10/22/17 16:00 97.3 63 20 154/61 (92) 95 97.3 Height (Feet): 5 Height (Inches): 7.00 Weight (Pounds): 130 General Appearance: WD/WN, no acute distress HEENT: normocephalic, atraumatic, anicteric, mucous membranes moist Respiratory/Chest: chest wall non-tender, lungs clear, normal breath sounds, no respiratory distress, no accessory muscle use Cardiovascular: normal peripheral pulses, normal rate, regular rhythm, no gallop/murmur, no JVD Abdomen: normal bowel sounds, soft, non tender, no organomegaly, non distended , no mass, no scars Genitourinary: normal external genitalia Extremities: no cyanosis, no clubbing Skin: no rash, no lesions, no ulcers Neurologic/Psychiatric: alert, oriented x 3 Microbiology Date/Time Source Procedure Growth Status 10/20/17 22:00 Nasal Nares MRSA Culture - Final NO METHICILLIN RESISTANT STAPH AUREUS... Complete 10/20/17 22:23 Rectum VRE Culture - Final Enterococcus Faecium - Vre Complete 10/20/17 22:00 Rectum Received Laboratory Tests Test 10/22/17 21:00 10/23/17 10:30 10/23/17 12:00 Stool Occult Blood Negative (NEGATIVE) White Blood Count 8.5 K/UL (4.8-10.8) Red Blood Count 3.22 M/UL (4.20-5.40) L Hemoglobin 8.3 G/DL (12.0-16.0) L Hematocrit 26.6 % (37.0-47.0) L Mean Corpuscular Volume 83 FL (80-99) Mean Corpuscular Hemoglobin 25.9 PG (27.0-31.0) L Mean Corpuscular Hemoglobin Concent 31.3 G/DL (32.0-36.0) L Red Cell Distribution Width 15.7 % (11.6-14.8) H Platelet Count 316 K/UL (150-450) Mean Platelet Volume 6.0 FL (6.5-10.1) L Neutrophils (%) (Auto) 71.2 % (45.0-75.0) Lymphocytes (%) (Auto) 15.2 % (20.0-45.0) L Monocytes (%) (Auto) 8.7 % (1.0-10.0) Eosinophils (%) (Auto) 4.1 % (0.0-3.0) H Basophils (%) (Auto) 0.9 % (0.0-2.0) Sodium Level 138 MMOL/L (136-145) Potassium Level 3.8 MMOL/L (3.5-5.1) Chloride Level 104 MMOL/L (98-107) Carbon Dioxide Level 32 MMOL/L (21-32) Anion Gap 2 mmol/L (5-15) L Blood Urea Nitrogen 17 mg/dL (7-18) Creatinine 0.8 MG/DL (0.55-1.30) Estimat Glomerular Filtration Rate mL/min (>60) Glucose Level 205 MG/DL (74-106) H Calcium Level 8.1 MG/DL (8.5-10.1) L Current Medications Medications (Trade) Dose Ordered Sig/Julius Route PRN Reason Start Time Stop Time Status Last Admin Dose Admin Acetaminophen/ Hydrocodone Bitart ([place] 5/325) 1 tab Q6H PRN ORAL For Pain 10/20/17 22:15 10/27/17 22:14 10/23/17 01:16 Cefazolin Sodium 2 gm/Dextrose 110 ml @ 110 mls/hr Q12H IVP 10/20/17 23:00 10/27/17 22:59 10/23/17 11:22 Clonidine HCl (Catapres Tab) 0.1 mg Q8H PRN ORAL SBP > 175 10/20/17 22:15 11/19/17 22:14 10/23/17 01:52 Dextrose (Dextrose 50%) 25 ml STAT PRN IV Hypoglycemia 10/21/17 08:00 11/20/17 07:59 Dextrose (Dextrose 50%) 50 ml STAT PRN IV Hypoglycemia 10/21/17 08:00 11/20/17 07:59 Insulin Aspart (NovoLOG) BEFORE MEALS AND HS SUBQ 10/21/17 06:30 11/20/17 06:29 10/23/17 11:14 Insulin Aspart (NovoLOG) 2 units NOVOTIAC SUBQ 10/23/17 11:50 11/20/17 11:49 10/23/17 11:15 Insulin Detemir (Levemir) 2 units BID SUBQ 10/23/17 09:00 11/20/17 08:59 10/23/17 08:25 Lidocaine HCl (Xylocaine 1% 30ml) 30 ml NOW PRN INJ Radiology Procedure 10/20/17 23:00 10/23/17 22:47 Lisinopril (Prinivil) 30 mg DAILY ORAL 10/21/17 09:00 11/20/17 08:59 10/23/17 08:14 Metoprolol Succinate (Toprol XL) 50 mg Q12HR ORAL 10/21/17 09:00 11/20/17 08:59 10/22/17 21:54 Mirtazapine (Remeron) 7.5 mg BEDTIME ORAL 10/21/17 21:00 11/20/17 20:59 10/22/17 21:53 Pantoprazole (Protonix) 40 mg DAILY ORAL 10/21/17 09:00 11/20/17 08:59 10/23/17 08:14 Rivaroxaban (Xarelto) 2.5 mg EVERY 12 HOURS ORAL 10/23/17 21:00 11/22/17 20:59 Estefani Tse M.D. Oct 23, 2017 15:22
[2017-10-23] MEDS ORDERED: Cephalexin 500mg cap ORAL SCH (16:00)
[2017-10-23 16:39] VITALS: BP 167/61
[2017-10-23] MEDS ORDERED: Xarelto 10mg tab ORAL SCH (21:00)
--- NOTE | 2017-10-24 06:59 | Discharge Summary ---
Discharge Summary Discharge Summary _ DATE OF ADMISSION: 10/20/2017 DATE OF DISCHARGE: 10/23/2017 CONSULTANTS: Dr. Rob Connell BRIEF HOSPITAL COURSE: Patient is an 87-year-old female, who is a resident at a SNF, presented to ED due to left lower extremity discomfort and swelling. Patient has symptoms of pain and warmness in lower extremity. She denied any chest pain or shortness of breath. No nausea. No vomiting. No diarrhea. No constipation. She has medical history significant for diabetes mellitus, hypoglycemia, history of decubitus wounds and osteomyelitis, colitis, and breast CA status post lumpectomy in 2013. On evaluation at ED, vascular ultrasound showed evidence of an acute thrombosis in the proximal superficial facial femoral to distal superficial femoral vein. Blood work showed WBC of 8.9, hemoglobin 9, hematocrit 25. PT 11.3, INR 1.1 PTT 28. She was given Lovenox injections and was admitted for further workup. She has cellulitis of the left lower extremity and was seen by ID specialist and was placed on Ancef. Patient has DVT and underlying anemia, hemotologist was consulted and assessed she would benefit from IVC filter placement. Anemia workup showed stable ferritin levels. Anemia was assessed to be due to underlying chronic disease. On 10/21/2017, she underwent IR IVC filter placement by Dr. Corea. She has history of diabetes mellitus. Hemoglobin A1c 9.9. Blood glucose was monitored. She had prior episodes of hypoglycemia prior to coming in. She was seen by Dr. Wang. She was started on a lower dose Levemir with 3 units twice a day and NovoLog 3 units before meals meals. Fasting glucose was noted to be on the low side. Further adjustments were made. Insulin was further reduced to Levemir 2 units twice a day and NovoLog 2 units before meals 3 times a day. Patient had episodes of anxiety, however, is cooperative but forgetful. She had problems sleeping and has low appetite. She was seen by Dr. Blunt and was given Remeron 7.5 mg. 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 Patient is bedridden. Wound evaluation was done by Dr. Connell. Pressure ulcer was assessed to be improving. She was continued on wound care treatment and offloading. No surgical intervention needed. FINAL DIAGNOSES: Acute extensive DVT on the left lower extremity status post IVC filter placement Diabetes mellitus type 2 out of control Multiple incidence of hypoglycemia Acute anemia Sacral osteomyelitis, stable, Stage IV pressure ulcer of the sacrum, present on admission DISPOSITION: Patient was discharged to [facility]. DISCHARGE MEDICATIONS: Refer to Medication Reconciliation List. I have been assigned to dictate discharge summary on this account, and I was not involved in the patient's management. Darleen Dior NP Oct 24, 2017 06:59
== END 2017-10-23 16:45 | DRG 252 ==
LOC: EDBD 17:29 → EMR 17:55 → 2E 19:15 → EDBEDREQSVC 19:36 → EDBEDREQ 20:04
PROC: 06H03DZ Insertion of Intraluminal Device into Inferior Vena Cava, Percutaneous Approach (ICD-10-PCS; principal; 2017-10-21)
DX: I82.412 Acute embolism and thrombosis of left femoral vein (principal); L89.154 Pressure ulcer of sacral region, stage 4; L03.116 Cellulitis of left lower limb; M46.28 Osteomyelitis of vertebra, sacral and sacrococcygeal region; K92.2 Gastrointestinal hemorrhage, unspecified; E11.649 Type 2 diabetes mellitus with hypoglycemia without coma; Z85.3 Personal history of malignant neoplasm of breast; D63.8 Anemia in other chronic diseases classified elsewhere; D50.0 Iron deficiency anemia secondary to blood loss (chronic); Z79.4 Long term (current) use of insulin; F41.9 Anxiety disorder, unspecified; G47.00 Insomnia, unspecified; K21.9 Gastro-esophageal reflux disease without esophagitis; E87.6 Hypokalemia
CPT/HCPCS: 36415; 76937; 80048; 80053; 82270; 82607; 82728; 82746; 82962; 83036; 83540; 83550; 83615; 85025; 85044; 85610; 85730; 87081; 93970; J1815; J8499; S5561

== ENCOUNTER 2017-12-14 17:16 | Inpatient (IN) | payer MEDICARE, BC ==
[~2017-12-14] VITALS: Ht 170.2 cm; Wt 60.8 kg
--- NOTE | 2017-12-14 17:13 | Emergency Room Report ---
History of Present Illness General Chief Complaint: General Complaint Source: Patient, Medical Record, EMS Present Illness HPI Patient is a 87 or female brought in by EMS after increased bloody stools. The patient was noted to have prior history of deep venous thrombosis. Patient reportedly had not been taking any blood thinners. The patient had been had debilitated after foot surgery. She had been feeling weak all over. She denies any recent trauma.Patient is brought in by ambulance. The patient was noted to have prior history of diabetes. Allergies: Coded Allergies: NO KNOWN DRUG ALLERGIES (Verified Allergy, Unknown, 07/10/17) Patient History Past Medical History: see triage record Last Menstrual Period: unk Reviewed Nursing Documentation: PMH: Agreed; PSxH: Agreed Nursing Documentation-PMH Hx Hypertension: Yes Hx Diabetes: Yes - Type II Hx Gastrointestinal Problems: Yes - GERD Review of Systems All Other Systems: negative except mentioned in HPI Physical Exam Vital Signs Date Time Temp Pulse Resp B/P (MAP) Pulse Ox O2 Delivery O2 Flow Rate FiO2 12/14/17 17:01 98.3 48 18 141/54 94 Room Air 98.2 Sp02 EP Interpretation: reviewed, normal General Appearance: normal inspection, well appearing, no apparent distress, alert, GCS 15, Chronically Ill Head: atraumatic Eyes: bilateral eye conjunctivae pale ENT: normal ENT inspection, hearing grossly normal, normal voice Neck: normal inspection, full range of motion, supple, no bony tend Respiratory: normal inspection, lungs clear, normal breath sounds, no respiratory distress, no retraction, no wheezing Cardiovascular #1: regular rate, rhythm, no edema Gastrointestinal: normal inspection, normal bowel sounds, non tender, soft, no guarding, no hernia Genitourinary: no CVA tenderness Musculoskeletal: normal inspection, back normal, normal range of motion Neurologic: normal inspection, alert, oriented x3, responsive, speech normal, motor weakness - generalized mild, moves all extremities Psychiatric: normal inspection, judgement/insight normal, mood/affect normal Skin: no rash, pallor Medical Decision Making Diagnostic Impression: Primary Impression: GI bleeding Additional Impressions: Anemia History of DVT (deep vein thrombosis) ER Course Patient presented for rectal bleeding. Differential diagnosis included was not limited to ulcer, diverticulosis, arterial venous malformation, coagulopathy among others.Because of complexity of patient's case laboratory testing and imaging studies were ordered. The patient was given IV Protonix. She was noted to have evidence of anemia. The patient was typed and screened for blood.Dr. Pimentel was contacted for inpatient management due to need for inpatient monitoring and treatment. Labs Test 12/14/17 17:45 White Blood Count 9.1 K/UL (4.8-10.8) Red Blood Count 3.51 M/UL (4.20-5.40) Hemoglobin 9.9 G/DL (12.0-16.0) Hematocrit 29.3 % (37.0-47.0) Mean Corpuscular Volume 83 FL (80-99) Mean Corpuscular Hemoglobin 28.2 PG (27.0-31.0) Mean Corpuscular Hemoglobin Concent 33.8 G/DL (32.0-36.0) Red Cell Distribution Width 16.5 % (11.6-14.8) Platelet Count 500 K/UL (150-450) Mean Platelet Volume 5.3 FL (6.5-10.1) Neutrophils (%) (Auto) 74.0 % (45.0-75.0) Lymphocytes (%) (Auto) 15.9 % (20.0-45.0) Monocytes (%) (Auto) 6.9 % (1.0-10.0) Eosinophils (%) (Auto) 1.5 % (0.0-3.0) Basophils (%) (Auto) 1.8 % (0.0-2.0) Prothrombin Time 12.9 SEC (9.30-11.50) Prothromb Time International Ratio 1.2 (0.9-1.1) Activated Partial Thromboplast Time 34 SEC (23-33) Sodium Level 136 MMOL/L (136-145) Potassium Level 4.1 MMOL/L (3.5-5.1) Chloride Level 101 MMOL/L (98-107) Carbon Dioxide Level 30 MMOL/L (21-32) Anion Gap 5 mmol/L (5-15) Blood Urea Nitrogen 19 mg/dL (7-18) Creatinine 0.7 MG/DL (0.55-1.30) Estimat Glomerular Filtration Rate mL/min (>60) Glucose Level 165 MG/DL (74-106) Calcium Level 7.7 MG/DL (8.5-10.1) Total Bilirubin 0.4 MG/DL (0.2-1.0) Aspartate Amino Transf (AST/SGOT) 38 U/L (15-37) Alanine Aminotransferase (ALT/SGPT) 22 U/L (12-78) Alkaline Phosphatase 140 U/L (46-116) Troponin I 0.022 ng/mL (0.000-0.056) Total Protein 5.1 G/DL (6.4-8.2) Albumin 1.0 G/DL (3.4-5.0) Globulin 4.1 g/dL Albumin/Globulin Ratio 0.2 (1.0-2.7) Lipase 23 U/L (73-393) Last Vital Signs Date Time Temp Pulse Resp B/P (MAP) Pulse Ox O2 Delivery O2 Flow Rate FiO2 12/14/17 17:01 98.3 48 18 141/54 94 Room Air 98.2 Status: unchanged Disposition: ADMITTED INPATIENT Condition: Serious Jax Bravo MD Dec 14, 2017 17:13
[~2017-12-14 17:16] MED LIST changes: +ACIDOPHILUS1 EAC6 PO; +ASCORBIC ACID500 MG ORAL; +CALCIUM 600 +1 EAC6 PO; +COLLAGENASE1 EACH MC; +DULCOLAX10 MG RC; +FERROUS SULFAT325 MG ORAL; +FLEET ENEMA133 M1 RC; +FUROSEMIDE20 M1 ORAL; +MILK OF MA2400 MG/10 ORAL; +NORCO 5-325 TA1 EACH ORAL; +NOVOLOG100 UNIT/5; +PROCRIT40000 UNIT SUBQ; +PROTONIX20 MG ORAL; +TYLENOL EXTRA500 MG ORAL; +XARELTO15 MG ORAL
[2017-12-14] MEDS ORDERED: Pantoprazole Inj IV ONE (17:30)
[2017-12-14 17:51] VITALS: BP 143/43
[2017-12-14 18:11] LABS: BASOPHILS % (AUTO) 1.8 % (0.0-2.0); EOSINOPHILS % (AUTO) 1.5 % (0.0-3.0); HEMATOCRIT 29.3 % (37.0-47.0); HEMOGLOBIN 9.9 G/DL (12.0-16.0); LYMPHOCYTES % (AUTO) 15.9 % (20.0-45.0); MEAN CORPUSCULAR VOLUME 83 FL (80-99); MONOCYTES % (AUTO) 6.9 % (1.0-10.0); PLATELET COUNT 500 K/UL (150-450); RED BLOOD COUNT 3.51 M/UL (4.20-5.40); RED CELL DISTRIBUTION WIDTH 16.5 % (11.6-14.8); WHITE BLOOD COUNT 9.1 K/UL (4.8-10.8)
[2017-12-14 18:14] LABS: INR 1.2 (0.9-1.1)
[2017-12-14 18:25] LABS: ANION GAP 5 mmol/L (5-15); BLOOD UREA NITROGEN 19 mg/dL (7-18); CALCIUM 7.7 MG/DL (8.5-10.1); CARBON DIOXIDE 30 MMOL/L (21-32); CHLORIDE 101 MMOL/L (98-107); CREATININE 0.7 MG/DL (0.55-1.30); POTASSIUM 4.1 MMOL/L (3.5-5.1); SODIUM 136 MMOL/L (136-145)
[2017-12-14 18:29] LABS: ALANINE AMINOTRANSFERASE 22 U/L (12-78); ALBUMIN/GLOBULIN RATIO 0.2 (1.0-2.7); ALKALINE PHOSPHATASE 140 U/L (46-116); ASPARTATE AMINO TRANSFERASE 38 U/L (15-37); BILIRUBIN,TOTAL 0.4 MG/DL (0.2-1.0)
[2017-12-14 19:08] VITALS: BP 132/60
[2017-12-14 20:00] VITALS: BP 127/52
[2017-12-14] MEDS ORDERED: Lisinopril 20mg tab ORAL SCH (22:00)
[2017-12-14] MEDS ORDERED: D5 1/2NS 1,000 ML IV SCH (22:00)
[2017-12-14] MEDS: D5NS 1,000 ML IV SCH (22:25)
[2017-12-14] MEDS ORDERED: Atorvastatin 20mg tab ORAL SCH (22:30)
[2017-12-14] MEDS: NovoLOG Insulin Flexpen SUBQ SCH (22:31)
[2017-12-14 22:46] LABS: FERRITIN 316 NG/ML (8-388)
[2017-12-14 22:58] LABS: % IRON SATURATION 39 % (15-50); IRON 41 ug/dL (50-175); TOTAL IRON BINDING CAPACITY 104 ug/dL (250-450)
--- NOTE | 2017-12-14 23:09 | Infectious Diseases Prog Note ---
Assessment/Plan Problems: (1) Sacral ulcer Assessment & Plan: with H/O osteomyelitis due to proteus mirabilis and Providencia losechiti , , will check ESR and CRP, and blood culture , wound culture was sent from ER . continue local wound care and dressings change as per hospital protocol 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 Subjective Allergies: Coded Allergies: NO KNOWN DRUG ALLERGIES (Verified Allergy, Unknown, 07/10/17) Objective Vital Signs Last 24 Hour Vital Signs Date Time Temp Pulse Resp B/P (MAP) Pulse Ox O2 Delivery O2 Flow Rate FiO2 12/14/17 19:49 98.6 45 14 132/60 96 Room Air 98.6 12/14/17 19:08 98.6 45 14 132/60 96 Room Air 98.6 12/14/17 17:51 98.4 46 20 143/43 95 Room Air 98.4 12/14/17 17:01 98.3 48 18 141/54 94 Room Air 98.2 Height (Feet): 5 Height (Inches): 7.00 Weight (Pounds): 130 Laboratory Tests Test 12/14/17 17:45 12/14/17 17:50 White Blood Count 9.1 K/UL (4.8-10.8) Red Blood Count 3.51 M/UL (4.20-5.40) L Hemoglobin 9.9 G/DL (12.0-16.0) L Hematocrit 29.3 % (37.0-47.0) L Mean Corpuscular Volume 83 FL (80-99) Mean Corpuscular Hemoglobin 28.2 PG (27.0-31.0) Mean Corpuscular Hemoglobin Concent 33.8 G/DL (32.0-36.0) Red Cell Distribution Width 16.5 % (11.6-14.8) H Platelet Count 500 K/UL (150-450) H Mean Platelet Volume 5.3 FL (6.5-10.1) L Neutrophils (%) (Auto) 74.0 % (45.0-75.0) Lymphocytes (%) (Auto) 15.9 % (20.0-45.0) L Monocytes (%) (Auto) 6.9 % (1.0-10.0) Eosinophils (%) (Auto) 1.5 % (0.0-3.0) Basophils (%) (Auto) 1.8 % (0.0-2.0) Prothrombin Time 12.9 SEC (9.30-11.50) H Prothromb Time International Ratio 1.2 (0.9-1.1) H Activated Partial Thromboplast Time 34 SEC (23-33) H Sodium Level 136 MMOL/L (136-145) Potassium Level 4.1 MMOL/L (3.5-5.1) Chloride Level 101 MMOL/L (98-107) Carbon Dioxide Level 30 MMOL/L (21-32) Anion Gap 5 mmol/L (5-15) Blood Urea Nitrogen 19 mg/dL (7-18) H Creatinine 0.7 MG/DL (0.55-1.30) Estimat Glomerular Filtration Rate mL/min (>60) Glucose Level 165 MG/DL (74-106) H Calcium Level 7.7 MG/DL (8.5-10.1) L Total Bilirubin 0.4 MG/DL (0.2-1.0) Aspartate Amino Transf (AST/SGOT) 38 U/L (15-37) H Alanine Aminotransferase (ALT/SGPT) 22 U/L (12-78) Alkaline Phosphatase 140 U/L (46-116) H Troponin I 0.022 ng/mL (0.000-0.056) Total Protein 5.1 G/DL (6.4-8.2) L Albumin 1.0 G/DL (3.4-5.0) L Globulin 4.1 g/dL Albumin/Globulin Ratio 0.2 (1.0-2.7) L Lipase 23 U/L (73-393) L Reticulocyte Count 2.4 % (0.0-2.0) H Iron Level 41 ug/dL (50-175) L Total Iron Binding Capacity 104 ug/dL (250-450) L Percent Iron Saturation 39 % (15-50) Unsaturated Iron Binding 63 ug/dL (112-346) L Ferritin 316 NG/ML (8-388) Vitamin B12 Level 408 PG/ML (193-986) Thyroid Stimulating Hormone (TSH) 21.829 uiU/mL (0.358-3.740) Current Medications Medications (Trade) Dose Ordered Sig/Julius Route PRN Reason Start Time Stop Time Status Last Admin Dose Admin Acetaminophen (Tylenol) 650 mg Q4H PRN ORAL Mild Pain/Temp > 100.5 12/14/17 21:38 01/13/18 21:37 Acetaminophen/ Hydrocodone Bitart ([place] 5/325) 1 tab Q6H PRN ORAL Moderate to Severe pain (4-10) 12/14/17 21:39 12/21/17 21:38 Atorvastatin Calcium (Lipitor) 20 mg BEDTIME ORAL 12/15/17 21:00 01/14/18 20:59 Atorvastatin Calcium (Lipitor) 20 mg ONCE ORAL 12/14/17 22:30 12/14/17 23:30 12/14/17 22:24 Dextrose (Dextrose 50%) 25 ml STAT PRN IV Hypoglycemia 12/14/17 21:37 01/13/18 21:36 Dextrose (Dextrose 50%) 50 ml STAT PRN IV Hypoglycemia 12/14/17 21:37 01/13/18 21:36 Dextrose/Sodium Chloride 1,000 ml @ 100 mls/hr Q10H IV 12/14/17 22:15 01/13/18 22:14 12/14/17 22:25 Epoetin Jacques (Procrit (for non ESRD use)) 40,000 units ONCE A WEEK SUBQ 12/15/17 21:00 01/14/18 20:59 UNV Furosemide (Lasix) 20 mg DAILY IV 12/15/17 09:00 01/14/18 08:59 Insulin Aspart (NovoLOG) BEFORE MEALS AND HS SUBQ 12/14/17 22:00 01/13/18 21:59 Lisinopril (Prinivil) 30 mg DAILY ORAL 12/15/17 09:00 01/14/18 08:59 Ondansetron HCl (Zofran) 4 mg Q6H PRN IVP Nausea & Vomiting 12/14/17 21:38 01/13/18 21:37 Pantoprazole (Protonix) 40 mg DAILY IVP 12/15/17 09:00 01/14/18 08:59 Estefani Bruce M.D. Dec 14, 2017 23:09
[2017-12-15] VITALS: BP 135/57
[2017-12-15 04:00] VITALS: BP 118/55
[2017-12-15] MEDS: NovoLOG Insulin Flexpen SUBQ SCH ×4 (06:02→21:54)
[2017-12-15 07:16] LABS: BASOPHILS % (AUTO) 1.5 % (0.0-2.0); EOSINOPHILS % (AUTO) 2.2 % (0.0-3.0); HEMATOCRIT 29.3 % (37.0-47.0); HEMOGLOBIN 9.3 G/DL (12.0-16.0); LYMPHOCYTES % (AUTO) 15.8 % (20.0-45.0); MEAN CORPUSCULAR VOLUME 84 FL (80-99); MONOCYTES % (AUTO) 7.5 % (1.0-10.0); NEUTROPHILS % (AUTO) 72.9 % (45.0-75.0); PLATELET COUNT 466 K/UL (150-450); RED BLOOD COUNT 3.51 M/UL (4.20-5.40); RED CELL DISTRIBUTION WIDTH 16.5 % (11.6-14.8); WHITE BLOOD COUNT 7.7 K/UL (4.8-10.8)
[2017-12-15 07:29] LABS: ALANINE AMINOTRANSFERASE 19 U/L (12-78); ALBUMIN 0.9 G/DL (3.4-5.0); ALBUMIN/GLOBULIN RATIO 0.2 (1.0-2.7); ALKALINE PHOSPHATASE 126 U/L (46-116); ANION GAP 2 mmol/L (5-15); ASPARTATE AMINO TRANSFERASE 22 U/L (15-37); BILIRUBIN,TOTAL 0.4 MG/DL (0.2-1.0); BLOOD UREA NITROGEN 16 mg/dL (7-18); CALCIUM 7.4 MG/DL (8.5-10.1); CARBON DIOXIDE 33 MMOL/L (21-32); CHLORIDE 103 MMOL/L (98-107); CHOLESTEROL 51 MG/DL (< 200); CREATININE 0.8 MG/DL (0.55-1.30); FERRITIN 306 NG/ML (8-388); HDL CHOLESTEROL 23 MG/DL (40-60); POTASSIUM 3.3 MMOL/L (3.5-5.1); SODIUM 138 MMOL/L (136-145); TRIGLYCERIDES 43 MG/DL (30-150)
[2017-12-15 07:46] LABS: INR 1.3 (0.9-1.1)
[2017-12-15 07:55] LABS: % IRON SATURATION 42 % (15-50); IRON 32 ug/dL (50-175); TOTAL IRON BINDING CAPACITY 77 ug/dL (250-450)
[2017-12-15 07:57] VITALS: BP 124/47
[2017-12-15] MEDS: Lisinopril 20mg tab ORAL SCH (07:58)
[2017-12-15] MEDS: D5NS 1,000 ML IV SCH ×2 (08:15→18:15)
[2017-12-15] MEDS: Pantoprazole Inj IVP SCH (09:40)
--- NOTE | 2017-12-15 10:37 | GI Initial Consult Note ---
History of Present Illness General Date patient seen: Dec 15, 2017 Time patient seen: 10:32 Reason for Hospitalization: General Complaint Referring physician: TINO YING Reason for Consultation: GI BLEED Present Illness HPI Patient is a 87 or female brought in by EMS after increased bloody stools. The patient was noted to have prior history of deep venous thrombosis. Patient reportedly had not been taking any blood thinners. The patient had been had debilitated after foot surgery. She had been feeling weak all over. She denies any recent trauma.Patient is brought in by ambulance. The patient was noted to have prior history of diabetes. GI consulted for GI bleed. Pt seen, awake A&Ox4 NAD with no active s/sx of N/ V. Reports of diarrhea per patient, frequency 3 times daily which has resolved at this time. Denies any abdominal pain. She presents today with anemia, elevated alkaline phosphatase and elevated TSH. Recent history of colonoscopy x 1 year, unknown findings. Home Meds Reported Medications Acetaminophen* (TYLENOL EXTRA STRENGTH*) 500 Mg Tablet, 650 MG ORAL Q6H PRN for Mild Pain/Temp > 100.5, TAB 0 Refills 12/14/17 Epoetin Jacques (PROCRIT) 40,000 Unit/1 Ml Vial, 17666 UNIT SUBQ ONCE A WEEK, VIAL 12/14/17 Pantoprazole Sodium (PROTONIX) 20 Mg Tablet.dr, 40 MG ORAL DAILY, TAB 12/14/17 Insulin Aspart (NOVOLOG) 100 Unit/1 Ml Vial 12/14/17 Hydrocodone Bit/Acetaminophen 5-325* (NORCO 5-325*) 1 Each Tablet, 1 TAB ORAL Q6H PRN for For Pain, #10 TAB 0 Refills 12/14/17 Multivitamin With Minerals (MULTIVITAMINS WITH MINERALS*) 1 Each Tablet, 1 TAB ORAL DAILY, TAB 12/14/17 Magnesium Hydroxide* (MILK OF MAGNESIA*) 2,400 Mg/10 Ml Oral.susp, 30 ML ORAL DAILY, ML 12/14/17 Metoprolol Tartrate* (METOPROLOL TARTRATE*) 50 Mg Tablet, 50 MG ORAL EVERY 12 HOURS, TAB 12/14/17 Loperamide Hcl (LOPERAMIDE) 2 Mg Capsule, 2 MG PO, CAP 12/14/17 Lisinopril (ZESTRIL) 30 Mg Tablet, 30 MG ORAL DAILY, TAB 12/14/17 Insulin Detemir (LEVEMIR FLEXPEN) 100 Unit/1 Ml Insuln.pen, 0 SUBQ BID, #300 UNITS 0 Refills 12/14/17 Furosemide* (LASIX*) 20 Mg Tablet, 20 MG ORAL DAILY, TAB 12/14/17 Na Phos,M-B/Na Phos,Di-Ba (Fleet Enema) 133 Ml Enema, 133 ML RC, EA 12/14/17 Ferrous Sulfate* (FERROUS SULFATE*) 325 Mg Tablet, 325 MG ORAL THREE TIMES A DAY , #90 TAB 0 Refills 12/14/17 Bisacodyl (DULCOLAX) 10 Mg Supp.rect, 10 MG RC, SUPP 12/14/17 Calcium Carbonate/Vitamin D3 (CALCIUM 600 + VIT D 400 TABLET) 1 Each Tablet, 1 EACH PO, TAB 12/14/17 Atorvastatin (Lipitor) 80 Mg Tablet, 80 MG ORAL BEDTIME, #30 TAB 0 Refills 12/14/17 Ascorbic Acid* (ASCORBIC ACID*) 500 Mg Tablet, 500 MG ORAL DAILY, TAB 12/14/17 Rivaroxaban (XARELTO) 15 Mg Tablet, 2.5 MG ORAL EVERY 12 HOURS for 30 Days, MG 0 Refills 10/23/17 Collagenase Clostridium Hist. (COLLAGENASE) 1 Each Powder.ea., 1 EACH MC, EA 10/20/17 Hydrocodone Bit/Acetaminophen 5-325* (NORCO 5-325*) 1 Each Tablet, 1 TAB ORAL Q6H PRN for For Pain, #10 TAB 0 Refills 10/20/17 Lactobacillus Acidophilus (ACIDOPHILUS) 1 Each Capsule, 1 EACH PO, CAP 10/20/17 Metoprolol Tartrate* (METOPROLOL TARTRATE*) 50 Mg Tablet, 50 MG ORAL EVERY 12 HOURS, TAB 08/27/17 Insulin Detemir (LEVEMIR FLEXPEN) 100 Unit/1 Ml Insuln.pen, 4 SUBQ BID, #300 UNITS 0 Refills 08/27/17 Insulin Aspart* (NOVOLOG*) 100 Unit/1 Ml Insuln.pen, 0 SUBQ AC+HS, #1 EA 0 Refills 08/27/17 Ascorbic Acid* (VITAMIN C*) 500 Mg Tablet, 500 MG ORAL DAILY, #30 TAB 0 Refills 08/20/17 Multivitamin With Minerals (MULTIVITAMINS WITH MINERALS*) 1 Each Tablet, 1 TAB ORAL DAILY, TAB 08/20/17 Pantoprazole* (PANTOPRAZOLE*) 40 Mg Tablet.dr, 40 MG ORAL DAILY, TAB 08/01/17 Loperamide Hcl (LOPERAMIDE) 2 Mg Capsule, 2 MG PO Q4HR PRN for Diarrhea, CAP 08/01/17 Insulin Aspart (Novolog Flexpen) 100 Unit/1 Ml Insuln.pen, 5 UNITS SUBQ BEFORE MEALS 08/01/17 Acetaminophen* (ACETAMINOPHEN 325MG TABLET*) 325 Mg Tablet, 650 MG ORAL Q6H PRN for Prn Headache/Temp > 101, TAB 08/01/17 Lisinopril (ZESTRIL) 30 Mg Tablet, 30 MG ORAL DAILY, TAB 07/25/17 Atorvastatin (Lipitor) 80 Mg Tablet, 80 MG ORAL BEDTIME, #30 TAB 0 Refills 07/25/17 Med list reviewed/reconciled: Yes Allergies: Coded Allergies: NO KNOWN DRUG ALLERGIES (Verified Allergy, Unknown, 07/10/17) Patient History History Provided By: Patient, Medical Record PMH Narrative Hx Hypertension: Yes Hx Diabetes: Yes - Type II Hx Gastrointestinal Problems: Yes - GERD Review of Systems All Other Systems: negative except mentioned in HPI Physical Exam Vital Signs Date Time Temp Pulse Resp B/P (MAP) Pulse Ox O2 Delivery O2 Flow Rate FiO2 12/14/17 17:01 98.3 48 18 141/54 94 Room Air 98.2 Sp02 EP Interpretation: reviewed, normal Labs Laboratory Tests Test 12/14/17 17:45 12/14/17 17:50 12/15/17 05:34 White Blood Count 9.1 K/UL (4.8-10.8) 7.7 K/UL (4.8-10.8) Red Blood Count 3.51 M/UL (4.20-5.40) L 3.51 M/UL (4.20-5.40) L Hemoglobin 9.9 G/DL (12.0-16.0) L 9.3 G/DL (12.0-16.0) L Hematocrit 29.3 % (37.0-47.0) L 29.3 % (37.0-47.0) L Mean Corpuscular Volume 83 FL (80-99) 84 FL (80-99) Mean Corpuscular Hemoglobin 28.2 PG (27.0-31.0) 26.5 PG (27.0-31.0) L Mean Corpuscular Hemoglobin Concent 33.8 G/DL (32.0-36.0) 31.8 G/DL (32.0-36.0) L Red Cell Distribution Width 16.5 % (11.6-14.8) H 16.5 % (11.6-14.8) H Platelet Count 500 K/UL (150-450) H 466 K/UL (150-450) H Mean Platelet Volume 5.3 FL (6.5-10.1) L 5.8 FL (6.5-10.1) L Neutrophils (%) (Auto) 74.0 % (45.0-75.0) 72.9 % (45.0-75.0) Lymphocytes (%) (Auto) 15.9 % (20.0-45.0) L 15.8 % (20.0-45.0) L Monocytes (%) (Auto) 6.9 % (1.0-10.0) 7.5 % (1.0-10.0) Eosinophils (%) (Auto) 1.5 % (0.0-3.0) 2.2 % (0.0-3.0) Basophils (%) (Auto) 1.8 % (0.0-2.0) 1.5 % (0.0-2.0) Prothrombin Time 12.9 SEC (9.30-11.50) H 13.1 SEC (9.30-11.50) H Prothromb Time International Ratio 1.2 (0.9-1.1) H 1.3 (0.9-1.1) H Activated Partial Thromboplast Time 34 SEC (23-33) H Sodium Level 136 MMOL/L (136-145) 138 MMOL/L (136-145) Potassium Level 4.1 MMOL/L (3.5-5.1) 3.3 MMOL/L (3.5-5.1) L Chloride Level 101 MMOL/L (98-107) 103 MMOL/L (98-107) Carbon Dioxide Level 30 MMOL/L (21-32) 33 MMOL/L (21-32) H Anion Gap 5 mmol/L (5-15) 2 mmol/L (5-15) L Blood Urea Nitrogen 19 mg/dL (7-18) H 16 mg/dL (7-18) Creatinine 0.7 MG/DL (0.55-1.30) 0.8 MG/DL (0.55-1.30) Estimat Glomerular Filtration Rate mL/min (>60) mL/min (>60) Glucose Level 165 MG/DL (74-106) H 177 MG/DL (74-106) H Calcium Level 7.7 MG/DL (8.5-10.1) L 7.4 MG/DL (8.5-10.1) L Total Bilirubin 0.4 MG/DL (0.2-1.0) 0.4 MG/DL (0.2-1.0) Aspartate Amino Transf (AST/SGOT) 38 U/L (15-37) H 22 U/L (15-37) Alanine Aminotransferase (ALT/SGPT) 22 U/L (12-78) 19 U/L (12-78) Alkaline Phosphatase 140 U/L (46-116) H 126 U/L (46-116) H Troponin I 0.022 ng/mL (0.000-0.056) Total Protein 5.1 G/DL (6.4-8.2) L 4.7 G/DL (6.4-8.2) L Albumin 1.0 G/DL (3.4-5.0) L 0.9 G/DL (3.4-5.0) L Globulin 4.1 g/dL 3.8 g/dL Albumin/Globulin Ratio 0.2 (1.0-2.7) L 0.2 (1.0-2.7) L Lipase 23 U/L (73-393) L Reticulocyte Count 2.4 % (0.0-2.0) H Pending Iron Level 41 ug/dL (50-175) L 32 ug/dL (50-175) L Total Iron Binding Capacity 104 ug/dL (250-450) L 77 ug/dL (250-450) L Percent Iron Saturation 39 % (15-50) 42 % (15-50) Unsaturated Iron Binding 63 ug/dL (112-346) L 45 ug/dL (112-346) L Ferritin 316 NG/ML (8-388) 306 NG/ML (8-388) Vitamin B12 Level 408 PG/ML (193-986) 386 PG/ML (193-986) Thyroid Stimulating Hormone (TSH) 21.829 uiU/mL (0.358-3.740) 21.934 uiU/mL (0.358-3.740) Differential Total Cells Counted 100 Neutrophils % (Manual) 74 % (45-75) Lymphocytes % (Manual) 16 % (20-45) L Monocytes % (Manual) 6 % (1-10) Eosinophils % (Manual) 2 % (0-3) Basophils % (Manual) 2 % (0-2) Band Neutrophils 0 % (0-8) Platelet Estimate Adequate Platelet Morphology Normal Hypochromasia 2+ Anisocytosis 1+ Erythrocyte Sedimentation Rate 35 MM/HR (0-30) H Haptoglobin Pending Hemoglobin A1c 7.8 % (4.3-6.0) H Triglycerides Level 43 MG/DL (30-150) Cholesterol Level 51 MG/DL (< 200) LDL Cholesterol 24 mg/dL (<100) HDL Cholesterol 23 MG/DL (40-60) L Cholesterol/HDL Ratio 2.2 (3.3-4.4) L Methylmalonic Acid Pending Homocystine Pending General Appearance: well appearing, no apparent distress, alert Head: normocephalic EENT: PERRL/EOMI, normal ENT inspection Neck: supple Respiratory: normal breath sounds, no respiratory distress Cardiovascular: normal rate Gastrointestinal: normal inspection, non tender, soft, normal bowel sounds, non -distended Rectal: deferred Genitourinary: no CVA tenderness Musculoskeletal: other - BLE weakness Neurologic: normal inspection, alert, oriented x3, responsive Psychiatric: normal inspection, judgement/insight normal, memory normal Skin: normal inspection, normal color, no rash, warm/dry, palpation normal, well hydrated Lymphatic: normal inspection, no adenopathy Current Medications Current Medications Medications (Trade) Dose Ordered Sig/Julius Route PRN Reason Start Time Stop Time Status Last Admin Dose Admin Acetaminophen (Tylenol) 650 mg Q4H PRN ORAL Mild Pain/Temp > 100.5 12/14/17 21:38 01/13/18 21:37 Acetaminophen/ Hydrocodone Bitart ([place] 5/325) 1 tab Q6H PRN ORAL Moderate to Severe pain (4-10) 12/14/17 21:39 12/21/17 21:38 Atorvastatin Calcium (Lipitor) 20 mg BEDTIME ORAL 12/15/17 21:00 01/14/18 20:59 Dextrose (Dextrose 50%) 25 ml STAT PRN IV Hypoglycemia 12/14/17 21:37 01/13/18 21:36 Dextrose (Dextrose 50%) 50 ml STAT PRN IV Hypoglycemia 12/14/17 21:37 01/13/18 21:36 Dextrose/Sodium Chloride 1,000 ml @ 100 mls/hr Q10H IV 12/14/17 22:15 01/13/18 22:14 12/15/17 08:15 Epoetin Jacques (Procrit (for non ESRD use)) 10,000 units FRI-FRI-FRI SUBQ 12/15/17 21:00 01/14/18 20:59 Furosemide (Lasix) 20 mg DAILY IV 12/15/17 09:00 01/14/18 08:59 12/15/17 09:40 Insulin Aspart (NovoLOG) BEFORE MEALS AND HS SUBQ 12/14/17 22:00 01/13/18 21:59 12/15/17 06:02 Lisinopril (Prinivil) 30 mg DAILY ORAL 12/15/17 09:00 01/14/18 08:59 Ondansetron HCl (Zofran) 4 mg Q6H PRN IVP Nausea & Vomiting 12/14/17 21:38 01/13/18 21:37 Pantoprazole (Protonix) 40 mg DAILY IVP 12/15/17 09:00 01/14/18 08:59 12/15/17 09:40 GI: Plan Problems: (1) GI bleeding (2) Anemia (3) Gastric bleeding Plan anemia work up reviewed >> hypothyroidism history of recent colonoscopy x 1 year no reports of active bleed at this time diarrhea, resolved at this time will consider colonoscopy if patient has persistent bleed and hgb drop OB stool r/o GI bleed monitor H&H, prn transfusions hold bowel regime given recent diarrhea ppi OT eval fu labs Discussed with Dr. Helm. Thank you for this patient referral, we will follow. The patient was seen and examined at bedside and all new and available data was reviewed in the patients chart. I agree with the above findings, impression and plan. (Patient seen earlier today. Signature stamp does not reflect patient encounter time.). - MD Loretta Bella Anh-Aries DEL ANGEL Dec 15, 2017 10:37
[2017-12-15 12:00] VITALS: BP 106/47
--- NOTE | 2017-12-15 12:55 | History & Physical ---
History and Physical History & Physicial HISTORY OF PRESENT ILLNESS: The patient is a pleasant 87-year-old female with a history of decubitus wounds and osteomyelitis, status post incidence of hypoglycemia and hospital evaluation . The patient has been on insulin in the outpatient and was reported to have acute episode of passing Red Blood Per Rectum. The patient has prior history of DVT. patient is transferred for treatment. Otherwise, the patient does not complain of chest pain and shortness of breath. No nausea. No vomiting. No diarrhea. No constipation. ALLERGIES: NKDA. FAMILY HISTORY: Reviewed and noncontributory. SOCIAL HISTORY: The patient is currently residing in a [facility] facility. Her son is visiting on a regular basis. Denies history of illicit drug abuse, smoking, or alcohol abuse. PAST MEDICAL HISTORY: Including, but not limited to, osteomyelitis of the sacral bone, hypertension, hyperlipidemia, diabetes, and hypokalemia.Acute episodes of anemia MEDICATIONS: Current hospital medications including, but not limited to atorvastatin, lisinopril, potassium chloride, and K-Dur. PAST SURGICAL HISTORY: Status post I and D and debridement of the sacral decubitus wounds, stage IV. IVC filter placement PHYSICAL EXAMINATION: VITAL SIGNS: Blood pressure 110/70, temperature 98.2, pulse oximetry 98% on room air, pulse 60, and respiratory rate 18. HEAD AND NECK: Atraumatic and normocephalic. CHEST: Clear to auscultation. No wheezing. No crackles. HEART: S1 and S2. Regular rate and rhythm. Negative S3. Negative S4. ABDOMEN: Soft. No organomegaly. Bowel sounds are normal. MUSCULOSKELETAL: Atrophied musculatures. Positive for decubitus sores on the Sacral regeion on the sacral area, NEUROLOGIC: Awake, alert, and oriented x3. LABORATORY AND DIAGNOSTIC DATA: revewied in chart , including HGB of 9.4 ASSESSMENT AND PLAN: 1. Acute Epside of Rectal Bleeding 2. Diabetes type 2, uncontrolled. 2. Hypoglycemia - multiple incidents - better controlled now 4. Acute Anemia: History of multiple episodes, contra-indication of Anticoagulation 5- Sub Acute DVT: contra-indication of Anticoagulation 6. Sacral osteomyelitis. Stable 7. Sacral Decubitus 6. GI-DVT prophylaxia Plan: ID, GI , Hemonch, Nephrol, infection are consulted NPO IV hydration Only Erin Sena MD Dec 15, 2017 12:55
--- NOTE | 2017-12-15 12:59 | General Progress Note ---
Assessment/Plan Assessment/Plan S: I am ok O: Nephew and his at the bedside. Patient is comfortable. Denies any active bleeding. PHYSICAL EXAMINATION: VITAL SIGNS: .HEAD AND NECK: Atraumatic and normocephalic. CHEST: Clear to auscultation. No wheezing. No crackles. HEART: S1 and S2. Regular rate and rhythm. Negative S3. Negative S4. ABDOMEN: Soft. No organomegaly. Bowel sounds are normal. MUSCULOSKELETAL: Atrophied musculatures. Positive for decubitus sores on the Sacral regeion on the sacral area, NEUROLOGIC: Awake, alert, and oriented x3. LABORATORY AND DIAGNOSTIC DATA: renewed in chart , including HGB of 9.4 Med: reviewed and reconciled. ASSESSMENT AND PLAN: 1. Acute Epside of Rectal Bleeding 2. Diabetes type 2, uncontrolled. 2. Hypoglycemia - multiple incidents - better controlled now 4. Acute Anemia: History of multiple episodes, contra-indication of Anticoagulation 5- Sub Acute DVT: contra-indication of Anticoagulation 6. Sacral osteomyelitis. Stable 7. Sacral Decubitus 6. GI-DVT prophylaxia Plan: ID, GI , Hemonch, Nephrol, infection are consulted HH NPO IV hydration Only SSI Subjective Allergies: Coded Allergies: NO KNOWN DRUG ALLERGIES (Verified Allergy, Unknown, 07/10/17) Objective Last 24 Hour Vital Signs Date Time Temp Pulse Resp B/P (MAP) Pulse Ox O2 Delivery O2 Flow Rate FiO2 12/15/17 09:00 Room Air 12/15/17 08:00 50 12/15/17 07:58 124/47 12/15/17 07:57 97.5 51 18 124/47 (72) 96 97.5 12/15/17 04:00 47 12/15/17 04:00 98.0 50 17 118/55 (76) 95 98.0 12/15/17 00:00 48 12/15/17 00:00 97.9 50 18 135/57 (83) 96 97.9 12/14/17 20:00 97.5 47 18 127/52 (77) 97 97.5 12/14/17 20:00 48 12/14/17 20:00 Room Air 12/14/17 19:49 98.6 45 14 132/60 96 Room Air 98.6 12/14/17 19:08 98.6 45 14 132/60 96 Room Air 98.6 12/14/17 17:51 98.4 46 20 143/43 95 Room Air 98.4 12/14/17 17:01 98.3 48 18 141/54 94 Room Air 98.2 Intake and Output 12/14/17 12/15/17 19:00 07:00 Intake Total 800 ml Output Total 0 ml 300 ml Balance 0 ml 500 ml Intake IV Total 800 ml Output Urine Total 0 ml 300 ml # Bowel Movements 1 Laboratory Tests 12/14/17 17:45: White Blood Count 9.1, Red Blood Count 3.51L, Hemoglobin 9.9L, Hematocrit 29.3L , Mean Corpuscular Volume 83, Mean Corpuscular Hemoglobin 28.2, Mean Corpuscular Hemoglobin Concent 33.8, Red Cell Distribution Width 16.5H, Platelet Count 500H, Mean Platelet Volume 5.3L, Neutrophils (%) (Auto) 74.0, Lymphocytes (%) (Auto) 15.9L, Monocytes (%) (Auto) 6.9, Eosinophils (%) (Auto) 1.5, Basophils (%) (Auto) 1.8, Prothrombin Time 12.9H, Prothromb Time International Ratio 1.2H, Activated Partial Thromboplast Time 34H, Sodium Level 136, Potassium Level 4.1, Chloride Level 101, Carbon Dioxide Level 30, Anion Gap 5, Blood Urea Nitrogen 19H, Creatinine 0.7, Estimat Glomerular Filtration Rate , Glucose Level 165H, Calcium Level 7.7L, Total Bilirubin 0.4, Aspartate Amino Transf (AST/SGOT) 38H, Alanine Aminotransferase (ALT/SGPT) 22, Alkaline Phosphatase 140H, Troponin I 0.022, Total Protein 5.1L, Albumin 1.0L, Globulin 4.1, Albumin/Globulin Ratio 0.2L, Lipase 23L 12/14/17 17:50: Reticulocyte Count 2.4H, Iron Level 41L, Total Iron Binding Capacity 104L, Percent Iron Saturation 39, Unsaturated Iron Binding 63L, Ferritin 316, Vitamin B12 Level 408, Thyroid Stimulating Hormone (TSH) 21.829H 12/15/17 05:34: White Blood Count 7.7, Red Blood Count 3.51L, Hemoglobin 9.3L, Hematocrit 29.3L , Mean Corpuscular Volume 84, Mean Corpuscular Hemoglobin 26.5L, Mean Corpuscular Hemoglobin Concent 31.8L, Red Cell Distribution Width 16.5H, Platelet Count 466H, Mean Platelet Volume 5.8L, Neutrophils (%) (Auto) 72.9, Lymphocytes (%) (Auto) 15.8L, Monocytes (%) (Auto) 7.5, Eosinophils (%) (Auto) 2.2, Basophils (%) (Auto) 1.5, Prothrombin Time 13.1H, Prothromb Time International Ratio 1.3H, Sodium Level 138, Potassium Level 3.3L, Chloride Level 103, Carbon Dioxide Level 33H, Anion Gap 2L, Blood Urea Nitrogen 16, Creatinine 0.8, Estimat Glomerular Filtration Rate , Glucose Level 177H, Calcium Level 7.4L, Total Bilirubin 0.4, Aspartate Amino Transf (AST/SGOT) 22, Alanine Aminotransferase (ALT/SGPT) 19, Alkaline Phosphatase 126H, Total Protein 4.7L, Albumin 0.9L, Globulin 3.8, Albumin/Globulin Ratio 0.2L, Reticulocyte Count [Pending], Iron Level 32L, Total Iron Binding Capacity 77L, Percent Iron Saturation 42, Unsaturated Iron Binding 45L, Ferritin 306, Vitamin B12 Level 386, Thyroid Stimulating Hormone (TSH) 21.934H, Differential Total Cells Counted 100, Neutrophils % (Manual) 74, Lymphocytes % (Manual) 16L, Monocytes % (Manual) 6, Eosinophils % (Manual) 2, Basophils % (Manual) 2, Band Neutrophils 0, Platelet Estimate Adequate, Platelet Morphology Normal, Hypochromasia 2+, Anisocytosis 1+, Erythrocyte Sedimentation Rate 35H, Haptoglobin [Pending], Hemoglobin A1c 7.8H, Triglycerides Level 43, Cholesterol Level 51, LDL Cholesterol 24, HDL Cholesterol 23L, Cholesterol/HDL Ratio 2.2L, Methylmalonic Acid [Pending], Homocystine [Pending] Height (Feet): 5 Height (Inches): 7.00 Weight (Pounds): 134 Erin Pimentel MD Dec 15, 2017 12:59
--- NOTE | 2017-12-15 13:59 | Consultation ---
Consult Note Assessment/Plan DICT # [id number] Tom Sousa MD Dec 15, 2017 13:59
--- NOTE | 2017-12-15 14:03 | Cardiology Report ---
APPROVED REPORT EXAM: Two-dimensional and M-mode echocardiogram with Doppler and color Doppler. INDICATION Bradycardia Normal left ventricular chamber size, systolic function and wall motion. Left ventricular ejection fraction estimated to be 65 %. Mild left ventricular hypertrophy. Small posterior pericardial effusion. Mild left atrial enlargement. Right cardiac chamber sizes are within normal limits. Aortic valve calcification with decreased cusp excursion c/w aortic stenosis. Thickened mitral valve leaflets with normal excursion. Mitral annulus and aortic root calcification. Pulmonic valve not well visualized. Normal tricuspid valve structure. IVC at normal size with physiologic collapse. A color flow and spectral Doppler study was performed and revealed: Trace aortic regurgitation. Peak aortic valve gradient of 44 mm Hg and a mean of 10 mmHg. Aortic valve area 1.4 cm2 calculated by continuity equation suggestive of moderate aortic stenosis. Mild mitral regurgitation. Mitral diastolic velocities suggest reduced left ventricular relaxation c/w mild LV diastolic dysfunction (Grade I). Mild tricuspid regurgitation. Tricuspid systolic velocities suggests peak right ventricular systolic pressure of 40 mmHg, consistent with borderline mild pulmonary hypertension.
--- NOTE | 2017-12-15 14:14 | Cardiology Progress Note ---
Assessment/Plan Assessment/Plan The patient is seen and examined, full consult note is dictated. Objective Last 24 Hour Vital Signs Date Time Temp Pulse Resp B/P (MAP) Pulse Ox O2 Delivery O2 Flow Rate FiO2 12/15/17 12:00 57 12/15/17 12:00 97.9 55 18 106/47 (66) 96 97.9 12/15/17 09:00 Room Air 12/15/17 08:00 50 12/15/17 07:58 124/47 12/15/17 07:57 97.5 51 18 124/47 (72) 96 97.5 12/15/17 04:00 47 12/15/17 04:00 98.0 50 17 118/55 (76) 95 98.0 12/15/17 00:00 48 12/15/17 00:00 97.9 50 18 135/57 (83) 96 97.9 12/14/17 20:00 97.5 47 18 127/52 (77) 97 97.5 12/14/17 20:00 48 12/14/17 20:00 Room Air 12/14/17 19:49 98.6 45 14 132/60 96 Room Air 98.6 12/14/17 19:08 98.6 45 14 132/60 96 Room Air 98.6 12/14/17 17:51 98.4 46 20 143/43 95 Room Air 98.4 12/14/17 17:01 98.3 48 18 141/54 94 Room Air 98.2 Intake and Output 12/14/17 12/15/17 19:00 07:00 Intake Total 800 ml Output Total 0 ml 300 ml Balance 0 ml 500 ml Intake IV Total 800 ml Output Urine Total 0 ml 300 ml # Bowel Movements 1 Laboratory Tests Test 12/14/17 17:45 12/14/17 17:50 12/15/17 05:34 White Blood Count 9.1 K/UL (4.8-10.8) 7.7 K/UL (4.8-10.8) Red Blood Count 3.51 M/UL (4.20-5.40) L 3.51 M/UL (4.20-5.40) L Hemoglobin 9.9 G/DL (12.0-16.0) L 9.3 G/DL (12.0-16.0) L Hematocrit 29.3 % (37.0-47.0) L 29.3 % (37.0-47.0) L Mean Corpuscular Volume 83 FL (80-99) 84 FL (80-99) Mean Corpuscular Hemoglobin 28.2 PG (27.0-31.0) 26.5 PG (27.0-31.0) L Mean Corpuscular Hemoglobin Concent 33.8 G/DL (32.0-36.0) 31.8 G/DL (32.0-36.0) L Red Cell Distribution Width 16.5 % (11.6-14.8) H 16.5 % (11.6-14.8) H Platelet Count 500 K/UL (150-450) H 466 K/UL (150-450) H Mean Platelet Volume 5.3 FL (6.5-10.1) L 5.8 FL (6.5-10.1) L Neutrophils (%) (Auto) 74.0 % (45.0-75.0) 72.9 % (45.0-75.0) Lymphocytes (%) (Auto) 15.9 % (20.0-45.0) L 15.8 % (20.0-45.0) L Monocytes (%) (Auto) 6.9 % (1.0-10.0) 7.5 % (1.0-10.0) Eosinophils (%) (Auto) 1.5 % (0.0-3.0) 2.2 % (0.0-3.0) Basophils (%) (Auto) 1.8 % (0.0-2.0) 1.5 % (0.0-2.0) Prothrombin Time 12.9 SEC (9.30-11.50) H 13.1 SEC (9.30-11.50) H Prothromb Time International Ratio 1.2 (0.9-1.1) H 1.3 (0.9-1.1) H Activated Partial Thromboplast Time 34 SEC (23-33) H Sodium Level 136 MMOL/L (136-145) 138 MMOL/L (136-145) Potassium Level 4.1 MMOL/L (3.5-5.1) 3.3 MMOL/L (3.5-5.1) L Chloride Level 101 MMOL/L (98-107) 103 MMOL/L (98-107) Carbon Dioxide Level 30 MMOL/L (21-32) 33 MMOL/L (21-32) H Anion Gap 5 mmol/L (5-15) 2 mmol/L (5-15) L Blood Urea Nitrogen 19 mg/dL (7-18) H 16 mg/dL (7-18) Creatinine 0.7 MG/DL (0.55-1.30) 0.8 MG/DL (0.55-1.30) Estimat Glomerular Filtration Rate mL/min (>60) mL/min (>60) Glucose Level 165 MG/DL (74-106) H 177 MG/DL (74-106) H Calcium Level 7.7 MG/DL (8.5-10.1) L 7.4 MG/DL (8.5-10.1) L Total Bilirubin 0.4 MG/DL (0.2-1.0) 0.4 MG/DL (0.2-1.0) Aspartate Amino Transf (AST/SGOT) 38 U/L (15-37) H 22 U/L (15-37) Alanine Aminotransferase (ALT/SGPT) 22 U/L (12-78) 19 U/L (12-78) Alkaline Phosphatase 140 U/L (46-116) H 126 U/L (46-116) H Troponin I 0.022 ng/mL (0.000-0.056) Total Protein 5.1 G/DL (6.4-8.2) L 4.7 G/DL (6.4-8.2) L Albumin 1.0 G/DL (3.4-5.0) L 0.9 G/DL (3.4-5.0) L Globulin 4.1 g/dL 3.8 g/dL Albumin/Globulin Ratio 0.2 (1.0-2.7) L 0.2 (1.0-2.7) L Lipase 23 U/L (73-393) L Reticulocyte Count 2.4 % (0.0-2.0) H 2.5 % (0.0-2.0) H Iron Level 41 ug/dL (50-175) L 32 ug/dL (50-175) L Total Iron Binding Capacity 104 ug/dL (250-450) L 77 ug/dL (250-450) L Percent Iron Saturation 39 % (15-50) 42 % (15-50) Unsaturated Iron Binding 63 ug/dL (112-346) L 45 ug/dL (112-346) L Ferritin 316 NG/ML (8-388) 306 NG/ML (8-388) Vitamin B12 Level 408 PG/ML (193-986) 386 PG/ML (193-986) Thyroid Stimulating Hormone (TSH) 21.829 uiU/mL (0.358-3.740) 21.934 uiU/mL (0.358-3.740) Differential Total Cells Counted 100 Neutrophils % (Manual) 74 % (45-75) Lymphocytes % (Manual) 16 % (20-45) L Monocytes % (Manual) 6 % (1-10) Eosinophils % (Manual) 2 % (0-3) Basophils % (Manual) 2 % (0-2) Band Neutrophils 0 % (0-8) Platelet Estimate Adequate Platelet Morphology Normal Hypochromasia 2+ Anisocytosis 1+ Erythrocyte Sedimentation Rate 35 MM/HR (0-30) H Haptoglobin Pending Hemoglobin A1c 7.8 % (4.3-6.0) H Triglycerides Level 43 MG/DL (30-150) Cholesterol Level 51 MG/DL (< 200) LDL Cholesterol 24 mg/dL (<100) HDL Cholesterol 23 MG/DL (40-60) L Cholesterol/HDL Ratio 2.2 (3.3-4.4) L Methylmalonic Acid Pending Homocystine Pending Microbiology Date/Time Source Procedure Growth Status 12/14/17 19:45 Sacral Wound Gram Stain - Final Resulted 12/14/17 19:45 Sacral Wound Wound Culture Pending Resulted José Manuel Degroot MD Dec 15, 2017 14:14
--- NOTE | 2017-12-15 14:37 | Infectious Diseases Prog Note ---
Assessment/Plan Problems: (1) Sacral ulcer Assessment & Plan: with H/O osteomyelitis , ESR and CRP are not suggestive , await blood culture , await wound culture which was sent from ER. continue local wound care and dressings change as per hospital protocol. 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 Subjective Constitutional: Reports: no symptoms HEENT: Reports: no symptoms Respiratory: Reports: no symptoms Breasts: Reports: no symptoms Cardiovascular: Reports: no symptoms Gastrointestinal/Abdominal: Reports: diarrhea Genitourinary: Reports: no symptoms Neurologic: Reports: no symptoms Psychiatric: Reports: no symptoms Skin: Reports: ulcer Endocrine: Reports: no symptoms Hematologic: Reports: bleeding Musculoskeletal: Reports: no symptoms Allergies: Coded Allergies: NO KNOWN DRUG ALLERGIES (Verified Allergy, Unknown, 07/10/17) Objective Vital Signs Last 24 Hour Vital Signs Date Time Temp Pulse Resp B/P (MAP) Pulse Ox O2 Delivery O2 Flow Rate FiO2 12/15/17 12:00 57 12/15/17 12:00 97.9 55 18 106/47 (66) 96 97.9 12/15/17 09:00 Room Air 12/15/17 08:00 50 12/15/17 07:58 124/47 12/15/17 07:57 97.5 51 18 124/47 (72) 96 97.5 12/15/17 04:00 47 12/15/17 04:00 98.0 50 17 118/55 (76) 95 98.0 12/15/17 00:00 48 12/15/17 00:00 97.9 50 18 135/57 (83) 96 97.9 12/14/17 20:00 97.5 47 18 127/52 (77) 97 97.5 12/14/17 20:00 48 12/14/17 20:00 Room Air 12/14/17 19:49 98.6 45 14 132/60 96 Room Air 98.6 12/14/17 19:08 98.6 45 14 132/60 96 Room Air 98.6 12/14/17 17:51 98.4 46 20 143/43 95 Room Air 98.4 12/14/17 17:01 98.3 48 18 141/54 94 Room Air 98.2 Height (Feet): 5 Height (Inches): 7.00 Weight (Pounds): 134 General Appearance: WD/WN, no acute distress HEENT: normocephalic, atraumatic, anicteric, mucous membranes moist, PERRL, supple, no JVD Respiratory/Chest: chest wall non-tender, lungs clear, normal breath sounds, no respiratory distress, no accessory muscle use Cardiovascular: normal peripheral pulses, normal rate, regular rhythm, no gallop/murmur, no JVD Abdomen: normal bowel sounds, soft, non tender, no organomegaly, non distended , no mass, no scars Extremities: no cyanosis, no clubbing Skin: no rash, no lesions, ulcers - sacrum wound clean with healthy tissue at the base , no foul smell Neurologic/Psychiatric: alert, oriented x 3, responsive Lymphatic: no neck adenopathy, no groin adenopathy Musculoskeletal: normal muscle bulk, no effusion Microbiology Date/Time Source Procedure Growth Status 12/14/17 19:45 Sacral Wound Gram Stain - Final Resulted 12/14/17 19:45 Sacral Wound Wound Culture Pending Resulted Laboratory Tests Test 12/14/17 17:45 12/14/17 17:50 12/15/17 05:34 White Blood Count 9.1 K/UL (4.8-10.8) 7.7 K/UL (4.8-10.8) Red Blood Count 3.51 M/UL (4.20-5.40) L 3.51 M/UL (4.20-5.40) L Hemoglobin 9.9 G/DL (12.0-16.0) L 9.3 G/DL (12.0-16.0) L Hematocrit 29.3 % (37.0-47.0) L 29.3 % (37.0-47.0) L Mean Corpuscular Volume 83 FL (80-99) 84 FL (80-99) Mean Corpuscular Hemoglobin 28.2 PG (27.0-31.0) 26.5 PG (27.0-31.0) L Mean Corpuscular Hemoglobin Concent 33.8 G/DL (32.0-36.0) 31.8 G/DL (32.0-36.0) L Red Cell Distribution Width 16.5 % (11.6-14.8) H 16.5 % (11.6-14.8) H Platelet Count 500 K/UL (150-450) H 466 K/UL (150-450) H Mean Platelet Volume 5.3 FL (6.5-10.1) L 5.8 FL (6.5-10.1) L Neutrophils (%) (Auto) 74.0 % (45.0-75.0) 72.9 % (45.0-75.0) Lymphocytes (%) (Auto) 15.9 % (20.0-45.0) L 15.8 % (20.0-45.0) L Monocytes (%) (Auto) 6.9 % (1.0-10.0) 7.5 % (1.0-10.0) Eosinophils (%) (Auto) 1.5 % (0.0-3.0) 2.2 % (0.0-3.0) Basophils (%) (Auto) 1.8 % (0.0-2.0) 1.5 % (0.0-2.0) Prothrombin Time 12.9 SEC (9.30-11.50) H 13.1 SEC (9.30-11.50) H Prothromb Time International Ratio 1.2 (0.9-1.1) H 1.3 (0.9-1.1) H Activated Partial Thromboplast Time 34 SEC (23-33) H Sodium Level 136 MMOL/L (136-145) 138 MMOL/L (136-145) Potassium Level 4.1 MMOL/L (3.5-5.1) 3.3 MMOL/L (3.5-5.1) L Chloride Level 101 MMOL/L (98-107) 103 MMOL/L (98-107) Carbon Dioxide Level 30 MMOL/L (21-32) 33 MMOL/L (21-32) H Anion Gap 5 mmol/L (5-15) 2 mmol/L (5-15) L Blood Urea Nitrogen 19 mg/dL (7-18) H 16 mg/dL (7-18) Creatinine 0.7 MG/DL (0.55-1.30) 0.8 MG/DL (0.55-1.30) Estimat Glomerular Filtration Rate mL/min (>60) mL/min (>60) Glucose Level 165 MG/DL (74-106) H 177 MG/DL (74-106) H Calcium Level 7.7 MG/DL (8.5-10.1) L 7.4 MG/DL (8.5-10.1) L Total Bilirubin 0.4 MG/DL (0.2-1.0) 0.4 MG/DL (0.2-1.0) Aspartate Amino Transf (AST/SGOT) 38 U/L (15-37) H 22 U/L (15-37) Alanine Aminotransferase (ALT/SGPT) 22 U/L (12-78) 19 U/L (12-78) Alkaline Phosphatase 140 U/L (46-116) H 126 U/L (46-116) H Troponin I 0.022 ng/mL (0.000-0.056) Total Protein 5.1 G/DL (6.4-8.2) L 4.7 G/DL (6.4-8.2) L Albumin 1.0 G/DL (3.4-5.0) L 0.9 G/DL (3.4-5.0) L Globulin 4.1 g/dL 3.8 g/dL Albumin/Globulin Ratio 0.2 (1.0-2.7) L 0.2 (1.0-2.7) L Lipase 23 U/L (73-393) L Reticulocyte Count 2.4 % (0.0-2.0) H 2.5 % (0.0-2.0) H Iron Level 41 ug/dL (50-175) L 32 ug/dL (50-175) L Total Iron Binding Capacity 104 ug/dL (250-450) L 77 ug/dL (250-450) L Percent Iron Saturation 39 % (15-50) 42 % (15-50) Unsaturated Iron Binding 63 ug/dL (112-346) L 45 ug/dL (112-346) L Ferritin 316 NG/ML (8-388) 306 NG/ML (8-388) Vitamin B12 Level 408 PG/ML (193-986) 386 PG/ML (193-986) Thyroid Stimulating Hormone (TSH) 21.829 uiU/mL (0.358-3.740) 21.934 uiU/mL (0.358-3.740) Differential Total Cells Counted 100 Neutrophils % (Manual) 74 % (45-75) Lymphocytes % (Manual) 16 % (20-45) L Monocytes % (Manual) 6 % (1-10) Eosinophils % (Manual) 2 % (0-3) Basophils % (Manual) 2 % (0-2) Band Neutrophils 0 % (0-8) Platelet Estimate Adequate Platelet Morphology Normal Hypochromasia 2+ Anisocytosis 1+ Erythrocyte Sedimentation Rate 35 MM/HR (0-30) H Haptoglobin Pending Hemoglobin A1c 7.8 % (4.3-6.0) H Triglycerides Level 43 MG/DL (30-150) Cholesterol Level 51 MG/DL (< 200) LDL Cholesterol 24 mg/dL (<100) HDL Cholesterol 23 MG/DL (40-60) L Cholesterol/HDL Ratio 2.2 (3.3-4.4) L Methylmalonic Acid Pending Homocystine Pending Current Medications Medications (Trade) Dose Ordered Sig/Julius Route PRN Reason Start Time Stop Time Status Last Admin Dose Admin Acetaminophen (Tylenol) 650 mg Q4H PRN ORAL Mild Pain/Temp > 100.5 12/14/17 21:38 01/13/18 21:37 Acetaminophen/ Hydrocodone Bitart ([place]ite 5/325) 1 tab Q6H PRN ORAL Moderate to Severe pain (4-10) 12/14/17 21:39 12/21/17 21:38 Atorvastatin Calcium (Lipitor) 20 mg BEDTIME ORAL 12/15/17 21:00 01/14/18 20:59 Dextrose (Dextrose 50%) 25 ml STAT PRN IV Hypoglycemia 12/14/17 21:37 01/13/18 21:36 Dextrose (Dextrose 50%) 50 ml STAT PRN IV Hypoglycemia 12/14/17 21:37 01/13/18 21:36 Dextrose/Sodium Chloride 1,000 ml @ 100 mls/hr Q10H IV 12/14/17 22:15 01/13/18 22:14 12/15/17 08:15 Epoetin Jacques (Procrit (for non ESRD use)) 10,000 units MON-WED-FRI SUBQ 12/15/17 21:00 01/14/18 20:59 Furosemide (Lasix) 20 mg DAILY IV 12/15/17 09:00 01/14/18 08:59 12/15/17 09:40 Insulin Aspart (NovoLOG) BEFORE MEALS AND HS SUBQ 12/14/17 22:00 01/13/18 21:59 12/15/17 11:40 Levothyroxine Sodium (Synthroid) 25 mcg DAILY@0630 ORAL 12/16/17 06:30 01/15/18 06:29 Lisinopril (Prinivil) 30 mg DAILY ORAL 12/15/17 09:00 01/14/18 08:59 Mirtazapine (Remeron) 15 mg BEDTIME ORAL 12/15/17 21:00 01/14/18 20:59 Ondansetron HCl (Zofran) 4 mg Q6H PRN IVP Nausea & Vomiting 12/14/17 21:38 01/13/18 21:37 Pantoprazole (Protonix) 40 mg DAILY IVP 12/15/17 09:00 01/14/18 08:59 12/15/17 09:40 Estefani Bruce M.D. Dec 15, 2017 14:37
--- NOTE | 2017-12-15 15:30 | Consultation ---
DATE OF CONSULTATION: 12/15/2017 PULMONARY CONSULTATION CONSULTING PHYSICIAN: Tom Sousa M.D. REFERRING PHYSICIAN: Erin Pimentel M.D. REASON FOR CONSULTATION: DVT and dyspnea. HISTORY OF PRESENT ILLNESS: The patient is an 87-year-old female, [facility] resident with a history of prior DVT, status post IVC filter placement, known GI bleed, not currently on anticoagulation, who presented with bright red blood per rectum. She has known sacral osteomyelitis and decubitus ulcers as well. She has been afebrile, since she has been hospitalized and saturating well on room air. She has had sinus bradycardia in the 40s and 50s. Her hemoglobin and hematocrit was 9.9 on presentation, 9.3 today. No white count. INR is 1.3. Platelets were normal and renal function was normal. She does have an elevated blood glucose and hemoglobin A1c and evidence of iron deficiency anemia. She has been seen and evaluated by the GI service. She also has an elevated TSH and TFTs are pending. The patient herself states she is tired and lightheaded, but denies any other complaints. Denies any cough, congestion, shortness of breath, wheezing, nausea, vomiting, diarrhea, or constipation. She does have bright red blood per rectum as noted. PAST MEDICAL HISTORY: 1. Prior DVT. 2. Sacral decubitus ulcer. 3. History of GI bleed. 4. Hypertension. 5. Hypothyroidism. 6. Diabetes. 7. GERD. ALLERGIES: No known drug allergies. MEDICATIONS: Prior to admission, medications reviewed. Current medications, reviewed. SOCIAL HISTORY: She denies tobacco, alcohol, or drug use. FAMILY HISTORY: Noncontributory. REVIEW OF SYSTEMS: Unobtainable. PHYSICAL EXAMINATION: VITAL SIGNS: Temperature 97.5, pulse 51, blood pressure , and respiratory rate 18. GENERAL: This is an elderly female, in no acute distress. Awake, alert, and oriented x2. HEENT: Normocephalic and atraumatic. Oropharynx is clear. Moist mucous membranes. Pale conjunctivae are noted. NECK: Supple without lymphadenopathy. CHEST: Clear. HEART: Bradycardic, but regular. ABDOMEN: Soft, nontender, and nondistended. EXTREMITIES: No cyanosis, clubbing, or edema. She has sacral ulcer. ANCILLARY DATA: Laboratories reviewed. Imaging, IVC filter placement . Chest x-ray showed small bilateral pleural effusions. She had PICC line at that point. She has an echocardiogram from 07/25/2017 that shows normal LV size and function. EF 65%. Moderate LVH. Mildly thickened mitral leaflet. IVC normal. Aortic area 1.3 cm squared. PA pressure was 30. ASSESSMENT: The patient is an 87-year-old female, [facility] resident with history of hypertension, hyperlipidemia, hypothyroidism, diabetes, sacral decubitus ulcers, prior DVT, status post IVC filter, now presenting with bright red blood per rectum. The patient has been fairly stable from a respiratory standpoint. PROBLEM LIST: 1. Bright red blood per rectum. 2. DVT, status post IVC filter. 3. Aortic stenosis. 4. Hypertension. 5. Hyperlipidemia. 6. Hypothyroidism, now with markedly elevated TSH. 7. Diabetes. 8. Sacral decubitus ulcer. TREATMENT PLAN: 1. Monitor hemoglobin and hematocrit, transfuse as necessary, follow up GI recommendations, possible endoscopic evaluation. 2. Continue Epogen, follow up Hematology recommendations. 3. Anticoagulation held, given history of GI bleed, the patient is status post IVC filter per report. 4. Monitor volumes, p.r.n. Lasix. 5. We will check a chest x-ray. 6. Aspiration precautions. 7. Wound care, observe off antibiotics per ID. 8. Try to optimize glycemic control. Dr. Pimentel, thank you for allowing me to assist in the care of your patient. If I may be of any assistance in the future, please do not hesitate to ask. Tom Sousa M.D. DR: CHRISTINE JOB#: [id number] CC:
--- NOTE | 2017-12-15 15:35 | Diagnostic Imaging Report ---
Indication: Cough Technique: XRAY Chest 1v Comparison: 08/20/2017 Findings: Heart size and mediastinal contours appear stable. Right suprahilar and infrahilar airspace opacities. There is trace left and small right pleural effusion with bibasilar atelectasis/consolidation. No pneumothorax. IVC filter partially visualized. There is osteopenia, scoliosis and multilevel degenerative change of the spine. Multiple surgical clips noted in the left axilla. IMPRESSION: Bilateral pleural effusions, right greater than left, with bibasilar atelectasis/consolidation. Suprahilar opacity is also noted in the right. Correlate clinically to assess for pneumonia.
[2017-12-15 16:00] VITALS: BP 136/58
--- NOTE | 2017-12-15 16:15 | Consultation ---
DATE OF CONSULTATION: 12/14/2017 INFECTIOUS DISEASE CONSULTATION CONSULTING PHYSICIAN: Estefani Bruce M.D. REQUESTING PHYSICIAN: Erin Pimentel M.D. REASON FOR CONSULTATION: Sacral pressure wound with drainage and history of osteomyelitis, recommendation for antibiotics treatment and further management. HISTORY OF PRESENT ILLNESS: The patient is an 87-year-old female with past medical history of sacral decubitus pressure wound stage IV and osteomyelitis in the past, status post antibiotics treatment for six-week, was complicated with C. diff colitis, which she was treated for in the past, presented to [facility] emergency room for rectal bleeding, which she noticed for the last three days. The patient had prior history of DVT and she has been on anticoagulation, but now presented with rectal bleeding, which she never had before. The patient denied any abdominal pain, nausea, vomiting, or diarrhea. She denied any sacral pain or significant drainage from the pressure wound. No foul smell or significant exudate or necrosis or sloughing. So, due to the chronicity of her pressure wound in the sacrum, Infectious Disease consultation was requested for further evaluation and possible antibiotics treatment. REVIEW OF SYSTEMS: A 14-point of systems reviewed were all negative apart from the one I mentioned above in my History and Physical. PAST MEDICAL HISTORY: Significant for osteomyelitis of the sacrum, C. diff colitis, hypertension, hyperlipidemia, diabetes, and DVT. PAST SURGICAL HISTORY: She had surgical debridement of the sacral pressure wound and IVC filter placement. ALLERGIES: No known drug allergy. SOCIAL HISTORY: The patient lives in senior care facility. Denies using any drugs, tobacco, or alcohol. MEDICATIONS: She is on levothyroxine, atorvastatin, Procrit, mirtazapine, Lasix, pantoprazole, lisinopril, hydrocodone, Zofran, and Tylenol. LABORATORY DATA: Laboratories showed white count of 9.1, hemoglobin of 9.9, platelet count of 500, sedimentation rate of 35. BUN of 16, creatinine of 0.8, hemoglobin A1c of 7.8. TSH of 21.8. Imaging, none done so far. PHYSICAL EXAMINATION: VITAL SIGNS: Showed temperature of 98.6, pulse 45, respirations 14, blood pressure 132/60, and saturation 96% on room air. GENERAL: This is an elderly female, lying in bed, awake, alert, and oriented x3, not in acute distress. HEENT: Normocephalic and atraumatic. Pupils are reactive to light. Moist oral mucosa. No exudate. NECK: Supple. No lymphadenopathy. CARDIOVASCULAR: Regular rate and rhythm. No murmur or gallop. LUNGS: Clear bilaterally. No wheezing or rhonchi. ABDOMEN: Soft, nontender, and nondistended. Normal bowel sounds. No hepatosplenomegaly or ascites. EXTREMITY: Trace edema. No cyanosis. SKIN: She had sacral pressure wound with healthy granulated tissue at the base. No significant drainage or pus. No foul smelling. No necrosis or exudate. Tissue looks healthy. ASSESSMENT AND RECOMMENDATION: 1. Sacral pressure wound, does not look infected at this point. Continue local wound care and dressing change as needed. As per hospital protocol, change position frequently. We will check sedimentation rate and C-reactive protein and blood culture to make sure she is not bacteremic. We will hold off antibiotics for now. 2. GI bleeding. Monitor hemoglobin and hematocrit and coagulation profile, transfuse blood as needed. May need colonoscopy. GI is following. 3. Diabetes mellitus, out of control. Recommend tight glycemic control to keep blood glucose between 100 to 140. 4. History of DVT, off anticoagulation due to GI bleeding. Needs repeated venous Doppler to confirm resolution. The patient had IVC filter in the past. Thank you for the consult. ID will continue to follow. Please feel free to call with any question. Estefani Bruce M.D. DR: ISAEL JOB#: [id number] CC:
[2017-12-15] MEDS ORDERED: D5NS 1000ml IV ONE (17:54)
--- NOTE | 2017-12-15 18:15 | Consultation ---
DATE OF CONSULTATION: 12/15/2017 PULMONARY CONSULTATION CONSULTING PHYSICIAN: Tom Sousa M.D. REFERRING PHYSICIAN: Erin Pimentel M.D. REASON FOR CONSULTATION: DVT and dyspnea. HISTORY OF PRESENT ILLNESS: The patient is an 87-year-old female, alf resident, with history of prior DVT, status post IVC filter placement, known GI bleed, not currently on anticoagulation, who presented with bright red blood per rectum. She has known sacral osteomyelitis and decubitus ulcers as well. She has been afebrile since she has been hospitalized and saturating well on room air. She has had sinus bradycardia in the 40s and 50s. Her hemoglobin was 9.9 on presentation, 9.3 today. No white count. INR is 1.3. Platelets were normal and renal function was normal. She does have an elevated blood glucose and hemoglobin A1c and evidence of iron-deficiency anemia. She has been seen and evaluated by the GI service. She also has an elevated TSH and TFTs are pending. The patient herself states she is tired and lightheaded, but denies any other complaints. Denies any cough, congestion, shortness of breath, wheezing, nausea, vomiting, diarrhea, or constipation. She does have bright red blood per rectum as noted. PAST MEDICAL HISTORY: 1. Prior DVT. 2. Sacral decubitus ulcer. 3. History of GI bleed. 4. Hypertension. 5. Hypothyroidism. 6. Diabetes. 7. GERD. ALLERGIES: No known drug allergies. MEDICATIONS: Eoehx-zl-fvelqoaqt medications reviewed. Current medications reviewed. SOCIAL HISTORY: She denies tobacco, alcohol, or drug use. FAMILY HISTORY: Noncontributory. REVIEW OF SYSTEMS: Unobtainable. PHYSICAL EXAMINATION: VITAL SIGNS: Temperature 97.5, pulse 61, blood pressure 21470, and respiratory rate 18. GENERAL: This is an elderly female, in no acute distress. Awake, alert, and oriented x2. HEENT: Normocephalic and atraumatic. Oropharynx is clear. Moist mucous membranes. Pale conjunctivae are noted. NECK: Supple. CHEST: Clear. HEART: Bradycardic, but regular. ABDOMEN: Soft, nontender, and nondistended. EXTREMITIES: No cyanosis, clubbing, or edema. SKIN: She has sacral ulcer. ANCILLARY DATA: Laboratories reviewed. Imaging, IVC filter placement on . Chest x-ray showed small bilateral pleural effusion, she had PICC line at that point. She has an echocardiogram from 07/25/2017 that shows normal LV size and function, EF 65%, moderate LVH, moderately thickened mitral leaflets, IVC normal, aortic area 1.3 cm2, PA pressure was 30. ASSESSMENT: The patient is an 87-year-old female, alf resident, with history of hypertension, hyperlipidemia, hypothyroidism, diabetes, sacral decubitus ulcers, prior DVT, status post IVC filter, now presenting with bright red blood per rectum. The patient is fairly stable from respiratory standpoint. PROBLEM LIST: 1. Bright red blood per rectum. 2. DVT, status post IVC filter. 3. Aortic stenosis. 4. Hypertension. 5. Hyperlipidemia. 6. Hypothyroidism, now with markedly elevated TSH. 7. Diabetes. 8. Sacral decubitus ulcer. TREATMENT PLAN: 1. Monitor hemoglobin and hematocrit, transfuse as necessary, follow up GI recommendations, possible endoscopic evaluation. 2. Continue Epogen, follow up Hematology recommendations. 3. Anticoagulation held given history of GI bleed, the patient is status post IVC filter per report. 4. Monitor volumes, p.r.n. Lasix. 5. We will check a chest x-ray. 6. Aspiration precautions. 7. Wound care, observe off antibiotics per ID. 8. Try to optimize glycemic control. Dr. Pimentel, thank you for allowing me to assist in the care of your patient. If I may be of any assistance in the future, please do not hesitate to ask. Tom Sousa M.D. DR: CHRISTINE JOB#: [id number] CC:
--- NOTE | 2017-12-15 18:15 | Consultation ---
History of Present Illness General Date patient seen: Dec 15, 2017 Time patient seen: 15:30 Chief Complaint: General Complaint Referring physician: TINO YING Reason for Consultation: Sacral pressure ulcer Present Illness HPI This is an 87 yof admitted [place] [facility] [place] of [place] bleeding. She is known to me from prior admissions and has had a chronic stage 4 sacral pressure ulcer. She was admitted from a SNF. She is essentially bedridden. She currently is being treated with hydrogel in the hospital. She has no c/o pain in the area. Allergies: Coded Allergies: NO KNOWN DRUG ALLERGIES (Verified Allergy, Unknown, 07/10/17) Medication History Scheduled Ascorbic Acid* (Vitamin C*), 500 MG ORAL DAILY, (Reported) Ascorbic Acid* (Ascorbic Acid*), 500 MG ORAL DAILY, (Reported) Atorvastatin (Lipitor), 80 MG ORAL BEDTIME, (Reported) Atorvastatin (Lipitor), 80 MG ORAL BEDTIME, (Reported) Epoetin Jacques (Procrit), 40,000 UNIT SUBQ ONCE A WEEK, (Reported) Ferrous Sulfate* (Ferrous Sulfate*), 325 MG ORAL THREE TIMES A DAY, (Reported) Furosemide* (Lasix*), 20 MG ORAL DAILY, (Reported) Insulin Aspart (Novolog Flexpen), 5 UNITS SUBQ BEFORE MEALS, (Reported) Insulin Aspart* (Novolog*), 0 SUBQ AC+HS, (Reported) Insulin Detemir (Levemir Flexpen), 4 SUBQ BID, (Reported) Insulin Detemir (Levemir Flexpen), 0 SUBQ BID, (Reported) Lisinopril (Zestril), 30 MG ORAL DAILY, (Reported) Lisinopril (Zestril), 30 MG ORAL DAILY, (Reported) Magnesium Hydroxide* (Milk Of Magnesia*), 30 ML ORAL DAILY, (Reported) Metoprolol Tartrate* (Metoprolol Tartrate*), 50 MG ORAL EVERY 12 HOURS, ( Reported) Metoprolol Tartrate* (Metoprolol Tartrate*), 50 MG ORAL EVERY 12 HOURS, ( Reported) Multivitamin With Minerals (Multivitamins With Minerals*), 1 TAB ORAL DAILY, ( Reported) Multivitamin With Minerals (Multivitamins With Minerals*), 1 TAB ORAL DAILY, ( Reported) Pantoprazole Sodium (Protonix), 40 MG ORAL DAILY, (Reported) Pantoprazole* (Pantoprazole*), 40 MG ORAL DAILY, (Reported) Rivaroxaban (Xarelto), 2.5 MG ORAL EVERY 12 HOURS, (Reported) Scheduled PRN Acetaminophen* (Acetaminophen 325MG Tablet*), 650 MG ORAL Q6H PRN for Prn Headache/Temp > 101, (Reported) Acetaminophen* (Tylenol Extra Strength*), 650 MG ORAL Q6H PRN for Mild Pain/ Temp > 100.5, (Reported) Hydrocodone Bit/Acetaminophen 5-325* (Ruso 5-325*), 1 TAB ORAL Q6H PRN for For Pain, (Reported) Hydrocodone Bit/Acetaminophen 5-325* (Ruso 5-325*), 1 TAB ORAL Q6H PRN for For Pain, (Reported) Loperamide Hcl (Loperamide), 2 MG PO Q4HR PRN for Diarrhea, (Reported) Miscellaneous Medications Bisacodyl (Dulcolax), 10 MG RC, (Reported) Calcium Carbonate/Vitamin D3 (Calcium 600 + Vit D 400 Tablet), 1 EACH PO, ( Reported) Collagenase Clostridium Hist. (Collagenase), 1 EACH MC, (Reported) Insulin Aspart (Novolog), (Reported) Lactobacillus Acidophilus (Acidophilus), 1 EACH PO, (Reported) Loperamide Hcl (Loperamide), 2 MG PO, (Reported) Na Phos,M-B/Na Phos,Di-Ba (Fleet Enema), 133 ML RC, (Reported) Patient History History Provided By: Patient, Medical Record Healthcare decision maker SUSAN KIM Resuscitation status Full Code Advanced Directive on File Yes Past Medical/Surgical History Past Medical/Surgical History: (1) Anemia (2) GI bleeding (3) History of DVT (deep vein thrombosis) (4) Diabetes mellitus out of control (5) Sacral ulcer Review of Systems Constitutional: Reports: no symptoms Eye: Reports: no symptoms ENT: Reports: no symptoms Respiratory: Reports: no symptoms Cardiovascular: Reports: no symptoms Gastrointestinal: Reports: see HPI Genitourinary: Reports: incontinence Skin: Reports: see HPI Psychiatric: Reports: no symptoms Neurological: Reports: no symptoms Hematologic/Lymphatic: Reports: anemia Physical Exam General Appearance: WD/WN, alert Lines, tubes and drains: peripheral Respiratory/Chest: no respiratory distress Abdomen: soft Skin Exam: other - Stage 4 sacral pressure ulcer with small area of bone exposed centrally. Minimal undermining from 12-5. Despite being stage 4 ulcer depth is not significant due to the skin edges growing downwards to the base. No erythema or warmth in periskin and ulcer base with 75% granular base. Neurologic: alert, oriented x 3 Musculoskeletal: atrophy Last 24 Hour Vital Signs Date Time Temp Pulse Resp B/P (MAP) Pulse Ox O2 Delivery O2 Flow Rate FiO2 12/15/17 16:00 98.1 54 18 136/58 (84) 95 98.1 12/15/17 16:00 59 12/15/17 12:00 57 12/15/17 12:00 97.9 55 18 106/47 (66) 96 97.9 12/15/17 09:00 Room Air 12/15/17 08:00 50 12/15/17 07:58 124/47 12/15/17 07:57 97.5 51 18 124/47 (72) 96 97.5 12/15/17 04:00 47 12/15/17 04:00 98.0 50 17 118/55 (76) 95 98.0 12/15/17 00:00 48 12/15/17 00:00 97.9 50 18 135/57 (83) 96 97.9 12/14/17 20:00 97.5 47 18 127/52 (77) 97 97.5 12/14/17 20:00 48 12/14/17 20:00 Room Air 12/14/17 19:49 98.6 45 14 132/60 96 Room Air 98.6 12/14/17 19:08 98.6 45 14 132/60 96 Room Air 98.6 Intake and Output 12/14/17 12/15/17 19:00 07:00 Intake Total 800 ml Output Total 0 ml 300 ml Balance 0 ml 500 ml Intake IV Total 800 ml Output Urine Total 0 ml 300 ml # Bowel Movements 1 Laboratory Tests Test 12/15/17 05:34 White Blood Count 7.7 K/UL (4.8-10.8) Red Blood Count 3.51 M/UL (4.20-5.40) L Hemoglobin 9.3 G/DL (12.0-16.0) L Hematocrit 29.3 % (37.0-47.0) L Mean Corpuscular Volume 84 FL (80-99) Mean Corpuscular Hemoglobin 26.5 PG (27.0-31.0) L Mean Corpuscular Hemoglobin Concent 31.8 G/DL (32.0-36.0) L Red Cell Distribution Width 16.5 % (11.6-14.8) H Platelet Count 466 K/UL (150-450) H Mean Platelet Volume 5.8 FL (6.5-10.1) L Neutrophils (%) (Auto) 72.9 % (45.0-75.0) Lymphocytes (%) (Auto) 15.8 % (20.0-45.0) L Monocytes (%) (Auto) 7.5 % (1.0-10.0) Eosinophils (%) (Auto) 2.2 % (0.0-3.0) Basophils (%) (Auto) 1.5 % (0.0-2.0) Differential Total Cells Counted 100 Neutrophils % (Manual) 74 % (45-75) Lymphocytes % (Manual) 16 % (20-45) L Monocytes % (Manual) 6 % (1-10) Eosinophils % (Manual) 2 % (0-3) Basophils % (Manual) 2 % (0-2) Band Neutrophils 0 % (0-8) Platelet Estimate Adequate Platelet Morphology Normal Hypochromasia 2+ Anisocytosis 1+ Erythrocyte Sedimentation Rate 35 MM/HR (0-30) H Reticulocyte Count 2.5 % (0.0-2.0) H Haptoglobin Pending Prothrombin Time 13.1 SEC (9.30-11.50) H Prothromb Time International Ratio 1.3 (0.9-1.1) H Sodium Level 138 MMOL/L (136-145) Potassium Level 3.3 MMOL/L (3.5-5.1) L Chloride Level 103 MMOL/L (98-107) Carbon Dioxide Level 33 MMOL/L (21-32) H Anion Gap 2 mmol/L (5-15) L Blood Urea Nitrogen 16 mg/dL (7-18) Creatinine 0.8 MG/DL (0.55-1.30) Estimat Glomerular Filtration Rate mL/min (>60) Glucose Level 177 MG/DL (74-106) H Hemoglobin A1c 7.8 % (4.3-6.0) H Calcium Level 7.4 MG/DL (8.5-10.1) L Iron Level 32 ug/dL (50-175) L Total Iron Binding Capacity 77 ug/dL (250-450) L Percent Iron Saturation 42 % (15-50) Unsaturated Iron Binding 45 ug/dL (112-346) L Ferritin 306 NG/ML (8-388) Total Bilirubin 0.4 MG/DL (0.2-1.0) Aspartate Amino Transf (AST/SGOT) 22 U/L (15-37) Alanine Aminotransferase (ALT/SGPT) 19 U/L (12-78) Alkaline Phosphatase 126 U/L (46-116) H Total Protein 4.7 G/DL (6.4-8.2) L Albumin 0.9 G/DL (3.4-5.0) L Globulin 3.8 g/dL Albumin/Globulin Ratio 0.2 (1.0-2.7) L Triglycerides Level 43 MG/DL (30-150) Cholesterol Level 51 MG/DL (< 200) LDL Cholesterol 24 mg/dL (<100) HDL Cholesterol 23 MG/DL (40-60) L Cholesterol/HDL Ratio 2.2 (3.3-4.4) L Vitamin B12 Level 386 PG/ML (193-986) Methylmalonic Acid Pending Homocystine Pending Thyroid Stimulating Hormone (TSH) 21.934 uiU/mL (0.358-3.740) Microbiology Date/Time Source Procedure Growth Status 12/14/17 19:45 Sacral Wound Gram Stain - Final Resulted 12/14/17 19:45 Sacral Wound Wound Culture Pending Resulted Height (Feet): 5 Height (Inches): 7.00 Weight (Pounds): 134 Medications Current Medications Medications (Trade) Dose Ordered Sig/Julius Route PRN Reason Start Time Stop Time Status Last Admin Dose Admin Acetaminophen (Tylenol) 650 mg Q4H PRN ORAL Mild Pain/Temp > 100.5 12/14/17 21:38 01/13/18 21:37 Acetaminophen/ Hydrocodone Bitart (Ruso 5/325) 1 tab Q6H PRN ORAL Moderate to Severe pain (4-10) 12/14/17 21:39 12/21/17 21:38 Atorvastatin Calcium (Lipitor) 20 mg BEDTIME ORAL 12/15/17 21:00 01/14/18 20:59 Dextrose (Dextrose 50%) 25 ml STAT PRN IV Hypoglycemia 12/14/17 21:37 01/13/18 21:36 Dextrose (Dextrose 50%) 50 ml STAT PRN IV Hypoglycemia 12/14/17 21:37 01/13/18 21:36 Dextrose/Sodium Chloride 1,000 ml @ 100 mls/hr Q10H IV 12/14/17 22:15 01/13/18 22:14 12/15/17 08:15 Epoetin Jacques (Procrit (for non ESRD use)) 10,000 units MON-WED-FRI SUBQ 12/15/17 21:00 01/14/18 20:59 Furosemide (Lasix) 20 mg DAILY IV 12/15/17 09:00 01/14/18 08:59 12/15/17 09:40 Insulin Aspart (NovoLOG) BEFORE MEALS AND HS SUBQ 12/14/17 22:00 01/13/18 21:59 12/15/17 17:15 Levothyroxine Sodium (Synthroid) 25 mcg DAILY@0630 ORAL 12/16/17 06:30 01/15/18 06:29 Lisinopril (Prinivil) 30 mg DAILY ORAL 12/15/17 09:00 01/14/18 08:59 Mirtazapine (Remeron) 15 mg BEDTIME ORAL 12/15/17 21:00 01/14/18 20:59 Ondansetron HCl (Zofran) 4 mg Q6H PRN IVP Nausea & Vomiting 12/14/17 21:38 01/13/18 21:37 Pantoprazole (Protonix) 40 mg DAILY IVP 12/15/17 09:00 01/14/18 08:59 12/15/17 09:40 Assessment/Plan Status: stable Assessment/Plan Patient has a chronic stage 4 pressure ulcer of the sacrum. She will have a difficult time healing this ulcer given her low albumin level and advanced age. However, there is no clinical indication that this ulcer is infected. Would recommend continuation of the hydrogel as this provides an appropriately moist environment for healing. Also need to continue offloading the area and controlling periwound moisture. No acute surgical intervention necessary at this time. Thank you for allowing me to participate in the care of this patient. Albert Connell MD Dec 15, 2017 18:15
[2017-12-15 20:19] VITALS: BP 118/47
[2017-12-15] MEDS ORDERED: Epogen (for non ESRD use) SUBQ SCH ×2 (21:00)
--- NOTE | 2017-12-15 21:02 | Consultation ---
Consult Note Consult Note Hematology Consultation Note REQ MD: Debra Pimentel Chief Complaint: General Complaint Source: Patient, Medical Record, EMS RFC: coagulopathy, dvt, and anemia DOS: 12/15/17 HPI Patient is a 87 or female brought in by EMS after increased bloody stools. The patient was noted to have prior history of deep venous thrombosis. Patient reportedly had not been taking any blood thinners. The patient had been had debilitated after foot surgery. She had been feeling weak all over. She denies any recent trauma.Patient is brought in by ambulance. The patient was noted to have prior history of diabetes. Coded Allergies: NO KNOWN DRUG ALLERGIES (Verified Allergy, Unknown, 07/10/17) Patient History Past Medical History: see triage record Last Menstrual Period: unk Reviewed Nursing Documentation: PMH: Agreed; PSxH: Agreed Nursing Documentation-PMH Hx Hypertension: Yes Hx Diabetes: Yes - Type II Hx Gastrointestinal Problems: Yes - GERD Review of Systems All Other Systems: negative except mentioned in HPI ER Physical Exam - General Physical Exam Sp02 EP Interpretation: reviewed, normal General Appearance: normal inspection, well appearing, Chronically Ill Head: atraumatic Eyes: bilateral eye conjunctivae pale ENT: normal ENT inspection, hearing grossly normal Neck: normal inspection, full range of motion, supple Respiratory: normal inspection, lungs clear, normal breath sounds Cardiovascular #1: regular rate, rhythm, no edema Gastrointestinal: normal inspection, normal bowel sounds Genitourinary: no CVA tenderness Musculoskeletal: normal inspection, back normal Neurologic: normal inspection, alert, oriented x3, responsive, speech normal, motor weakness Psychiatric: normal inspection, judgement/insight normal Skin: no rash, pallor Assessment and Recs: # History of DVT s/p IVC Filter - contraindicated for anticoagulation and remains anemic at this time --> workup has been completed in the past --> do not recommend anticoagulation at this time # Anemia due to GI bleeding - presented for rectal bleeding. --> w/u has been reviewed and seen by gi --> colonoscopy has been completed in the past # Anemia of chronic disease --> epogen to continue # Coagulopathy is likely related to sepsis, consumptive process --> abx and meds have been reviewed # Sacral decubitus ulcer. Labs Test 12/14/17 17:45 White Blood Count 9.1 K/UL (4.8-10.8) Red Blood Count 3.51 M/UL (4.20-5.40) Hemoglobin 9.9 G/DL (12.0-16.0) Hematocrit 29.3 % (37.0-47.0) Mean Corpuscular Volume 83 FL (80-99) Mean Corpuscular Hemoglobin 28.2 PG (27.0-31.0) Mean Corpuscular Hemoglobin Concent 33.8 G/DL (32.0-36.0) Red Cell Distribution Width 16.5 % (11.6-14.8) Platelet Count 500 K/UL (150-450) Mean Platelet Volume 5.3 FL (6.5-10.1) Neutrophils (%) (Auto) 74.0 % (45.0-75.0) Lymphocytes (%) (Auto) 15.9 % (20.0-45.0) Monocytes (%) (Auto) 6.9 % (1.0-10.0) Eosinophils (%) (Auto) 1.5 % (0.0-3.0) Basophils (%) (Auto) 1.8 % (0.0-2.0) Prothrombin Time 12.9 SEC (9.30-11.50) Prothromb Time International Ratio 1.2 (0.9-1.1) Activated Partial Thromboplast Time 34 SEC (23-33) Sodium Level 136 MMOL/L (136-145) Potassium Level 4.1 MMOL/L (3.5-5.1) Chloride Level 101 MMOL/L (98-107) Carbon Dioxide Level 30 MMOL/L (21-32) Anion Gap 5 mmol/L (5-15) Blood Urea Nitrogen 19 mg/dL (7-18) Creatinine 0.7 MG/DL (0.55-1.30) Estimat Glomerular Filtration Rate mL/min (>60) Glucose Level 165 MG/DL (74-106) Calcium Level 7.7 MG/DL (8.5-10.1) Total Bilirubin 0.4 MG/DL (0.2-1.0) Aspartate Amino Transf (AST/SGOT) 38 U/L (15-37) Alanine Aminotransferase (ALT/SGPT) 22 U/L (12-78) Alkaline Phosphatase 140 U/L (46-116) Troponin I 0.022 ng/mL (0.000-0.056) Total Protein 5.1 G/DL (6.4-8.2) Albumin 1.0 G/DL (3.4-5.0) Globulin 4.1 g/dL Albumin/Globulin Ratio 0.2 (1.0-2.7) Lipase 23 U/L (73-393) Rob Wiseman MD Dec 15, 2017 21:02
[2017-12-15] MEDS: Atorvastatin 20mg tab ORAL SCH (21:40)
[2017-12-15] MEDS: Norco 5mg/325mg tab ORAL PRN (21:41)
[2017-12-16] VITALS (7 sets, daily range): BP systolic 115–163; BP diastolic 50–82
[2017-12-16] MEDS: D5NS 1,000 ML IV SCH ×2 (04:21→14:15)
[2017-12-16] MEDS: NovoLOG Insulin Flexpen SUBQ SCH ×4 (06:30→20:40)
[2017-12-16] MEDS ORDERED: Levothyroxine 25mcg tab ORAL SCH (06:30)
[2017-12-16 08:08] LABS: BASOPHILS % (AUTO) 1.5 % (0.0-2.0); EOSINOPHILS % (AUTO) 1.6 % (0.0-3.0); HEMATOCRIT 35.8 % (37.0-47.0); HEMOGLOBIN 11.2 G/DL (12.0-16.0); LYMPHOCYTES % (AUTO) 19.1 % (20.0-45.0); MEAN CORPUSCULAR VOLUME 85 FL (80-99); MONOCYTES % (AUTO) 7.8 % (1.0-10.0); PLATELET COUNT 538 K/UL (150-450); RED BLOOD COUNT 4.22 M/UL (4.20-5.40); RED CELL DISTRIBUTION WIDTH 17.2 % (11.6-14.8); WHITE BLOOD COUNT 8.5 K/UL (4.8-10.8)
[2017-12-16 08:29] LABS: ALANINE AMINOTRANSFERASE 20 U/L (12-78); ALBUMIN 1.1 G/DL (3.4-5.0); ALBUMIN/GLOBULIN RATIO 0.2 (1.0-2.7); ALKALINE PHOSPHATASE 138 U/L (46-116); ANION GAP 2 mmol/L (5-15); ASPARTATE AMINO TRANSFERASE 24 U/L (15-37); BILIRUBIN,TOTAL 0.4 MG/DL (0.2-1.0); BLOOD UREA NITROGEN 20 mg/dL (7-18); CARBON DIOXIDE 31 MMOL/L (21-32); CHLORIDE 106 MMOL/L (98-107); CREATININE 0.8 MG/DL (0.55-1.30); POTASSIUM 3.9 MMOL/L (3.5-5.1); SODIUM 139 MMOL/L (136-145)
[2017-12-16] MEDS: Lisinopril 20mg tab ORAL SCH (08:39)
[2017-12-16] MEDS: Pantoprazole Inj IVP SCH (08:46)
--- NOTE | 2017-12-16 10:27 | General Progress Note ---
Assessment/Plan Assessment/Plan Assessment and Recs: # History of DVT s/p IVC Filter - contraindicated for anticoagulation and remains anemic at this time --> workup has been completed in the past --> do not recommend anticoagulation at this time # Anemia due to GI bleeding - presented for rectal bleeding. Ferritin is 306, vit b12 386 --> w/u has been reviewed and seen by gi --> colonoscopy has been completed in the past # Anemia of chronic disease --> epogen to continue --> hgb goal >7 # Coagulopathy is likely related to sepsis, consumptive process --> abx and meds have been reviewed # Sacral decubitus ulcer. Subjective Constitutional: Denies: no symptoms, chills, diaphoresis, fever, malaise, weakness, other HEENT: Denies: no symptoms, eye pain, blurred vision, tearing, double vision, ear pain, ear discharge, nose pain, nose congestion, throat pain, throat swelling, mouth pain, mouth swelling, other Cardiovascular: Denies: no symptoms, chest pain, edema, irregular heart rate, lightheadedness, palpitations, syncope, other Respiratory: Denies: no symptoms, cough, orthopnea, shortness of breath, SOB with excertion, SOB at rest, sputum, stridor, wheezing, other Gastrointestinal/Abdominal: Denies: no symptoms, abdomen distended, abdominal pain, black stools, tarry stools, blood in stool, constipated, diarrhea, difficulty swallowing, nausea, poor appetite, poor fluid intake, rectal bleeding , vomiting, other Genitourinary: Denies: no symptoms, burning, discharge, frequency, flank pain, hematuria, incontinence, pain, urgency, other Neurologic/Psychiatric: Denies: no symptoms, anxiety, depressed, emotional problems, headache, numbness, paresthesia, pre-existing deficit, seizure, tingling, tremors, weakness, other Endocrine: Denies: no symptoms, excessive sweating, flushing, intolerance to cold, intolerance to heat, increased hunger, increased thirst, increased urine, unexplained weight gain, unexplained weight loss, other Allergies: Coded Allergies: NO KNOWN DRUG ALLERGIES (Verified Allergy, Unknown, 07/10/17) Subjective no fevers or chills, young intact is draining urine Objective Last 24 Hour Vital Signs Date Time Temp Pulse Resp B/P (MAP) Pulse Ox O2 Delivery O2 Flow Rate FiO2 12/16/17 09:00 Room Air 12/16/17 08:39 163/59 12/16/17 08:00 58 12/16/17 08:00 97.3 57 18 163/59 (93) 94 97.3 12/16/17 04:00 57 12/16/17 04:00 98.3 61 17 139/54 (82) 94 98.3 12/16/17 00:00 98.1 55 16 115/50 (71) 92 98.1 12/16/17 00:00 58 12/15/17 21:00 Room Air 12/15/17 20:19 98.0 53 18 118/47 (70) 91 98.0 12/15/17 20:00 51 12/15/17 16:00 98.1 54 18 136/58 (84) 95 98.1 12/15/17 16:00 59 12/15/17 12:00 57 12/15/17 12:00 97.9 55 18 106/47 (66) 96 97.9 Intake and Output 12/15/17 12/16/17 19:00 07:00 Intake Total 200 ml Output Total 400 ml 300 ml Balance -200 ml -300 ml Intake IV Total 200 ml Output Urine Total 400 ml 300 ml # Voids 1 Laboratory Tests 12/16/17 07:05: White Blood Count 8.5, Red Blood Count 4.22, Hemoglobin 11.2L, Hematocrit 35.8L , Mean Corpuscular Volume 85, Mean Corpuscular Hemoglobin 26.5L, Mean Corpuscular Hemoglobin Concent 31.3L, Red Cell Distribution Width 17.2H, Platelet Count 538H, Mean Platelet Volume 5.5L, Neutrophils (%) (Auto) 70.0, Lymphocytes (%) (Auto) 19.1L, Monocytes (%) (Auto) 7.8, Eosinophils (%) (Auto) 1.6, Basophils (%) (Auto) 1.5, Sodium Level 139, Potassium Level 3.9, Chloride Level 106, Carbon Dioxide Level 31, Anion Gap 2L, Blood Urea Nitrogen 20H, Creatinine 0.8, Estimat Glomerular Filtration Rate , Glucose Level 117H, Calcium Level 8.0L, Total Bilirubin 0.4, Aspartate Amino Transf (AST/SGOT) 24, Alanine Aminotransferase (ALT/SGPT) 20, Alkaline Phosphatase 138H, Total Protein 5.6L, Albumin 1.1L, Globulin 4.5, Albumin/Globulin Ratio 0.2L, Free Thyroxine 0.76, Hepatitis A IgM Antibody [Pending], Hepatitis B Surface Antigen [Pending], Hepatitis B Core IgM Antibody [Pending], Hepatitis C Antibody [ Pending] Height (Feet): 5 Height (Inches): 7.00 Weight (Pounds): 134 General Appearance: no apparent distress EENT: TMs normal Neck: normal inspection Cardiovascular: regular rhythm Respiratory/Chest: lungs clear Abdomen: normal bowel sounds Extremities: non-tender Edema: mild edema Neurologic: alert Skin: warm/dry Rob Wiseman MD Dec 16, 2017 10:27
--- NOTE | 2017-12-16 11:10 | Consultation ---
History of Present Illness General Date patient seen: Dec 15, 2017 Chief Complaint: General Complaint Referring physician: TINO YING Reason for Consultation: Sacral pressure ulcer Present Illness HPI 87-year-old female with a history of decubitus wounds and osteomyelitis, who came in for hypoglycemia. the pt c/o insomnia and anxiety the pt s remeron has been discontinued and she has anxiety and insomnia. the pt was able to provide hx however is forgetful Allergies: Coded Allergies: NO KNOWN DRUG ALLERGIES (Verified Allergy, Unknown, 07/10/17) Medication History Scheduled Ascorbic Acid* (Vitamin C*), 500 MG ORAL DAILY, (Reported) Ascorbic Acid* (Ascorbic Acid*), 500 MG ORAL DAILY, (Reported) Atorvastatin (Lipitor), 80 MG ORAL BEDTIME, (Reported) Atorvastatin (Lipitor), 80 MG ORAL BEDTIME, (Reported) Epoetin Jacques (Procrit), 40,000 UNIT SUBQ ONCE A WEEK, (Reported) Ferrous Sulfate* (Ferrous Sulfate*), 325 MG ORAL THREE TIMES A DAY, (Reported) Furosemide* (Lasix*), 20 MG ORAL DAILY, (Reported) Insulin Aspart (Novolog Flexpen), 5 UNITS SUBQ BEFORE MEALS, (Reported) Insulin Aspart* (Novolog*), 0 SUBQ AC+HS, (Reported) Insulin Detemir (Levemir Flexpen), 4 SUBQ BID, (Reported) Insulin Detemir (Levemir Flexpen), 0 SUBQ BID, (Reported) Lisinopril (Zestril), 30 MG ORAL DAILY, (Reported) Lisinopril (Zestril), 30 MG ORAL DAILY, (Reported) Magnesium Hydroxide* (Milk Of Magnesia*), 30 ML ORAL DAILY, (Reported) Metoprolol Tartrate* (Metoprolol Tartrate*), 50 MG ORAL EVERY 12 HOURS, ( Reported) Metoprolol Tartrate* (Metoprolol Tartrate*), 50 MG ORAL EVERY 12 HOURS, ( Reported) Multivitamin With Minerals (Multivitamins With Minerals*), 1 TAB ORAL DAILY, ( Reported) Multivitamin With Minerals (Multivitamins With Minerals*), 1 TAB ORAL DAILY, ( Reported) Pantoprazole Sodium (Protonix), 40 MG ORAL DAILY, (Reported) Pantoprazole* (Pantoprazole*), 40 MG ORAL DAILY, (Reported) Rivaroxaban (Xarelto), 2.5 MG ORAL EVERY 12 HOURS, (Reported) Scheduled PRN Acetaminophen* (Acetaminophen 325MG Tablet*), 650 MG ORAL Q6H PRN for Prn Headache/Temp > 101, (Reported) Acetaminophen* (Tylenol Extra Strength*), 650 MG ORAL Q6H PRN for Mild Pain/ Temp > 100.5, (Reported) Hydrocodone Bit/Acetaminophen 5-325* ([place] 5-325*), 1 TAB ORAL Q6H PRN for For Pain, (Reported) Hydrocodone Bit/Acetaminophen 5-325* ([place] 5-325*), 1 TAB ORAL Q6H PRN for For Pain, (Reported) Loperamide Hcl (Loperamide), 2 MG PO Q4HR PRN for Diarrhea, (Reported) Miscellaneous Medications Bisacodyl (Dulcolax), 10 MG RC, (Reported) Calcium Carbonate/Vitamin D3 (Calcium 600 + Vit D 400 Tablet), 1 EACH PO, ( Reported) Collagenase Clostridium Hist. (Collagenase), 1 EACH MC, (Reported) Insulin Aspart (Novolog), (Reported) Lactobacillus Acidophilus (Acidophilus), 1 EACH PO, (Reported) Loperamide Hcl (Loperamide), 2 MG PO, (Reported) Na Phos,M-B/Na Phos,Di-Ba (Fleet Enema), 133 ML RC, (Reported) Patient History Limited by: medical condition History Provided By: Patient, Medical Record, PMD Healthcare decision maker SUSAN KIM Resuscitation status Full Code Advanced Directive on File Yes Past Medical/Surgical History Past Medical/Surgical History: (1) DVT of lower extremity (deep venous thrombosis) (2) Cellulitis of left lower extremity (3) Gastroenteritis (4) Anemia (5) GI bleeding (6) History of DVT (deep vein thrombosis) (7) Diabetes mellitus out of control (8) Sacral ulcer (9) Gastric bleeding Review of Systems Psychiatric: Reports: prior hx, anxiety, depressed feelings Physical Exam General Appearance: no apparent distress, alert Neurologic: oriented x 3, responsive, depressed affect Last 24 Hour Vital Signs Date Time Temp Pulse Resp B/P (MAP) Pulse Ox O2 Delivery O2 Flow Rate FiO2 12/16/17 09:00 Room Air 12/16/17 08:39 163/59 12/16/17 08:00 58 12/16/17 08:00 97.3 57 18 163/59 (93) 94 97.3 12/16/17 04:00 57 12/16/17 04:00 98.3 61 17 139/54 (82) 94 98.3 12/16/17 00:00 98.1 55 16 115/50 (71) 92 98.1 12/16/17 00:00 58 12/15/17 21:00 Room Air 12/15/17 20:19 98.0 53 18 118/47 (70) 91 98.0 12/15/17 20:00 51 12/15/17 16:00 98.1 54 18 136/58 (84) 95 98.1 12/15/17 16:00 59 12/15/17 12:00 57 12/15/17 12:00 97.9 55 18 106/47 (66) 96 97.9 Intake and Output 12/15/17 12/16/17 19:00 07:00 Intake Total 200 ml 100 ml Output Total 400 ml 300 ml Balance -200 ml -200 ml Intake IV Total 200 ml 100 ml Output Urine Total 400 ml 300 ml # Voids 1 Laboratory Tests Test 12/16/17 07:05 White Blood Count 8.5 K/UL (4.8-10.8) Red Blood Count 4.22 M/UL (4.20-5.40) Hemoglobin 11.2 G/DL (12.0-16.0) L Hematocrit 35.8 % (37.0-47.0) L Mean Corpuscular Volume 85 FL (80-99) Mean Corpuscular Hemoglobin 26.5 PG (27.0-31.0) L Mean Corpuscular Hemoglobin Concent 31.3 G/DL (32.0-36.0) L Red Cell Distribution Width 17.2 % (11.6-14.8) H Platelet Count 538 K/UL (150-450) H Mean Platelet Volume 5.5 FL (6.5-10.1) L Neutrophils (%) (Auto) 70.0 % (45.0-75.0) Lymphocytes (%) (Auto) 19.1 % (20.0-45.0) L Monocytes (%) (Auto) 7.8 % (1.0-10.0) Eosinophils (%) (Auto) 1.6 % (0.0-3.0) Basophils (%) (Auto) 1.5 % (0.0-2.0) Sodium Level 139 MMOL/L (136-145) Potassium Level 3.9 MMOL/L (3.5-5.1) Chloride Level 106 MMOL/L (98-107) Carbon Dioxide Level 31 MMOL/L (21-32) Anion Gap 2 mmol/L (5-15) L Blood Urea Nitrogen 20 mg/dL (7-18) H Creatinine 0.8 MG/DL (0.55-1.30) Estimat Glomerular Filtration Rate mL/min (>60) Glucose Level 117 MG/DL (74-106) H Calcium Level 8.0 MG/DL (8.5-10.1) L Total Bilirubin 0.4 MG/DL (0.2-1.0) Aspartate Amino Transf (AST/SGOT) 24 U/L (15-37) Alanine Aminotransferase (ALT/SGPT) 20 U/L (12-78) Alkaline Phosphatase 138 U/L (46-116) H Total Protein 5.6 G/DL (6.4-8.2) L Albumin 1.1 G/DL (3.4-5.0) L Globulin 4.5 g/dL Albumin/Globulin Ratio 0.2 (1.0-2.7) L Free Thyroxine 0.76 NG/DL (0.76-1.46) Hepatitis A IgM Antibody Pending Hepatitis B Surface Antigen Pending Hepatitis B Core IgM Antibody Pending Hepatitis C Antibody Pending Height (Feet): 5 Height (Inches): 7.00 Weight (Pounds): 134 Medications Current Medications Medications (Trade) Dose Ordered Sig/Julius Route PRN Reason Start Time Stop Time Status Last Admin Dose Admin Acetaminophen (Tylenol) 650 mg Q4H PRN ORAL Mild Pain/Temp > 100.5 12/14/17 21:38 01/13/18 21:37 Acetaminophen/ Hydrocodone Bitart ([place] 5/325) 1 tab Q6H PRN ORAL Moderate to Severe pain (4-10) 12/14/17 21:39 12/21/17 21:38 12/15/17 21:41 Atorvastatin Calcium (Lipitor) 20 mg BEDTIME ORAL 12/15/17 21:00 01/14/18 20:59 12/15/17 21:40 Dextrose (Dextrose 50%) 25 ml STAT PRN IV Hypoglycemia 12/14/17 21:37 01/13/18 21:36 Dextrose (Dextrose 50%) 50 ml STAT PRN IV Hypoglycemia 12/14/17 21:37 01/13/18 21:36 Dextrose/Sodium Chloride 1,000 ml @ 100 mls/hr Q10H IV 12/14/17 22:15 01/13/18 22:14 12/16/17 04:21 Epoetin Jacques (Procrit (for non ESRD use)) 10,000 units MON-WED-FRI SUBQ 12/15/17 21:00 01/14/18 20:59 12/15/17 21:41 Furosemide (Lasix) 20 mg DAILY IV 12/15/17 09:00 01/14/18 08:59 12/16/17 08:46 Insulin Aspart (NovoLOG) BEFORE MEALS AND HS SUBQ 12/14/17 22:00 01/13/18 21:59 12/15/17 21:54 Levothyroxine Sodium (Synthroid) 25 mcg DAILY@0630 ORAL 12/16/17 06:30 01/15/18 06:29 12/16/17 06:55 Lisinopril (Prinivil) 30 mg DAILY ORAL 12/15/17 09:00 01/14/18 08:59 Mirtazapine (Remeron) 15 mg BEDTIME ORAL 12/15/17 21:00 01/14/18 20:59 12/15/17 21:41 Ondansetron HCl (Zofran) 4 mg Q6H PRN IVP Nausea & Vomiting 12/14/17 21:38 01/13/18 21:37 Pantoprazole (Protonix) 40 mg DAILY IVP 12/15/17 09:00 01/14/18 08:59 12/16/17 08:46 Assessment/Plan Assessment/Plan Anxiety d/o Insomnia Cognitive impairment/ -Remeron 15mg qhs -provided dedrick/Sandy Lopez MD Dec 16, 2017 11:10
--- NOTE | 2017-12-16 11:24 | General Progress Note ---
Assessment/Plan Problem List: (1) Anxiety disorder ICD Codes: F41.9 - Anxiety disorder, unspecified SNOMED: 501914053 Qualifiers: Qualified Codes: F41.1 - Generalized anxiety disorder (2) Insomnia ICD Codes: G47.00 - Insomnia, unspecified SNOMED: 973549816 Status: stable Assessment/Plan -Remeron 15mg qhs -provided ro/st Subjective Allergies: Coded Allergies: NO KNOWN DRUG ALLERGIES (Verified Allergy, Unknown, 07/10/17) Objective Last 24 Hour Vital Signs Date Time Temp Pulse Resp B/P (MAP) Pulse Ox O2 Delivery O2 Flow Rate FiO2 12/16/17 09:00 Room Air 12/16/17 08:39 163/59 12/16/17 08:00 58 12/16/17 08:00 97.3 57 18 163/59 (93) 94 97.3 12/16/17 04:00 57 12/16/17 04:00 98.3 61 17 139/54 (82) 94 98.3 12/16/17 00:00 98.1 55 16 115/50 (71) 92 98.1 12/16/17 00:00 58 12/15/17 21:00 Room Air 12/15/17 20:19 98.0 53 18 118/47 (70) 91 98.0 12/15/17 20:00 51 12/15/17 16:00 98.1 54 18 136/58 (84) 95 98.1 12/15/17 16:00 59 12/15/17 12:00 57 12/15/17 12:00 97.9 55 18 106/47 (66) 96 97.9 Intake and Output 12/15/17 12/16/17 19:00 07:00 Intake Total 200 ml 100 ml Output Total 400 ml 300 ml Balance -200 ml -200 ml Intake IV Total 200 ml 100 ml Output Urine Total 400 ml 300 ml # Voids 1 Laboratory Tests 12/16/17 07:05: White Blood Count 8.5, Red Blood Count 4.22, Hemoglobin 11.2L, Hematocrit 35.8L , Mean Corpuscular Volume 85, Mean Corpuscular Hemoglobin 26.5L, Mean Corpuscular Hemoglobin Concent 31.3L, Red Cell Distribution Width 17.2H, Platelet Count 538H, Mean Platelet Volume 5.5L, Neutrophils (%) (Auto) 70.0, Lymphocytes (%) (Auto) 19.1L, Monocytes (%) (Auto) 7.8, Eosinophils (%) (Auto) 1.6, Basophils (%) (Auto) 1.5, Sodium Level 139, Potassium Level 3.9, Chloride Level 106, Carbon Dioxide Level 31, Anion Gap 2L, Blood Urea Nitrogen 20H, Creatinine 0.8, Estimat Glomerular Filtration Rate , Glucose Level 117H, Calcium Level 8.0L, Total Bilirubin 0.4, Aspartate Amino Transf (AST/SGOT) 24, Alanine Aminotransferase (ALT/SGPT) 20, Alkaline Phosphatase 138H, Total Protein 5.6L, Albumin 1.1L, Globulin 4.5, Albumin/Globulin Ratio 0.2L, Free Thyroxine 0.76, Hepatitis A IgM Antibody [Pending], Hepatitis B Surface Antigen [Pending], Hepatitis B Core IgM Antibody [Pending], Hepatitis C Antibody [ Pending] Height (Feet): 5 Height (Inches): 7.00 Weight (Pounds): 134 Sandy Blunt MD Dec 16, 2017 11:24
--- NOTE | 2017-12-16 12:55 | GI Progress Note ---
Assessment/Plan Problems: (1) Insomnia ICD Codes: G47.00 - Insomnia, unspecified SNOMED: 192171709 (2) Anxiety disorder ICD Codes: F41.9 - Anxiety disorder, unspecified SNOMED: 908950955 Qualifiers: Qualified Codes: F41.1 - Generalized anxiety disorder (3) Gastroenteritis ICD Codes: K52.9 - Noninfective gastroenteritis and colitis, unspecified SNOMED: 41625106 (4) Gastric bleeding ICD Codes: K92.2 - Gastrointestinal hemorrhage, unspecified SNOMED: 40110996 (5) GI bleeding ICD Codes: K92.2 - Gastrointestinal hemorrhage, unspecified SNOMED: 31618868 (6) Anemia ICD Codes: D64.9 - Anemia, unspecified SNOMED: 647787211 Status: stable Status Narrative Discussed with Dr. Helm. Assessment/Plan anemia work up reviewed >> elevated TSH, normal free T4 >> no tx nneeded history of recent colonoscopy x 1 year no reports of active bleed at this time diarrhea, resolved at this time defer GI procedures at this time, stable H&H with no recurrent bleed adv diet OB stool r/o GI bleed monitor H&H, prn transfusions hold bowel regime given recent diarrhea ppi OT eval fu labs outpatient capsule endoscopy to evaluate anemia The patient was seen and examined at bedside and all new and available data was reviewed in the patients chart. I agree with the above findings, impression and plan. (Patient seen earlier today. Signature stamp does not reflect patient encounter time.). - Eusebio Helm MD Subjective Gastrointestinal/Abdominal: Reports: no symptoms Objective Last 24 Hour Vital Signs Date Time Temp Pulse Resp B/P (MAP) Pulse Ox O2 Delivery O2 Flow Rate FiO2 12/16/17 12:00 97.7 58 18 163/58 (93) 95 97.7 12/16/17 12:00 61 12/16/17 09:00 Room Air 12/16/17 08:39 163/59 12/16/17 08:00 58 12/16/17 08:00 97.3 57 18 163/59 (93) 94 97.3 12/16/17 04:00 57 12/16/17 04:00 98.3 61 17 139/54 (82) 94 98.3 12/16/17 00:00 98.1 55 16 115/50 (71) 92 98.1 12/16/17 00:00 58 12/15/17 21:00 Room Air 12/15/17 20:19 98.0 53 18 118/47 (70) 91 98.0 12/15/17 20:00 51 12/15/17 16:00 98.1 54 18 136/58 (84) 95 98.1 12/15/17 16:00 59 Intake and Output 12/15/17 12/16/17 19:00 07:00 Intake Total 200 ml 100 ml Output Total 400 ml 300 ml Balance -200 ml -200 ml Intake IV Total 200 ml 100 ml Output Urine Total 400 ml 300 ml # Voids 1 Laboratory Tests Test 12/16/17 07:05 White Blood Count 8.5 K/UL (4.8-10.8) Red Blood Count 4.22 M/UL (4.20-5.40) Hemoglobin 11.2 G/DL (12.0-16.0) L Hematocrit 35.8 % (37.0-47.0) L Mean Corpuscular Volume 85 FL (80-99) Mean Corpuscular Hemoglobin 26.5 PG (27.0-31.0) L Mean Corpuscular Hemoglobin Concent 31.3 G/DL (32.0-36.0) L Red Cell Distribution Width 17.2 % (11.6-14.8) H Platelet Count 538 K/UL (150-450) H Mean Platelet Volume 5.5 FL (6.5-10.1) L Neutrophils (%) (Auto) 70.0 % (45.0-75.0) Lymphocytes (%) (Auto) 19.1 % (20.0-45.0) L Monocytes (%) (Auto) 7.8 % (1.0-10.0) Eosinophils (%) (Auto) 1.6 % (0.0-3.0) Basophils (%) (Auto) 1.5 % (0.0-2.0) Sodium Level 139 MMOL/L (136-145) Potassium Level 3.9 MMOL/L (3.5-5.1) Chloride Level 106 MMOL/L (98-107) Carbon Dioxide Level 31 MMOL/L (21-32) Anion Gap 2 mmol/L (5-15) L Blood Urea Nitrogen 20 mg/dL (7-18) H Creatinine 0.8 MG/DL (0.55-1.30) Estimat Glomerular Filtration Rate mL/min (>60) Glucose Level 117 MG/DL (74-106) H Calcium Level 8.0 MG/DL (8.5-10.1) L Total Bilirubin 0.4 MG/DL (0.2-1.0) Aspartate Amino Transf (AST/SGOT) 24 U/L (15-37) Alanine Aminotransferase (ALT/SGPT) 20 U/L (12-78) Alkaline Phosphatase 138 U/L (46-116) H Total Protein 5.6 G/DL (6.4-8.2) L Albumin 1.1 G/DL (3.4-5.0) L Globulin 4.5 g/dL Albumin/Globulin Ratio 0.2 (1.0-2.7) L Free Thyroxine 0.76 NG/DL (0.76-1.46) Hepatitis A IgM Antibody Pending Hepatitis B Surface Antigen Pending Hepatitis B Core IgM Antibody Pending Hepatitis C Antibody Pending Height (Feet): 5 Height (Inches): 7.00 Weight (Pounds): 134 General Appearance: WD/WN, no apparent distress, alert Cardiovascular: normal rate Respiratory/Chest: normal breath sounds, no respiratory distress Abdominal Exam: normal bowel sounds, non tender, soft Extremities: non-tender Jerri Burgos NP Dec 16, 2017 12:55
--- NOTE | 2017-12-16 13:24 | General Progress Note ---
Assessment/Plan Assessment/Plan S: I am ok O: Nephew aat the bedside. Patient is comfortable. Denies any active bleeding. PHYSICAL EXAMINATION: VITAL SIGNS: .HEAD AND NECK: Atraumatic and normocephalic. CHEST: Clear to auscultation. No wheezing. No crackles. HEART: S1 and S2. Regular rate and rhythm. Negative S3. Negative S4. ABDOMEN: Soft. No organomegaly. Bowel sounds are normal. MUSCULOSKELETAL: Atrophied musculatures. Positive for decubitus sores on the Sacral regeion on the sacral area, NEUROLOGIC: Awake, alert, and oriented x3. LABORATORY AND DIAGNOSTIC DATA: renewed in chart , including HGB of 9.4 Med: reviewed and reconciled. ASSESSMENT AND PLAN: 1. Acute Epside of Rectal Bleeding 2. Diabetes type 2, uncontrolled. 2. Hypoglycemia - multiple incidents - better controlled now 4. Acute Anemia: History of multiple episodes, contra-indication of Anticoagulation 5- Sub Acute DVT: contra-indication of Anticoagulation 6. Sacral osteomyelitis. Stable 7. Sacral Decubitus 6. GI-DVT prophylaxia Plan: ID, GI , Hemonch, Nephrol, infection are consulted NO Active bleeding start po diet, followup as outpatient Subjective Allergies: Coded Allergies: NO KNOWN DRUG ALLERGIES (Verified Allergy, Unknown, 07/10/17) Objective Last 24 Hour Vital Signs Date Time Temp Pulse Resp B/P (MAP) Pulse Ox O2 Delivery O2 Flow Rate FiO2 12/16/17 12:00 97.7 58 18 163/58 (93) 95 97.7 12/16/17 12:00 61 12/16/17 09:00 Room Air 12/16/17 08:39 163/59 12/16/17 08:00 58 12/16/17 08:00 97.3 57 18 163/59 (93) 94 97.3 12/16/17 04:00 57 12/16/17 04:00 98.3 61 17 139/54 (82) 94 98.3 12/16/17 00:00 98.1 55 16 115/50 (71) 92 98.1 12/16/17 00:00 58 12/15/17 21:00 Room Air 12/15/17 20:19 98.0 53 18 118/47 (70) 91 98.0 12/15/17 20:00 51 12/15/17 16:00 98.1 54 18 136/58 (84) 95 98.1 12/15/17 16:00 59 Intake and Output 12/15/17 12/16/17 19:00 07:00 Intake Total 200 ml 100 ml Output Total 400 ml 300 ml Balance -200 ml -200 ml Intake IV Total 200 ml 100 ml Output Urine Total 400 ml 300 ml # Voids 1 Laboratory Tests 12/16/17 07:05: White Blood Count 8.5, Red Blood Count 4.22, Hemoglobin 11.2L, Hematocrit 35.8L , Mean Corpuscular Volume 85, Mean Corpuscular Hemoglobin 26.5L, Mean Corpuscular Hemoglobin Concent 31.3L, Red Cell Distribution Width 17.2H, Platelet Count 538H, Mean Platelet Volume 5.5L, Neutrophils (%) (Auto) 70.0, Lymphocytes (%) (Auto) 19.1L, Monocytes (%) (Auto) 7.8, Eosinophils (%) (Auto) 1.6, Basophils (%) (Auto) 1.5, Sodium Level 139, Potassium Level 3.9, Chloride Level 106, Carbon Dioxide Level 31, Anion Gap 2L, Blood Urea Nitrogen 20H, Creatinine 0.8, Estimat Glomerular Filtration Rate , Glucose Level 117H, Calcium Level 8.0L, Total Bilirubin 0.4, Aspartate Amino Transf (AST/SGOT) 24, Alanine Aminotransferase (ALT/SGPT) 20, Alkaline Phosphatase 138H, Total Protein 5.6L, Albumin 1.1L, Globulin 4.5, Albumin/Globulin Ratio 0.2L, Free Thyroxine 0.76, Hepatitis A IgM Antibody [Pending], Hepatitis B Surface Antigen [Pending], Hepatitis B Core IgM Antibody [Pending], Hepatitis C Antibody [ Pending] Height (Feet): 5 Height (Inches): 7.00 Weight (Pounds): 134 Erin Pimentel MD Dec 16, 2017 13:24
[2017-12-16] MEDS: Norco 5mg/325mg tab ORAL PRN (13:56)
--- NOTE | 2017-12-16 14:24 | Cardiology Report ---
APPROVED REPORT EKG Measurement Heart [id number] Sinus bradycardia Left axis deviation Right bundle branch block Abnormal ECG
--- NOTE | 2017-12-16 16:35 | Infectious Diseases Prog Note ---
Assessment/Plan Problems: (1) Sacral ulcer Assessment & Plan: with H/O osteomyelitis , ESR and CRP are not suggestive , await blood culture , await wound culture which was sent from ER. continue local wound care and dressings change as per hospital protocol. 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 Subjective Constitutional: Reports: no symptoms HEENT: Reports: no symptoms Respiratory: Reports: no symptoms Breasts: Reports: no symptoms Cardiovascular: Reports: no symptoms Gastrointestinal/Abdominal: Reports: no symptoms Genitourinary: Reports: no symptoms Neurologic: Reports: no symptoms Psychiatric: Reports: no symptoms Endocrine: Reports: no symptoms Hematologic: Reports: no symptoms Musculoskeletal: Reports: no symptoms Allergies: Coded Allergies: NO KNOWN DRUG ALLERGIES (Verified Allergy, Unknown, 07/10/17) Objective Vital Signs Last 24 Hour Vital Signs Date Time Temp Pulse Resp B/P (MAP) Pulse Ox O2 Delivery O2 Flow Rate FiO2 12/16/17 14:28 97.7 12/16/17 14:24 153/58 (89) 12/16/17 12:00 97.7 58 18 163/58 (93) 95 97.7 12/16/17 12:00 61 12/16/17 09:00 Room Air 12/16/17 08:39 163/59 12/16/17 08:00 58 12/16/17 08:00 97.3 57 18 163/59 (93) 94 97.3 12/16/17 04:00 57 12/16/17 04:00 98.3 61 17 139/54 (82) 94 98.3 12/16/17 00:00 98.1 55 16 115/50 (71) 92 98.1 12/16/17 00:00 58 12/15/17 21:00 Room Air 12/15/17 20:19 98.0 53 18 118/47 (70) 91 98.0 12/15/17 20:00 51 Height (Feet): 5 Height (Inches): 7.00 Weight (Pounds): 134 General Appearance: WD/WN, no acute distress HEENT: normocephalic, atraumatic, anicteric, mucous membranes moist, supple, no JVD Respiratory/Chest: chest wall non-tender, lungs clear, no respiratory distress , no accessory muscle use, decreased breath sounds Cardiovascular: normal peripheral pulses, normal rate, regular rhythm, no gallop/murmur, no JVD Abdomen: normal bowel sounds, soft, non tender, no organomegaly, non distended , no mass, no scars Genitourinary: normal external genitalia Extremities: no cyanosis, no clubbing Skin: no rash, no lesions, ulcers - sacral wound Neurologic/Psychiatric: alert, oriented x 3, responsive Lymphatic: no neck adenopathy, no groin adenopathy Microbiology Date/Time Source Procedure Growth Status 12/14/17 19:13 Nasal Nares MRSA Culture - Final NO METHICILLIN RESISTANT STAPH AUREUS... Complete 12/14/17 19:45 Sacral Wound Gram Stain - Final Resulted 12/14/17 19:45 Wound Culture - Preliminary Gram Negative Bacillus 1 Resulted Laboratory Tests Test 12/16/17 07:05 White Blood Count 8.5 K/UL (4.8-10.8) Red Blood Count 4.22 M/UL (4.20-5.40) Hemoglobin 11.2 G/DL (12.0-16.0) L Hematocrit 35.8 % (37.0-47.0) L Mean Corpuscular Volume 85 FL (80-99) Mean Corpuscular Hemoglobin 26.5 PG (27.0-31.0) L Mean Corpuscular Hemoglobin Concent 31.3 G/DL (32.0-36.0) L Red Cell Distribution Width 17.2 % (11.6-14.8) H Platelet Count 538 K/UL (150-450) H Mean Platelet Volume 5.5 FL (6.5-10.1) L Neutrophils (%) (Auto) 70.0 % (45.0-75.0) Lymphocytes (%) (Auto) 19.1 % (20.0-45.0) L Monocytes (%) (Auto) 7.8 % (1.0-10.0) Eosinophils (%) (Auto) 1.6 % (0.0-3.0) Basophils (%) (Auto) 1.5 % (0.0-2.0) Sodium Level 139 MMOL/L (136-145) Potassium Level 3.9 MMOL/L (3.5-5.1) Chloride Level 106 MMOL/L (98-107) Carbon Dioxide Level 31 MMOL/L (21-32) Anion Gap 2 mmol/L (5-15) L Blood Urea Nitrogen 20 mg/dL (7-18) H Creatinine 0.8 MG/DL (0.55-1.30) Estimat Glomerular Filtration Rate mL/min (>60) Glucose Level 117 MG/DL (74-106) H Calcium Level 8.0 MG/DL (8.5-10.1) L Total Bilirubin 0.4 MG/DL (0.2-1.0) Aspartate Amino Transf (AST/SGOT) 24 U/L (15-37) Alanine Aminotransferase (ALT/SGPT) 20 U/L (12-78) Alkaline Phosphatase 138 U/L (46-116) H Total Protein 5.6 G/DL (6.4-8.2) L Albumin 1.1 G/DL (3.4-5.0) L Globulin 4.5 g/dL Albumin/Globulin Ratio 0.2 (1.0-2.7) L Free Thyroxine 0.76 NG/DL (0.76-1.46) Hepatitis A IgM Antibody Pending Hepatitis B Surface Antigen Pending Hepatitis B Core IgM Antibody Pending Hepatitis C Antibody Pending Current Medications Medications (Trade) Dose Ordered Sig/Julius Route PRN Reason Start Time Stop Time Status Last Admin Dose Admin Acetaminophen (Tylenol) 650 mg Q4H PRN ORAL Mild Pain/Temp > 100.5 12/14/17 21:38 01/13/18 21:37 Acetaminophen/ Hydrocodone Bitart ([place] 5/325) 1 tab Q6H PRN ORAL Moderate to Severe pain (4-10) 12/14/17 21:39 12/21/17 21:38 12/16/17 13:56 Atorvastatin Calcium (Lipitor) 20 mg BEDTIME ORAL 12/15/17 21:00 01/14/18 20:59 12/15/17 21:40 Dextrose (Dextrose 50%) 25 ml STAT PRN IV Hypoglycemia 12/14/17 21:37 01/13/18 21:36 Dextrose (Dextrose 50%) 50 ml STAT PRN IV Hypoglycemia 12/14/17 21:37 01/13/18 21:36 Dextrose/Sodium Chloride 1,000 ml @ 100 mls/hr Q10H IV 12/14/17 22:15 01/13/18 22:14 12/16/17 04:21 Epoetin Jacques (Procrit (for non ESRD use)) 10,000 units FRI-WED-FRI SUBQ 12/15/17 21:00 01/14/18 20:59 12/15/17 21:41 Furosemide (Lasix) 20 mg DAILY IV 12/15/17 09:00 01/14/18 08:59 12/16/17 08:46 Insulin Aspart (NovoLOG) BEFORE MEALS AND HS SUBQ 12/14/17 22:00 01/13/18 21:59 12/15/17 21:54 Levothyroxine Sodium (Synthroid) 25 mcg DAILY@0630 ORAL 12/16/17 06:30 01/15/18 06:29 12/16/17 06:55 Lisinopril (Prinivil) 30 mg DAILY ORAL 12/15/17 09:00 01/14/18 08:59 Mirtazapine (Remeron) 15 mg BEDTIME ORAL 12/15/17 21:00 01/14/18 20:59 12/15/17 21:41 Ondansetron HCl (Zofran) 4 mg Q6H PRN IVP Nausea & Vomiting 12/14/17 21:38 01/13/18 21:37 Pantoprazole (Protonix) 40 mg DAILY IVP 12/15/17 09:00 01/14/18 08:59 12/16/17 08:46 Estefani Bruce M.D. Dec 16, 2017 16:35
[2017-12-16] MEDS: Atorvastatin 20mg tab ORAL SCH (20:38)
--- NOTE | 2017-12-16 22:18 | Pulmonology Progress Note ---
Assessment/Plan Problems: (1) DVT of lower extremity (deep venous thrombosis) (2) Gastric bleeding (3) Sacral ulcer (4) Diabetes mellitus out of control (5) Anxiety disorder Assessment/Plan ASSESSMENT: The patient is an 87-year-old female, senior living resident with history of hypertension, hyperlipidemia, hypothyroidism, diabetes, sacral decubitus ulcers, prior DVT, status post IVC filter, now presenting with bright red blood per rectum. The patient has been fairly stable from a respiratory standpoint. PROBLEM LIST: 1. Bright red blood per rectum. 2. DVT, status post IVC filter. 3. Aortic stenosis. 4. Hypertension. 5. Hyperlipidemia. 6. Hypothyroidism, now with markedly elevated TSH. 7. Diabetes. 8. Sacral decubitus ulcer. TREATMENT PLAN: 1. Monitor hemoglobin and hematocrit, transfuse as necessary, follow up GI recommendations: F/U FOBT, no plan for endoscopy 2. Continue Epogen, follow up Hematology recommendations. 3. Anticoagulation held, given history of GI bleed, the patient is status post IVC filter per report. 4. Monitor volumes, p.r.n. Lasix. 5. F/U chest x-ray. 6. Aspiration precautions. 7. Wound care, observe off antibiotics per ID. 8. Try to optimize glycemic control. Subjective Allergies: Coded Allergies: NO KNOWN DRUG ALLERGIES (Verified Allergy, Unknown, 07/10/17) Subjective Seen this am/late entry AFVSS, stable on RA Normal BM, no bleeding, FOBT pending GI and heme evals pending Objective Last 24 Hour Vital Signs Date Time Temp Pulse Resp B/P (MAP) Pulse Ox O2 Delivery O2 Flow Rate FiO2 12/16/17 21:00 Room Air 12/16/17 20:00 98.2 76 20 156/76 (102) 96 98.2 12/16/17 16:00 81 12/16/17 16:00 98.6 89 18 150/82 (104) 94 98.6 12/16/17 14:28 97.7 12/16/17 14:24 153/58 (89) 12/16/17 12:00 97.7 58 18 163/58 (93) 95 97.7 12/16/17 12:00 61 12/16/17 09:00 Room Air 12/16/17 08:39 163/59 12/16/17 08:00 58 12/16/17 08:00 97.3 57 18 163/59 (93) 94 97.3 12/16/17 04:00 57 12/16/17 04:00 98.3 61 17 139/54 (82) 94 98.3 12/16/17 00:00 98.1 55 16 115/50 (71) 92 98.1 12/16/17 00:00 58 Intake and Output 12/15/17 12/16/17 19:00 07:00 Intake Total 200 ml 100 ml Output Total 400 ml 300 ml Balance -200 ml -200 ml IV Total 200 ml 100 ml Output Urine Total 400 ml 300 ml # Voids 1 General Appearance: WD/WN, no acute distress HEENT: normocephalic, atraumatic, anicteric, mucous membranes moist Respiratory/Chest: chest wall non-tender, lungs clear, normal breath sounds, no respiratory distress, no accessory muscle use Cardiovascular: normal peripheral pulses, normal rate, regular rhythm Abdomen: normal bowel sounds, soft, non tender, no organomegaly, non distended Extremities: no cyanosis, no clubbing, no edema Microbiology Date/Time Source Procedure Growth Status 12/14/17 19:13 Nasal Nares MRSA Culture - Final NO METHICILLIN RESISTANT STAPH AUREUS... Complete 12/14/17 19:45 Sacral Wound Gram Stain - Final Resulted 12/14/17 19:45 Wound Culture - Preliminary Gram Negative Bacillus 1 Resulted Laboratory Tests 12/16/17 07:05: White Blood Count 8.5, Red Blood Count 4.22, Hemoglobin 11.2L, Hematocrit 35.8L , Mean Corpuscular Volume 85, Mean Corpuscular Hemoglobin 26.5L, Mean Corpuscular Hemoglobin Concent 31.3L, Red Cell Distribution Width 17.2H, Platelet Count 538H, Mean Platelet Volume 5.5L, Neutrophils (%) (Auto) 70.0, Lymphocytes (%) (Auto) 19.1L, Monocytes (%) (Auto) 7.8, Eosinophils (%) (Auto) 1.6, Basophils (%) (Auto) 1.5, Sodium Level 139, Potassium Level 3.9, Chloride Level 106, Carbon Dioxide Level 31, Anion Gap 2L, Blood Urea Nitrogen 20H, Creatinine 0.8, Estimat Glomerular Filtration Rate , Glucose Level 117H, Calcium Level 8.0L, Total Bilirubin 0.4, Aspartate Amino Transf (AST/SGOT) 24, Alanine Aminotransferase (ALT/SGPT) 20, Alkaline Phosphatase 138H, Total Protein 5.6L, Albumin 1.1L, Globulin 4.5, Albumin/Globulin Ratio 0.2L, Free Thyroxine 0.76, Hepatitis A IgM Antibody [Pending], Hepatitis B Surface Antigen [Pending], Hepatitis B Core IgM Antibody [Pending], Hepatitis C Antibody [ Pending] 12/16/17 16:30: Stool Occult Blood [Pending] Tom Sousa MD Dec 16, 2017 22:18
--- NOTE | 2017-12-16 23:59 | Cardiology Progress Note ---
Assessment/Plan Assessment/Plan 1. Sinus bradycardia, resolved, ? vasovagal reaction due to GI bleed, no need for any cardiac pacemaker. Avoid B-blockers for now. 2. Moderate aortic stenosis, no treatment required at this time. Consider dihydropyridine calcium channel blockers. 3. Mild pulmonary HTN 4. Normal LV systolic function with LVEF at 65%. Subjective Subjective Sinus rhythm at 89. Denies chest pain or SOB. Objective Last 24 Hour Vital Signs Date Time Temp Pulse Resp B/P (MAP) Pulse Ox O2 Delivery O2 Flow Rate FiO2 12/16/17 21:00 Room Air 12/16/17 20:00 98.2 76 20 156/76 (102) 96 98.2 12/16/17 16:00 81 12/16/17 16:00 98.6 89 18 150/82 (104) 94 98.6 12/16/17 14:28 97.7 12/16/17 14:24 153/58 (89) 12/16/17 12:00 97.7 58 18 163/58 (93) 95 97.7 12/16/17 12:00 61 12/16/17 09:00 Room Air 12/16/17 08:39 163/59 12/16/17 08:00 58 12/16/17 08:00 97.3 57 18 163/59 (93) 94 97.3 12/16/17 04:00 57 12/16/17 04:00 98.3 61 17 139/54 (82) 94 98.3 12/16/17 00:00 98.1 55 16 115/50 (71) 92 98.1 12/16/17 00:00 58 Intake and Output 12/15/17 12/16/17 19:00 07:00 Intake Total 200 ml 100 ml Output Total 400 ml 300 ml Balance -200 ml -200 ml IV Total 200 ml 100 ml Output Urine Total 400 ml 300 ml # Voids 1 2D Echo: LVEF 65%, LAE, YUMIKO 1.4 cm2, RVSP 40 mmHg, Grade I LVDD, LVH, Bria[facility] Laboratory Tests Test 12/16/17 07:05 12/16/17 16:30 White Blood Count 8.5 K/UL (4.8-10.8) Red Blood Count 4.22 M/UL (4.20-5.40) Hemoglobin 11.2 G/DL (12.0-16.0) L Hematocrit 35.8 % (37.0-47.0) L Mean Corpuscular Volume 85 FL (80-99) Mean Corpuscular Hemoglobin 26.5 PG (27.0-31.0) L Mean Corpuscular Hemoglobin Concent 31.3 G/DL (32.0-36.0) L Red Cell Distribution Width 17.2 % (11.6-14.8) H Platelet Count 538 K/UL (150-450) H Mean Platelet Volume 5.5 FL (6.5-10.1) L Neutrophils (%) (Auto) 70.0 % (45.0-75.0) Lymphocytes (%) (Auto) 19.1 % (20.0-45.0) L Monocytes (%) (Auto) 7.8 % (1.0-10.0) Eosinophils (%) (Auto) 1.6 % (0.0-3.0) Basophils (%) (Auto) 1.5 % (0.0-2.0) Sodium Level 139 MMOL/L (136-145) Potassium Level 3.9 MMOL/L (3.5-5.1) Chloride Level 106 MMOL/L (98-107) Carbon Dioxide Level 31 MMOL/L (21-32) Anion Gap 2 mmol/L (5-15) L Blood Urea Nitrogen 20 mg/dL (7-18) H Creatinine 0.8 MG/DL (0.55-1.30) Estimat Glomerular Filtration Rate mL/min (>60) Glucose Level 117 MG/DL (74-106) H Calcium Level 8.0 MG/DL (8.5-10.1) L Total Bilirubin 0.4 MG/DL (0.2-1.0) Aspartate Amino Transf (AST/SGOT) 24 U/L (15-37) Alanine Aminotransferase (ALT/SGPT) 20 U/L (12-78) Alkaline Phosphatase 138 U/L (46-116) H Total Protein 5.6 G/DL (6.4-8.2) L Albumin 1.1 G/DL (3.4-5.0) L Globulin 4.5 g/dL Albumin/Globulin Ratio 0.2 (1.0-2.7) L Free Thyroxine 0.76 NG/DL (0.76-1.46) Hepatitis A IgM Antibody Pending Hepatitis B Surface Antigen Pending Hepatitis B Core IgM Antibody Pending Hepatitis C Antibody Pending Stool Occult Blood Pending Microbiology Date/Time Source Procedure Growth Status 12/14/17 19:13 Nasal Nares MRSA Culture - Final NO METHICILLIN RESISTANT STAPH AUREUS... Complete 12/14/17 19:45 Sacral Wound Gram Stain - Final Resulted 12/14/17 19:45 Wound Culture - Preliminary Gram Negative Bacillus 1 Resulted Objective HEENT: Normocephalic and atraumatic. PERRLA, EOMI. Moist mucous membranes. Pale conjunctivae are noted. NECK: Negative JVD, no carotid bruit CHEST: Clear. HEART: Normal S1S2, RRR, Bradycardic, 2/6 ESM at LSB ABDOMEN: Soft, nontender, and nondistended, + BS EXTREMITIES: No cyanosis, clubbing, or edema. SKIN: Sacral ulcer. José Manuel Degroot MD Dec 16, 2017 23:59
--- NOTE | 2017-12-17 04:30 | Consultation ---
DATE OF CONSULTATION: 12/15/2017 NOTE: POOR AUDIO CARDIOLOGY CONSULTATION CONSULTING PHYSICIAN: José Manuel Degroot M.D. REFERRING PHYSICIAN: Erin Pimentel M.D. REASON FOR CONSULTATION: Management of bradycardia. HISTORY OF PRESENT ILLNESS: The patient is a very unfortunate 87-year-old female, who was brought in by EMS after she was found to have evidence of GI bleed and generalized weakness. She denies any use of blood thinners. At the time of arrival to the emergency department, the initial blood pressure was 141/54 and heart rate was 48. She was admitted to telemetry unit for further evaluation and management of GI bleed. troponin I was 0.022, within normal limits. PAST MEDICAL HISTORY: 1. Hypertension. 2. Type 2 diabetes mellitus. 3. Gastroesophageal reflux disease. PAST SURGICAL HISTORY: None. MEDICATIONS: Acetaminophen 650 mg q.6 h. p.r.n. headache and temperature above 101 degrees, vitamin C 500 mg daily, mg at bedtime, as needed for constipation, calcium carbonate and vitamin D one tablet daily, 1 tablet 40,000 units subcutaneous once a week, ferrous sulfate 325 mg q.6 h. p.r.n. pain., NovoLog FlexPen 5 units subcutaneous before meals, Levemir FlexPen for subcutaneous twice daily, acidophilus 1 tablet daily , lisinopril 20 mg daily, p.o. daily, metoprolol 50 mg q.12 h., multivitamin one tablet daily, Fleet enema 133 mL per rectum, Protonix 40 mg p.o. daily, and Xarelto 2.5 mg q.12 h. ALLERGIES: No known drug allergies. FAMILY HISTORY: No premature coronary artery disease in first-degree relatives. REVIEW OF SYSTEMS: HEENT: Denies any headache, diplopia, or blurred vision. CONSTITUTIONAL: Complains of generalized weakness, but no fever, chills, or night sweats. CARDIOVASCULAR: Denies any chest pain, shortness breath, PND, orthopnea, or leg swelling. PULMONARY: Denies any cough or hemoptysis. GASTROINTESTINAL: . Denied any abdominal pain. Denies any nausea, vomiting, diarrhea, or constipation. GENITOURINARY: Denies any hematuria, dysuria, or incontinence. NEUROLOGY: Denies any motor dysfunction, sensory deficit, or altered speech. PHYSICAL EXAMINATION: GENERAL: The patient is a very unfortunate 87-year-old female, chronically ill, no apparent respiratory distress. VITAL SIGNS: Blood pressure was 141/54, respiratory rate 18, pulse of 48, temperature 98.2 degrees Fahrenheit, and O2 saturation 94% on room air. HEENT: Atraumatic and normocephalic. Anicteric. Conjunctival pallor. NECK: JVP less than 5 cm. No carotid bruit. Carotid upstrokes 2+ bilaterally. CARDIOVASCULAR: Normal S1 and S2. Regular rate and rhythm. Bradycardic. No murmurs, gallops, or rubs. LUNGS: Clear to auscultation bilaterally. ABDOMEN: Soft, nontender, and nondistended. No hepatosplenomegaly. Positive bowel sounds. EXTREMITIES: No evidence of edema, clubbing, or cyanosis. LABORATORY AND DIAGNOSTIC DATA: Chest x-ray showed bilateral pleural effusion, right greater than left. Basilar atelectasis, consolidation suprahilar opacity, questionable pneumonia. A 2D echocardiography shows normal LV systolic function with LVEF of about 65%, mild LVH, small pericardial effusion, mild left atrial enlargement, and aortic valve area of 1.4 cm2 consistent with moderate aortic stenosis, mild mitral regurgitation, grade 1 LV diastolic dysfunction, mild tricuspid regurgitation with left ventricular systolic pressure measured at 40 mmHg consistent with mild pulmonary hypertension. ASSESSMENT AND PLAN: The patient is a very unfortunate 87-year-old lady who was seen in Cardiology consultation. 1. Sinus bradycardia, this could be secondary to vasovagal reaction associated with GI bleed secondary to metoprolol that the patient was taking in the outpatient setting. We will place a hold on beta-blockers at this time. We will continue monitoring the patient's vital signs. 2. History of DVT, on Xarelto. 3. GI bleed. 4. Mild pulmonary hypertension and moderate aortic stenosis with aortic valve area measured at 1.4 cm2. 5. . 6. Normal LV systolic function with LVEF measured at 65%. I would like to thank, Dr. Pimentel, for allowing me to participate in the care of this patient. José Manuel Degroot M.D. DR: SHANTE JOB#: [id number] CC:
--- NOTE | 2017-12-18 07:43 | Discharge Summary ---
Discharge Summary Discharge Summary _ DATE OF ADMISSION: 12/14/2017 DATE OF DISCHARGE: 12/16 REASON FOR ADMISSION: 87 years old female with past medical history significant for hypertension, diabetes with multiple episodes of hypoglycemia, GERD, DVT, status post IVC filter, was brought to emergency department with bloody stools. Patient was not on any on anticoagulation therapy. Upon evaluation in emergency department patient was afebrile , vital signs were stable. Laboratory workup revealed no leukocytosis hemoglobin 9.9 hematocrit 29.3. Stable electrolytes and renal parameters. Glucose 165. Urinalysis +2 glucose, no evidence of UTI. Patient admitted with diagnoses of lower GI bleeding ,acute anemia ,history of DVT, diabetes mellitus CONSULTANTS: security architect Dr. Degroot pulmonary Dr. Sousa ID specialist after Dr. Bruce GI specialist Dr. Helm machine lead burner/oncologist Dr. Wiseman plastic surgery Dr. Connell psychiatrist [facility]: Patient admitted. Patient initially kept nothing by mouth and started on the IV hydration and GI prophylaxis with IV Protonix. Hemoglobin and hematocrit were closely monitored with goal to keep hemoglobin above 7. Stool for occult blood was positive. Anemia workup was consistent with anemia of chronic disease.. Table Games Dealer closely followed. Per machine lead burner , patient had anemia of chronic disease and anemia due to GI bleeding. Epogen was continued. GI specialist closely followed. Patient had a recent colonoscopy a year ago. No further active bleeding. Patient initially have diarrhea which subsequently resolved. Per GI specialist , defer GI procedure at this time ,given stable hemoglobin and hematocrit and no recurrent bleeding. Prior to discharge hemoglobin 11.2 and hematocrit 35.8. Patient was on PPI for GI prophylaxis. No bowel regimen was instituted given recent diarrhea. Diarrhea was possibly due to episode of gastroenteritis. GI specialist recommended outpatient capsule endoscopy to further evaluate for anemia. Diet was started and slowly advanced as tolerated. Patient was able to tolerate diet. Aspiration precautions maintained. No anticoagulation given history of GI bleeding. Patient already had IVC filter placed on 10/21/2017. Echocardiogram revealed preserved ejection fraction of 65% and right ventricular systolic pressure of 40 consistent with mild pulmonary hypertension. It also demonstrated moderate aortic stenosis. Windmill Mechanic closely followed. Patient demonstrated on telemetry sinus bradycardia, which subsequently resolved , probably vasovagal reaction due to GI bleeding. No need for pacemaker. However security architect recommended to avoid beta blockers for now. No treatment was required for moderate aortic stenosis as per security architect. Blood pressure was managed with MAICOL inhibitor and remained stable Statin was continued. Noted elevated TSH. Patient started on low dose of levothyroxine. Plastic surgeon was consulted for sacral decubitus stage IV , present on admission. According to surgeon, patient had a difficulty with healing ulcer, given low albumin and advanced age. No clinical indication of infection. Wound care provided as per plastic surgeon recommendations with hydrogel. Offloading was continued and wound moisture was controlled. Surgeon concluded that no acute surgical intervention was necessary at this time. ID specialist closely followed. Patient with history off sacral osteomyelitis. At this time on no evidence of infection. ID specialist recommended to keep patient off antibiotics. Fiction And Nonfiction Prose Writer followed. CXR revealed bilateral pleural effusions, right greater than left, with bibasilar atelectasis. No clinical evidence of pneumonia. Supplemental oxygen and pulmonary toilet were on board as needed. Pulse oximetry was stable on room air. Aspirations precautions maintained. Volumes were closely monitored, spot diuresis provided , with close monitoring of cardiorenal parameters. Per hydrogen power plant manager recommendations, follow up with CXR as outpatient Hepatitis panel was negative. HIV test was negative. Blood sugar was managed with only sliding scale insulin as needed. Hemoglobin A1c 7.8 not at goal. However blood sugar stabilized in the hospital. Patient will need close monitoring and management of blood sugar as outpatient . Supportive care provided Psychiatry seen and evaluated patient , and diagnosed patient with anxiety disorder and insomnia. Patient started on Remeron. Reality orientation and supportive therapy provided. Patient clinically stabilized: no further bleeding ,stable hemoglobin and hematocrit ,tolerated diet, no diarrhea. Patient was stable for transfer back to [facility] facility for continuation of care FINAL DIAGNOSES: Acute episode of low GI bleeding/rectal Acute anemia (due to GI bleeding) Episode of gastroenteritis History of DVT , ,status post IVC filter Diabetes mellitus with frequent episodes of hypoglycemia, out of control- stabilized Sacral decubitus stage IV ,present on admission Moderate aortic stenosis Hypertension Pulmonary l hypertension Hyperlipidemia Hypothyroidism with elevated TSH History of sacral osteomyelitis Anxiety disorder DISCHARGE MEDICATIONS: See Medication Reconciliation list. DISCHARGE INSTRUCTIONS: Patient was discharged to the [facility] facility. Follow up with medical doctor at the facility. I have been assigned to dictate discharge summary for this account. I was not involved in the patient's management. Catherine Ross NP Dec 18, 2017 07:43
== END 2017-12-16 22:02 | DRG 377 ==
LOC: EDBD 17:16 → EMR 18:05 → 2E 18:16 → EDBEDREQ 18:40
DX: K92.2 Gastrointestinal hemorrhage, unspecified (principal); L89.154 Pressure ulcer of sacral region, stage 4; I82.409 Acute embolism and thrombosis of unspecified deep veins of unspecified lower extremity; M46.28 Osteomyelitis of vertebra, sacral and sacrococcygeal region; D62 Acute posthemorrhagic anemia; E11.649 Type 2 diabetes mellitus with hypoglycemia without coma; I10 Essential (primary) hypertension; K21.9 Gastro-esophageal reflux disease without esophagitis; K52.9 Noninfective gastroenteritis and colitis, unspecified; I35.0 Nonrheumatic aortic (valve) stenosis; I27.20 Pulmonary hypertension, unspecified; E78.5 Hyperlipidemia, unspecified; E03.9 Hypothyroidism, unspecified; F41.9 Anxiety disorder, unspecified; G47.00 Insomnia, unspecified; R00.1 Bradycardia, unspecified; Z79.01 Long term (current) use of anticoagulants
CPT/HCPCS: 36415; 71045; 80053; 80061; 82270; 82607; 82728; 82962; 83010; 83036; 83090; 83540; 83550; 83690; 83921; 84439; 84443; 84484; 85007; 85025; 85044; 85060; 85610; 85651; 85730; 86703; 86705; 86709; 86803; 86850; 86900; 86901; 87070; 87081; 87181; 87205; 87340; 93005; 93306; 96374; 96375; 99285; J1815; J2405; J8499